=== PATIENT | female | born 1955 | race Two or more races ===

== ENCOUNTER → 2020-05-12 08:54 | Outpatient (BNVA) | payer MEDICARE, MEDICAID, OTHER, SELFPAY | PROVIDERS: PCP Internal Medicine; Referring Provider Internal Medicine; Visit Provider Nurse Practitioner | DX: K21.9 Gastro-esophageal reflux disease without esophagitis (principal); K59.01 Slow transit constipation; K64.9 Unspecified hemorrhoids; Z79.899 Other long term (current) drug therapy; Z87.19 Personal history of other diseases of the digestive system | CPT/HCPCS: 99212 ==

== ENCOUNTER 2020-06-30 11:25 | Outpatient (REF) | payer MEDICARE, MEDICAID, SELFPAY | END 2020-06-30 11:26 | disposition home or self-care (01) | LOC: HO.LAB 11:25 | PROVIDERS: PCP Internal Medicine; Visit Provider Internal Medicine | DX: Z20.828 Contact with and (suspected) exposure to other viral communicable diseases (principal) | CPT/HCPCS: C9803; U0003 ==

== ENCOUNTER 2020-09-17 12:16 | Outpatient (REF) | payer MEDICARE, MEDICAID, SELFPAY | END 2020-09-17 12:17 | disposition home or self-care (01) | LOC: HO.LAB 12:16 | PROVIDERS: PCP Internal Medicine; Visit Provider Internal Medicine | DX: Z20.822 Contact with and (suspected) exposure to COVID-19 (principal) | CPT/HCPCS: 36415; C9803; U0003; U0005 ==

== ENCOUNTER 2020-10-08 07:58 | Outpatient (REF) | payer MEDICARE, MEDICAID, SELFPAY ==
--- NOTE | ~2020-10-08 | XR_ITS ---
EXAMINATION: XR HUMERUS, LEFT CLINICAL INFORMATION: Pain in the arm COMPARISON: None TECHNIQUE: AP and lateral views of the left humerus. FINDINGS: There is no fracture or cortical disruption. Alignment is maintained at the shoulder and elbow. The soft tissues are unremarkable. XR/XR humerus LT IMPRESSION: Normal left humerus.
--- NOTE | ~2020-10-08 | XR_ITS ---
EXAMINATION: XR LUMBOSACRAL SPINE CLINICAL INFORMATION: Lower back pain COMPARISON: 01/19/2017 TECHNIQUE: Three views of the lumbosacral spine. FINDINGS: Multiple radiopaque densities are seen overlying the abdomen/pelvis. This is not seen on the 2017 study and may be external to the patient. There is no fracture or subluxation. Vertebral body height and alignment is maintained. Disc spaces are maintained. The sacroiliac joints are symmetric. The sacrum appears intact. The bowel gas pattern is nonobstructive with mild to moderate colonic stool burden noted. XR/XR lumbar spine 2-3V IMPRESSION: No significant abnormality of the lumbar spine. Nonspecific radiopaque densities overlie the abdomen and pelvis.
--- NOTE | ~2020-10-08 | XR_ITS ---
EXAMINATION: XR knee RT 3V CLINICAL INFORMATION: Reason for Exam M25.561 - Pain in right knee COMPARISON: 2019 TECHNIQUE: frontal, lateral, tunnel and patella sunrise views FINDINGS: BONES: No fracture or dislocation is present. JOINTS: Narrowing of joint spaces and developed osteophytes from the edges of articular surfaces suggest degenerative osteoarthritis. Intra-articular calcifications in concern for possible calcium prior phosphate deposition disease. SOFT TISSUE: Normal XR/XR knee RT 3V IMPRESSION: Mild degenerative osteoarthritis Intra-articular calcification suggesting chondrocalcinosis raises concern for possible CPPD
[2020-10-08 09:47] LABS: Glucose Urine UA NEG (NEG); Leukocyte Esterase Urine 2+ (NEG); Nitrite Urine NEG (NEG); PH 5.5 (5.0-8.0); Specific Gravity - Urine >= 1.030 (1.005-1.025); UACC Culture Trigger YES; Urine Blood TRACE (NEG); Urine Ketones NEG (NEG); Urine Protein NEG (NEG-TRACE)
[2020-10-08 10:04] LABS: Appearance Urine HAZY; Color Urine YELLOW
[2020-10-08 10:07] LABS: Bacteria Urine 1+ /LPF; Mucus Urine 1+ /LPF; RBC Urine 0 /HPF (0); Squamous Epithelial Cell Urine 2+ /LPF
[2020-10-08 10:12] LABS: Alanine Aminotransferase 16 U/L (0-31); Albumin Level 4.2 g/dL (3.5-5.0); Alkaline Phosphatase 62 U/L (39-117); Anion Gap 10 (12-20); Aspartate Amino Transferase 16 U/L (5-31); Bilirubin Total 0.3 mg/dL (0.0-1.0); Blood Urea Nitrogen 14 mg/dL (9-16); Calcium 9.9 mg/dL (8.4-10.2); Carbon Dioxide 31 mmol/L (22-29); Chloride 105 mmol/L (96-108); Cholesterol 156 mg/dL; Estimated Glomerular Filt Rate > 60; Glucose Fasting 90 mg/dL (60-99); HDL Cholesterol 38 mg/dL; LDL Cholesterol Calculated 79 mg/dl; Potassium 4.5 mmol/L (3.3-5.1); Sodium 141 mmol/L (135-145); Total Protein 7.6 g/dL (6.5-8.0); Triglycerides 195 mg/dL
[2020-10-08 10:24] LABS: TSH reflex Free T4 2.77 uIU/mL (0.32-4.0)
[2020-10-11 13:12] LABS: Vitamin D 25-OH, D2 <4 ng/mL; Vitamin D 25-OH, D3 47 ng/mL; Vitamin D 25-OH, Total 47 ng/mL (30-100)
== END 2020-10-08 07:59 | disposition home or self-care (01) ==
LOC: HO.LAB 07:58
PROVIDERS: PCP Internal Medicine; Visit Provider Internal Medicine
DX: M79.602 Pain in left arm (principal); M54.5 Low back pain; M25.561 Pain in right knee; I10 Essential (primary) hypertension; E78.5 Hyperlipidemia, unspecified; E03.9 Hypothyroidism, unspecified; R30.0 Dysuria; E55.9 Vitamin D deficiency, unspecified
CPT/HCPCS: 36415; 72100; 73060; 73562; 80053; 80061; 81001; 81003; 82306; 84443; 87086

== ENCOUNTER → 2020-11-10 08:59 | Outpatient (BNVA) | payer MEDICARE, MEDICAID, SELFPAY | PROVIDERS: PCP Internal Medicine; Visit Provider Nurse Practitioner | DX: Z13.89 Encounter for screening for other disorder (principal) | CPT/HCPCS: Q3014 ==

== ENCOUNTER 2020-12-21 19:04 | Emergency (ER) | payer MEDICARE, OTHER, SELFPAY ==
--- NOTE | ~2020-12-21 | XR_ITS ---
EXAMINATION: XR FOOT, LEFT XR ANKLE, LEFT CLINICAL INFORMATION: Pain and swelling status post fall. COMPARISON: 11/29/2017 TECHNIQUE: 3 views of the left foot. 2 additional views of the left ankle. FINDINGS: Left foot: No fracture or dislocation. Alignment is anatomic. Joint spaces are maintained. The soft tissues are unremarkable. Left ankle: No fracture or dislocation. Ankle mortise is congruent. Degenerative changes of the talar dome with cystic change and sclerosis. No ankle joint effusion. XR/XR ankle LT min 3V IMPRESSION: No acute osseous abnormality. Degenerative changes at the talar dome.
--- NOTE | ~2020-12-21 | XR_ITS ---
EXAMINATION: XR FOOT, LEFT XR ANKLE, LEFT CLINICAL INFORMATION: Pain and swelling status post fall. COMPARISON: 11/29/2017 TECHNIQUE: 3 views of the left foot. 2 additional views of the left ankle. FINDINGS: Left foot: No fracture or dislocation. Alignment is anatomic. Joint spaces are maintained. The soft tissues are unremarkable. Left ankle: No fracture or dislocation. Ankle mortise is congruent. Degenerative changes of the talar dome with cystic change and sclerosis. No ankle joint effusion. XR/XR foot LT min 3V IMPRESSION: No acute osseous abnormality. Degenerative changes at the talar dome.
[2020-12-21 19:11] VITALS: BP 167/82; PULSE 71; RESP 18; TEMP 36.5; O2SAT 98; BMI 23.9
[2020-12-21 21:32] VITALS: BP 161/77; PULSE 64; RESP 16; O2SAT 98
--- NOTE | 2020-12-21 21:33 | ED.LOWEXIN ---
HPI - Extremity Injury (Lower) General Chief Complaint: Extremity Injury, Lower Stated Complaint: Fall Time Seen by Provider: 12/21/20 21:31 Source: patient Mode of arrival: ambulatory Limitations: no limitations History of Present Illness HPI Narrative: Trip and fall twisting left ankle on rug at home. Occurred prior to arrival. No other injury. MD complaint: ankle injury Onset (ago): minute(s) Injury: Left: ankle Place: home Severity: moderate Relieving factors: cold therapy and immobilization Exacerbating factors: weight bearing, movement and palpation Context: fall Associated symptoms: swelling Other symptoms: none Related Data Home Medications Medication Instructions Recorded Confirmed cyclobenzaprine 10 mg tablet 10 mg PO TID PRN 04/21/20 12/17/20 meclizine 25 mg tablet 25 mg PO TID PRN 04/21/20 12/17/20 naproxen 500 mg tablet 500 mg PO BID 08/25/20 12/17/20 Previous Rx's Medication Instructions Recorded loratadine 10 mg tablet 10 mg PO DAILY 30 Days #30 tab 04/21/20 calcium carbonate 600 mg calcium 600 mg PO BID #60 tab 05/04/20 (1,500 mg) tablet docusate sodium 100 mg capsule 100 mg PO BID 30 Days #60 cap 05/12/20 hydrocortisone 2.5 % topical cream 1 applic AL BID PRN #30 g 05/12/20 with perineal applicator levothyroxine 50 mcg tablet 50 mcg PO QAM 90 Days #90 tab 08/27/20 lisinopril 20 mg tablet 20 mg PO DAILY #90 tab 10/14/20 cholecalciferol (vitamin D3) 25 25 mcg PO DAILY 30 Days #30 tab 11/06/20 mcg (1,000 unit) tablet methylcellulose (laxative) 500 mg 1,000 mg PO DAILY 30 Days #60 tab 11/10/20 tablet cimetidine 300 mg tablet 300 mg PO DAILY #30 tab 12/02/20 lubiprostone 24 mcg capsule 24 mcg PO BID #60 cap 12/02/20 ibuprofen 800 mg PO Q8H PRN #20 tab 12/21/20 Allergies Allergy/AdvReac Type Severity Reaction Status Date / Time amlodipine Allergy Mild leg edema Verified 12/17/20 10:40 aspirin [Aspirin] Allergy Mild ULCER HX, Verified 12/17/20 10:40 abdominal pain latex [Latex] Allergy Mild RASH Verified 12/17/20 10:40 metronidazole [Flagyl] Allergy Mild rash Verified 12/17/20 10:40 Review of Systems Review of Systems: Constitutional: No Weight loss, No Fever, No Chills, No Night Sweats, No Fatigue, No Malaise ENT/Mouth: No Hearing loss, No Ear Pain, No Nasal Congestion, No Sinus Pain, No Hoarseness, No sore throat, No Rhinorrhea, No Swallowing Difficulty Eyes: No Eye Pain, No Swelling, No Redness, No Foreign Body, No Discharge, No Vision Changes Cardiovascular: No Chest Pain, No SOB, No Dyspnea on Exertion, No Orthopnea, No Edema, No Palpitations Respiratory: No Cough, No Sputum, No Wheezing, No Smoke Exposure, No Dyspnea Musculoskeletal: No joint pain, No Myalgias, left ankle pain/swelling as noted per HPI Skin: No Skin Lesions, No rash Neuro: No Weakness, No Numbness, No Paresthesias, No Loss of Consciousness, No Dizziness, No Headache Psych: No Social Issues Heme/Lymph: No Bruising, No Bleeding,No Lymphadenopathy Endocrine: No Polyuria, No Polydipsia, No Temperature Intolerance Yes all other systems are reviewed and are negative PMFSH Past Medical History Medical History Allergic rhinitis Constipation by delayed colonic transit Essential hypertension GERD (gastroesophageal reflux disease) Hypothyroidism Hypovitaminosis D Low back pain Mild depression Neck pain Osteoarthritis of right knee Osteopenia Right knee pain Right shoulder pain TMJ (temporomandibular joint syndrome) Vertigo Surgical History History of prolapse of bladder History of tubal ligation Hx of colonoscopy Hx of cone biopsy of cervix Family History Family History Father Liver problem CVD (cardiovascular disease) Mother Diabetes Stroke Alzheimer disease Chronic mental illness Maternal Grandmother Cancer Uterine cancer Paternal Uncle Diabetes Brother Cancer Family/Other Chronic mental illness Daughter No problems noted. Daughter No problems noted. Social History Social History Housing: Homeless Alcohol intake: current Alcohol intake frequency: does not drink Patient Tobacco Use Status: Never used Tobacco e-Cigarette/Vaping Use: Never Used Second Hand Smoke Exposure: No Advance Directives: No Advance Directives Information Provided: Yes service: No Current occupational status: unemployed Physical Exam Vital Signs: Vital Signs: Last Vital Signs Temp 97.7 F 12/21/20 19:11 Pulse 64 12/21/20 21:32 Resp 16 12/21/20 21:32 BP 161/77 H 12/21/20 21:32 Pulse Ox 98 12/21/20 21:32 Body Mass Index 23.9 Review Const: General: cooperative and healthy appearing; No acute distress or intoxicated appearing Nutritional Appearance: average body habitus Orientation/consciousness: patient oriented x3 Neck: Neck: Yes normal visual inspection, No positive Brudzinski's sign, No positive Kernig's sign and No tender Thyroid: Thyroid normal Chest: Chest palpation & inspection: normal inspection of the chest Resp: Effort & Inspection: normal respiratory effort : General: Yes no CVA tenderness Back/Spine/Pelvis: Back: no CVA tenderness Skin: General skin exam: no rashes or lesions noted Neuro: General: patient oriented x3 Extrem: General: Yes normal to inspection Left lower extremity: ankle Details: swelling Details: laterally Course Course Course Narrative: A strep and crutches provided. X-ray of the foot and ankle unremarkable. Exam and findings consistent with strain type injury. Home care, return, follow-up instructions put appears stable for discharge. MDM - Extremity Injury (Lower) Differential Diagnosis Differential diagnosis: Likely ankle sprain and strain; Unlikely ankle fracture Medical Records Attestation: I reviewed the patient's medical records. Lab Data Attestation: I reviewed the patient's lab results. Imaging Data Left ankle/foot x-ray: Radiologist's impression: [address] [id number] ReportSigned Patient: Lalito Kennedy#: [id number]: 1955cct:[id number]/Sex: 65 / FADM Date: 12/21/20Loc: EDAttending Dr: Ordering Physician: Generic ED Physician Date of Service: 12/21/20 Procedure(s): XR ankle LT min 3V Accession Number(s): [id number] cc: Generic ED Physician~ EXAMINATION: XR FOOT, LEFT XR ANKLE, LEFT CLINICAL INFORMATION: Pain and swelling status post fall. COMPARISON: 11/29/2017 TECHNIQUE: 3 views of the left foot. 2 additional views of the left ankle. FINDINGS: Left foot: No fracture or dislocation. Alignment is anatomic. Joint spaces are maintained. The soft tissues are unremarkable. Left ankle: No fracture or dislocation. Ankle mortise is congruent. Degenerative changes of the talar dome with cystic change and sclerosis. No ankle joint effusion. XR/XR ankle LT min 3V IMPRESSION: No acute osseous abnormality. Degenerative changes at the talar dome. Dictated By:Herberth Gresham MDSigned By:<Electronically signed by Herberth Gresham MD in OV>12/21/202003 DD/ 28TD/TT: Senior Manufacturing Technician: BLAIRE Discharge Plan Discharge Clinical Impression: Ankle sprain and strain Patient Disposition: Home, Self-Care Instructions: Ankle Sprain (ED), Crutch Instructions (ED) Additional Instructions: Your x-ray did not show any evidence of broken bone Your findings are consistent with ankle sprain Ice, elevate, compress Crutches Home safety and proper use for crutches Home supportive cares discussed Return if any concerns or worsening symptoms Thank you Prescriptions: New ibuprofen 800 mg tablet 800 mg PO Q8H PRN (Reason: pain) Qty: 20 RF: 0 No Action calcium carbonate 600 mg calcium (1,500 mg) tablet 600 mg PO BID Qty: 60 RF: 6 levothyroxine 50 mcg tablet 50 mcg PO QAM 90 Days Qty: 90 RF: 1 lisinopril 20 mg tablet 20 mg PO DAILY Qty: 90 RF: 2 cholecalciferol (vitamin D3) 25 mcg (1,000 unit) tablet 25 mcg PO DAILY 30 Days Qty: 30 RF: 11 lubiprostone [Amitiza] 24 mcg capsule 24 mcg PO BID Qty: 60 RF: 6 cimetidine 300 mg tablet 300 mg PO DAILY Qty: 30 RF: 6 cyclobenzaprine 10 mg tablet 10 mg PO TID PRNRF: 0 meclizine 25 mg tablet 25 mg PO TID PRNRF: 0 loratadine 10 mg tablet 10 mg PO DAILY 30 Days Qty: 30 RF: 11 naproxen 500 mg tablet 500 mg PO BID RF: 0 hydrocortisone [Anusol-HC] 2.5 % cream with perineal applicator 1 applic AL BID PRN (Reason: hemorrhoids) Qty: 30 RF: 4 docusate sodium [Colace] 100 mg capsule 100 mg PO BID 30 Days Qty: 60 RF: 6 Citrucel 500 mg tablet 1,000 mg PO DAILY 30 Days Qty: 60 RF: 6 Referrals: Lakeisha Rojas MD [Primary Care Provider] - 1 week Interventions: ED Discharge Assessment Last Done: 12/21/20 21:41 Discharge Date/Time: 12/21/20 21:45
--- NOTE | 2020-12-21 21:35 | PC.NURSE ---
[place] WRAP APPLIED TO L ANKLE AND CRUTCHES GIVEN TO PATIENT.
== END 2020-12-21 21:45 | disposition home or self-care (01) ==
PROVIDERS: Emergency Provider Emergency Medicine; PCP Internal Medicine
DX: S93.402A Sprain of unspecified ligament of left ankle, initial encounter (principal); S96.912A Strain of unspecified muscle and tendon at ankle and foot level, left foot, initial encounter; I10 Essential (primary) hypertension; Z79.899 Other long term (current) drug therapy; W01.0XXA Fall on same level from slipping, tripping and stumbling without subsequent striking against object, initial encounter; Y93.9 Activity, unspecified; Y92.9 Unspecified place or not applicable; Y99.9 Unspecified external cause status; Z59.0 Homelessness
CPT/HCPCS: 73610; 73630; 99283; 99284

== ENCOUNTER 2021-01-18 14:50 | Outpatient (REF) | payer MEDICARE, OTHER, SELFPAY | END 2021-01-18 14:51 | disposition home or self-care (01) | LOC: HO.LAB 14:50 | PROVIDERS: PCP Internal Medicine; Visit Provider Internal Medicine | DX: Z20.822 Contact with and (suspected) exposure to COVID-19 (principal) | CPT/HCPCS: C9803; U0003; U0005 ==

== ENCOUNTER 2021-03-03 13:28 | Outpatient (REF) | payer MEDICARE, OTHER, SELFPAY ==
--- NOTE | ~2021-03-03 | US_ITS ---
EXAMINATION: US THYROID CLINICAL INFORMATION: Hypothyroidism, unspecified. COMPARISON: Ultrasound soft tissue head/neck thyroid dated 03/03/2020 and 05/06/2019. TECHNIQUE: Linear transducer grayscale and color Doppler examination with attention to the region of the thyroid. FINDINGS: SIZE: Measurements of the thyroid lobes and nodules are given in sagittal, anteroposterior and transverse dimensions respectively. Right Thyroid Lobe: 5.0 x 1.3 x 1.3 cm, volume 4.2 mL. Previously 4.9 x 1.5 x 1.5 cm, volume 5.4 mL. Parenchyma: The gland echotexture is homogeneous. Thyroid vascularity is normal. Left Thyroid Lobe: 3.9 x 1.3 x 1.4 cm, volume 3.6 mL. Previously 3.4 x 1.4 x 1.6 cm, volume 3.9 mL. Parenchyma: The gland echotexture is homogeneous. Thyroid vascularity is normal. Isthmus: 0.3 cm in maximum AP dimension. Previously 0.3 cm. Estimated total number of nodules greater than or equal to 1 cm: 2. Dining Room Host nodules are described as follows: 1. Location: Right mid. Size: 1.0 x 1.0 x 1.0 cm, volume 0.5 mL. Previously: 1.0 x 0.9 x 0.9 cm, volume 0.4 mL. Nodule characteristics: Composition: Cystic(0). ACR TI-RADS total points: 0 ACR TI-RADS category: 1 Significant change in size (>/= 20% in 2 dimensions and minimal increase of 2 mm or 50% or greater increase in volume): Change in features: Change in ACR TI-RADS risk category: 2. Location: Right mid. Size: 0.5 x 0.5 x 0.5 cm, volume 0.07 mL. Previously: 0.8 x 0.7 x 0.6 cm, volume 0.2 mL. Nodule characteristics: Composition: Solid (2). Echogenicity: Isoechoic (1). Shape: Not taller than wide (0). Margins: Smooth (0). Echogenic Foci: None (0). ACR TI-RADS total points: 3 ACR TI-RADS category: 3 Significant change in size (>/= 20% in 2 dimensions and minimal increase of 2 mm or 50% or greater increase in volume): Change in features: Change in ACR TI-RADS risk category: 3. Location: Left mid. Size: 0.8 x 0.9 x 1.0 cm, volume 0.36 mL. Previously: 1.0 x 0.7 x 1.0 cm, volume 0.4 mL. Nodule characteristics: Composition: Solid (2). Echogenicity: Isoechoic (1). Shape: Not taller than wide (0). Margins: Smooth (0). Echogenic Foci: None (0). ACR TI-RADS total points: 3 ACR TI-RADS category: 3 Significant change in size (>/= 20% in 2 dimensions and minimal increase of 2 mm or 50% or greater increase in volume): Change in features: Change in ACR TI-RADS risk category: There are 2 nodules in the lower pole of the right lobe the liver seen on prior exam March 2020 but are not appreciated on the current exam. NODES: No lymphadenopathy is seen in the tissue surrounding the thyroid gland. US/US thyroid IMPRESSION: Bilateral thyroid nodules. 2 nodules in the lower pole of the right lobe seen on prior exam are not appreciated. Otherwise thyroid nodules are stable.. ACR TI-RADS RECOMMENDATION REFERENCE: Ultrasound-guided fine-needle aspiration, followup ultrasound, no further follow up. * TR1 (0 point) and TR 2 (2 points): No FNA or follow up * TR3 (3 points): FNA if more than or equal to 2.5 cm in maximum dimension, followup ultrasound in 1, 3 and 5 years if 1.5 to 2.4 cm in maximum dimension. * TR4 (4-6 points): FNA if more than or equal to 1.5 cm in maximum dimension, followup ultrasound in 1, 2, 3 and 5 years if 1 to 1.4 cm in maximum dimension. * TR5 (more than or equal to 7 points): FNA if more than or equal to 1 cm in maximum dimension, followup ultrasound every year for 5 years if 0.5 to 0.9 cm in maximum dimension. * TR3, TR4 or TR5 nodules that are below the size threshold for follow up receive no follow up.
== END 2021-03-03 13:29 | disposition home or self-care (01) ==
LOC: HO.US 13:28
PROVIDERS: PCP Internal Medicine; Visit Provider Internal Medicine Endocrinology, Diabetes & Metabolism
DX: E04.2 Nontoxic multinodular goiter (principal); E03.9 Hypothyroidism, unspecified
CPT/HCPCS: 76536

== ENCOUNTER 2021-03-10 10:41 | Outpatient (REF) | payer MEDICARE, OTHER, SELFPAY ==
--- NOTE | ~2021-03-10 | MM_ITS ---
EXAMINATION: MM SCREENING DIGITAL BREAST TOMOSYNTHESIS, BILATERAL CLINICAL INFORMATION: Screening. Asymptomatic. The lifetime risk of breast cancer based on the Tyrer-Cuzick Model is 3%. COMPARISON: Mammography: 03/04/2020, 02/20/2019, 02/19/2018 TECHNIQUE: Digital breast tomosynthesis is performed in both the craniocaudal and mediolateral oblique views along with computer-aided detection (CAD). Synthesized 2D images are generated from the tomosynthesis. FINDINGS: There are scattered areas of fibroglandular density (ACR BI-RADS breast composition Category b). There are no significant masses, abnormal calcifications, or other abnormalities. Parenchymal pattern is similar to prior studies. Skin contours are smooth. No significant changes. MM/MM tomosynthesis screening BI IMPRESSION: No mammographic evidence of malignancy. ASSESSMENT: BI-RADS 1: Negative RECOMMENDATION: Routine annual mammography screening. This patient's information was entered into a reminder system with a target due date for their next mammogram.
== END 2021-03-10 10:42 | disposition home or self-care (01) ==
LOC: HO.MAMMO 10:41
PROVIDERS: Visit Provider Internal Medicine
DX: Z12.31 Encounter for screening mammogram for malignant neoplasm of breast (principal)
CPT/HCPCS: 77063; 77067

== ENCOUNTER → 2021-05-18 12:49 | Outpatient (BNVA) | payer MEDICARE, OTHER, SELFPAY | PROVIDERS: PCP Internal Medicine; Visit Provider Nurse Practitioner | DX: K59.01 Slow transit constipation (principal); K21.9 Gastro-esophageal reflux disease without esophagitis; K57.32 Diverticulitis of large intestine without perforation or abscess without bleeding | CPT/HCPCS: Q3014 ==

== ENCOUNTER 2021-06-30 11:15 | Outpatient (REF) | payer MEDICARE, OTHER, SELFPAY ==
[2021-06-30 13:16] LABS: COVID-19 Test Negative (Negative)
== END 2021-06-30 11:16 | disposition home or self-care (01) ==
LOC: HO.LAB 11:15
PROVIDERS: Visit Provider Internal Medicine
DX: Z20.822 Contact with and (suspected) exposure to COVID-19 (principal)
CPT/HCPCS: 36415; 87635; C9803

== ENCOUNTER 2021-07-08 07:46 | Outpatient (REF) | payer MEDICARE, OTHER, SELFPAY | END 2021-07-08 07:47 | disposition home or self-care (01) | LOC: HO.US 07:46 | PROVIDERS: PCP Internal Medicine; Visit Provider Internal Medicine | DX: Z13.89 Encounter for screening for other disorder (principal) ==

== ENCOUNTER 2021-07-08 09:53 | Outpatient (REF) | payer MEDICARE, OTHER, SELFPAY ==
[2021-07-08 12:34] LABS: Binax Internal Control QC Valid; Binax Now Covid-19 Ag Positive (Negative)
== END 2021-07-08 09:54 | disposition home or self-care (01) ==
LOC: HO.LAB 09:53
PROVIDERS: Visit Provider Internal Medicine
DX: Z20.822 Contact with and (suspected) exposure to COVID-19 (principal)
CPT/HCPCS: 36415; C9803

== ENCOUNTER 2021-07-21 08:25 | Outpatient (REF) | payer MEDICARE, OTHER, SELFPAY ==
[2021-07-21 09:08] LABS: COVID-19 Test Negative (Negative); IDNOW Serial# 16C4AD1C
== END 2021-07-21 08:26 | disposition home or self-care (01) ==
LOC: HO.LAB 08:25
PROVIDERS: Visit Provider Internal Medicine
DX: Z20.822 Contact with and (suspected) exposure to COVID-19 (principal)
CPT/HCPCS: 87635; C9803

== ENCOUNTER 2021-08-05 07:24 | Outpatient (REF) | payer MEDICARE, OTHER, SELFPAY ==
--- NOTE | 2021-08-05 08:35 | P.BOP_ITS ---
Brief Operative Note Date of Service: 08/05/21 Pre-op diagnosis: Multinodular Thyroid Procedure: This is doctor Fernanda Borrero. This is an ultrasound-guided fine-needle aspiration report. Date of Examination: 08/05/2021 Indication: Multinodular Thyroid Porcedure: Procedure was explained to the patient. Alternatives, the risk and benefits were discussed. Written consent was obtained. A time-out was also obtained. After sterile preparation, fine-needle aspiration of a left mid pole 1.0 cm thyroid nodule was performed using direct ultrasound guidance to confirm accurate needle placement. Four aspirations were made using 27 gauge needles. An additional 2 aspirations were made using 25 guage needles. Samples were submitted for cytology. Our attention was then turned to the right mid pole. Fine-needle aspiration of a right mid pole 1.0 cm thyroid nodule was performed using direct ultrasound guidance to confirm accurate needle placement. Three aspirations were made using 27 gauge needles. Samples were submitted for cytology. 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 The patient tolerated the procedure well. Aftercare instructions were provided. Impression: Uncomplicated fine needle aspiration biopsy of a left mid pole 1.0 cm thyroid nodule and a right mid pole 1.0 cm thyroid nodule under ultrasound guidance. Surgeon: Fernanda Borrero, DO Was an Coil Wrapper used for this Procedure?: No Estimated blood loss (mL): 0
[2021-08-05] MEDS: Lidocaine HCl 1 % MPF 5 ML VIAL 2 ML SUBCUT (10:22)
== END 2021-08-05 07:25 | disposition home or self-care (01) ==
LOC: HO.US 07:24
PROVIDERS: PCP Internal Medicine; Visit Provider Internal Medicine
DX: E04.2 Nontoxic multinodular goiter (principal)
CPT/HCPCS: 10005; 10006; 88172; 88173; 88177

== ENCOUNTER 2021-08-05 09:05 | Outpatient (REF) | payer MEDICARE, OTHER, SELFPAY ==
[2021-08-05 09:28] LABS: MANUAL DIFF FLAG NO
[2021-08-05 09:49] LABS: Basophils Percent Auto 0.4 % (0-2); Eosinophils Absolute Auto 0.2 X10*3/uL (0.0-0.4); Eosinophils Percent Auto 3.2 % (0-4); Hematocrit 38.6 % (37.0-47.0); Hemoglobin 12.5 g/dl (12.0-16.0); Imm Gran Abs Auto 0.01 X10*3/uL (0.00-0.03); Imm Gran Pct Auto 0.2 % (0.0-0.4); Lymphocytes Absolute Auto 2.1 X10*3/uL (1.2-4.9); Lymphocytes Percent Auto 41.6 % (20-40); Mean Corpuscular HGB Conc 32.4 g/dl (31.0-35.0); Mean Corpuscular Hemoglobin 29.3 pg (27.0-33.0); Mean Corpuscular Volume 90.4 fL (80.0-98.0); Mean Platelet Volume 9.7 fL (9.4-12.3); Monocytes Absolute Auto 0.4 X10*3/uL (0.1-1.2); Monocytes Percent Auto 8.9 % (2-11); Neutrophils Absolute Auto 2.3 x10*3/uL (2.0-8.3); Neutrophils Percent Auto 45.7 % (45-73); Platelet Count 242 X10*3/uL (160-400); Red Blood Count 4.27 X10*6/uL (4.20-5.50); Red Cell Distribution Width 13.6 % (11.0-16.0)
[2021-08-05 10:16] LABS: Alanine Aminotransferase 19 U/L (0-31); Albumin Level 4.5 g/dL (3.5-5.0); Alkaline Phosphatase 73 U/L (39-117); Anion Gap 11 (12-20); Aspartate Amino Transferase 22 U/L (5-31); Bilirubin Total 0.3 mg/dL (0.0-1.0); Blood Urea Nitrogen 13 mg/dL (9-16); Calcium 10.3 mg/dL (8.4-10.2); Carbon Dioxide 29 mmol/L (22-29); Chloride 105 mmol/L (96-108); Cholesterol 213 mg/dL; Estimated Glomerular Filt Rate > 60; Glucose Fasting 101 mg/dL (60-99); HDL Cholesterol 41 mg/dL; LDL Cholesterol Calculated 135 mg/dl; Potassium 4.2 mmol/L (3.3-5.1); Sodium 141 mmol/L (135-145); Total Protein 8.6 g/dL (6.5-8.0); Triglycerides 189 mg/dL
[2021-08-05 10:31] LABS: Thyroid Stimulating Hormone 3.54 uIU/mL (0.32-4.0)
[2021-08-05 10:36] LABS: TSH reflex Free T4 3.18 uIU/mL (0.32-4.0)
[2021-08-09 14:27] LABS: Vitamin D 25-OH, D2 <4 ng/mL; Vitamin D 25-OH, D3 44 ng/mL; Vitamin D 25-OH, Total 44 ng/mL (30-100)
== END 2021-08-05 09:06 | disposition home or self-care (01) ==
LOC: HO.LAB 09:05
PROVIDERS: PCP Internal Medicine; Visit Provider Internal Medicine
DX: E03.9 Hypothyroidism, unspecified (principal); E55.9 Vitamin D deficiency, unspecified; I10 Essential (primary) hypertension; K59.01 Slow transit constipation; D64.9 Anemia, unspecified
CPT/HCPCS: 36415; 80053; 80061; 82306; 84443; 85025

== ENCOUNTER → 2021-08-25 09:14 | Outpatient (BNVA) | payer MEDICARE, OTHER, SELFPAY | PROVIDERS: PCP Internal Medicine; Visit Provider Internal Medicine | DX: E03.9 Hypothyroidism, unspecified (principal); E04.2 Nontoxic multinodular goiter; E55.9 Vitamin D deficiency, unspecified | CPT/HCPCS: Q3014 ==

== ENCOUNTER 2021-10-01 08:53 | Outpatient (REF) | payer MEDICARE, OTHER, SELFPAY ==
--- NOTE | ~2021-10-01 | MM_ITS ---
EXAMINATION: BONE DENSITOMETRY CLINICAL INDICATION: Asymptomatic menopausal state. COMPARISON: Baseline BD dated 01/04/2019. TECHNIQUE: Using a [employer] DXA System (software version: 13.1) manufactured by [employer], dual-energy x-ray absorptiometry was performed of the lumbar spine and left hip. The images are of good technical quality. Summary results are attached. FINDINGS: AP SPINE L1-L4: Current: BMD 0.932 g/cm2, Z-score -0.4, T-score -2.1, osteopenia, 2.4% decrease from baseline (<5% change is not significant). Baseline: BMD 0.955 g/cm2. LEFT FEMUR, NECK: Current: BMD 0.889 g/cm2, Z-score 0.6, T-score -1.1, osteopenia. Baseline: BMD 0.852 g/cm2. LEFT FEMUR, TOTAL: Current: BMD 1.032 g/cm2, Z-score 1.6, T-score 0.2, normal, 1.8% increase from baseline (<5% change is not significant). Baseline: BMD 1.014 g/cm2. IDENTIFIED RISK FACTORS: Menopause. HISTORY OF FRACTURE: None listed. MEDICATIONS: Calcium supplements or multivitamin, vitamin D. MM/XR DEXA axial skeleton IMPRESSION: 1. DIAGNOSIS: Osteopenia based on the lowest T-score value of -2.1 in the lumbar spine applying World Health Organization criteria. 2. 10-YEAR FRACTURE RISK PREDICTION, FRAX: Major osteoporotic fracture (clinical spine, forearm, hip or shoulder) 5.0%. Hip fracture 0.5%. 3. Treatment Recommendations: NOF guidelines recommend consideration for treatment in postmenopausal women and men age 50 and older presenting with the following: -A hip or vertebral (clinical or morphometric) fracture. -T-score less than or equal to -2.5 at the femoral neck or spine after appropriate evaluation to exclude secondary causes. -Low bone mass at the hip or spine and a 10-year fracture probability by FRAX of greater than or equal to 3% for hip fracture or greater than or equal to 20% for major osteoporotic fracture based on the [place] adapted WHO algorithm. 4. Other Recommendations: All treatment decisions require clinical judgment and consideration of individual patient factors, including patient preferences, comorbidities, previous drug use, risk factors not captured in the FRAX model (e.g. frailty, falls, vitamin D deficiency, increased bone turnover, interval significant decline in bone density) and possible under or overestimation of fracture risk by FRAX. Additional medical evaluation for secondary cause of low bone mineral density may be appropriate. FUTURE SCAN RECOMMENDATION: People with diagnosed cases of osteoporosis or at high risk for fracture should have regular bone mineral density tests. For patients eligible for Medicare, routine testing is allowed once every 2 years. The testing frequency can be increased to one year for patients who have rapidly progressing disease, those who are receiving or discontinuing medical therapy to restore bone mass, or have additional risk factors.
== END 2021-10-01 08:54 | disposition home or self-care (01) ==
LOC: HO.MAMMO 08:53
PROVIDERS: PCP Internal Medicine; Visit Provider Nurse Practitioner Family
DX: Z13.820 Encounter for screening for osteoporosis (principal); Z78.0 Asymptomatic menopausal state
CPT/HCPCS: 77080

== ENCOUNTER 2021-11-05 09:32 | Outpatient (REF) | payer MEDICARE, MEDICAID, SELFPAY ==
[2021-11-05 10:25] LABS: Alanine Aminotransferase 19 U/L (0-31); Albumin Level 4.1 g/dL (3.5-5.0); Alkaline Phosphatase 58 U/L (39-117); Anion Gap 11 (12-20); Aspartate Amino Transferase 16 U/L (5-31); Bilirubin Total 0.4 mg/dL (0.0-1.0); Blood Urea Nitrogen 16 mg/dL (9-16); Calcium 9.8 mg/dL (8.4-10.2); Carbon Dioxide 29 mmol/L (22-29); Chloride 105 mmol/L (96-108); Estimated Glomerular Filt Rate > 60; Glucose Random 102 mg/dL (60-115); Phosphorus 3.3 mg/dL (2.7-4.5); Potassium 4.7 mmol/L (3.3-5.1); Sodium 140 mmol/L (135-145); Total Protein 7.6 g/dL (6.5-8.0)
[2021-11-05 10:45] LABS: Vitamin D 25-OH Total 47.2 ng/mL (>30)
[2021-11-08 17:17] LABS: PTHI 44 pg/mL (16-77)
== END 2021-11-05 09:33 | disposition home or self-care (01) ==
LOC: HO.LAB 09:32
PROVIDERS: Absent Provider Internal Medicine; PCP Internal Medicine; Visit Provider Internal Medicine
DX: E55.9 Vitamin D deficiency, unspecified (principal)
CPT/HCPCS: 36415; 80053; 82306; 83970; 84100

== ENCOUNTER → 2021-11-16 12:36 | Outpatient (BNVA) | payer MEDICARE, MEDICAID, SELFPAY | PROVIDERS: PCP Internal Medicine; Referring Provider Internal Medicine; Visit Provider Nurse Practitioner | DX: K59.01 Slow transit constipation (principal); K21.9 Gastro-esophageal reflux disease without esophagitis; K64.9 Unspecified hemorrhoids; Z87.19 Personal history of other diseases of the digestive system | CPT/HCPCS: 99212 ==

== ENCOUNTER → 2021-12-17 12:35 | Outpatient (BNVA) | payer MEDICARE, MEDICAID, SELFPAY | PROVIDERS: PCP Internal Medicine; Visit Provider Nurse Practitioner | DX: K59.01 Slow transit constipation (principal); K21.9 Gastro-esophageal reflux disease without esophagitis; K64.9 Unspecified hemorrhoids | CPT/HCPCS: 99212 ==

== ENCOUNTER 2021-12-25 12:38 | Emergency (ER) | payer MEDICARE, MEDICAID, SELFPAY ==
--- NOTE | ~2021-12-25 | CT_ITS ---
EXAMINATION: CT ANGIOGRAM CHEST CLINICAL INFORMATION: Chest pain radiating to back COMPARISON: None TECHNIQUE: Multiple axial images were obtained through the chest after the administration of 70 mL of Omnipaque 350 intravenous contrast. Extensive vascular post-processing including two-dimensional and three-dimensional reformatted images were created and reviewed on an independent workstation. This CT examination was performed using dose optimization techniques as appropriate, variously including the following: *Automated exposure control *Adjustment of mA and/or kV according to patient size (this includes techniques or standardized protocols for targeted exams where dose is matched to indication/reason for exam; i.e. extremities or head) *Use of iterative reconstruction technique DLP: 198 mGy-cm FINDINGS: Vascular: Normal course and caliber of the ascending thoracic aorta without aneurysmal dilatation or dissection three-vessel aortic arch. The visualized proximal great vessels are all widely patent. Visualized celiac axis is patent. LUNGS: There is pleural-parenchymal scarring in the lung apices. There is no consolidation. Mild bronchial wall thickening. A few scattered micronodules, no suspicious pulmonary nodules. Mediastinum: There are subcentimeter hyperdense thyroid nodules. No bulky mediastinal lymphadenopathy. Normal heart size, no pericardial effusion. Axilla: No bulky axillary lymphadenopathy. Pleura: No pleural effusion or pneumothorax. Upper abdomen: Unremarkable. Osseous structures: Unremarkable. CT/CT angio chest aorta IMPRESSION: Unremarkable CTA of the chest. No evidence for acute vascular injury. Fleischner guidelines were followed.
--- NOTE | 2021-12-25 12:42 | ECG_ITS ---
Test Reason : CP Blood Pressure : / mmHG Vent. Rate : 093 BPM Atrial Rate : 093 BPM P-R Int : 180 ms QRS Dur : 118 ms QT Int : 358 ms P-R-T Axes : 067 -06 039 degrees QTc Int : 445 ms Normal sinus rhythm Right bundle branch block Abnormal ECG When compared with ECG of 10-OCT-2008 13:34, Vent. rate has increased BY 36 BPM Right bundle branch block is now Present Referred By: Generic ED Physician Electronically Signed By:KAELA GRIJALVA MD
[2021-12-25 12:46] VITALS: BP 153/93; PULSE 100; RESP 18; TEMP 37; O2SAT 100; BMI 25.7
[2021-12-25 15:00] LABS: MANUAL DIFF FLAG NO
[2021-12-25 15:02] LABS: Basophils Percent Auto 0.4 % (0-2); Eosinophils Absolute Auto 0.2 X10*3/uL (0.0-0.4); Eosinophils Percent Auto 3.5 % (0-4); Hematocrit 36.7 % (37.0-47.0); Hemoglobin 12.1 g/dl (12.0-16.0); Imm Gran Abs Auto 0.01 X10*3/uL (0.00-0.03); Imm Gran Pct Auto 0.2 % (0.0-0.4); Lymphocytes Percent Auto 36.9 % (20-40); Mean Corpuscular Hemoglobin 29.1 pg (27.0-33.0); Mean Corpuscular Volume 88.2 fL (80.0-98.0); Mean Platelet Volume 9.2 fL (9.4-12.3); Monocytes Absolute Auto 0.5 X10*3/uL (0.1-1.2); Monocytes Percent Auto 9.3 % (2-11); Neutrophils Absolute Auto 2.7 x10*3/uL (2.0-8.3); Neutrophils Percent Auto 49.7 % (45-73); Platelet Count 221 X10*3/uL (160-400); Red Blood Count 4.16 X10*6/uL (4.20-5.50); Red Cell Distribution Width 13.2 % (11.0-16.0); White Blood Count 5.5 X10*3/uL (4.8-10.8)
[2021-12-25 15:20] LABS: Alanine Aminotransferase 16 U/L (0-31); Albumin Level 4.1 g/dL (3.5-5.0); Alkaline Phosphatase 58 U/L (39-117); Anion Gap 10 (12-20); Aspartate Amino Transferase 17 U/L (5-31); Bilirubin Total 0.4 mg/dL (0.0-1.0); Blood Urea Nitrogen 14 mg/dL (9-16); Calcium 9.8 mg/dL (8.4-10.2); Carbon Dioxide 29 mmol/L (22-29); Chloride 106 mmol/L (96-108); Estimated Glomerular Filt Rate > 60; Glucose Random 87 mg/dL (60-115); Potassium 4.9 mmol/L (3.3-5.1); Sodium 140 mmol/L (135-145); Total Protein 7.5 g/dL (6.5-8.0)
[2021-12-25 15:21] LABS: Troponin-I High Sensitivity < 3.5 ng/L (<3.5-17.0)
[2021-12-25 15:49] VITALS: BP 140/73; PULSE 62; RESP 16; TEMP 36; O2SAT 100
--- NOTE | 2021-12-25 15:53 | ED_ITS ---
HPI - Chest Pain General Chief Complaint: Chest Pain Stated Complaint: Chest pain/back pain Source: patient Mode of arrival: ambulatory Limitations: no limitations History of Present Illness HPI narrative: 66-year-old female presents with 2 days of chest pain that starts substernally and radiates to her back. States it feels like a ripping pulling pain and does not change when she changes position. The pain has progressively worsened and is now radiating up into her neck. She noted the pain while she was driving, but feels like it could be a pulled muscle. She does have a significant family history of AL, stroke, and aneurysm. She does not report any dizziness, lightheadedness, weakness, decrease in strength, abdominal pain, abdominal distention, fevers, chills, or changes in vision. MD complaint: chest pain Onset (ago): day(s) (2) Timing of current episode: constant and increasing Prior episodes: No Onset: during rest (While driving in a car) Pain location: substernal and epigastric Pain radiation: neck, right shoulder and right scapula Severity: moderate Pain scale (0-10): 6 Quality: aching and tearing Relieving factors: nothing Exacerbating factors: nothing Treatment prior to arrival: none Risk Factors Coronary artery disease risk factors: diabetes, hypertension and family history of CAD before age 50 Thoracic aortic dissection risk factors: none Related Data On Oral Contraceptives: No Home Medications Medication Instructions Recorded Confirmed cyclobenzaprine 10 mg tablet 10 mg PO TID PRN 04/21/20 11/09/21 estradiol 1 g vaginal 3XW 04/09/21 11/09/21 naproxen 500 mg tablet 500 mg PO BID PRN 08/25/21 11/09/21 Previous Rx's Medication Instructions Recorded cholecalciferol (vitamin D3) 25 25 mcg PO DAILY 30 days #30 tabs 11/06/20 mcg (1,000 unit) tablet loratadine 10 mg tablet 10 mg PO DAILY 30 days #30 tabs 05/04/21 docusate sodium 100 mg capsule 100 mg PO BID #60 caps 05/18/21 methylcellulose (laxative) 500 mg 1,000 mg PO DAILY 30 days #60 tabs 05/18/21 tablet (Citrucel) hydrocortisone 2.5 % topical cream 1 appl MT BID PRN hemorrhoids #30 07/06/21 with perineal applicator grams (Proctozone-HC) calcium carbonate 600 mg calcium 600 mg PO BID #60 tabs 07/07/21 (1,500 mg) tablet levothyroxine 50 mcg tablet 50 mcg PO QAM 90 days #90 tabs 08/25/21 losartan 50 mg tablet 50 mg PO DAILY 90 days #90 tabs 11/09/21 linaclotide 145 mcg capsule 145 mcg PO QAM #30 caps 11/16/21 (Linzess) famotidine 40 mg tablet (Pepcid) 40 mg PO BID #60 tabs 12/17/21 Allergies Allergy/AdvReac Type Severity Reaction Status Date / Time amlodipine Allergy Mild leg edema Verified 12/17/21 12:53 aspirin [Aspirin] Allergy Mild ULCER HX, Verified 12/17/21 12:53 abdominal pain latex [Latex] Allergy Mild RASH Verified 12/17/21 12:53 metronidazole [Flagyl] Allergy Mild rash Verified 12/17/21 12:53 Review of Systems Review of Systems: Constitutional: No Fever, No Chills ENT/Mouth: No Ear Pain, No Hoarseness, No sore throat Eyes: No Eye Pain, No Swelling, No Redness, No Foreign Body Cardiovascular: Positive Chest Pain, No SOB Respiratory: No Cough, No Dyspnea Gastrointestinal: No Nausea, No Vomiting, No Diarrhea, No abdominal Pain Genitourinary: No Dysuria, No Hematuria Musculoskeletal: positive right shoulder and neck pain, No Myalgias, No Joint Swelling Skin: No Skin lacerations, No rash Neuro: No Weakness, No Numbness, No Paresthesias, No Loss of Consciousness, No Dizziness, No Headache Psych: No Anxiety/Panic, No Depression Heme/Lymph: no easy bruising, no Lymphadenopathy Endocrine: No Polyuria, No Polydipsia Yes all other systems are reviewed and are negative [facility] Past Medical History Attestation statement: The following information was validated with the patient. Source: old records reviewed Surgical History History of prolapse of bladder History of root canal procedure History of tubal ligation Hx of colonoscopy Hx of cone biopsy of cervix Family History Family History Father Liver problem CVD (cardiovascular disease) Mother Diabetes Stroke Alzheimer disease Chronic mental illness Maternal Grandmother Cancer Uterine cancer Paternal Uncle Diabetes Brother Cancer Family/Other Chronic mental illness Daughter No problems noted. Daughter No problems noted. Social History Social History Housing: Apartment Alcohol intake: never Patient Tobacco Use Status: Never used Tobacco e-Cigarette/Vaping Use: Never Used Second Hand Smoke Exposure: No Advance Directives: No Advance Directives Information Provided: No service: No Current occupational status: unemployed Cognitive needs: No Hearing needs: No Vision needs: No Physical Exam Vital Signs: Vital Signs: Last Vital Signs Temp 97.6 F 12/25/21 18:38 Pulse 66 12/25/21 18:38 Resp 20 12/25/21 18:38 BP 165/80 H 12/25/21 18:38 Pulse Ox 96 12/25/21 18:38 O2 Del Method 12/25/21 18:38 BMI result Body Mass Index 25.7 Appearance: Alert. Oriented X3. No acute distress. Eyes: Pupils equal, round and reactive to light. EOMI. Sclera nonicteric. ENT: Pharynx normal. Moist mucous membranes. Neck: Normal inspection. Neck supple. No JVD. No pain on palpation. No nuchal rigidity. CVS: Normal heart rate and rhythm. Apical pulses equal 2 pulses to extremities. Respiratory: No respiratory distress. Lung sounds clear to auscultation all lobes. Abdomen: Soft and tenderness radiates from the epigastric area to the right shoulder on palpation. No pulsatile masses noted. Skin: Skin warm and dry. Normal skin color. Normal skin turgor. Extremities: No lower extremity edema. Gait well-balanced well coordinated. Strength 5/5. Neuro: No motor deficit. No sensory deficit. Cranial nerves 2-12 intact. Course Course Course Narrative: 66-year-old Macedonian-speaking female presents for substernal chest pain that radiates out to the epigastric area in a bandlike pressure, with a tearing pain that radiates to the right shoulder and right neck. Patient states that she was in a car that did not have a lot of air in it when when she started experiencing this pain. She has not had pain like this in the past. She does have a significant family history of stroke, aneurysm, and AL. not report any headaches, changes in vision, dizziness when turning her head left or right, difficulty moving her arms or legs, abdominal pain or distention, diarrhea, constipation, nausea or vomiting. She denies fevers and chills. Labs and EKG while she was in the emergency department waiting room. Labs are unremarkable, EKG shows new right bundle branch block with nonspecific abnormality, no linnette cation of ST depression or elevations. Considering patient's family history, will rule out aneurysm. CTA negative for acute findings. Plan of care is to have patient follow-up with primary care physician for suspected muscular skeletal strain and for hypertension evaluation. Patient verbalizes understanding of and agrees plan of care discharge home. Verbalized understanding of signs and symptoms indicating need for emergent for intervention. historic interpreter utilized for all correspondence. Google translate utilized for discharge instructions. MDM - Chest Pain Differential Diagnosis Differential diagnosis: Likely fracture of rib, pneumothorax, unstable angina pectoris, atypical chest pain, st elevation myocardial infarction, costochondritis and chest pain Differential diagnosis: Aneurysm Medical Records Data Attestation: I reviewed the patient's medical records. Lab Data Attestation: I reviewed the patient's lab results. Result diagrams: 12/25/21 14:57 12/25/21 14:57 Labs: Lab Results 12/25/21 12/25/21 12/25/21 Range/Units 14:57 14:57 14:57 WBC 5.5 (4.8-10.8) X10*3/uL RBC 4.16 L (4.20-5.50) X10*6/uL Hgb 12.1 (12.0-16.0) g/dl Hct 36.7 L (37.0-47.0) % MCV 88.2 (80.0-98.0) fL MCH 29.1 (27.0-33.0) pg MCHC 33.0 (31.0-35.0) g/dl RDW 13.2 (11.0-16.0) % Plt Count 221 (160-400) X10*3/uL MPV 9.2 L (9.4-12.3) fL Immature Gran % (Auto) 0.2 (0.0-0.4) % Neut % (Auto) 49.7 (45-73) % Lymph % (Auto) 36.9 (20-40) % Angelina % (Auto) 9.3 (2-11) % Eos % (Auto) 3.5 (0-4) % Baso % (Auto) 0.4 (0-2) % Lymph # (Auto) 2.0 (1.2-4.9) X10*3/uL Angelina # (Auto) 0.5 (0.1-1.2) X10*3/uL Eos # (Auto) 0.2 (0.0-0.4) X10*3/uL Baso # (Auto) 0.0 (0.0-0.2) X10*3/uL Abs Immat Gran (auto) 0.01 (0.00-0.03) X10*3/uL Absolute Neuts (auto) 2.7 (2.0-8.3) x10*3/uL Absolute Nucleated RBC 0.000 (0.0-0.012) X10*3/uL Nucleated RBC % (auto) 0.0 (0.0-0.2) /100WBC Sodium 140 (135-145) mmol/L Potassium 4.9 (3.3-5.1) mmol/L Chloride 106 (96-108) mmol/L Carbon Dioxide 29 (22-29) mmol/L Anion Gap 10 L (12-20) BUN 14 (9-16) mg/dL Creatinine 0.86 (0.5-1.4) mg/dL Estim Creat Clear Calc 57.0 Estimated GFR > 60 Random Glucose 87 (60-115) mg/dL Calcium 9.8 (8.4-10.2) mg/dL Total Bilirubin 0.4 (0.0-1.0) mg/dL AST 17 (5-31) U/L ALT 16 (0-31) U/L Alkaline Phosphatase 58 (39-117) U/L Troponin I High Sens < 3.5 (<3.5-17.0) ng/L Total Protein 7.5 (6.5-8.0) g/dL Albumin 4.1 (3.5-5.0) g/dL Urine Color Urine Appearance Urine pH (5.0-8.0) Ur Specific Russell (1.005-1.025) Urine Protein (NEG-TRACE) MG/DL Urine Glucose (UA) (NEG) MG/DL Urine Ketones (NEG) MG/DL Urine Blood (NEG) Urine Nitrite (NEG) Ur Leukocyte Esterase (NEG) Urine RBC (0) /HPF Urine WBC (0-4) /HPF Ur Squamous Epith Cells /LPF Urine Bacteria /LPF Urine Mucus /LPF 12/25/21 Range/Units 16:57 WBC (4.8-10.8) X10*3/uL RBC (4.20-5.50) X10*6/uL Hgb (12.0-16.0) g/dl Hct (37.0-47.0) % MCV (80.0-98.0) fL MCH (27.0-33.0) pg MCHC (31.0-35.0) g/dl RDW (11.0-16.0) % Plt Count (160-400) X10*3/uL MPV (9.4-12.3) fL Immature Gran % (Auto) (0.0-0.4) % Neut % (Auto) (45-73) % Lymph % (Auto) (20-40) % Angelina % (Auto) (2-11) % Eos % (Auto) (0-4) % Baso % (Auto) (0-2) % Lymph # (Auto) (1.2-4.9) X10*3/uL Angelina # (Auto) (0.1-1.2) X10*3/uL Eos # (Auto) (0.0-0.4) X10*3/uL Baso # (Auto) (0.0-0.2) X10*3/uL Abs Immat Gran (auto) (0.00-0.03) X10*3/uL Absolute Neuts (auto) (2.0-8.3) x10*3/uL Absolute Nucleated RBC (0.0-0.012) X10*3/uL Nucleated RBC % (auto) (0.0-0.2) /100WBC Sodium (135-145) mmol/L Potassium (3.3-5.1) mmol/L Chloride (96-108) mmol/L Carbon Dioxide (22-29) mmol/L Anion Gap (12-20) BUN (9-16) mg/dL Creatinine (0.5-1.4) mg/dL Estim Creat Clear Calc Estimated GFR Random Glucose (60-115) mg/dL Calcium (8.4-10.2) mg/dL Total Bilirubin (0.0-1.0) mg/dL AST (5-31) U/L ALT (0-31) U/L Alkaline Phosphatase (39-117) U/L Troponin I High Sens (<3.5-17.0) ng/L Total Protein (6.5-8.0) g/dL Albumin (3.5-5.0) g/dL Urine Color STRAW Urine Appearance CLEAR Urine pH 6.0 (5.0-8.0) Ur Specific Russell <= 1.005 (1.005-1.025) Urine Protein NEG (NEG-TRACE) MG/DL Urine Glucose (UA) NEG (NEG) MG/DL Urine Ketones NEG (NEG) MG/DL Urine Blood NEG (NEG) Urine Nitrite NEG (NEG) Ur Leukocyte Esterase 1+ H (NEG) Urine RBC 0 (0) /HPF Urine WBC 1-4 (0-4) /HPF Ur Squamous Epith Cells TRACE /LPF Urine Bacteria NONE /LPF Urine Mucus TRACE /LPF Imaging Data ct angio aorta: Attestation: I personally reviewed and interpreted this imaging study as follows: Radiologist's impression: CT ANGIOGRAM CHEST CLINICAL INFORMATION: Chest pain radiating to back? COMPARISON: None? TECHNIQUE: Multiple axial images were obtained through the chest after the administration of 70 mL of Omnipaque 350 intravenous contrast. Extensive vascular post-processing including two-dimensional and three-dimensional reformatted images were created and reviewed on an independent workstation. This CT examination was performed using dose optimization techniques as appropriate, variously including the following: *Automated exposure control *Adjustment of mA and/or kV according to patient size (this includes techniques or standardized protocols for targeted exams where dose is matched to indication/reason for exam; i.e. extremities or head) *Use of iterative reconstruction technique DLP: 198 mGy-cm FINDINGS: Vascular: Normal course and caliber of the ascending thoracic aorta without aneurysmal dilatation or dissection three-vessel aortic arch. The visualized proximal great vessels are all widely patent. Visualized celiac axis is patent. LUNGS: There is pleural-parenchymal scarring in the lung apices. There is no consolidation. Mild bronchial wall thickening. A few scattered micronodules, no suspicious pulmonary nodules. Mediastinum: There are subcentimeter hyperdense thyroid nodules. No bulky mediastinal lymphadenopathy. Normal heart size, no pericardial effusion. Axilla: No bulky axillary lymphadenopathy. Pleura: No pleural effusion or pneumothorax. Upper abdomen: Unremarkable. Osseous structures: Unremarkable. CT/CT angio chest aorta IMPRESSION: Unremarkable CTA of the chest. No evidence for acute vascular injury.? ? Fleischner guidelines were followed. ECG Data ECG #1: Attestation: I personally reviewed and interpreted this ECG as follows: ECG interpretation date: 12/25/21 ECG interpretation time: 12:37 Prior ECG tracings: available for review Interpretation: Vent. rate 93 BPM MT interval 180 ms QRS duration 118 ms QT/QTc 358/445 ms P-R-T axes 67 -6 39 Normal sinus rhythm Right bundle branch block Abnormal ECG When compared with ECG of 10-OCT-2008 13:34, Vent. rate has increased BY 36 BPM Right bundle branch block is now Present Scores Heart Score History: -1- moderately suspicious ECG: -1- non specific repolarization disturbance Age: -1- >45 - <65 Risk factory: -1- 1 or 2 risk factors Troponin: -0- < or = normal limit Score: 4 Risk: 16.6% Discharge Plan Discharge Clinical Impression: Atypical chest pain, Muscle strain Patient Disposition: Home, Self-Care Instructions: Noncardiac Chest Pain (ED) Additional Instructions: Se le evalu? por dolor en el pecho que se irradiaba a la espalda. El electrocardiograma muestra un cambio en ha ritmo, muestra un bloqueo de lorri derecha. Por favor, seguimiento con Cardiolog?a. Lo remit? al Dr. Simpson. Por favor llame y solicite sandie vira. Ha angiograf?a por TC de la aorta fue negativa para aneurismas y hallazgos agudos que requirieron sandie intervenci?n urgente. Shanelle dolor de pecho podr?a ser tensi?n muscular esquel?elidia. Por favor, nilam un seguimiento con ha proveedor de atenci?n primaria. Contin?e tomando todos los medicamentos seg?n lo prescrito por los proveedores anteriores. Gómez por elegir shanelle departamento de emergencias para ha evaluaci?n. Por favor, nilam un seguimiento con el m?dico de atenci?n primaria seg?n sea necesario. Regrese al departamento de emergencias por cualquier s?ntoma nuevo, preocupante o que empeore. You were evaluated for chest pain that radiated to her back. EKG shows a change to your rhythm, shows a right bundle branch block. Please follow-up with Cardiology. I referred you to Dr. Simpson. Please call and request an appointment. Your CT angiogram of the aorta was negative for aneurysms and acute findings requiring emergent intervention. This chest pain could possibly be muscular skeletal strain. Please follow-up with your primary care provider. Continue take all medications as prescribed by prior providers. Thank you for choosing this emergency department for evaluation. Please follow-up with primary care physician as needed. Return to the emergency department for any new, concerning, or worsening symptoms. Prescriptions: No Action cholecalciferol (vitamin D3) 25 mcg (1,000 unit) tablet 25 mcg PO DAILY 30 Days Qty: 30 11RF loratadine 10 mg tablet 10 mg PO DAILY 30 Days Qty: 30 11RF hydrocortisone [Proctozone-HC] 2.5 % cream with perineal applicator 1 appl MT BID PRN (Reason: hemorrhoids) Qty: 30 4RF calcium carbonate 600 mg calcium (1,500 mg) tablet 600 mg PO BID Qty: 60 6RF cyclobenzaprine 10 mg tablet 10 mg PO TID PRN naproxen 500 mg tablet 500 mg PO BID PRN TDVAX 2-2 Lf unit/0.5 mL suspension 0.5 ml IM ONCE Qty: 0.5 0RF estradiol 0.01 % (0.1 mg/gram) cream 1 g vaginal 3XW losartan 50 mg tablet 50 mg PO DAILY 90 Days Qty: 90 1RF docusate sodium 100 mg capsule 100 mg PO BID Qty: 60 6RF Citrucel 500 mg tablet 1,000 mg PO DAILY 30 Days Qty: 60 6RF levothyroxine 50 mcg tablet 50 mcg PO QAM 90 Days Qty: 90 11RF Linzess 145 mcg capsule 145 mcg PO QAM Qty: 30 3RF famotidine [Pepcid] 40 mg tablet 40 mg PO BID Qty: 60 6RF Referrals: Lakeisha Rojas MD [Primary Care Provider] - Manuelito Simpson MD [Physician] - (rbb) Interventions: ED Discharge Assessment Last Done: 12/25/21 18:47 Discharge Date/Time: 12/25/21 18:53
[2021-12-25 17:21] LABS: Appearance Urine CLEAR; Color Urine STRAW; Glucose Urine UA NEG (NEG); Leukocyte Esterase Urine 1+ (NEG); Nitrite Urine NEG (NEG); Specific Gravity - Urine <= 1.005 (1.005-1.025); UACC Culture Trigger YES; Urine Blood NEG (NEG); Urine Ketones NEG (NEG); Urine Protein NEG (NEG-TRACE)
[2021-12-25 17:32] LABS: RBC Urine 0 /HPF (0); Squamous Epithelial Cell Urine TRACE /LPF
[2021-12-25 17:33] LABS: Mucus Urine TRACE /LPF
[2021-12-25] MEDS: iohexoL 350 MG/ML 100 ML INFUS..BTL IV (17:38)
[2021-12-25 18:38] VITALS: BP 165/80; PULSE 66; RESP 20; TEMP 36.4; O2SAT 96
== END 2021-12-25 18:53 | disposition home or self-care (01) ==
PROVIDERS: Nurse Practitioner Family; Emergency Provider Emergency Medicine; PCP Internal Medicine
DX: R07.89 Other chest pain (principal); M54.50 Low back pain, unspecified; I25.10 Atherosclerotic heart disease of native coronary artery without angina pectoris; Z79.899 Other long term (current) drug therapy
CPT/HCPCS: 36415; 71275; 80053; 81001; 81003; 84484; 85025; 87086; 93005; 99284; Q9967

== ENCOUNTER 2022-01-07 10:48 | Outpatient (REF) | payer MEDICARE, MEDICAID, SELFPAY ==
--- NOTE | ~2022-01-07 | CT_ITS ---
EXAMINATION: CT HEAD WITHOUT CONTRAST CLINICAL INFORMATION: General symptoms COMPARISON: None TECHNIQUE: Contiguous axial imaging was performed from the skull base to vertex without intravenous administration of contrast. This CT examination was performed using dose optimization techniques as appropriate, variously including the following: *Automated exposure control *Adjustment of mA and/or kV according to patient size (this includes techniques or standardized protocols for targeted exams where dose is matched to indication/reason for exam; i.e. extremities or head) *Use of iterative reconstruction technique DLP: 721 mGy-cm FINDINGS: There is no evidence of acute intracranial hemorrhage or territorial infarction. No abnormal mass effect or midline shift is seen. Petit to white matter differentiation is well preserved. No extra-axial fluid collections are identified. The ventricles are normal in size. There is no abnormal attenuation within the brain parenchyma. The osseous structures and soft tissues are normal. The mastoid air cells and visualized portions of the paranasal sinuses are well aerated. CT/CT head/brain wo con IMPRESSION: No acute intracranial process seen.
== END 2022-01-07 10:49 | disposition home or self-care (01) ==
LOC: HO.CT 10:48
PROVIDERS: PCP Internal Medicine; Visit Provider Nurse Practitioner Family
DX: R68.89 Other general symptoms and signs (principal)
CPT/HCPCS: 70450

== ENCOUNTER 2022-01-12 11:00 | Outpatient (REF) | payer MEDICARE, MEDICAID, SELFPAY ==
[2022-01-12 12:00] LABS: Anion Gap 11 (12-20); Blood Urea Nitrogen 15 mg/dL (9-16); Calcium 9.8 mg/dL (8.4-10.2); Carbon Dioxide 29 mmol/L (22-29); Chloride 104 mmol/L (96-108); Estimated Glomerular Filt Rate > 60; Glucose Random 105 mg/dL (60-115); Potassium 4.3 mmol/L (3.3-5.1); Sodium 140 mmol/L (135-145)
[2022-01-12 12:16] LABS: Thyroid Stimulating Hormone 1.76 uIU/mL (0.32-4.0)
[2022-01-12 12:38] LABS: Folate 15.5 ng/mL (> or = 4.0); Vitamin B12 765 pg/mL (200-900)
[2022-01-12 13:12] LABS: T4 Thyroxine 7.6 ug/dL (4.5-12.0)
== END 2022-01-12 11:01 | disposition home or self-care (01) ==
LOC: HO.LAB 11:00
PROVIDERS: PCP Internal Medicine; Visit Provider Psychiatry & Neurology Neurology
DX: G31.84 Mild cognitive impairment of uncertain or unknown etiology (principal); E03.9 Hypothyroidism, unspecified
CPT/HCPCS: 36415; 80048; 82607; 82746; 84436; 84443

== ENCOUNTER 2022-01-28 09:11 | Outpatient (REF) | payer MEDICARE, MEDICAID, SELFPAY ==
[2022-01-28 11:29] LABS: Alanine Aminotransferase 20 U/L (0-31); Albumin Level 4.4 g/dL (3.5-5.0); Alkaline Phosphatase 62 U/L (39-117); Anion Gap 13 (12-20); Aspartate Amino Transferase 17 U/L (5-31); Bilirubin Total 0.4 mg/dL (0.0-1.0); Blood Urea Nitrogen 14 mg/dL (9-16); Calcium 9.7 mg/dL (8.4-10.2); Carbon Dioxide 28 mmol/L (22-29); Chloride 104 mmol/L (96-108); Cholesterol 191 mg/dL; Estimated Glomerular Filt Rate > 60; Glucose Fasting 96 mg/dL (60-99); HDL Cholesterol 35 mg/dL; LDL Cholesterol Calculated 121 mg/dl; Potassium 4.4 mmol/L (3.3-5.1); Sodium 141 mmol/L (135-145); Total Protein 7.8 g/dL (6.5-8.0); Triglycerides 179 mg/dL
[2022-01-28 11:40] LABS: Thyroid Stimulating Hormone 2.47 uIU/mL (0.32-4.0)
== END 2022-01-28 09:12 | disposition home or self-care (01) ==
LOC: HO.LAB 09:11
PROVIDERS: PCP Internal Medicine; Visit Provider Internal Medicine
DX: R10.11 Right upper quadrant pain (principal); K21.9 Gastro-esophageal reflux disease without esophagitis; K59.01 Slow transit constipation; I10 Essential (primary) hypertension; E03.9 Hypothyroidism, unspecified; E78.5 Hyperlipidemia, unspecified
CPT/HCPCS: 36415; 80053; 80061; 84443; 99212

== ENCOUNTER 2022-02-17 07:31 | Outpatient (REF) | payer MEDICARE, MEDICAID, SELFPAY ==
--- NOTE | 2022-02-17 08:38 | P.BOP_ITS ---
Brief Operative Note Date of Service: 02/17/22 Pre-op diagnosis: Multinodular Thyroid Procedure: This is doctor Fernanda Borrero. This is an ultrasound-guided fine-needle aspiration report. Date of Examination: 02/17/2022 Indication: Multinodular Thyroid Porcedure: Procedure was explained to the patient. Alternatives, the risk and benefits were discussed. Written consent was obtained. A time-out was also obtained. After sterile preparation, fine-needle aspiration of a left mid pole 1.0 cm thyroid nodule was performed using direct ultrasound guidance to confirm accurate needle placement. Six aspirations were made using 25 gauge needles. Samples were submitted for cytology. 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 The patient tolerated the procedure well. Aftercare instructions were provided. Impression: Uncomplicated fine needle aspiration biopsy of a left mid pole 1.0 cm thyroid nodule under ultrasound guidance. Surgeon: Fernanda Borrero, DO Was an Capital Equipment Specialist used for this Procedure?: No Estimated blood loss (mL): 0
[2022-02-17] MEDS: Lidocaine HCl 1 % MPF 5 ML VIAL SUBCUT (09:54)
== END 2022-02-17 07:32 | disposition home or self-care (01) ==
LOC: HO.US 07:31
PROVIDERS: Visit Provider Internal Medicine
DX: E04.2 Nontoxic multinodular goiter (principal)
CPT/HCPCS: 10005; 88112; 88172; 88173; 88177; 88305; 88313

== ENCOUNTER 2022-02-24 15:18 | Outpatient (REF) | payer MEDICARE, MEDICAID, SELFPAY ==
--- NOTE | ~2022-02-24 | XR_ITS ---
EXAMINATION: XR ABDOMEN WITH DECUBITUS VIEWS CLINICAL INDICATION: Right upper quadrant pain COMPARISON: None TECHNIQUE: Supine and upright views of the abdomen and pelvis FINDINGS: There is a large amount of stool throughout the colon suggestive of constipation. There are no dilated loops of bowel or air-fluid levels to suggest obstruction. There is no evidence of free air. No acute bone abnormality. Degenerative change of the lower lumbar spine. XR/XR abdomen w decubitus IMPRESSION: Constipation.
== END 2022-02-24 15:19 | disposition home or self-care (01) ==
LOC: HO.XRAY 15:18
PROVIDERS: PCP Internal Medicine; Visit Provider Nurse Practitioner
DX: R10.11 Right upper quadrant pain (principal); K59.01 Slow transit constipation
CPT/HCPCS: 74021

== ENCOUNTER → 2022-03-02 12:13 | Outpatient (BNVA) | payer MEDICARE, MEDICAID, SELFPAY | PROVIDERS: PCP Internal Medicine; Visit Provider Internal Medicine | DX: E04.2 Nontoxic multinodular goiter (principal); E03.9 Hypothyroidism, unspecified | CPT/HCPCS: 99212 ==

== ENCOUNTER → 2022-03-09 12:14 | Outpatient (BNVA) | payer MEDICARE, MEDICAID, SELFPAY | PROVIDERS: PCP Internal Medicine; Referring Provider Internal Medicine; Visit Provider Internal Medicine | DX: R00.2 Palpitations (principal); I45.10 Unspecified right bundle-branch block | CPT/HCPCS: 99202 ==

== ENCOUNTER 2022-03-14 07:49 | Outpatient (REF) | payer MEDICARE, MEDICAID, SELFPAY ==
--- NOTE | ~2022-03-14 | MM_ITS ---
EXAMINATION: MM SCREENING DIGITAL BREAST TOMOSYNTHESIS, BILATERAL CLINICAL INFORMATION: Screening. Asymptomatic. The lifetime risk of breast cancer based on the Tyrer-Cuzick Model is 3%. COMPARISON: Mammography: 03/10/2021, 03/04/2020, 02/20/2019 TECHNIQUE: Digital breast tomosynthesis is performed in both the craniocaudal and mediolateral oblique views along with computer-aided detection (CAD). Synthesized 2D images are generated from the tomosynthesis. FINDINGS: There are scattered areas of fibroglandular density (ACR BI-RADS breast composition Category b). There are no significant masses, abnormal calcifications, or other abnormalities. Parenchymal pattern is similar to prior studies. There are 3 dermal lesions overlying the anterior and posterior upper left breast, marked with dermal marker. MM/MM tomosynthesis screening BI IMPRESSION: No mammographic evidence of malignancy. ASSESSMENT: BI-RADS 2: Benign RECOMMENDATION: Routine annual mammography screening. This patient's information was entered into a reminder system with a target due date for their next mammogram.
== END 2022-03-14 07:50 | disposition home or self-care (01) ==
LOC: HO.MAMMO 07:49
PROVIDERS: PCP Internal Medicine; Visit Provider Internal Medicine
DX: Z12.31 Encounter for screening mammogram for malignant neoplasm of breast (principal)
CPT/HCPCS: 77063; 77067

== ENCOUNTER 2022-03-24 08:57 | Outpatient (REF) | payer MEDICARE, MEDICAID, SELFPAY ==
--- NOTE | ~2022-03-24 | US_ITS ---
EXAMINATION: US ABDOMEN COMPLETE CLINICAL INFORMATION: Right upper quadrant pain. COMPARISON: X-ray abdomen 02/24/2022. CT abdomen and pelvis 12/05/2017. TECHNIQUE: Real-time imaging of the abdominal viscera. FINDINGS: PANCREAS: Normal. ABDOMINAL AORTA: The proximal, mid, and distal segments are normal in caliber. INFERIOR VENA CAVA: Visualized portions are normal. LIVER: Normal. The liver is normal in size. The liver contour is normal. Parenchymal echogenicity is normal. No focal hepatic lesion. There is no intrahepatic biliary duct dilatation seen. GALLBLADDER: Normal. The gallbladder is physiologically distended without evidence of stones, sludge, polyps, wall thickening or pericholecystic fluid. COMMON BILE DUCT: Normal in caliber measuring 0.6 cm in diameter. RIGHT KIDNEY: There is pelviectasis, without herminia hydronephrosis. No renal calculi or focal parenchymal lesions. The kidney measures 9.6 cm in maximum dimension. LEFT KIDNEY: There is pelviectasis, without herminia hydronephrosis. No renal calculi or focal parenchymal lesions. The kidney measures 10.6 cm in maximum dimension. SPLEEN: Normal. The spleen measures 11.5 cm in maximum dimension. FREE FLUID: None. US/US abdomen complete IMPRESSION: There is bilateral renal central pelviectasis, without herminia hydronephrosis. The examination is otherwise unremarkable.
== END 2022-03-24 08:58 | disposition home or self-care (01) ==
LOC: HO.US 08:57
PROVIDERS: Visit Provider Nurse Practitioner
DX: R10.11 Right upper quadrant pain (principal)
CPT/HCPCS: 76700

== ENCOUNTER → 2022-03-30 15:26 | Outpatient (BNVA) | payer MEDICARE, MEDICAID, SELFPAY | PROVIDERS: PCP Internal Medicine; Visit Provider Nurse Practitioner | DX: K59.04 Chronic idiopathic constipation (principal); K21.9 Gastro-esophageal reflux disease without esophagitis | CPT/HCPCS: 99212 ==

== ENCOUNTER → 2022-04-05 14:43 | Outpatient (REF) | payer MEDICARE, MEDICAID, SELFPAY ==
--- NOTE | 2022-04-05 14:46 | CA_ITS ---
Transthoracic Echocardiogram Patient (Last, First, Middle): Radha Kennedy, Gender: Female Date of : 1955 Age: 67 Procedure Date: 04/05/2022 Procedure Type: Transthoracic Echocardiogram Location: OP Height: 162.56 cm Weight: 65.77 kg BSA: 1.71 m2 Heart Rate: bpm BP: 125 / 90 mmHg Pluck Separator: POLLY Referring MD: Manuelito Simpson MD Oil Refinery Operator: Peter Diaz MD Symptoms: I45.10 - Unspecified right bundle-branch block Study Quality: Adequate ECG Rhythm: Sinus Conclusions: - 1. Normal LV systolic function with grade 1 diastolic dysfunction 2. Normal cardiac valvular Doppler 3. Normal RV systolic pressure 4. No gross pericardial effusion Findings Left Ventricle Normal left ventricular size, thickness, and systolic function. The visually estimated ejection fraction is between 60-65%. Spectral Doppler is indicative of an impaired relaxation filling pattern. E/E prime ratio is <8, consistent with normal filling pressures. Evidence suggests grade I (mild) diastolic dysfunction. Right Ventricle Normal right ventricular cavity size and systolic function. Atria The left atrium is normal in size. Interatrial shunt cannot be excluded. The right atrium is normal in size. Aortic Valve Normal aortic valve structure and function. There is no aortic valve stenosis. There is no aortic valve regurgitation. Mitral Valve Normal mitral valve structure and function. There is trace mitral valve regurgitation. There is no mitral valve stenosis. Pulmonic Valve The pulmonic valve is likely normal. Tricuspid Valve Normal tricuspid valve structure. There is trace tricuspid valve regurgitation. The right ventricular systolic pressure is normal. The right ventricular systolic pressure is 23 mmHg. Normal right atrial pressure. There is no evidence of pulmonary hypertension. Great Vessels All visible segments of the aorta are normal in size. The pulmonary artery was not well visualized. Venous The inferior vena cava is normal in size and collapses greater than 50% with inspiration. Pericardium/Pleural There is no evidence of pericardial effusion. Prior Study Comparison No significant change compared to prior study dated: 09/15/2017. Measurements 2D Linear Measurements IVSd: 0.89 0.6-0.9/0.6-1.0 cm LVIDd: 3.98 3.9-5.3/4.2-5.9 cm LVIDd Index: 2.33 2.4-3.2/2.2-3.1 cm/m2 LVIDs: 2.59 2.0-3.6 cm LVPWd: 0.88 0.7-1.1 cm LA Diam: 2.90 2.7-3.8/3.0-4.0 cm LAIDs Index: 1.70 1.5-2.3 cm/m2 LV Mass: 132.66 67-162/88-224 g LV Mass Index: 77.58 43-95/49-115 g/m2 LVOT Diam: 2.00 3.0+(-)1.3 cm 2D Systolic Function EF 4C: 62.90 >55% EF 2C: 59.80 >55% EF BiP: 62.20 >55% Mitral Valve MV Pk E: 0.64 MV PK A: 0.72 MV Decel Time: 198.00 E/A: 0.90 E'Lateral: 7.94 E'Medial: 7.07 E/E' Med: 9.00 E/E' Lat: 8.00 PHT: 58.00 MVA PHT: 3.79 Decel [place]: 3.22 Aortic Valve AoV Pk Bob: 1.02 AoV Mn Bob: 0.73 AoV VTI: 0.23 AoV Pk Grad: 4.00 Aov Mn Grad: 2.00 MONAE Cont.VTI: 2.67 LVOT LVOT Pk Bob: 0.88 LVOT Mn Bob: 0.57 LVOT VTI: 0.19 LVOT Pk Grad: 3.00 LVOT Mn Grad: 2.00 LVOT Diam: 2.00 LVOT Area: 3.14 Diastolic Function MV Pk E: 0.64 MV Pk A: 0.72 E/A: 0.90 E'Medial: 7.07 E/E' Med: 9.00 E' Laterial: 7.94 E/E' Lat: 8.00 Right Ventricle TAPSE (mm): 23.00 TVS' Bob: 10.00 Tricuspid Valve TR Pk Bob: 2.24 TR Pk Grad: 20.00 RA Press: 3.00 RVSP: 23.00 Great Vessels Aorta Sinus of Valsalva: 3.22 2.0-3.[address] [place]: 2.43 1.7-3.4 cm Ao Asc: 3.40 2.1-3.4 cm Updated in Other Vendor System with Status of Final Peter Diaz MD electronically signed on 04/05/2022 6:51:13 PM with status of Final
--- NOTE | 2022-04-05 15:25 | HM_ITS ---
* Total monitoring time 2 days and 23 hours. * Underlying rhythm is sinus. Average rate 92/Min. Range 58 to 132/Min. * About 26% the time, rate greater than 100/Min. * Occasional ventricular ectopy. [place] less than 1%. Mostly isolated, 1 couplet. * Rare supraventricular ectopy. * No diary. MTDD
== END ==
LOC: HO.CARD 14:43
PROVIDERS: Visit Provider Internal Medicine
DX: I45.10 Unspecified right bundle-branch block (principal); R00.2 Palpitations
CPT/HCPCS: 93242; 93306

== ENCOUNTER 2022-04-11 10:58 | Outpatient (REF) | payer MEDICARE, MEDICAID, SELFPAY ==
[2022-04-11 12:12] LABS: Thyroid Stimulating Hormone 1.93 uIU/mL (0.32-4.0); Vitamin D 25-OH Total 44.3 ng/mL (>30)
== END 2022-04-11 10:59 | disposition home or self-care (01) ==
LOC: HO.LAB 10:58
PROVIDERS: PCP Internal Medicine; Visit Provider Internal Medicine
DX: E55.9 Vitamin D deficiency, unspecified (principal); E03.9 Hypothyroidism, unspecified
CPT/HCPCS: 36415; 82306; 84443

== ENCOUNTER → 2022-05-04 12:34 | Outpatient (BNVA) | payer MEDICARE, MEDICAID, SELFPAY | PROVIDERS: PCP Internal Medicine; Referring Provider Internal Medicine; Visit Provider Nurse Practitioner Family | DX: R07.89 Other chest pain (principal); R00.0 Tachycardia, unspecified; I45.10 Unspecified right bundle-branch block; I10 Essential (primary) hypertension | CPT/HCPCS: 99212 ==

== ENCOUNTER → 2022-05-25 14:29 | Outpatient (BNVA) | payer MEDICARE, MEDICAID, SELFPAY | PROVIDERS: PCP Internal Medicine; Visit Provider Nurse Practitioner | DX: K59.04 Chronic idiopathic constipation (principal); K21.9 Gastro-esophageal reflux disease without esophagitis | CPT/HCPCS: 99212 ==

== ENCOUNTER → 2022-07-27 11:29 | Outpatient (BNVA) | payer MEDICARE, MEDICAID, SELFPAY | PROVIDERS: PCP Internal Medicine; Visit Provider Nurse Practitioner | DX: K59.04 Chronic idiopathic constipation (principal); K59.01 Slow transit constipation; K21.9 Gastro-esophageal reflux disease without esophagitis | CPT/HCPCS: 99212 ==

== ENCOUNTER 2022-07-31 15:42 | Emergency (ER) | payer MEDICARE, MEDICAID, SELFPAY ==
--- NOTE | ~2022-07-31 | CT_ITS ---
EXAMINATION: CT HEAD WITHOUT CONTRAST CLINICAL INFORMATION: Dizziness and nystagmus. COMPARISON: Head CT 01/07/2022 TECHNIQUE: Imaging was performed from the skull base to vertex without intravenous administration of contrast. This CT examination was performed using dose optimization techniques as appropriate, variously including the following: *Automated exposure control *Adjustment of mA and/or kV according to patient size (this includes techniques or standardized protocols for targeted exams where dose is matched to indication/reason for exam; i.e. extremities or head) *Use of iterative reconstruction technique Total exam dose length product: 557 mGy-cm FINDINGS: No intra or extra-axial fluid collection, hemorrhage, or mass. No ventriculomegaly. No midline shift or herniation. Basal cisterns are patent. Petit-white matter differentiation is maintained. No territorial encephalomalacia. No significant volume loss. Mild nonspecific patchy periventricular white matter hypoattenuation. No calvarial fracture or soft tissue abnormality. The mastoid air cells and visualized portions of the paranasal sinuses are well aerated. CT/CT head/brain wo IV con IMPRESSION: No acute intracranial pathology.
--- NOTE | 2022-07-31 15:46 | ED.DIZZY ---
HPI - Dizziness General Chief Complaint: Dizziness <Taylor Guerrero CNP - Last Filed: 07/31/22 15:57> Stated Complaint: dizziness <Taylor Guerrero CNP - Last Filed: 07/31/22 15:57> Time Seen by Provider: 07/31/22 16:50 <Taylor Guerrero CNP - Last Filed: 07/31/22 15:57> Source: patient and drafter seismograph <Mariel Moore NP - Last Filed: 07/31/22 18:49> Mode of arrival: ambulatory <Mariel Moore NP - Last Filed: 07/31/22 18:49> Limitations: language barrier <Mariel Moore NP - Last Filed: 07/31/22 18:49> History of Present Illness HPI Narrative: 67-year-old female with a history of hypertension, hypothyroidism, anxiety, depression, vertigo presents with complaints of feeling like the room is spinning since waking at 06:00. Patient reports she did not take her meclizine which she is prescribed at home. Patient reports some nausea but no vomiting. She denies any vision changes, chest pain, shortness of breath, abdominal pain, weakness/numbness/tingling, speech change <Mariel Moore NP - Last Filed: 07/31/22 18:49> Related Data Home Medications: Home Medications Medication Instructions Recorded Confirmed cyclobenzaprine 10 mg tablet 10 mg PO TID PRN 04/21/20 05/04/22 estradiol 0.01% (0.1 mg/gram) 1 g vaginal 3XW 04/09/21 05/04/22 vaginal cream naproxen 500 mg tablet 500 mg PO BID PRN 08/25/21 05/04/22 Previous Rx's Medication Instructions Recorded calcium carbonate 600 mg calcium 600 mg PO BID #60 tabs 07/07/21 (1,500 mg) tablet levothyroxine 50 mcg tablet 50 mcg PO QAM 90 days #90 tabs 08/25/21 cholecalciferol (vitamin D3) 25 25 mcg PO DAILY 30 days #30 tabs 12/27/21 mcg (1,000 unit) tablet methylcellulose (laxative) 500 mg 1,000 mg PO DAILY #60 tabs 01/21/22 tablet (Fiber Laxative (methylcellulose)) docusate sodium 100 mg capsule 100 mg PO BID #60 caps 02/14/22 hydrocortisone 2.5 % topical 1 appl topical TID 14 days #20 03/11/22 ointment grams clotrimazole-betamethasone 1 1 appl topical BID 2 weeks #15 04/11/22 %-0.05 % topical cream grams blood pressure monitor #1 ea 04/28/22 losartan 50 mg tablet 50 mg PO DAILY 90 days #90 tabs 05/05/22 loratadine 10 mg tablet 10 mg PO DAILY 30 days #30 tabs 05/16/22 bisacodyl 5 mg tablet,delayed 10 mg PO BEDTIME 30 days #60 tabs 05/25/22 release (Dulcolax (bisacodyl)) linaclotide 290 mcg capsule 290 mcg PO QAM 30 days #30 caps 05/25/22 (Linzess) meclizine 25 mg tablet 25 mg PO BID PRN dizziness 30 days 06/21/22 #60 tabs pantoprazole 40 mg tablet,delayed 40 mg PO DAILY 30 days #30 tabs 07/27/22 release (Protonix) <Taylor Guerrero CNP - Last Filed: 07/31/22 15:57> Allergies/Adverse Reactions: Allergies Allergy/AdvReac Type Severity Reaction Status Date / Time amlodipine Allergy Mild leg edema Verified 07/27/22 11:38 aspirin [Aspirin] Allergy Mild ULCER HX, Verified 07/27/22 11:38 abdominal pain latex [Latex] Allergy Mild RASH Verified 07/27/22 11:38 metronidazole [Flagyl] Allergy Mild rash Verified 07/27/22 11:38 <Taylor Guerrero CNP - Last Filed: 07/31/22 15:57> Review of Systems Review of Systems: Yes all other systems are reviewed and are negative <Mariel Moore NP - Last Filed: 07/31/22 18:49> Constitutional: Constitutional: Reports no additional constitutional complaints, Denies body ache(s), Denies chills, Denies fever(s), Denies headache(s) and Denies weakness <Mariel Moore NP - Last Filed: 07/31/22 18:49> Eyes: Eyes: Reports no additional eye complaints and Denies change in vision <Mariel Moore BIOTECH PRODUCTION SPECIALIST - Last Filed: 07/31/22 18:49> ENT: Reports system reviewed and no additional complaints, except as documented, Reports dizziness, Denies headache(s), Denies nasal congestion, Denies nasal discharge and Denies neck pain <Mariel Moore BIOTECH PRODUCTION SPECIALIST - Last Filed: 07/31/22 18:49> Cardiovascular: Cardiovascular: Reports no additional cardiovascular complaints, Denies chest pain, Denies leg edema and Denies dyspnea <Mariel Moore, BIOTECH PRODUCTION SPECIALIST - Last Filed: 07/31/22 18:49> Respiratory: Respiratory: Reports no additional respiratory complaints, Denies cough and Denies dyspnea <Mariel Moore BIOTECH PRODUCTION SPECIALIST - Last Filed: 07/31/22 18:49> Gastrointestinal: Gastrointestinal: Reports no additional gastrointestinal complaints, Denies abdominal pain, Denies diarrhea, Reports nausea and Denies vomiting <Mariel Moore BIOTECH PRODUCTION SPECIALIST - Last Filed: 07/31/22 18:49> Genitourinary: Genitourinary: Reports no additional female genitourinary complaints and Denies urinary incontinence <Mariel Moore, BIOTECH PRODUCTION SPECIALIST - Last Filed: 07/31/22 18:49> Musculoskeletal: Musculoskeletal: Reports no additional musculoskeletal complaints, Denies back pain, Denies arthralgias, Denies joint swelling, Denies neck pain, Denies numbness and Denies tingling <Mariel Moore BIOTECH PRODUCTION SPECIALIST - Last Filed: 07/31/22 18:49> Integumentary/Breasts: Skin/Breast: Reports system reviewed and no additional complaints, except as docu and Denies rash <Mariel Moore BIOTECH PRODUCTION SPECIALIST - Last Filed: 07/31/22 18:49> Neurologic: Reports system reviewed and no additional complaints, except as documented, Denies Abnormal speech present, Reports dizziness, Denies headache(s), Denies numbness, Denies tingling and Denies weakness <Mariel Moore BIOTECH PRODUCTION SPECIALIST - Last Filed: 07/31/22 18:49> PMFSH Past Medical History Attestation statement: The following information was validated with the patient. <Mariel Moore BIOTECH PRODUCTION SPECIALIST - Last Filed: 07/31/22 18:49> Source: old records reviewed and nursing notes reviewed <Mariel Moore NP - Last Filed: 07/31/22 18:49> Medical History: Medical History Allergic rhinitis Essential hypertension GERD (gastroesophageal reflux disease) Hypothyroidism Hypovitaminosis D Low back pain Mild depression Multinodular thyroid Neck pain Osteoarthritis of right knee Osteopenia Right knee pain Right shoulder pain TMJ (temporomandibular joint syndrome) Vertigo <Taylor Guerrero CNP - Last Filed: 07/31/22 15:57> Surgical History: Surgical History History of prolapse of bladder History of root canal procedure History of tubal ligation Hx of biopsy Hx of colonoscopy Hx of cone biopsy of cervix <Taylor Guerrero CNP - Last Filed: 07/31/22 15:57> Family History Family History: Family History Father Liver problem CVD (cardiovascular disease) Mother Diabetes Stroke Alzheimer disease Chronic mental illness Maternal Grandmother Cancer Uterine cancer Paternal Uncle Diabetes Brother Cancer Family/Other Chronic mental illness Daughter No problems noted. Daughter No problems noted. Sister Alzheimer disease <Taylor Guerrero CNP - Last Filed: 07/31/22 15:57> Social History Social History: Social History Housing: Apartment Alcohol intake: never Patient Tobacco Use Status: Never used Tobacco e-Cigarette/Vaping Use: Never Used Second Hand Smoke Exposure: No Advance Directives: No Advance Directives Information Provided: Yes service: No Current occupational status: unemployed Cognitive needs: No Hearing needs: No Vision needs: Yes <Taylor Guerrero CNP - Last Filed: 07/31/22 15:57> Physical Exam Vital Signs: Vital Signs: Last Vital Signs Temp 97.8 F 07/31/22 15:48 Pulse 76 07/31/22 18:00 Resp 16 07/31/22 18:00 BP 167/92 H 07/31/22 18:00 Pulse Ox 100 07/31/22 18:00 O2 Del Method 07/31/22 18:00 BMI result Body Mass Index 23.5 <Taylor Guerrero CNP - Last Filed: 07/31/22 15:57> Vital Signs: Last Vital Signs Temp 97.8 F 07/31/22 15:48 Pulse 76 07/31/22 18:00 Resp 16 07/31/22 18:00 BP 167/92 H 07/31/22 18:00 Pulse Ox 100 07/31/22 18:00 O2 Del Method 07/31/22 18:00 BMI result Body Mass Index 23.5 <Mariel Moore NP - Last Filed: 07/31/22 18:49> Const: General: cooperative, healthy appearing, comfortable and no acute distress <Mariel Moore NP - Last Filed: 07/31/22 18:49> Orientation/consciousness: patient oriented x3 <Mariel Moore NP - Last Filed: 07/31/22 18:49> Limitations: no limitations <Mariel Moore NP - Last Filed: 07/31/22 18:49> HEENT: Head: Yes normal to inspection <Mariel Moore NP - Last Filed: 07/31/22 18:49> Ears: hearing grossly normal bilaterally and TM's normal bilaterally <Mariel Moore NP - Last Filed: 07/31/22 18:49> General nose exam: Normal external nose present <Mariel Moore NP - Last Filed: 07/31/22 18:49> Face and sinus: Yes normal facial exam <Mariel Moore NP - Last Filed: 07/31/22 18:49> Mouth: Normal oral and palatal mucosa present <Mariel Moore NP - Last Filed: 07/31/22 18:49> Throat: Yes posterior oropharynx normal, Yes tonsils normal and Yes uvula midline <Mariel Moore NP - Last Filed: 07/31/22 18:49> Eyes: General: appearance normal, both eyes and all related structures <Mariel Moore NP - Last Filed: 07/31/22 18:49> Pupils: Equal, round and reactive pupils present <Mariel Moore BIOTECH PRODUCTION SPECIALIST - Last Filed: 07/31/22 18:49> Neck: Neck: Yes normal visual inspection, Yes full ROM, Yes no lymphadenopathy and Yes no meningeal signs <Mariel Moore BIOTECH PRODUCTION SPECIALIST - Last Filed: 07/31/22 18:49> Chest: Chest palpation & inspection: normal inspection of the chest <Mariel Moore BIOTECH PRODUCTION SPECIALIST - Last Filed: 07/31/22 18:49> Resp: Effort & Inspection: normal respiratory effort <Mariel Moore BIOTECH PRODUCTION SPECIALIST - Last Filed: 07/31/22 18:49> Auscultation: clear to auscultation bilaterally <Mariel Moore BIOTECH PRODUCTION SPECIALIST - Last Filed: 07/31/22 18:49> Cardio: Rate: regular rate <Mariel Moore BIOTECH PRODUCTION SPECIALIST - Last Filed: 07/31/22 18:49> Rhythm: regular rhythm <Mariel Moore BIOTECH PRODUCTION SPECIALIST - Last Filed: 07/31/22 18:49> Peripheral pulses: Peripheral pulses 2+ throughout <Mariel Moore BIOTECH PRODUCTION SPECIALIST - Last Filed: 07/31/22 18:49> GI: Inspection: Yes normal to inspection <Mariel Moore BIOTECH PRODUCTION SPECIALIST - Last Filed: 07/31/22 18:49> Palpation (GI): Soft to palpation and nontender <Mariel Moore BIOTECH PRODUCTION SPECIALIST - Last Filed: 07/31/22 18:49> Auscultation: normal bowel sounds <Mariel Moore BIOTECH PRODUCTION SPECIALIST - Last Filed: 07/31/22 18:49> Back/Spine/Pelvis: Thoracic/Lumbar Spine: thoracic and lumbar spine normal to inspection <Mariel Moore BIOTECH PRODUCTION SPECIALIST - Last Filed: 07/31/22 18:49> Skin: General skin exam: no rashes or lesions noted <Mariel Moore BIOTECH PRODUCTION SPECIALIST - Last Filed: 07/31/22 18:49> Neuro: Other: + horizontal nystagmus. No vertical nystagmus <Mariel Moore BIOTECH PRODUCTION SPECIALIST - Last Filed: 07/31/22 18:49> General: patient oriented x3, moves all extremities, no meningeal signs, no focal motor deficits and normal sensation to monofilament <Mariel Moore, BIOTECH PRODUCTION SPECIALIST - Last Filed: 07/31/22 18:49> Cranial nerves: Yes CN's II-XII intact bilaterally, Yes Equal, round and reactive pupils present, Yes Bilaterally intact EOM present, Yes Normal facial strength present and Yes Midline tongue present <Marielhebert Moore, BIOTECH PRODUCTION SPECIALIST - Last Filed: 07/31/22 18:49> Cognition (Neuro): normal cognition <Mariel Johncci, BIOTECH PRODUCTION SPECIALIST - Last Filed: 07/31/22 18:49> Speech: No Abnormal speech present <Mariel Johncci, BIOTECH PRODUCTION SPECIALIST - Last Filed: 07/31/22 18:49> Gait exam (Neuro): Normal gait present <Mariel Oscar, BIOTECH PRODUCTION SPECIALIST - Last Filed: 07/31/22 18:49> Motor exam (neuro): 5/5 motor strength present throughout <Mariel Oscar, BIOTECH PRODUCTION SPECIALIST - Last Filed: 07/31/22 18:49> Sensory Exam: Normal double simultaneous stimulation for sensation <Mariel Oscar, BIOTECH PRODUCTION SPECIALIST - Last Filed: 07/31/22 18:49> Coordination: [id number] test normal, [id number] test normal and tandem gait normal <Marielhebert Moore, BIOTECH PRODUCTION SPECIALIST - Last Filed: 07/31/22 18:49> Extrem: General: Yes normal to inspection <Mariel Moore, BIOTECH PRODUCTION SPECIALIST - Last Filed: 07/31/22 18:49> Course Course Course Narrative: This is an RME: Additional HPI, ROS, PE not included below will be deferred to primary provider. Patient is a 67-year-old female who presents to the emergency department with reports of dizziness. Onset 06:00 today resolved after lying down, occured again [employer] DIES which prompted her to come to ED. She states that this feel similar to prior episodes of vertigo, she is prescribed meclizine for this but did not take the medication, because she only had oatmeal for breakfast. She mentions a history of diverticulitis, which she was concerned is causing the dizziness, but currently denying any abd pain, n/v/d. Denies headache, vision changes, CP, SOB. PE: no focal neurological deficits. <Taylor Guerrero CNP - Last Filed: 07/31/22 15:57> Reevaluation(s) Reevaluation #1: Labs unremarkable. EKG shows no ischemic changes. CT head negative. Patient feels much improved after receiving meclizine. Patient reports she has adequate meclizine at home. Recommend take as needed for symptoms. Reviewed worrisome signs symptoms of when to return to the emergency room. Comfortable plan for discharge home. <Mariel Moore NP - Last Filed: 07/31/22 18:49> Medications Administered Discontinued Medications Generic Name Dose Route Start Last Admin Trade Name Freq PRN Reason Stop Dose Admin Meclizine HCl 50 mg 07/31/22 16:50 07/31/22 17:15 Meclizine Hcl 25 Mg Tablet PO 07/31/22 16:51 50 mg ONCE ONE Administration <Taylor Guerrero CNP - Last Filed: 07/31/22 15:57> Medications Administered Discontinued Medications Generic Name Dose Route Start Last Admin Trade Name Freq PRN Reason Stop Dose Admin Meclizine HCl 50 mg 07/31/22 16:50 07/31/22 17:15 Meclizine Hcl 25 Mg Tablet PO 07/31/22 16:51 50 mg ONCE ONE Administration <Mariel Moore NP - Last Filed: 07/31/22 18:49> Medical Decision Making Medical Decision Making MDM Narrative: 67-year-old female with a history of vertigo who presents to the emergency room with complaints of feeling like the room is spinning around her since 06:00 when she woke up. Patient with history of vertigo. Patient is prescribed meclizine which she did not take today. Patient reports this feels similar to her previous vertigo episodes in the past. On arrival normal neurological exam with no focal findings w/ exception of mild +horizontal nystagmus Vitals are stable Will obtain labs, EKG, orthostatics, CT head Patient received 50 mg of meclizine <Mariel Moore NP - Last Filed: 07/31/22 18:49> Differential Diagnosis Differential Diagnoses: The differential diagnosis associated with the presentation includes <Mariel Moore NP - Last Filed: 07/31/22 18:49> Less likely ICH with gradual onset of symptoms and no reports of headache Less likely CVA with no focal findings Consider orthostatic hypotension, electrolyte abnormality, vertigo, ACS <Mariel Moore NP - Last Filed: 07/31/22 18:49> Lab Data [facility] Lab Attestation statement: I reviewed the patient's lab results. <Mariel Moore NP - Last Filed: 07/31/22 18:49> Result Diagrams: 07/31/22 17:03 07/31/22 17:03 <Taylor Guerrero ORTHOTIST - Last Filed: 07/31/22 15:57> Labs: Lab Results 07/31/22 07/31/22 07/31/22 Range/Units 17:03 17:03 17:03 WBC 6.1 (4.8-10.8) X10*3/uL RBC 4.27 (4.20-5.50) X10*6/uL Hgb 12.2 (12.0-16.0) g/dl Hct 37.2 (37.0-47.0) % MCV 87.1 (80.0-98.0) fL MCH 28.6 (27.0-33.0) pg MCHC 32.8 (31.0-35.0) g/dl RDW 13.1 (11.0-16.0) % Plt Count 248 (160-400) X10*3/uL MPV 9.3 L (9.4-12.3) fL Immature Gran % (Auto) 0.7 H (0.0-0.4) % Neut % (Auto) 55.5 (45-73) % Lymph % (Auto) 32.1 (20-40) % [place] % (Auto) 8.4 (2-11) % Eos % (Auto) 3.1 (0-4) % Baso % (Auto) 0.2 (0-2) % Lymph # (Auto) 2.0 (1.2-4.9) X10*3/uL [place] # (Auto) 0.5 (0.1-1.2) X10*3/uL Eos # (Auto) 0.2 (0.0-0.4) X10*3/uL Baso # (Auto) 0.0 (0.0-0.2) X10*3/uL Abs Immat Gran (auto) 0.04 H (0.00-0.03) X10*3/uL Absolute Neuts (auto) 3.4 (2.0-8.3) x10*3/uL Absolute Nucleated RBC 0.000 (0.0-0.012) X10*3/uL Nucleated RBC % (auto) 0.0 (0.0-0.2) /100WBC Sodium 139 (135-145) mmol/L Potassium 4.2 (3.3-5.1) mmol/L Chloride 105 (96-108) mmol/L Carbon Dioxide 29 (22-29) mmol/L Anion Gap 9 L (12-20) BUN 11 (9-16) mg/dL Creatinine 0.78 (0.5-1.4) mg/dL Estim Creat Clear Calc 58.7 Estimated GFR > 60 Random Glucose 103 (60-115) mg/dL Calcium 9.8 (8.4-10.2) mg/dL Total Bilirubin 0.4 (0.0-1.0) mg/dL AST 16 (5-31) U/L ALT 16 (0-31) U/L Alkaline Phosphatase 69 (39-117) U/L Troponin I High Sens < 3.5 (<3.5-17.0) ng/L Total Protein 7.4 (6.5-8.0) g/dL Albumin 4.2 (3.5-5.0) g/dL <Taylor Guerrero CNP - Last Filed: 07/31/22 15:57> Lab Results 07/31/22 07/31/22 07/31/22 Range/Units 17:03 17:03 17:03 WBC 6.1 (4.8-10.8) X10*3/uL RBC 4.27 (4.20-5.50) X10*6/uL Hgb 12.2 (12.0-16.0) g/dl Hct 37.2 (37.0-47.0) % MCV 87.1 (80.0-98.0) fL MCH 28.6 (27.0-33.0) pg MCHC 32.8 (31.0-35.0) g/dl RDW 13.1 (11.0-16.0) % Plt Count 248 (160-400) X10*3/uL MPV 9.3 L (9.4-12.3) fL Immature Gran % (Auto) 0.7 H (0.0-0.4) % Neut % (Auto) 55.5 (45-73) % Lymph % (Auto) 32.1 (20-40) % [place] % (Auto) 8.4 (2-11) % Eos % (Auto) 3.1 (0-4) % Baso % (Auto) 0.2 (0-2) % Lymph # (Auto) 2.0 (1.2-4.9) X10*3/uL [place] # (Auto) 0.5 (0.1-1.2) X10*3/uL Eos # (Auto) 0.2 (0.0-0.4) X10*3/uL Baso # (Auto) 0.0 (0.0-0.2) X10*3/uL Abs Immat Gran (auto) 0.04 H (0.00-0.03) X10*3/uL Absolute Neuts (auto) 3.4 (2.0-8.3) x10*3/uL Absolute Nucleated RBC 0.000 (0.0-0.012) X10*3/uL Nucleated RBC % (auto) 0.0 (0.0-0.2) /100WBC Sodium 139 (135-145) mmol/L Potassium 4.2 (3.3-5.1) mmol/L Chloride 105 (96-108) mmol/L Carbon Dioxide 29 (22-29) mmol/L Anion Gap 9 L (12-20) BUN 11 (9-16) mg/dL Creatinine 0.78 (0.5-1.4) mg/dL Estim Creat Clear Calc 58.7 Estimated GFR > 60 Random Glucose 103 (60-115) mg/dL Calcium 9.8 (8.4-10.2) mg/dL Total Bilirubin 0.4 (0.0-1.0) mg/dL AST 16 (5-31) U/L ALT 16 (0-31) U/L Alkaline Phosphatase 69 (39-117) U/L Troponin I High Sens < 3.5 (<3.5-17.0) ng/L Total Protein 7.4 (6.5-8.0) g/dL Albumin 4.2 (3.5-5.0) g/dL <Mariel Moore NP - Last Filed: 07/31/22 18:49> Independent Interpretation I performed an independent interpretation of an: EKG and CT Scan <Mariel Moore NP - Last Filed: 07/31/22 18:49> Interpretation: Independently reviewed the EKG which shows normal sinus rhythm with a rate 84, right bundle-branch block, normal ME, normal QRS-unchanged from EKG December of [address] the [address] scan of the head and agree with radiologist interpretation <Mariel Moore NP - Last Filed: 07/31/22 18:49> Radiology Impression Discussion of test interpretation with radiology: I have reviewed the radiologist's reading. <Mariel Moore NP - Last Filed: 07/31/22 18:49> Radiologist Impression: TECHNIQUE: Imaging was performed from the skull base to vertex without intravenous administration of contrast. This CT examination was performed using dose optimization techniques as appropriate, variously including the following: *Automated exposure control *Adjustment of mA and/or kV according to patient size (this includes techniques or standardized protocols for targeted exams where dose is matched to indication/reason for exam; i.e. extremities or head) *Use of iterative reconstruction technique Total exam dose length product: 557 mGy-cm FINDINGS: No intra or extra-axial fluid collection, hemorrhage, or mass. No ventriculomegaly. No midline shift or herniation. Basal cisterns are patent. Petit-white matter differentiation is maintained. No territorial encephalomalacia. ?No significant volume loss. Mild nonspecific patchy periventricular white matter hypoattenuation. No calvarial fracture or soft tissue abnormality.? The mastoid air cells and visualized portions of the paranasal sinuses are well aerated. CT/CT head/brain wo IV con IMPRESSION: No acute intracranial pathology. <Mariel Moore NP - Last Filed: 07/31/22 18:49> Discharge Plan Discharge Clinical Impression: Vertigo <Taylor Guerrero CNP - Last Filed: 07/31/22 15:57> Patient Disposition: Home, Self-Care <Taylor Guerrero CNP - Last Filed: 07/31/22 15:57> Instructions: Vertigo (ED) <Taylor Guerrero CNP - Last Filed: 07/31/22 15:57> Additional Instructions: Your lab work, EKG and CT scan all look normal. Please take your meclizine as needed for dizziness. Please follow-up with your primary care doctor Ha trabajo de laboratorio, electrocardiograma y tomograf?a computarizada parecen normales. Pachuta ha meclizina seg?n sea necesario para los mareos. Por favor, nilam un seguimiento con ha m?dico de atenci?n primaria. <Taylor Guerrero CNP - Last Filed: 07/31/22 15:57> Prescriptions: No Action calcium carbonate 600 mg calcium (1,500 mg) tablet 600 mg PO BID Qty: 60 6RF cholecalciferol (vitamin D3) 25 mcg (1,000 unit) tablet 25 mcg PO DAILY 30 Days Qty: 30 11RF Fiber Laxative (methylcellulo) 500 mg tablet 1,000 mg PO DAILY Qty: 60 6RF docusate sodium 100 mg capsule 100 mg PO BID Qty: 60 6RF (DME) blood pressure monitor Kit See Rx Instructions .Route Qty: 1 0RF Rx Instructions: As directed losartan 50 mg tablet 50 mg PO DAILY 90 Days Qty: 90 1RF loratadine 10 mg tablet 10 mg PO DAILY 30 Days Qty: 30 11RF meclizine 25 mg tablet 25 mg PO BID PRN (Reason: dizziness) 30 Days Qty: 60 1RF cyclobenzaprine 10 mg tablet 10 mg PO TID PRN naproxen 500 mg tablet 500 mg PO BID PRN TDVAX 2-2 Lf unit/0.5 mL suspension 0.5 ml IM ONCE Qty: 0.5 0RF clotrimazole-betamethasone 1-0.05 % cream 1 appl topical BID 14 Days Qty: 15 1RF estradiol 0.01 % (0.1 mg/gram) cream 1 g vaginal 3XW hydrocortisone 2.5 % ointment 1 appl topical TID 14 Days Qty: 20 0RF levothyroxine 50 mcg tablet 50 mcg PO QAM 90 Days Qty: 90 11RF Linzess 290 mcg capsule 290 mcg PO QAM 30 Days Qty: 30 6RF Hold Instructions: doing well wit bisacodyl bisacodyl [Dulcolax (bisacodyl)] 5 mg tablet,delayed release (DR/EC) 10 mg PO BEDTIME 30 Days Qty: 60 6RF pantoprazole [Protonix] 40 mg tablet,delayed release (DR/EC) 40 mg PO DAILY 30 Days Qty: 30 6RF <Taylor Guerrero CNP - Last Filed: 07/31/22 15:57> Referrals: Lakeisha Rojas MD [Primary Care Provider] - 1 week <Taylor Guerrero CNP - Last Filed: 07/31/22 15:57> Print Language: Sinhala <Taylor Guerrero CNP - Last Filed: 07/31/22 15:57>
[2022-07-31 15:48] VITALS: PULSE 111; RESP 18; TEMP 36.6; O2SAT 97; BMI 23.5
--- NOTE | 2022-07-31 16:43 | ECG_ITS ---
Test Reason : DIZZINESS Blood Pressure : / mmHG Vent. Rate : 084 BPM Atrial Rate : 084 BPM P-R Int : 174 ms QRS Dur : 116 ms QT Int : 368 ms P-R-T Axes : 066 -13 012 degrees QTc Int : 434 ms Normal sinus rhythm Right bundle branch block Abnormal ECG When compared with ECG of 25-DEC-2021 12:37, No significant change was found Referred By: Taylor Guerrero Electronically Signed By:Alek Hilton
[2022-07-31 17:08] LABS: MANUAL DIFF FLAG NO
[2022-07-31] MEDS: Meclizine HCl 25 MG TABLET 50 MG PO (17:15)
[2022-07-31 17:18] LABS: Basophils Percent Auto 0.2 % (0-2); Eosinophils Absolute Auto 0.2 X10*3/uL (0.0-0.4); Eosinophils Percent Auto 3.1 % (0-4); Hematocrit 37.2 % (37.0-47.0); Hemoglobin 12.2 g/dl (12.0-16.0); Imm Gran Abs Auto 0.04 X10*3/uL (0.00-0.03); Imm Gran Pct Auto 0.7 % (0.0-0.4); Lymphocytes Percent Auto 32.1 % (20-40); Mean Corpuscular HGB Conc 32.8 g/dl (31.0-35.0); Mean Corpuscular Hemoglobin 28.6 pg (27.0-33.0); Mean Corpuscular Volume 87.1 fL (80.0-98.0); Mean Platelet Volume 9.3 fL (9.4-12.3); Monocytes Absolute Auto 0.5 X10*3/uL (0.1-1.2); Monocytes Percent Auto 8.4 % (2-11); Neutrophils Absolute Auto 3.4 x10*3/uL (2.0-8.3); Neutrophils Percent Auto 55.5 % (45-73); Platelet Count 248 X10*3/uL (160-400); Red Blood Count 4.27 X10*6/uL (4.20-5.50); Red Cell Distribution Width 13.1 % (11.0-16.0); White Blood Count 6.1 X10*3/uL (4.8-10.8)
[2022-07-31 17:26] LABS: Alanine Aminotransferase 16 U/L (0-31); Albumin Level 4.2 g/dL (3.5-5.0); Alkaline Phosphatase 69 U/L (39-117); Anion Gap 9 (12-20); Aspartate Amino Transferase 16 U/L (5-31); Bilirubin Total 0.4 mg/dL (0.0-1.0); Blood Urea Nitrogen 11 mg/dL (9-16); Calcium 9.8 mg/dL (8.4-10.2); Carbon Dioxide 29 mmol/L (22-29); Chloride 105 mmol/L (96-108); Creatinine Clr Calc Pharmacy 58.7; Estimated Glomerular Filt Rate > 60; Glucose Random 103 mg/dL (60-115); Potassium 4.2 mmol/L (3.3-5.1); Sodium 139 mmol/L (135-145); Total Protein 7.4 g/dL (6.5-8.0)
[2022-07-31 17:41] LABS: Troponin-I High Sensitivity < 3.5 ng/L (<3.5-17.0)
[2022-07-31 18:00] VITALS: BP 167/92; PULSE 76; RESP 16; O2SAT 100
== END 2022-07-31 18:54 | disposition home or self-care (01) ==
PROVIDERS: Nurse Practitioner Family; Emergency Provider Internal Medicine; PCP Internal Medicine
DX: R42 Dizziness and giddiness (principal); I10 Essential (primary) hypertension; F41.1 Generalized anxiety disorder; F43.0 Acute stress reaction; Z79.899 Other long term (current) drug therapy
CPT/HCPCS: 36415; 70450; 80053; 84484; 85025; 93005; 99284

== ENCOUNTER → 2022-09-22 13:04 | Outpatient (BNVA) | payer MEDICARE, MEDICAID, SELFPAY | PROVIDERS: PCP Internal Medicine; Referring Provider Internal Medicine; Visit Provider Nurse Practitioner Family | DX: I45.10 Unspecified right bundle-branch block (principal); I10 Essential (primary) hypertension; R07.89 Other chest pain; R00.0 Tachycardia, unspecified | CPT/HCPCS: 99212 ==

== ENCOUNTER → 2022-11-25 09:52 | Outpatient (BNVA) | payer MEDICARE, SELFPAY | PROVIDERS: PCP Internal Medicine; Referring Provider Internal Medicine; Visit Provider Nurse Practitioner | DX: K59.04 Chronic idiopathic constipation (principal); K21.9 Gastro-esophageal reflux disease without esophagitis; Z83.71 Family history of colonic polyps | CPT/HCPCS: 99212 ==

== ENCOUNTER 2022-12-11 14:59 | Emergency (ER) | payer MEDICARE, SELFPAY ==
[2022-12-11 15:05] VITALS: BP 158/92; PULSE 98; RESP 18; TEMP 36.7; O2SAT 99; BMI 24.4
--- NOTE | 2022-12-11 15:15 | ECG_ITS ---
Test Reason : htn and dizzy Blood Pressure : / mmHG Vent. Rate : 088 BPM Atrial Rate : 088 BPM P-R Int : 168 ms QRS Dur : 114 ms QT Int : 370 ms P-R-T Axes : 072 -12 024 degrees QTc Int : 447 ms Normal sinus rhythm Right bundle branch block Abnormal ECG When compared with ECG of 31-JUL-2022 16:53, No significant change was found Referred By: Constantino Phillips Electronically Signed By:Alek Hilton
--- NOTE | 2022-12-11 15:16 | ED_ITS ---
HPI - General Adult General Chief complaint: General Medical Stated complaint: nausea dizzy high bp Time Seen by Provider: 12/11/22 18:39 Related Data Home Medications Medication Instructions Recorded Confirmed cyclobenzaprine 10 mg tablet 10 mg PO TID PRN 04/21/20 09/22/22 estradiol 0.01% (0.1 mg/gram) 1 g vaginal 3XW 04/09/21 09/22/22 vaginal cream naproxen 500 mg tablet 500 mg PO BID PRN 08/25/21 09/22/22 Previous Rx's Medication Instructions Recorded cholecalciferol (vitamin D3) 25 25 mcg PO DAILY 30 days #30 tabs 12/27/21 mcg (1,000 unit) tablet methylcellulose (laxative) 500 mg 1,000 mg PO DAILY #60 tabs 01/21/22 tablet (Fiber Laxative (methylcellulose)) hydrocortisone 2.5 % topical 1 appl topical TID 14 days #20 03/11/22 ointment grams clotrimazole-betamethasone 1 1 appl topical BID 2 weeks #15 04/11/22 %-0.05 % topical cream grams blood pressure monitor #1 ea 04/28/22 loratadine 10 mg tablet 10 mg PO DAILY 30 days #30 tabs 05/16/22 bisacodyl 5 mg tablet,delayed 10 mg PO BEDTIME 30 days #60 tabs 05/25/22 release (Dulcolax (bisacodyl)) pantoprazole 40 mg tablet,delayed 40 mg PO DAILY 30 days #30 tabs 07/27/22 release (Protonix) calcium carbonate 600 mg calcium 600 mg PO BID #60 tabs 08/08/22 (1,500 mg) tablet docusate sodium 100 mg capsule 100 mg PO BID #60 caps 09/09/22 losartan 50 mg tablet 50 mg PO DAILY 90 days #90 tabs 10/29/22 meclizine 25 mg tablet 25 mg PO BID PRN dizziness 30 days 11/07/22 #60 tabs levothyroxine 50 mcg tablet 50 mcg PO QAM 90 days #90 tabs 11/21/22 hydrochlorothiazide 12.5 mg tablet 12.5 mg PO QAM #30 tabs 12/11/22 lorazepam 0.5 mg tablet (Ativan) 0.5 mg PO BID PRN dizziness or 12/11/22 vertigo #10 tabs Allergies Allergy/AdvReac Type Severity Reaction Status Date / Time amlodipine Allergy Mild leg edema Verified 11/25/22 09:53 aspirin [Aspirin] Allergy Mild ULCER HX, Verified 11/25/22 09:53 abdominal pain latex [Latex] Allergy Mild RASH Verified 11/25/22 09:53 metronidazole [Flagyl] Allergy Mild rash Verified 11/25/22 09:53 [facility] Past Medical History Medical History Allergic rhinitis Essential hypertension GERD (gastroesophageal reflux disease) Hypothyroidism Hypovitaminosis D Low back pain Mild depression Multinodular thyroid Neck pain Osteoarthritis of right knee Osteopenia Right knee pain Right shoulder pain TMJ (temporomandibular joint syndrome) Vertigo Surgical History History of prolapse of bladder History of root canal procedure History of tubal ligation Hx of biopsy Hx of colonoscopy Hx of cone biopsy of cervix Family History Family History Father Liver problem CVD (cardiovascular disease) Mother Diabetes Stroke Alzheimer disease Chronic mental illness Maternal Grandmother Cancer Uterine cancer Paternal Uncle Diabetes Brother Cancer Family/Other Chronic mental illness Daughter No problems noted. Daughter No problems noted. Sister Alzheimer disease Social History Social History Housing: Apartment Alcohol intake: never Patient Tobacco Use Status: Never used Tobacco e-Cigarette/Vaping Use: Never Used Second Hand Smoke Exposure: No service: No Current occupational status: unemployed Cognitive needs: No Hearing needs: No Vision needs: Yes Physical Exam ED Vital Signs: Vital Signs - 24 hr 12/11/22 15:05 12/11/22 19:23 12/11/22 21:00 Temperature 98.1 F 98 F 97.8 F Pulse Rate 98 80 74 Respiratory Rate 18 18 16 Blood Pressure 158/92 H 173/98 H 169/88 H Pulse Oximetry 99 98 98 Oxygen Delivery Method Room Air Room Air Room Air BMI result Body Mass Index 24.4 Course Course Course Narrative: RME: 67 yold female presents to the ED for nausea, dizzy, and night blood pressure at home. negative for any room spinning. negative for any neuro deficits. no chest pain or URI symptoms. labs and EKG ordered Medications Administered Discontinued Medications Generic Name Dose Route Start Last Admin Trade Name Maximiliano PRN Reason Stop Dose Admin Amlodipine Besylate 2.5 mg 12/11/22 20:50 12/11/22 20:54 Amlodipine Besylate 2.5 Mg Tablet PO 12/11/22 20:51 2.5 mg ONCE ONE Administration Protocol Lorazepam 1 mg 12/11/22 19:15 12/11/22 19:28 Lorazepam 1 Mg Tablet PO 12/11/22 19:16 1 mg ONCE ONE Administration Meclizine HCl 25 mg 12/11/22 19:15 12/11/22 19:28 Meclizine Hcl 25 Mg Tablet PO 12/11/22 19:16 25 mg ONCE ONE Administration Medical Decision Making Medical Decision Making [facility] Narrative: Patient with slightly elevated blood pressure with vertiginous feeling with history of same in the past will add hydrochlorothiazide to losartan which patient takes. Also increase the dose of meclizine to 3 times a day and add lorazepam for vertiginous feeling advised to follow up with ENT Lab Data [facility] Lab Attestation statement: I reviewed the patient's lab results. 12/11/22 15:47 12/11/22 15:47 Labs: Lab Results 12/11/22 12/11/22 12/11/22 Range/Units 15:47 15:47 15:47 WBC 5.4 (4.8-10.8) X10*3/uL RBC 4.76 (4.20-5.50) X10*6/uL Hgb 13.4 (12.0-16.0) g/dl Hct 41.3 (37.0-47.0) % MCV 86.8 (80.0-98.0) fL MCH 28.2 (27.0-33.0) pg MCHC 32.4 (31.0-35.0) g/dl RDW 13.3 (11.0-16.0) % Plt Count 271 (160-400) X10*3/uL MPV 9.1 L (9.4-12.3) fL Immature Gran % (Auto) 0.2 (0.0-0.4) % Neut % (Auto) 54.2 (45-73) % Lymph % (Auto) 35.8 (20-40) % [place] % (Auto) 7.2 (2-11) % Eos % (Auto) 2.4 (0-4) % Baso % (Auto) 0.2 (0-2) % Lymph # (Auto) 1.9 (1.2-4.9) X10*3/uL [place] # (Auto) 0.4 (0.1-1.2) X10*3/uL Eos # (Auto) 0.1 (0.0-0.4) X10*3/uL Baso # (Auto) 0.0 (0.0-0.2) X10*3/uL Abs Immat Gran (auto) 0.01 (0.00-0.03) X10*3/uL Absolute Neuts (auto) 2.9 (2.0-8.3) x10*3/uL Absolute Nucleated RBC 0.000 (0.0-0.012) X10*3/uL Nucleated RBC % (auto) 0.0 (0.0-0.2) /100WBC PT 11.1 (10.0-13.1) SEC INR 1.0 (0.9-1.1) APTT 29.4 (26.0-36.4) SEC Sodium 142 (135-145) mmol/L Potassium 4.9 (3.3-5.1) mmol/L Chloride 106 (96-108) mmol/L Carbon Dioxide 28 (22-29) mmol/L Anion Gap 13 (12-20) BUN 14 (9-16) mg/dL Creatinine 0.81 (0.5-1.4) mg/dL Estim Creat Clear Calc 56.5 Estimated GFR > 60 Random Glucose 95 (60-115) mg/dL Calcium 10.4 H D (8.4-10.2) mg/dL Total Bilirubin 0.8 (0.0-1.0) mg/dL AST 25 (5-31) U/L ALT 27 (0-31) U/L Alkaline Phosphatase 68 (39-117) U/L Troponin I High Sens (<3.5-17.0) ng/L Total Protein 8.2 H (6.5-8.0) g/dL Albumin 4.5 (3.5-5.0) g/dL 12/11/22 Range/Units 15:47 WBC (4.8-10.8) X10*3/uL RBC (4.20-5.50) X10*6/uL Hgb (12.0-16.0) g/dl Hct (37.0-47.0) % MCV (80.0-98.0) fL MCH (27.0-33.0) pg MCHC (31.0-35.0) g/dl RDW (11.0-16.0) % Plt Count (160-400) X10*3/uL MPV (9.4-12.3) fL Immature Gran % (Auto) (0.0-0.4) % Neut % (Auto) (45-73) % Lymph % (Auto) (20-40) % [place] % (Auto) (2-11) % Eos % (Auto) (0-4) % Baso % (Auto) (0-2) % Lymph # (Auto) (1.2-4.9) X10*3/uL [place] # (Auto) (0.1-1.2) X10*3/uL Eos # (Auto) (0.0-0.4) X10*3/uL Baso # (Auto) (0.0-0.2) X10*3/uL Abs Immat Gran (auto) (0.00-0.03) X10*3/uL Absolute Neuts (auto) (2.0-8.3) x10*3/uL Absolute Nucleated RBC (0.0-0.012) X10*3/uL Nucleated RBC % (auto) (0.0-0.2) /100WBC PT (10.0-13.1) SEC INR (0.9-1.1) APTT (26.0-36.4) SEC Sodium (135-145) mmol/L Potassium (3.3-5.1) mmol/L Chloride (96-108) mmol/L Carbon Dioxide (22-29) mmol/L Anion Gap (12-20) BUN (9-16) mg/dL Creatinine (0.5-1.4) mg/dL Estim Creat Clear Calc Estimated GFR Random Glucose (60-115) mg/dL Calcium (8.4-10.2) mg/dL Total Bilirubin (0.0-1.0) mg/dL AST (5-31) U/L ALT (0-31) U/L Alkaline Phosphatase (39-117) U/L Troponin I High Sens < 2.7 (<3.5-17.0) ng/L Total Protein (6.5-8.0) g/dL Albumin (3.5-5.0) g/dL Discharge Plan Discharge Clinical Impression: Benign paroxysmal positional vertigo, Hypertension Patient Disposition: Home, Self-Care Instructions: Chronic Hypertension (ED), Benign Paroxysmal Positional Vertigo ( ED) Additional Instructions: Continue taking your blood pressure medication as prescribed by your PCP Will add hydrochlorothiazide 12.5 mg daily in the morning for better blood pressure control Continue taking meclizine you may increase the dose to 3 times a day as needed for dizziness Ativan 0.5 mg twice daily for dizziness it will make you sleepy Follow-up with ENT/PCP Contin?e tomando boggs medicamento para la presi?n arterial seg?n lo prescrito por bogsg PCP Agregar? hidroclorotiazida 12,5 mg diarios por la ma?jaguar para un mejor control de la presi?n arterial Contin?e tomando meclizina, puede aumentar la dosis a 3 veces al d?a seg?n sea necesario para los mareos. Ativan 0,5 mg dos veces al d?a para los mareos le fatimah? morales?o Seguimiento con ENT/PCP Prescriptions: New hydrochlorothiazide 12.5 mg tablet 12.5 mg PO QAM Qty: 30 0RF lorazepam [Ativan] 0.5 mg tablet 0.5 mg PO BID PRN (Reason: dizziness or vertigo) Qty: 10 0RF No Action cholecalciferol (vitamin D3) 25 mcg (1,000 unit) tablet 25 mcg PO DAILY 30 Days Qty: 30 11RF Fiber Laxative(methylcellulos) 500 mg tablet 1,000 mg PO DAILY Qty: 60 6RF (DME) blood pressure monitor Kit See Rx Instructions .Route Qty: 1 0RF Rx Instructions: As directed loratadine 10 mg tablet 10 mg PO DAILY 30 Days Qty: 30 11RF calcium carbonate 600 mg calcium (1,500 mg) tablet 600 mg PO BID Qty: 60 6RF docusate sodium 100 mg capsule 100 mg PO BID Qty: 60 6RF losartan 50 mg tablet 50 mg PO DAILY 90 Days Qty: 90 1RF meclizine 25 mg tablet 25 mg PO BID PRN (Reason: dizziness) 30 Days Qty: 60 1RF levothyroxine 50 mcg tablet 50 mcg PO QAM 90 Days Qty: 90 11RF cyclobenzaprine 10 mg tablet 10 mg PO TID PRN naproxen 500 mg tablet 500 mg PO BID PRN TDVAX 2-2 Lf unit/0.5 mL suspension 0.5 ml IM ONCE Qty: 0.5 0RF clotrimazole-betamethasone 1-0.05 % cream 1 appl topical BID 14 Days Qty: 15 1RF estradiol 0.01 % (0.1 mg/gram) cream 1 g vaginal 3XW hydrocortisone 2.5 % ointment 1 appl topical TID 14 Days Qty: 20 0RF bisacodyl [Dulcolax (bisacodyl)] 5 mg tablet,delayed release (DR/EC) 10 mg PO BEDTIME 30 Days Qty: 60 6RF pantoprazole [Protonix] 40 mg tablet,delayed release (DR/EC) 40 mg PO DAILY 30 Days Qty: 30 6RF Referrals: Darrin Mckeon [Physician] - 1 week Interventions: ED Discharge Assessment Last Done: 12/11/22 21:35 Discharge Date/Time: 12/11/22 21:36 Print Language: Greenlandic
[2022-12-11 15:53] LABS: MANUAL DIFF FLAG NO
[2022-12-11 16:01] LABS: Prothrombin Time 11.1 SEC (10.0-13.1)
[2022-12-11 16:03] LABS: Basophils Percent Auto 0.2 % (0-2); Eosinophils Absolute Auto 0.1 X10*3/uL (0.0-0.4); Eosinophils Percent Auto 2.4 % (0-4); Hematocrit 41.3 % (37.0-47.0); Hemoglobin 13.4 g/dl (12.0-16.0); Imm Gran Abs Auto 0.01 X10*3/uL (0.00-0.03); Imm Gran Pct Auto 0.2 % (0.0-0.4); Lymphocytes Absolute Auto 1.9 X10*3/uL (1.2-4.9); Lymphocytes Percent Auto 35.8 % (20-40); Mean Corpuscular HGB Conc 32.4 g/dl (31.0-35.0); Mean Corpuscular Hemoglobin 28.2 pg (27.0-33.0); Mean Corpuscular Volume 86.8 fL (80.0-98.0); Mean Platelet Volume 9.1 fL (9.4-12.3); Monocytes Absolute Auto 0.4 X10*3/uL (0.1-1.2); Monocytes Percent Auto 7.2 % (2-11); Neutrophils Absolute Auto 2.9 x10*3/uL (2.0-8.3); Neutrophils Percent Auto 54.2 % (45-73); Platelet Count 271 X10*3/uL (160-400); Red Blood Count 4.76 X10*6/uL (4.20-5.50); Red Cell Distribution Width 13.3 % (11.0-16.0); White Blood Count 5.4 X10*3/uL (4.8-10.8)
[2022-12-11 16:04] LABS: Partial Thromboplastin Time 29.4 SEC (26.0-36.4)
[2022-12-11 16:10] LABS: Alanine Aminotransferase 27 U/L (0-31); Albumin Level 4.5 g/dL (3.5-5.0); Alkaline Phosphatase 68 U/L (39-117); Anion Gap 13 (12-20); Aspartate Amino Transferase 25 U/L (5-31); Bilirubin Total 0.8 mg/dL (0.0-1.0); Blood Urea Nitrogen 14 mg/dL (9-16); Calcium 10.4 mg/dL (8.4-10.2); Carbon Dioxide 28 mmol/L (22-29); Chloride 106 mmol/L (96-108); Creatinine Clr Calc Pharmacy 56.5; Estimated Glomerular Filt Rate > 60; Glucose Random 95 mg/dL (60-115); Potassium 4.9 mmol/L (3.3-5.1); Sodium 142 mmol/L (135-145); Total Protein 8.2 g/dL (6.5-8.0)
[2022-12-11 16:33] LABS: Troponin-I High Sensitivity < 2.7 ng/L (<3.5-17.0)
--- NOTE | 2022-12-11 19:18 | ED_ITS ---
HPI - General Adult General Chief complaint: General Medical Stated complaint: nausea dizzy high bp Time Seen by Provider: 12/11/22 18:39 Source: patient Mode of arrival: ambulatory Limitations: no limitations History of Present Illness HPI narrative: Patient with history of vertigo on meclizine 25 mg twice a day comes for increased vertiginous feeling especially turning her head the left side since she woke up in the morning with ringing in left ear for last few days patient had head CT scan on 07/31/2022 for same no headache no fever no chills no neck pain no palpitation no speech problem no focal deficit no tremors patient gait is normal was slightly off balance Related Data Home Medications Medication Instructions Recorded Confirmed cyclobenzaprine 10 mg tablet 10 mg PO TID PRN 04/21/20 09/22/22 estradiol 0.01% (0.1 mg/gram) 1 g vaginal 3XW 04/09/21 09/22/22 vaginal cream naproxen 500 mg tablet 500 mg PO BID PRN 08/25/21 09/22/22 Previous Rx's Medication Instructions Recorded cholecalciferol (vitamin D3) 25 25 mcg PO DAILY 30 days #30 tabs 12/27/21 mcg (1,000 unit) tablet methylcellulose (laxative) 500 mg 1,000 mg PO DAILY #60 tabs 01/21/22 tablet (Fiber Laxative (methylcellulose)) hydrocortisone 2.5 % topical 1 appl topical TID 14 days #20 03/11/22 ointment grams clotrimazole-betamethasone 1 1 appl topical BID 2 weeks #15 04/11/22 %-0.05 % topical cream grams blood pressure monitor #1 ea 04/28/22 loratadine 10 mg tablet 10 mg PO DAILY 30 days #30 tabs 05/16/22 bisacodyl 5 mg tablet,delayed 10 mg PO BEDTIME 30 days #60 tabs 05/25/22 release (Dulcolax (bisacodyl)) pantoprazole 40 mg tablet,delayed 40 mg PO DAILY 30 days #30 tabs 07/27/22 release (Protonix) calcium carbonate 600 mg calcium 600 mg PO BID #60 tabs 08/08/22 (1,500 mg) tablet docusate sodium 100 mg capsule 100 mg PO BID #60 caps 09/09/22 losartan 50 mg tablet 50 mg PO DAILY 90 days #90 tabs 10/29/22 meclizine 25 mg tablet 25 mg PO BID PRN dizziness 30 days 11/07/22 #60 tabs levothyroxine 50 mcg tablet 50 mcg PO QAM 90 days #90 tabs 11/21/22 hydrochlorothiazide 12.5 mg tablet 12.5 mg PO QAM #30 tabs 12/11/22 lorazepam 0.5 mg tablet (Ativan) 0.5 mg PO BID PRN dizziness or 12/11/22 vertigo #10 tabs Allergies Allergy/AdvReac Type Severity Reaction Status Date / Time amlodipine Allergy Mild leg edema Verified 11/25/22 09:53 aspirin [Aspirin] Allergy Mild ULCER HX, Verified 11/25/22 09:53 abdominal pain latex [Latex] Allergy Mild RASH Verified 11/25/22 09:53 metronidazole [Flagyl] Allergy Mild rash Verified 11/25/22 09:53 Review of Systems Review of Systems: Yes all other systems are reviewed and are negative PMFSH Past Medical History Medical History Allergic rhinitis Essential hypertension GERD (gastroesophageal reflux disease) Hypothyroidism Hypovitaminosis D Low back pain Mild depression Multinodular thyroid Neck pain Osteoarthritis of right knee Osteopenia Right knee pain Right shoulder pain TMJ (temporomandibular joint syndrome) Vertigo Surgical History History of prolapse of bladder History of root canal procedure History of tubal ligation Hx of biopsy Hx of colonoscopy Hx of cone biopsy of cervix Family History Family History Father Liver problem CVD (cardiovascular disease) Mother Diabetes Stroke Alzheimer disease Chronic mental illness Maternal Grandmother Cancer Uterine cancer Paternal Uncle Diabetes Brother Cancer Family/Other Chronic mental illness Daughter No problems noted. Daughter No problems noted. Sister Alzheimer disease Social History Social History Housing: Apartment Alcohol intake: never Patient Tobacco Use Status: Never used Tobacco e-Cigarette/Vaping Use: Never Used Second Hand Smoke Exposure: No Advance Directives: No Advance Directives Information Provided: No service: No Current occupational status: unemployed Cognitive needs: No Hearing needs: No Vision needs: Yes Physical Exam ED Vital Signs: Vital Signs - 24 hr 12/11/22 15:05 12/11/22 19:23 Temperature 98.1 F 98 F Pulse Rate 98 80 Respiratory Rate 18 18 Blood Pressure 158/92 H 173/98 H Pulse Oximetry 99 98 Oxygen Delivery Method Room Air Room Air BMI result Body Mass Index 24.4 Appearance: Alert. Oriented X3. No acute distress. Eyes: PERRLA, No Nystagmus ENT: Pharynx normal. Oral Mucosa moist Neck: Normal inspection. Neck supple. CVS: Normal heart rate and rhythm. Pulses normal. Respiratory: No respiratory distress. Equal air entry bilateral, no wheezing/rales/rhonchi Abdomen: Soft and nontender. Bowel sounds are present, no mass palpable, no CVA tenderness Skin: Skin warm and dry. Normal skin color. Normal skin turgor. Extremities: No lower extremity edema. No calf tenderness Neuro: Oriented X 3. No motor deficit. No sensory deficit.No cerebellar signs , cranial nerves II-XII intact Medications Administered Discontinued Medications Generic Name Dose Route Start Last Admin Trade Name Freq PRN Reason Stop Dose Admin Lorazepam 1 mg 12/11/22 19:15 12/11/22 19:28 Lorazepam 1 Mg Tablet PO 12/11/22 19:16 1 mg ONCE ONE Administration Meclizine HCl 25 mg 12/11/22 19:15 12/11/22 19:28 Meclizine Hcl 25 Mg Tablet PO 12/11/22 19:16 25 mg ONCE ONE Administration Medical Decision Making Medical Decision Making [facility] Narrative: Patient increase vertiginous feeling on turning her head to the left side already on meclizine will give Ativan. Clinically patient has benign positional vertigo no signs of central nervous involvement 20;30 Patient's labs are stable does complain of elevated blood pressure for last few weeks patient is on losartan 50 mg daily repeat used to increase to 170/90 even when she is not feeling dizzy. Will add hydrochlorothiazide 12.5 mg daily advised to follow-up with PCP patient dizziness has improved will refer her to ENT Lab Data [facility] Lab Attestation statement: I reviewed the patient's lab results. 12/11/22 15:47 12/11/22 15:47 Labs: Lab Results 06/11/23 06/11/23 06/11/23 Range/Units 15:47 15:47 15:47 WBC 5.4 (4.8-10.8) X10*3/uL RBC 4.76 (4.20-5.50) X10*6/uL Hgb 13.4 (12.0-16.0) g/dl Hct 41.3 (37.0-47.0) % MCV 86.8 (80.0-98.0) fL MCH 28.2 (27.0-33.0) pg MCHC 32.4 (31.0-35.0) g/dl RDW 13.3 (11.0-16.0) % Plt Count 271 (160-400) X10*3/uL MPV 9.1 L (9.4-12.3) fL Immature Gran % (Auto) 0.2 (0.0-0.4) % Neut % (Auto) 54.2 (45-73) % Lymph % (Auto) 35.8 (20-40) % [place] % (Auto) 7.2 (2-11) % Eos % (Auto) 2.4 (0-4) % Baso % (Auto) 0.2 (0-2) % Lymph # (Auto) 1.9 (1.2-4.9) X10*3/uL [place] # (Auto) 0.4 (0.1-1.2) X10*3/uL Eos # (Auto) 0.1 (0.0-0.4) X10*3/uL Baso # (Auto) 0.0 (0.0-0.2) X10*3/uL Abs Immat Gran (auto) 0.01 (0.00-0.03) X10*3/uL Absolute Neuts (auto) 2.9 (2.0-8.3) x10*3/uL Absolute Nucleated RBC 0.000 (0.0-0.012) X10*3/uL Nucleated RBC % (auto) 0.0 (0.0-0.2) /100WBC PT 11.1 (10.0-13.1) SEC INR 1.0 (0.9-1.1) APTT 29.4 (26.0-36.4) SEC Sodium 142 (135-145) mmol/L Potassium 4.9 (3.3-5.1) mmol/L Chloride 106 (96-108) mmol/L Carbon Dioxide 28 (22-29) mmol/L Anion Gap 13 (12-20) BUN 14 (9-16) mg/dL Creatinine 0.81 (0.5-1.4) mg/dL Estim Creat Clear Calc 56.5 Estimated GFR > 60 Random Glucose 95 (60-115) mg/dL Calcium 10.4 H D (8.4-10.2) mg/dL Total Bilirubin 0.8 (0.0-1.0) mg/dL AST 25 (5-31) U/L ALT 27 (0-31) U/L Alkaline Phosphatase 68 (39-117) U/L Troponin I High Sens (<3.5-17.0) ng/L Total Protein 8.2 H (6.5-8.0) g/dL Albumin 4.5 (3.5-5.0) g/dL 12/11/22 Range/Units 15:47 WBC (4.8-10.8) X10*3/uL RBC (4.20-5.50) X10*6/uL Hgb (12.0-16.0) g/dl Hct (37.0-47.0) % MCV (80.0-98.0) fL MCH (27.0-33.0) pg MCHC (31.0-35.0) g/dl RDW (11.0-16.0) % Plt Count (160-400) X10*3/uL MPV (9.4-12.3) fL Immature Gran % (Auto) (0.0-0.4) % Neut % (Auto) (45-73) % Lymph % (Auto) (20-40) % [place] % (Auto) (2-11) % Eos % (Auto) (0-4) % Baso % (Auto) (0-2) % Lymph # (Auto) (1.2-4.9) X10*3/uL [place] # (Auto) (0.1-1.2) X10*3/uL Eos # (Auto) (0.0-0.4) X10*3/uL Baso # (Auto) (0.0-0.2) X10*3/uL Abs Immat Gran (auto) (0.00-0.03) X10*3/uL Absolute Neuts (auto) (2.0-8.3) x10*3/uL Absolute Nucleated RBC (0.0-0.012) X10*3/uL Nucleated RBC % (auto) (0.0-0.2) /100WBC PT (10.0-13.1) SEC INR (0.9-1.1) APTT (26.0-36.4) SEC Sodium (135-145) mmol/L Potassium (3.3-5.1) mmol/L Chloride (96-108) mmol/L Carbon Dioxide (22-29) mmol/L Anion Gap (12-20) BUN (9-16) mg/dL Creatinine (0.5-1.4) mg/dL Estim Creat Clear Calc Estimated GFR Random Glucose (60-115) mg/dL Calcium (8.4-10.2) mg/dL Total Bilirubin (0.0-1.0) mg/dL AST (5-31) U/L ALT (0-31) U/L Alkaline Phosphatase (39-117) U/L Troponin I High Sens < 2.7 (<3.5-17.0) ng/L Total Protein (6.5-8.0) g/dL Albumin (3.5-5.0) g/dL Independent Interpretation I performed an independent interpretation of an: EKG Interpretation: Normal sinus rhythm heart rate 88 beats per minute right bundle-branch block no acute ST wave changes no acute ischemia Discharge Plan Discharge Clinical Impression: Benign paroxysmal positional vertigo, Hypertension Patient Disposition: Home, Self-Care Instructions: Chronic Hypertension (ED), Benign Paroxysmal Positional Vertigo (ED) Additional Instructions: Continue taking your blood pressure medication as prescribed by your PCP Will add hydrochlorothiazide 12.5 mg daily in the morning for better blood pressure control Continue taking meclizine you may increase the dose to 3 times a day as needed for dizziness Ativan 0.5 mg twice daily for dizziness it will make you sleepy Follow-up with ENT/PCP Contin?e tomando boggs medicamento para la presi?n arterial seg?n lo prescrito por boggs PCP Agregar? hidroclorotiazida 12,5 mg diarios por la ma?jaguar para un mejor control de la presi?n arterial Contin?e tomando meclizina, puede aumentar la dosis a 3 veces al d?a seg?n sea n ecesario para los mareos. Ativan 0,5 mg dos veces al d?a para los mareos le fatimah? morales?o Seguimiento con ENT/PCP Prescriptions: New hydrochlorothiazide 12.5 mg tablet 12.5 mg PO QAM Qty: 30 0RF lorazepam [Ativan] 0.5 mg tablet 0.5 mg PO BID PRN (Reason: dizziness or vertigo) Qty: 10 0RF No Action cholecalciferol (vitamin D3) 25 mcg (1,000 unit) tablet 25 mcg PO DAILY 30 Days Qty: 30 11RF Fiber Laxative (methylcellulo) 500 mg tablet 1,000 mg PO DAILY Qty: 60 6RF (DME) blood pressure monitor Kit See Rx Instructions .Route Qty: 1 0RF Rx Instructions: As directed loratadine 10 mg tablet 10 mg PO DAILY 30 Days Qty: 30 11RF calcium carbonate 600 mg calcium (1,500 mg) tablet 600 mg PO BID Qty: 60 6RF docusate sodium 100 mg capsule 100 mg PO BID Qty: 60 6RF losartan 50 mg tablet 50 mg PO DAILY 90 Days Qty: 90 1RF meclizine 25 mg tablet 25 mg PO BID PRN (Reason: dizziness) 30 Days Qty: 60 1RF levothyroxine 50 mcg tablet 50 mcg PO QAM 90 Days Qty: 90 11RF cyclobenzaprine 10 mg tablet 10 mg PO TID PRN naproxen 500 mg tablet 500 mg PO BID PRN TDVAX 2-2 Lf unit/0.5 mL suspension 0.5 ml IM ONCE Qty: 0.5 0RF clotrimazole-betamethasone 1-0.05 % cream 1 appl topical BID 14 Days Qty: 15 1RF estradiol 0.01 % (0.1 mg/gram) cream 1 g vaginal 3XW hydrocortisone 2.5 % ointment 1 appl topical TID 14 Days Qty: 20 0RF bisacodyl [Dulcolax (bisacodyl)] 5 mg tablet,delayed release (DR/EC) 10 mg PO BEDTIME 30 Days Qty: 60 6RF pantoprazole [Protonix] 40 mg tablet,delayed release (DR/EC) 40 mg PO DAILY 30 Days Qty: 30 6RF Referrals: Darrin Mckeon [Physician] - 1 week Print Language: Amharic
[2022-12-11 19:23] VITALS: BP 173/98; PULSE 80; RESP 18; TEMP 36.6; O2SAT 98
[2022-12-11] MEDS: Meclizine HCl 25 MG TABLET PO (19:28)
[2022-12-11] MEDS: LORazepam 1 MG TABLET PO (19:28)
--- NOTE | 2022-12-11 19:41 | PC.NURSE ---
this rn assumed care of pt @ 1900. pt medicated according to aug. pt tolerated po medication well. family at bedside
[2022-12-11] MEDS: amLODIPine Besylate 2.5 MG TABLET PO (20:54)
[2022-12-11 21:00] VITALS: BP 169/88; PULSE 74; RESP 16; TEMP 36.6; O2SAT 98
--- NOTE | 2022-12-11 21:35 | PC.NURSE ---
late entry- pt ambulatory at discharge. pt son at bedside. pt provided with discharge packet. pt and son verbalized understanding of discharge plan
== END 2022-12-11 21:36 | disposition home or self-care (01) ==
PROVIDERS: Physician Assistant; Emergency Provider Internal Medicine; PCP Internal Medicine
DX: H81.13 Benign paroxysmal vertigo, bilateral (principal); I10 Essential (primary) hypertension; R94.31 Abnormal electrocardiogram [ECG] [EKG]; Z79.899 Other long term (current) drug therapy
CPT/HCPCS: 36415; 80053; 84484; 85025; 85610; 85730; 93005; 99283; 99284

== ENCOUNTER 2022-12-20 08:36 | Outpatient (REF) | payer MEDICARE, SELFPAY ==
--- NOTE | ~2022-12-20 | US_ITS ---
EXAMINATION: US THYROID CLINICAL INFORMATION: Nontoxic multinodular goiter. COMPARISON: Ultrasound soft tissue head/neck thyroid dated 03/03/2020 and 08/12/2016 TECHNIQUE: Linear transducer grayscale and color Doppler examination with attention to the region of the thyroid. FINDINGS: SIZE: Measurements of the thyroid lobes and nodules are given in sagittal, anteroposterior and transverse dimensions respectively. Right Thyroid Lobe: 4.5 x 1.5 x 1.4 cm, volume 5.0 mL. Previously 5.0 x 1.3 x 1.3 cm, volume 4.2 mL. Parenchyma: The gland echotexture is homogeneous. Thyroid vascularity is normal. Left Thyroid Lobe: 3.3 x 1.3 x 1.3 cm, volume 2.9 mL. Previously 3.9 x 1.3 x 1.4 cm, volume 3.6 mL. Parenchyma: The gland echotexture is homogeneous. Thyroid vascularity is normal. Isthmus: 0.3 cm in maximum AP dimension. Previously 0.3 cm. Estimated total number of nodules greater than or equal to 1 cm: 2. Clinical Informaticist nodules are described as follows: 1. Location: Right mid. Size: 1.0 x 0.7 x 0.9 cm, volume 0.3 mL. Previously: 1.0 x 1.0 x 1.0 cm, volume 0.5 mL. Nodule characteristics: Composition: Cystic(0). ACR TI-RADS total points: 0 ACR TI-RADS category: 1 Significant change in size (>/= 20% in 2 dimensions and minimal increase of 2 mm or 50% or greater increase in volume): No Change in features: No 2. Location: Right mid. Size: 0.8 x 0.5 x 0.7 cm, volume 0.1 mL. Previously: 0.5 x 0.5 x 0.5 cm, volume 0.07 mL. Nodule characteristics: Composition: Solid (2). Echogenicity: Hypoechoic (2). Shape: Not taller than wide (0). Margins: Smooth (0). Echogenic Foci: None (0). ACR TI-RADS total points: 4 ACR TI-RADS category: 4 Significant change in size (>/= 20% in 2 dimensions and minimal increase of 2 mm or 50% or greater increase in volume): No Change in features: No as previously appeared to be relatively hypoechoic when accounting for differences in interobserver variability. 3. Location: Left mid. Size: 1.2 x 0.7 x 1.0 cm, volume 0.5 mL. Previously: 0.8 x 0.9 x 1.0 cm, volume 0.4 mL. This measured 1.1 x 0.7 x 0.9 cm in 2017. Nodule characteristics: Composition: Solid (2). Echogenicity: Hypoechoic (2). Shape: Not taller than wide (0). Margins: Smooth (0). Echogenic Foci: None (0). ACR TI-RADS total points: 4 ACR TI-RADS category: 4 Significant change in size (>/= 20% in 2 dimensions and minimal increase of 2 mm or 50% or greater increase in volume): No Change in features: No as previously appeared to be relatively hypoechoic when accounting for differences in interobserver variability. NODES: No lymphadenopathy is seen in the tissue surrounding the thyroid gland. US/US thyroid IMPRESSION: A 1.2 cm TR 4 left mid thyroid nodule is not significantly changed in size from 2017 which exceeds TI RADS recommended duration of follow-up. No follow-up imaging recommended. No other nodule meets criteria for follow-up imaging. ACR TI-RADS RECOMMENDATION REFERENCE: Ultrasound-guided fine-needle aspiration, followup ultrasound, no further follow up. * TR1 (0 point) and TR2 (2 points): No FNA or follow up * TR3 (3 points): FNA if more than or equal to 2.5 cm in maximum dimension, followup ultrasound in 1, 3 and 5 years if 1.5 to 2.4 cm in maximum dimension. * TR4 (4-6 points): FNA if more than or equal to 1.5 cm in maximum dimension, followup ultrasound in 1, 2, 3 and 5 years if 1 to 1.4 cm in maximum dimension. * TR5 (more than or equal to 7 points): FNA if more than or equal to 1 cm in maximum dimension, followup ultrasound every year for 5 years if 0.5 to 0.9 cm in maximum dimension. * TR3, TR4 or TR5 nodules that are below the size threshold for follow up receive no follow up.
== END 2022-12-20 08:37 | disposition home or self-care (01) ==
LOC: HO.US 08:36
PROVIDERS: PCP Internal Medicine; Visit Provider Internal Medicine
DX: E04.2 Nontoxic multinodular goiter (principal)
CPT/HCPCS: 76536

== ENCOUNTER 2023-01-12 13:49 | Outpatient (AMB) | payer MEDICARE, SELFPAY ==
[2023-01-12 14:02] VITALS: BP 132/70; PULSE 80; O2SAT 98; BMI 24.2
--- NOTE | 2023-01-12 14:02 | MHC.PC.OV ---
Vital Signs 01/12/23 14:02 Height 5 ft 4 in Weight 141 lb BMI 24.2 BP 132/70 Blood Pressure Location Lt brachial Position Sitting Pulse 80 Pulse Source Pulse Oximeter Pulse Oximetry (%) 98 Oxygen Delivery Method Room Air Intake Visit Reasons: eye surgery Allergies amlodipine Allergy (Mild, Verified 01/12/23 14:03) leg edema aspirin [Aspirin] Allergy (Mild, Verified 01/12/23 14:03) ULCER HX, abdominal pain latex [Latex] Allergy (Mild, Verified 01/12/23 14:03) RASH metronidazole [Flagyl] Allergy (Mild, Verified 01/12/23 14:03) rash Medication List - Last Reconciled 01/12/23 by Jada Javier MD bisacodyl (Dulcolax (bisacodyl)) 10 mg (2 x 5 mg) PO BEDTIME 30 days blood pressure monitor As directed calcium carbonate 600 mg PO BID cholecalciferol (vitamin D3) 25 mcg PO DAILY 30 days clotrimazole-betamethasone 1-0.05 % 1 appl topical BID 2 weeks cyclobenzaprine 10 mg PO TID PRN docusate sodium 100 mg PO BID estradiol 0.01%(0.1mg/gram) 1 g vaginal 3XW hydrochlorothiazide 12.5 mg PO QAM hydrocortisone 2.5% 1 appl topical TID 14 days levothyroxine 50 mcg PO QAM 90 days loratadine 10 mg PO DAILY 30 days losartan 50 mg PO DAILY 90 days methylcellulose (laxative) (Fiber Laxative (methylcellulose)) 1,000 mg (2 x 500 mg) PO DAILY asmsulpwndzm-cwre-hctrf acid 18-400 mg-mcg (Centrum Complete) 1 tab PO DAILY naproxen 500 mg PO BID PRN pantoprazole (Protonix) 40 mg PO DAILY 30 days Tobacco use date assessed: 12/23/22 Fall risk assessment: No Falls in past year Last assessed Fall Risk: 01/12/23 Dental Screening Dental Screen Date: 01/12/23 Did you have a dental visit in the last 12 months?: Yes Did you have a dental problem in the last 6 months where you did not have access to dental care?: No Was dental information given to patient?: Patient has dentist HPI eye surgery HPI Details 67-year-old female with hypertension, hypothyroidism, GERD generalized anxiety disorder coming in for preoperative evaluation for eye surgery. myranda ([id number]) intepret. Cataract Surgery L eye 01/23/2023. nausea. states has not been exercising much since dog 6 months ago [facility] 68 [facility] . [facility] Medical History (Updated 01/12/23 @ 14:25 by Jada Javier MD) Allergic rhinitis Atypical facial pain Bleeding hemorrhoids Cervical cancer screening Cough Diverticulitis large intestine Essential hypertension Family history of polyps in the colon Forgetfulness GERD (gastroesophageal reflux disease) Hemorrhoids History of diverticulitis Hypothyroidism Hypovitaminosis D Left foot pain Low back pain Mild depression Multinodular thyroid Neck pain Osteoarthritis of right knee Osteopenia Post-menopausal Right shoulder pain RUQ abdominal pain Screening for colon cancer Sinus tachycardia Skin lesion TMJ (temporomandibular joint syndrome) Vertigo Surgical History (Updated 01/12/23 @ 08:57 by Sho Vincent RN) History of prolapse of bladder History of root canal procedure History of tubal ligation Hx of biopsy Hx of colonoscopy Hx of cone biopsy of cervix Family History Father Liver problem CVD (cardiovascular disease) Mother Diabetes Stroke Alzheimer disease Chronic mental illness Maternal Grandmother Cancer Uterine cancer Paternal Uncle Diabetes Brother Cancer Family/Other Chronic mental illness Daughter No problems noted. Daughter No problems noted. Sister Alzheimer disease Social History Housing: Apartment Are you a primary pet care associate to a significant other at home: No Alcohol intake: never Patient Tobacco Use Status: Never used Tobacco e-Cigarette/Vaping Use: Never Used Second Hand Smoke Exposure: No service: No Current occupational status: unemployed Cognitive needs: No Hearing needs: No Vision needs: Yes Questionnaire PHQ-9 Over the last 2 weeks, how often have you been bothered by any of the following problems? 1. Little interest or pleasure in doing things: several days 2. Feeling down, depressed, or hopeless: not at all 3. Trouble falling or staying asleep, or sleeping too much: several days 4. Feeling tired or having little energy: several days 5. Poor appetite or overeating: several days 6. Feeling bad about yourself - or that you are a failure or have let yourself or your family down: several days 7. Trouble concentrating on things, such as reading the newspaper or watching television: not at all 8. Moving or speaking so slowly that other people could have noticed. Or the opposite - being so fidgety or restless that you have been moving around a lot more than usual: not at all 9. Thoughts that you would be better off or of hurting yourself in some way: not at all Total score: 5 Depression Screening Interpretation: Negative 44999 - PHQ-9 Billing: Yes Source: Developed by Drs. Alex Cowan, Seferino Garcia and colleagues, with an educational deondre from [employer]. Thrive Questionnaire Date Thrive assessed: 09/16/22 AUDIT C Alcohol Use Questionnaire (AUDIT-C) 1. How often do you have a drink containing alcohol?: Never Total Score: 0 BREANNA-7 AMB Questionnaire BREANNA-7 Date BREANNA - 7 assessed: 09/16/22 Source: Developed by Drs. Alex Cowan, Ananya Black, Seferino Vásquez and colleagues, with an educational deondre from [employer]. Review of Systems Const Denies poor appetite and Denies weakness Eyes Denies no additional complaints ENT Reports Normal hearing present, Denies dizziness, Denies nasal congestion, Denies tinnitus and Denies sore throat Card Denies chest pain, Denies syncope, Denies rapid heart rate and Denies dyspnea Resp Denies cough and Denies dyspnea GI Denies change in stool character, Reports constipation, Denies diarrhea, Denies nausea and Denies vomiting Denies urinary frequency, Denies difficulty voiding and Denies dysuria Neuro Reports Normal hearing present, Denies confusion, Denies dizziness, Denies syncope and Denies weakness Psych Denies confusion Physical exam (Primary Care) Vital Signs: Oxygen Delivery Method Room Air 01/12/23 14:02 Tobacco/Smoking Status: Tobacco use Status Tobacco use date assessed 12/23/22 01/11/23 14:16 Patient Tobacco Use Status Never used Tobacco 01/11/23 14:16 e-Cigarette/Vaping Use Never Used 01/11/23 14:16 Depression Screening Interpretation: Negative Thrive Assessment: Date of Thrive Assessment Date Thrive assessed 09/16/22 01/11/23 14:16 Const General: No confusion Orientation/consciousness: No confusion Eyes Conjunctivae: conjunctivae normal Resp Auscultation: clear to auscultation bilaterally Cardio Rate: regular rate Rhythm: regular rhythm GI Inspection: Yes normal to inspection Neuro General: No confusion Cranial nerves: Yes Normal hearing present Extrem General: Yes normal to inspection and No edema Assessment and Plan Assessment & Plan (1) Preop exam for internal medicine: Code(s): Z01.818 - Encounter for other preprocedural examination Plan: EKG and blood work reviewed. No further workup needed at this time and may proceed with the contemplated procedure. (2) Essential hypertension: Code(s): I10 - Essential (primary) hypertension Plan: Continue with blood pressure medication. Decrease salt intake and exercise continue with hydrochlorothiazide 12.5 mg once a day losartan 50 mg once a day (3) Hypothyroidism: Code(s): E03.9 - Hypothyroidism, unspecified Qualifiers: Hypothyroidism type: unspecified Qualified Code(s): E03.9 - Hypothyroidism, unspecified Plan: Continue with thyroid medication April 2022 last blood work (4) GERD (gastroesophageal reflux disease): Code(s): K21.9 - Gastro-esophageal reflux disease without esophagitis Qualifiers: Esophagitis presence: esophagitis presence not specified Qualified Code(s): K21.9 - Gastro-esophageal reflux disease without esophagitis Plan: Avoid the foods that causes that usually spicy foods, tomato products, juices, coffee, soda and foods that your sensitive to. After eating do not lie down, allow 3-4 hours before in lie down. And keep the head of bed above 30 degrees to avoid the acid from going up. (5) Generalized anxiety disorder: Code(s): F41.1 - Generalized anxiety disorder (6) Multinodular thyroid: Code(s): E04.2 - Nontoxic multinodular goiter Coding Level of Care Code Est Pt Level 4 (91518) Diagnoses Preop exam for internal medicine Z01.818 Essential hypertension I10 Hypothyroidism E03.9 Hypothyroidism type: unspecified GERD (gastroesophageal reflux disease) K21.9 Esophagitis presence: esophagitis presence not specified Generalized anxiety disorder F41.1 Multinodular thyroid E04.2
== END 2023-01-12 14:49 | disposition home or self-care (01) ==
PROVIDERS: PCP Internal Medicine; Visit Provider Internal Medicine
DX: I10 Essential (primary) hypertension (principal); E03.9 Hypothyroidism, unspecified; K21.9 Gastro-esophageal reflux disease without esophagitis; E04.2 Nontoxic multinodular goiter; Z01.818 Encounter for other preprocedural examination; F41.1 Generalized anxiety disorder
CPT/HCPCS: 99214

== ENCOUNTER 2023-01-23 08:20 | Day surgery (SDC) | payer MEDICARE, SELFPAY ==
[2023-01-12 08:57] VITALS: BMI 24.0
--- NOTE | 2023-01-20 08:10 | MHC.SHP ---
Pre-Procedural Eval Section A Date of Service: 01/20/23 The patient is an INPATIENT: No Changes since office visit: No Cold of Flu in the past 2 weeks, No New Medical Problems, No Changes in Medication and No Patient answered all questions The History & Physical has been completed within 30 days and I have reviewed it.: Yes Section B Chief Complaint: Age-related nuclear cataract, Left eye Allergies: Allergies Allergy/AdvReac Type Severity Reaction Status Date / Time amlodipine Allergy Mild leg edema Verified 01/12/23 14:03 aspirin [Aspirin] Allergy Mild ULCER HX, Verified 01/12/23 14:03 abdominal pain latex [Latex] Allergy Mild RASH Verified 01/12/23 14:03 metronidazole [Flagyl] Allergy Mild rash Verified 01/12/23 14:03 Plan Diagnosis/Plan: Unchanged I have reviewed the history and physical and performed a pertinent physical examination on my patient. No changes have occurred unless specified. Time Spent With Patient Time: Total time managing care of this patient today ____ minutes.
--- NOTE | 2023-01-20 14:55 | HO.ANESPROP2 ---
HPI - Anesthesia Eval Consult details Narrative: 68yo F for Left Cataract Extraction IOL Insertion PCP cleared No previous cataract on record PMF Active Problems Active Problems: All Active Problems (Updated 01/12/23 @ 14:25 by Jada Javier MD) Cataract (Acute) Generalized anxiety disorder (Acute) Preop exam for internal medicine (Acute) Adult general medical exam (Acute) Right bundle branch block (Acute) Chronic idiopathic constipation (Acute) Multinodular thyroid (Acute) Low back pain (Acute) Osteoarthritis of right knee (Acute) Right shoulder pain (Acute) Osteopenia (Acute) TMJ (temporomandibular joint syndrome) (Acute) GERD (gastroesophageal reflux disease) (Acute) Allergic rhinitis (Acute) Hypovitaminosis D (Acute) Vertigo (Acute) Hypothyroidism (Acute) Essential hypertension (Acute) Past Medical History Medical History (Updated 01/12/23 @ 14:25 by Jada Javier MD) Allergic rhinitis Atypical facial pain Bleeding hemorrhoids Cervical cancer screening Cough Diverticulitis large intestine Essential hypertension Family history of polyps in the colon Forgetfulness GERD (gastroesophageal reflux disease) Hemorrhoids History of diverticulitis Hypothyroidism Hypovitaminosis D Left foot pain Low back pain Mild depression Multinodular thyroid Neck pain Osteoarthritis of right knee Osteopenia Post-menopausal Right shoulder pain RUQ abdominal pain Screening for colon cancer Sinus tachycardia Skin lesion TMJ (temporomandibular joint syndrome) Vertigo Family History Family History Father Liver problem CVD (cardiovascular disease) Mother Diabetes Stroke Alzheimer disease Chronic mental illness Maternal Grandmother Cancer Uterine cancer Paternal Uncle Diabetes Brother Cancer Family/Other Chronic mental illness Daughter No problems noted. Daughter No problems noted. Sister Alzheimer disease Surgical History Surgical History (Updated 01/12/23 @ 08:57 by Sho Vincent RN) History of prolapse of bladder History of root canal procedure History of tubal ligation Hx of biopsy Hx of colonoscopy Hx of cone biopsy of cervix Social History Social History Housing: Apartment Are you a primary manager critical care unit to a significant other at home: No Alcohol intake: never Patient Tobacco Use Status: Never used Tobacco e-Cigarette/Vaping Use: Never Used Second Hand Smoke Exposure: No service: No Current occupational status: unemployed Cognitive needs: No Hearing needs: No Vision needs: Yes Meds Allergies Allergy/AdvReac Type Severity Reaction Status Date / Time amlodipine Allergy Mild leg edema Verified 01/12/23 14:03 aspirin [Aspirin] Allergy Mild ULCER HX, Verified 01/12/23 14:03 abdominal pain latex [Latex] Allergy Mild RASH Verified 01/12/23 14:03 metronidazole [Flagyl] Allergy Mild rash Verified 01/12/23 14:03 Home Medications Medication Instructions Recorded Confirmed Last Taken Type cyclobenzaprine 10 mg tablet 10 mg PO TID PRN Muscle Spasm 04/21/20 01/12/23 Unknown History estradiol 0.01% (0.1 mg/gram) 1 g vaginal 3XW 04/09/21 01/12/23 Unknown History vaginal cream naproxen 500 mg tablet 500 mg PO BID PRN Pain 08/25/21 01/12/23 Unknown History multivitamin-ferrous 1 tab PO DAILY 01/12/23 01/12/23 Unknown History fumarate-folic acid 18 mg-400 mcg tablet (Centrum Complete) Exam Exam Date and Time: January 20, 2023 1455 Height,Weight and Vital Signs: Height 5 ft 4 in Weight 63.503 kg Assessment and Plan Assessment Anesthesia Assessment: Chart Reviewed
--- NOTE | 2023-01-23 09:51 | HO.ANESPROP2 ---
[facility] Active Problems Active Problems: All Active Problems (Updated 01/12/23 @ 14:25 by Jada Javier MD) Cataract (Acute) Generalized anxiety disorder (Acute) Preop exam for internal medicine (Acute) Adult general medical exam (Acute) Right bundle branch block (Acute) Chronic idiopathic constipation (Acute) Multinodular thyroid (Acute) Low back pain (Acute) Osteoarthritis of right knee (Acute) Right shoulder pain (Acute) Osteopenia (Acute) TMJ (temporomandibular joint syndrome) (Acute) GERD (gastroesophageal reflux disease) (Acute) Allergic rhinitis (Acute) Hypovitaminosis D (Acute) Vertigo (Acute) Hypothyroidism (Acute) Essential hypertension (Acute) Past Medical History Medical History Allergic rhinitis Atypical facial pain Bleeding hemorrhoids Cervical cancer screening Cough Diverticulitis large intestine Essential hypertension Family history of polyps in the colon Forgetfulness GERD (gastroesophageal reflux disease) Hemorrhoids History of diverticulitis Hypothyroidism Hypovitaminosis D Left foot pain Low back pain Mild depression Multinodular thyroid Neck pain Osteoarthritis of right knee Osteopenia Post-menopausal Right shoulder pain RUQ abdominal pain Screening for colon cancer Sinus tachycardia Skin lesion TMJ (temporomandibular joint syndrome) Vertigo Family History Family History Father Liver problem CVD (cardiovascular disease) Mother Diabetes Stroke Alzheimer disease Chronic mental illness Maternal Grandmother Cancer Uterine cancer Paternal Uncle Diabetes Brother Cancer Family/Other Chronic mental illness Daughter No problems noted. Daughter No problems noted. Sister Alzheimer disease Family history of problems with anesthesia: No Surgical History Surgical History History of prolapse of bladder History of root canal procedure History of tubal ligation Hx of biopsy Hx of colonoscopy Hx of cone biopsy of cervix History of Problems with Anesthesia: No Social History Social History Housing: Apartment Are you a primary patient care coordinator to a significant other at home: No Alcohol intake: never Patient Tobacco Use Status: Never used Tobacco e-Cigarette/Vaping Use: Never Used Second Hand Smoke Exposure: No Use of substances other than those prescribed or required for medical reasons: No Have you been hit, kicked, punched, or otherwise hurt by someone within the past year? If so, by whom?: No Are you DNR?: No Advance Directives Information Provided: Yes (son Maxwell-primary contact) Advance Directives on File: No Recently lost weight without trying: No Eating poorly because of decreased appetite: No Nutrition Risks: No Nutritional Risk service: No Current occupational status: unemployed Cognitive needs: No Hearing needs: No Vision needs: Yes Meds Allergies Allergy/AdvReac Type Severity Reaction Status Date / Time amlodipine Allergy Mild leg edema Verified 01/23/23 09:44 aspirin [Aspirin] Allergy Mild ULCER HX, Verified 01/23/23 09:44 abdominal pain latex [Latex] Allergy Mild RASH Verified 01/23/23 09:44 metronidazole [Flagyl] Allergy Mild rash Verified 01/23/23 09:44 Active Medications: Current Medications Lactated Ringer's (Lr) 500 mls @ 50 mls/hr IV .Q10H ALLA Stop: 01/23/23 19:29 Povidone Iodine (Povidone Iodine 5 % Ophth Soln 30 Ml Bottle) 1 appl EYE-LEFT PREOP PRN PRN Reason: Pre-Op Surgical Implant Prophy Home Medications Medication Instructions Recorded Confirmed Last Taken Type cyclobenzaprine 10 mg tablet 10 mg PO TID PRN Muscle Spasm 04/21/20 01/12/23 Unknown History estradiol 0.01% (0.1 mg/gram) 1 g vaginal 3XW 04/09/21 01/12/23 Unknown History vaginal cream naproxen 500 mg tablet 500 mg PO BID PRN Pain 08/25/21 01/12/23 Unknown History multivitamin-ferrous 1 tab PO DAILY 01/12/23 01/12/23 Unknown History fumarate-folic acid 18 mg-400 mcg tablet (Centrum Complete) Exam Exam Date and Time: January 23, 2023 0951 Height,Weight and Vital Signs: Height 5 ft 4 in Weight 63.503 kg Airway Mallampati Class: II TM Dist: >3cm Neck ROM: Full Partial: Upper Assessment and Plan Assessment Anesthesia Assessment: Anesthesia Plan Discussed and Chart Reviewed Final Anesthetic Review Family History of Problems with Anesthesia: No History of Problems with Anesthesia: No NPO: Yes ASA Class: II Final Preanesthetic Review: No Changes in Pt Med Stat, Meds/Allgs Chart Reviewed, Consent Obtained/Reviewed and Anes Risks/Benef Reviewed Patient Risk: Intermediate Procedure Risk: Low Anesthetic Plan Anesthetic Plan: MAC: Disposition: Standard PACU
[2023-01-23] MEDS: Tetracaine HCl/PF 0.5% Oph Sol 4 ML DROPS 1 DROP EYE-LEFT (09:52)
[2023-01-23] MEDS: Lactated Ringers 500 ML 50 ML IV (09:52)
[2023-01-23] MEDS: Ketorolac Tromethamine 0.5% Op 5 ML DROPS 1 DROP EYE-LEFT ×3 (09:53→10:04)
[2023-01-23] MEDS: Cyclopentolate 1 % Ophth Sol 2 ML DRPBTL 1 DROP EYE-LEFT ×3 (09:53→10:04)
[2023-01-23] MEDS: Tropicamide 1 % Ophth Sol 3 ML BTL 1 DROP EYE-LEFT ×3 (09:53→10:04)
[2023-01-23] MEDS: Phenylephrine HCL 2.5% Oph SoL 2 ML BOTTLE 1 DROP EYE-LEFT ×3 (09:53→10:04)
[2023-01-23 10:06] VITALS: BP 129/74; PULSE 74; RESP 18; TEMP 36.4; O2SAT 99
--- NOTE | 2023-01-23 11:03 | HO.PNOPHT ---
Ophthalmology Procedure Procedure Date of Service: 01/23/23 Ophthalmology Viscoelastic: Healshine Duet Dual Pack Pro Ophthalmology Lenses: TECNIS [id number] (19.5) Procedure Notes: PREOPERATIVE DIAGNOSIS: Decreased visual acuity left eye secondary to cataract POSTOPERATIVE DIAGNOSIS: Same PROCEDURE: Left cataract extraction with intraocular lens insertion SURGEON: Ramu Gould M.D. ANESTHESIA: Topical/MAC ESTIMATED BLOOD LOSS: None COMPLICATIONS: None After obtaining informed consent, the patient was brought to the operation room suite and placed in the supine position. After adequate sedation per anesthesia, topical drops of Tetracaine were given to the left eye. The eye was then prepped and draped in the usual sterile fashion. The operating room microscope was then positioned over the operative eye and a lid speculum placed. A paracentesis was created. Viscoelastic was then instilled into the anterior chamber. A three plane incision was then created temporally, utilizing a 2.85 mm keratome. Capsulotomy forceps were then utilized to create a circular tear capsulotomy. Hydrodissection and hydrodelineation were carried out until adequate mobilization of the nucleus occurred. Phacoemulsification was then utilized to remove the dense central nucleus followed by removal of the cortical material utilizing the automated aspiration irrigation unit. Viscoat elastic was instilled into the posterior capsular bag followed by placement of a posterior chamber intraocular lens without difficulty. The residual Viscoat elastic was then removed utilizing the automated IA machine. The wound was check and found to be watertight. The patient tolerated the procedure well and the lid speculum was removed. Intracameral injection of Vigamox 0.1 mL followed by a subtenon injection of Kenalog-40 0.2 mL were administered. The patient will be seen in the a.m.
[2023-01-23 11:28] VITALS: BP 126/74; PULSE 66; RESP 18; TEMP 36.6; O2SAT 100
== END 2023-01-23 11:51 | disposition home or self-care (01) ==
PROVIDERS: PCP Internal Medicine; Visit Provider Ophthalmology
PROC: (CPT 66985; principal; 2023-01-23 10:50)
DX: H25.12 Age-related nuclear cataract, left eye (principal); H54.7 Unspecified visual loss; I10 Essential (primary) hypertension; I45.10 Unspecified right bundle-branch block; K21.9 Gastro-esophageal reflux disease without esophagitis; Z79.899 Other long term (current) drug therapy
CPT/HCPCS: 66984; J2250; J3301; V2632

== ENCOUNTER 2023-02-06 09:16 | Day surgery (SDC) | payer OTHER, SELFPAY ==
[2023-01-12 09:03] VITALS: BMI 24.0
[2023-02-06] MEDS: Phenylephrine HCL 2.5% Oph SoL 2 ML BOTTLE 1 DROP EYE-RIGHT ×3 (10:37→10:49)
[2023-02-06] MEDS: Tropicamide 1 % Ophth Sol 3 ML BTL 1 DROP EYE-RIGHT ×3 (10:37→10:49)
[2023-02-06] MEDS: Cyclopentolate 1 % Ophth Sol 2 ML DRPBTL 1 DROP EYE-RIGHT ×3 (10:37→10:49)
[2023-02-06] MEDS: Ketorolac Tromethamine 0.5% Op 5 ML DROPS 1 DROP EYE-RIGHT (10:37)
[2023-02-06] MEDS: Tetracaine HCl/PF 0.5% Oph Sol 4 ML DROPS 1 DROP EYE-RIGHT (10:37)
[2023-02-06] MEDS: Lactated Ringers 500 ML 50 ML IV (10:38)
[2023-02-06 10:53] VITALS: BP 131/75; PULSE 81; RESP 18; TEMP 36.6; O2SAT 100
--- NOTE | 2023-02-06 11:01 | HO.ANESPROP2 ---
HPI - Anesthesia Eval Consult details Narrative: 68 yo female patient for Right Cataract extraction, IOL insertion PMFSH Active Problems Active Problems: All Active Problems (Updated 02/06/23 @ 10:54 by Deepthi Morales MD) Cataract (Acute) Generalized anxiety disorder (Acute) Preop exam for internal medicine (Acute) Adult general medical exam (Acute) Right bundle branch block (Acute) Chronic idiopathic constipation (Acute) Multinodular thyroid (Acute) Low back pain (Acute) Osteoarthritis of right knee (Acute) Right shoulder pain (Acute) Osteopenia (Acute) TMJ (temporomandibular joint syndrome) (Acute) GERD (gastroesophageal reflux disease) (Acute) Allergic rhinitis (Acute) Hypovitaminosis D (Acute) Vertigo (Acute) Hypothyroidism (Acute) Essential hypertension (Acute) Occasional tachycardia. 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 No medication prescribed Past Medical History Medical History Allergic rhinitis Atypical facial pain Bleeding hemorrhoids Cervical cancer screening Cough Diverticulitis large intestine Essential hypertension Family history of polyps in the colon Forgetfulness GERD (gastroesophageal reflux disease) Hemorrhoids History of diverticulitis Hypothyroidism Hypovitaminosis D Left foot pain Low back pain Mild depression Multinodular thyroid Neck pain Osteoarthritis of right knee Osteopenia Post-menopausal Right shoulder pain RUQ abdominal pain Screening for colon cancer Sinus tachycardia Skin lesion TMJ (temporomandibular joint syndrome) Vertigo Family History Family History Father Liver problem CVD (cardiovascular disease) Mother Diabetes Stroke Alzheimer disease Chronic mental illness Maternal Grandmother Cancer Uterine cancer Paternal Uncle Diabetes Brother Cancer Family/Other Chronic mental illness Daughter No problems noted. Daughter No problems noted. Sister Alzheimer disease Family history of problems with anesthesia: No Surgical History Surgical History History of prolapse of bladder History of root canal procedure History of tubal ligation Hx of biopsy Hx of colonoscopy Hx of cone biopsy of cervix History of Problems with Anesthesia: No Social History Social History Housing: Apartment Are you a primary personal care aid to a significant other at home: No Alcohol intake: never Patient Tobacco Use Status: Never used Tobacco e-Cigarette/Vaping Use: Never Used Second Hand Smoke Exposure: No Use of substances other than those prescribed or required for medical reasons: No Have you been hit, kicked, punched, or otherwise hurt by someone within the past year? If so, by whom?: No Are you DNR?: No Advance Directives Information Provided: Yes (son Maxwell is primary contact) Advance Directives on File: No Recently lost weight without trying: No Eating poorly because of decreased appetite: No Nutrition Risks: No Nutritional Risk service: No Current occupational status: unemployed Cognitive needs: No Hearing needs: No Vision needs: Yes Meds Allergies Allergy/AdvReac Type Severity Reaction Status Date / Time amlodipine Allergy Mild leg edema Verified 02/06/23 10:54 aspirin [Aspirin] Allergy Mild ULCER HX, Verified 02/06/23 10:54 abdominal pain latex [Latex] Allergy Mild RASH Verified 02/06/23 10:54 metronidazole [Flagyl] Allergy Mild rash Verified 02/06/23 10:54 Active Medications: Current Medications Lactated Ringer's (Lr) 500 mls @ 50 mls/hr IV .Q10H ALLA Stop: 02/06/23 19:59 Last Admin: 02/06/23 10:38 Dose: 50 mls/hr Povidone Iodine (Povidone Iodine 5 % Ophth Soln 30 Ml Bottle) 1 appl EYE-RIGHT PREOP PRN PRN Reason: Pre-Op Surgical Implant Prophy Home Medications Medication Instructions Recorded Confirmed Last Taken Type cyclobenzaprine 10 mg tablet 10 mg PO TID PRN Muscle Spasm 04/21/20 01/12/23 Unknown History estradiol 0.01% (0.1 mg/gram) 1 g vaginal 3XW 04/09/21 01/12/23 Unknown History vaginal cream naproxen 500 mg tablet 500 mg PO BID PRN Pain 08/25/21 01/12/23 Unknown History multivitamin-ferrous 1 tab PO DAILY 01/12/23 01/12/23 Unknown History fumarate-folic acid 18 mg-400 mcg tablet (Centrum Complete) Exam Exam Date and Time: February 06, 2023 110 Height,Weight and Vital Signs: Height 5 ft 4 in Weight 63.503 kg Last Vital Signs Temp 97.9 F 02/06/23 10:53 Pulse 81 02/06/23 10:53 Resp 18 02/06/23 10:53 BP 131/75 02/06/23 10:53 Pulse Ox 100 02/06/23 10:53 O2 Del Method Room Air 02/06/23 10:53 Airway Mallampati Class: II TM Dist: >3cm Neck ROM: Full Partial: Upper Loose/Missing/Broken Teeth: Yes (Denies broken or loose teeth) Heart: RRR Lungs: CTAB Assessment and Plan Assessment Anesthesia Assessment: Anesthesia Plan Discussed and Chart Reviewed Final Anesthetic Review Family History of Problems with Anesthesia: No History of Problems with Anesthesia: No NPO: Yes ASA Class: II Final Preanesthetic Review: No Changes in Pt Med Stat, Meds/Allgs Chart Reviewed, Consent Obtained/Reviewed and Anes Risks/Benef Reviewed Patient Risk: Intermediate Procedure Risk: Low Assessment/Block/Sedation in SS: Assess/Block/Sedation-SS Anesthetic Plan Anesthetic Plan: MAC: Disposition: Standard PACU
--- NOTE | 2023-02-06 11:30 | HO.PNOPHT ---
Ophthalmology Procedure Procedure Date of Service: 02/06/23 Ophthalmology Viscoelastic: Neeraj Hallt Dual Pack Pro Ophthalmology Lenses: TECRELL [id number] (20) Procedure Notes: PREOPERATIVE DIAGNOSIS: Decreased visual acuity right eye secondary to cataract POSTOPERATIVE DIAGNOSIS: Same PROCEDURE: Right cataract extraction with intraocular lens insertion SURGEON: Ramu Gould M.D. ANESTHESIA: Topical/MAC ESTIMATED BLOOD LOSS: None COMPLICATIONS: None After obtaining informed consent, the patient was brought to the operating room suite and placed in the supine position. After adequate sedation per anesthesia, topical drops of Tetracaine were given to the right eye. The eye was then prepped and draped in the usual sterile fashion. The operating room microscope was then positioned over the operative eye and a lid speculum placed. A paracentesis was created. Viscoelastic was then instilled into the anterior chamber. A three plane incision was then created temporally, utilizing a 2.85 mm keratome. Capsulotomy forceps were then utilized to create a circular tear capsulotomy. Hydrodissection and hydrodelineation were carried out until adequate mobilization of the nucleus occurred. Phacoemulsification was then utilized to remove the dense central nucleus followed by removal of the cortical material utilizing the automated aspiration irrigation unit. Viscoelastic was instilled into the posterior capsular bag followed by placement of a posterior chamber intraocular lens without difficulty. The residual Viscoelastic was then removed utilizing the automated IA machine. The wound was checked and found to be watertight. The patient tolerated the procedure well and the lid speculum was removed. Intracameral injection of Vigamox 0.1 mL followed by a subtenon injection of Kenalog-40 0.2 mL were administered. The patient will be seen in the a.m.
[2023-02-06 12:01] VITALS: BP 131/82; PULSE 76; RESP 16; TEMP 36.2; O2SAT 100
== END 2023-02-06 12:09 | disposition home or self-care (01) ==
PROVIDERS: PCP Internal Medicine; Visit Provider Ophthalmology
PROC: (CPT 66985; principal; 2023-02-06 11:20)
DX: H25.11 Age-related nuclear cataract, right eye (principal); H52.4 Presbyopia; H18.413 Arcus senilis, bilateral; H04.123 Dry eye syndrome of bilateral lacrimal glands; H11.153 Pinguecula, bilateral; I10 Essential (primary) hypertension; E03.9 Hypothyroidism, unspecified; Z79.899 Other long term (current) drug therapy; Z79.1 Long term (current) use of non-steroidal anti-inflammatories (NSAID); Z88.8 Allergy status to other drugs, medicaments and biological substances; Z91.040 Latex allergy status
CPT/HCPCS: 66984; J2250; J3010; J3301; V2632

== ENCOUNTER 2023-02-24 09:02 | Outpatient (REF) | payer OTHER, SELFPAY ==
[2023-02-24 11:21] LABS: Free T4 (Free Thyroxine) 1.09 ng/dL (0.71-1.85); Thyroid Stimulating Hormone 2.11 uIU/mL (0.32-4.0)
== END 2023-02-24 09:03 | disposition home or self-care (01) ==
LOC: HO.LAB 09:02
PROVIDERS: PCP Internal Medicine; Visit Provider Internal Medicine
DX: E04.2 Nontoxic multinodular goiter (principal)
CPT/HCPCS: 36415; 84439; 84443

== ENCOUNTER 2023-03-23 08:39 | Outpatient (REF) | payer OTHER, SELFPAY | END 2023-03-23 08:40 | disposition home or self-care (01) | LOC: HO.MAMMO 08:39 | PROVIDERS: PCP Internal Medicine; Visit Provider Internal Medicine | DX: Z12.31 Encounter for screening mammogram for malignant neoplasm of breast (principal) | CPT/HCPCS: 77063; 77067 ==

== ENCOUNTER → 2023-03-23 09:00 | Outpatient (BNV) | payer OTHER, SELFPAY | PROVIDERS: PCP Internal Medicine; Visit Provider Radiology Diagnostic Radiology | DX: Z12.31 Encounter for screening mammogram for malignant neoplasm of breast (principal) | CPT/HCPCS: 77063; 77067 ==

== ENCOUNTER 2023-04-03 09:46 | Outpatient (AMB) | payer MEDICARE, SELFPAY ==
--- NOTE | 2023-04-03 09:53 | MHC.PC.OV ---
Vital Signs 04/03/23 09:54 Height 5 ft 4 in Weight 143 lb BMI 24.5 BP 112/70 Blood Pressure Location Lt brachial Position Sitting Intake Visit Reasons: htn Intake Note: Patient here for a follow up htn [employer] In[employer] Selector Required: No Accompanied by: Self / Same As Patient Allergies amlodipine Allergy (Mild, Verified 04/03/23 10:07) leg edema aspirin [Aspirin] Allergy (Mild, Verified 04/03/23 10:07) ULCER HX, abdominal pain latex [Latex] Allergy (Mild, Verified 04/03/23 10:07) RASH metronidazole [Flagyl] Allergy (Mild, Verified 04/03/23 10:07) rash Medication List - Last Reconciled 04/03/23 by Lakeisha Lamas MD amoxicillin 875 mg PO BID bisacodyl 10 mg (2 x 5 mg) PO BEDTIME blood pressure monitor As directed calcium carbonate 600 mg PO BID cholecalciferol (vitamin D3) 25 mcg PO DAILY 30 days clotrimazole-betamethasone 1-0.05 % 1 appl topical BID 2 weeks cyclobenzaprine 10 mg PO TID PRN docusate sodium 100 mg PO BID estradiol 0.01%(0.1mg/gram) 1 g vaginal 3XW hydrochlorothiazide 12.5 mg PO QAM hydrocortisone 2.5% 1 appl topical TID 14 days levothyroxine 50 mcg PO QAM 90 days loratadine 10 mg PO DAILY 30 days losartan 50 mg PO DAILY 90 days methylcellulose (laxative) (Fiber Laxative (methylcellulose)) 1,000 mg (2 x 500 mg) PO DAILY ceelhrkxnnpz-gftn-kxqcm acid 18-400 mg-mcg (Centrum Complete) 1 tab PO DAILY naproxen 500 mg PO BID PRN pantoprazole 40 mg PO DAILY Tobacco use date assessed: 12/23/22 Fall risk assessment: No Falls in past year Last assessed Fall Risk: 04/03/23 Dental Screening Dental Screen Date: 04/03/23 Did you have a dental visit in the last 12 months?: Yes Did you have a dental problem in the last 6 months where you did not have access to dental care?: No Was dental information given to patient?: Patient has dentist HPI HPI Comments History of Present Illness Details This is a 68-year-old female with hypertension, GERD, hypothyroidism and chronic idiopathic constipation that comes today for follow-up on her conditions. Blood pressure stable. GERD stable with PPIs. Last TSH was normal. Constipation well controlled with medications. No chest pain or shortness of breath. Complains of left leg pain and has venous insufficiency that sometimes is tender. Will order ultrasound duplex to rule out DVT. Will refer her to vascular surgery for her venous insufficiency. [facility] Medical History (Updated 04/03/23 @ 10:16 by Lakeisha Lamas MD) Family history of polyps in the colon Screening for colon cancer Left foot pain Sinus tachycardia Skin lesion RUQ abdominal pain Forgetfulness Hemorrhoids Cervical cancer screening Post-menopausal Diverticulitis large intestine Atypical facial pain Multinodular thyroid Cough Low back pain Bleeding hemorrhoids History of diverticulitis Osteoarthritis of right knee Right shoulder pain Neck pain Osteopenia Mild depression TMJ (temporomandibular joint syndrome) GERD (gastroesophageal reflux disease) Allergic rhinitis Hypovitaminosis D Vertigo Hypothyroidism Essential hypertension Surgical History Hx of biopsy History of root canal procedure Hx of colonoscopy History of prolapse of bladder Hx of cone biopsy of cervix History of tubal ligation Family History Father Liver problem CVD (cardiovascular disease) Mother Diabetes Stroke Alzheimer disease Chronic mental illness Maternal Grandmother Cancer Uterine cancer Paternal Uncle Diabetes Brother Cancer Family/Other Chronic mental illness Daughter No problems noted. Daughter No problems noted. Sister Alzheimer disease Social History Housing: Apartment Are you a primary small animal caretaker to a significant other at home: No Alcohol intake: never Patient Tobacco Use Status: Never used Tobacco e-Cigarette/Vaping Use: Never Used Second Hand Smoke Exposure: No service: No Current occupational status: unemployed Cognitive needs: No Hearing needs: No Vision needs: Yes Questionnaire Thrive Questionnaire Date Thrive assessed: 09/16/22 BREANNA-7 AMB Questionnaire BREANNA-7 Date BREANNA - 7 assessed: 09/16/22 Source: Developed by Drs. Alex Cowan, Ananya Black, Seferino Vásquez and colleagues, with an educational deondre from [employer]. Review of Systems Const All systems reviewed & are unremarkable except as noted in HPI and below Eyes Reports no additional complaints, Denies change in vision and Denies other visual disturbances Card Denies chest pain at rest, Denies chest pain with activity, Denies edema, Denies irregular heart rhythm, Denies claudication, Denies dyspnea, Denies dyspnea on exertion, Denies orthopnea, Denies paroxysmal nocturnal dyspnea and Denies slow heart rate Resp Denies cough, Denies dyspnea and Denies dyspnea on exertion GI Denies abdominal pain, Denies change in bowel habits, Denies excessive flatus, Denies nausea and Denies vomiting Denies urinary incontinence, Denies urinary hesitancy and Denies urinary urgency Musc Denies abnormal gait, Denies atrophy, Denies deformity, Reports arthralgias and Denies limited range of motion Skin/Breast Denies bleeding lesions, Denies changing lesions and Denies rash Neuro Denies abnormal gait and Denies lack of coordination Physical exam (Primary Care) Vital Signs: Last Vital Signs BP 112/70 04/03/23 09:54 BMI result Body Mass Index 24.5 Tobacco/Smoking Status: Tobacco use Status Tobacco use date assessed 12/23/22 04/03/23 10:00 Patient Tobacco Use Status Never used Tobacco 04/03/23 10:00 e-Cigarette/Vaping Use Never Used 04/03/23 10:00 Thrive Assessment: Date of Thrive Assessment Date Thrive assessed 09/16/22 04/03/23 10:00 Eyes General: appearance normal, both eyes and all related structures Eyelids: Yes eyelids normal Conjunctivae: conjunctivae normal Neck Neck: Yes normal visual inspection and Yes supple Resp Effort & Inspection: normal respiratory effort Auscultation: clear to auscultation bilaterally Cardio Jugular venous distension: no JVD Rate: regular rate Rhythm: regular rhythm Heart sounds: S1 normal heart sound present and S2 normal heart sound present Extrem General: Yes full ROM Left lower extremity: lower leg Details: other (positive Bud's sign) Office Procedures Flu Questionnaire Does the patient have a severe egg allergy?: No Does the patient have severe life threatening allergies?: No Does the patient have a fever or illness today?: No Has the patient ever had Guillain-[place] Syndrome?: No Has the patient ever had any past reaction to a flu shot?: No Immunizations flu vacc [id number] 6mos up(PF) 60 mcg(15 mcgx4)/0.5 mL IM syringe Performing Provider: Lakeisha Lamas MD Performing Location[facility] [place] [facility] Administered by: ALEKSEY Verma on 04/03/23 10:14 Dose Route Admin Location Dispensed Lot Number Expiration Date NDC Book Cleaner 0.5 mL IM Right Deltoid 0.5 mL [id number] 12/31/23 31343-515-21 [employer] VIS Given Date VIS Provided VIS Publication Date 04/03/23 Single Vaccine 21 Eligibility Eligibility Date Funding Source Not [facility] Eligible 04/03/23 Private Assessment and Plan Assessment & Plan (1) Essential hypertension: Code(s): I10 - Essential (primary) hypertension Plan: Continue hydrochlorothiazide. Blood pressure goal is equal or less than 130/80. (2) Hypothyroidism: Code(s): E03.9 - Hypothyroidism, unspecified Qualifiers: Hypothyroidism type: unspecified Qualified Code(s): E03.9 - Hypothyroidism, unspecified Plan: Continue levothyroxine. (3) GERD (gastroesophageal reflux disease): Code(s): K21.9 - Gastro-esophageal reflux disease without esophagitis Qualifiers: Esophagitis presence: esophagitis presence not specified Qualified Code(s): K21.9 - Gastro-esophageal reflux disease without esophagitis Plan: Continue PPIs (4) Chronic idiopathic constipation: Code(s): K59.04 - Chronic idiopathic constipation Plan: Continue docusate and fiber. Orders: Orders US venous duplex LE LT Today M79.605 - Pain in left leg Influenza [id number] Immunization Today Z23 - Encounter for immunization Referrals Vascular Surgery Referral I87.2 - Venous insufficiency (chronic) (peripheral) Medications: New nystatin 1 appl topical BID 2 weeks 15 grams 1RF Coding Level of Care Code Est Pt Level 4 (64484) Diagnoses Essential hypertension I10 Hypothyroidism, unspecified type E03.9 Hypothyroidism type: unspecified Gastroesophageal reflux disease, unspecified whether esophagitis present K21.9 Esophagitis presence: esophagitis presence not specified Chronic idiopathic constipation K59.04 Time Spent (min) 22
[2023-04-03 09:54] VITALS: BP 112/70; BMI 24.5
== END 2023-04-03 10:20 | disposition home or self-care (01) ==
PROVIDERS: PCP Internal Medicine; Visit Provider Internal Medicine
DX: I10 Essential (primary) hypertension (principal); E03.9 Hypothyroidism, unspecified; K21.9 Gastro-esophageal reflux disease without esophagitis; K59.04 Chronic idiopathic constipation; Z23 Encounter for immunization
CPT/HCPCS: 90471; 90686; 99214

== ENCOUNTER 2023-04-06 14:36 | Outpatient (REF) | payer OTHER, SELFPAY | END 2023-04-06 14:37 | disposition home or self-care (01) | LOC: HO.US 14:36 | PROVIDERS: PCP Internal Medicine; Visit Provider Internal Medicine | DX: M79.605 Pain in left leg (principal) | CPT/HCPCS: 93971 ==

== ENCOUNTER 2023-04-29 13:34 | Emergency (ER) | payer OTHER, SELFPAY ==
--- NOTE | ~2023-04-29 | XR_ITS ---
EXAMINATION: XR CHEST CLINICAL INFORMATION: Cough. COMPARISON: CTA chest dated 12/25/2021. TECHNIQUE: Frontal view of the chest was obtained. FINDINGS: No significant abnormality is noted involving the heart, lungs, mediastinum, bony thorax or soft tissues. There is stable biapical pleural and parenchymal scarring, left greater than right. XR/XR chest 1V IMPRESSION: No active cardiopulmonary disease
[2023-04-29 14:00] VITALS: BP 135/79; PULSE 105; RESP 18; TEMP 36.1; O2SAT 98; BMI 24.5
[2023-04-29 15:26] LABS: IDNOW Serial# 58CA691E; Strep A Nucleic Acid Negative (Negative)
[2023-04-29 15:30] LABS: COVID-19 Test Negative (Negative); IDNOW Serial# 55D5AD1C
[2023-04-29 15:35] LABS: IDNOW Serial# 16C4AD1C; Influenza A Negative (Negative); Influenza B2 Negative (Negative)
--- NOTE | 2023-04-29 17:32 | ED.GENADULT ---
HPI - General Adult General Chief complaint: Upper Respiratory Symptoms Stated complaint: sore throat not feeling well Time Seen by Provider: 04/29/23 16:56 Source: patient Mode of arrival: ambulatory Limitations: no limitations History of Present Illness HPI narrative: This is a 68-year-old female history of venous insufficiency, cataracts, anxiety, right bundle-branch block, TMJ, GERD, hypertension, hypothyroidism presenting to the emergency department for evaluation of productive cough of yellow/green sputum for the past 3-4 days, fatigue, malaise, sore throat secondary to coughing so hard, myalgias, denies recent sick contacts. Denies chest pain, shortness of breath, fevers, chills, nausea, vomiting, abdominal pain, headache, vision changes, dizziness or weakness. Has not COVID test at Related Data Home Medications Medication Instructions Recorded Confirmed cyclobenzaprine 10 mg tablet 10 mg PO TID PRN Muscle Spasm 04/21/20 04/03/23 estradiol 0.01% (0.1 mg/gram) 1 g vaginal 3XW 04/09/21 04/03/23 vaginal cream naproxen 500 mg tablet 500 mg PO BID PRN Pain 08/25/21 04/03/23 multivitamin-ferrous 1 tab PO DAILY 01/12/23 04/03/23 fumarate-folic acid 18 mg-400 mcg tablet (Centrum Complete) amoxicillin 875 mg tablet 875 mg PO BID 04/03/23 04/03/23 Previous Rx's Medication Instructions Recorded hydrocortisone 2.5 % topical 1 appl topical TID 14 days #20 03/11/22 ointment grams clotrimazole-betamethasone 1 1 appl topical BID 2 weeks #15 04/11/22 %-0.05 % topical cream grams blood pressure monitor #1 ea 04/28/22 loratadine 10 mg tablet 10 mg PO DAILY 30 days #30 tabs 05/16/22 calcium carbonate 600 mg calcium 600 mg PO BID #60 tabs 08/08/22 (1,500 mg) tablet losartan 50 mg tablet 50 mg PO DAILY 90 days #90 tabs 10/29/22 levothyroxine 50 mcg tablet 50 mcg PO QAM 90 days #90 tabs 11/21/22 cholecalciferol (vitamin D3) 25 25 mcg PO DAILY 30 days #30 tabs 01/17/23 mcg (1,000 unit) tablet bisacodyl 5 mg tablet,delayed 10 mg (2 x 5 mg) PO BEDTIME #60 03/01/23 release tabs methylcellulose (laxative) 500 mg 1,000 mg (2 x 500 mg) PO DAILY #60 03/02/23 tablet (Fiber Laxative tabs (methylcellulose)) pantoprazole 40 mg tablet,delayed 40 mg PO DAILY #30 tabs 03/10/23 release hydrochlorothiazide 12.5 mg tablet 12.5 mg PO QAM #90 tabs 03/16/23 nystatin 100,000 unit/gram topical 1 appl topical BID 2 weeks #15 04/03/23 cream grams docusate sodium 100 mg capsule 100 mg PO BID #60 caps 04/12/23 albuterol sulfate 90 mcg/actuation 2 inh inhalation Q4-6H PRN 04/29/23 breath activated powder inhaler shortness of breath or wheezing #1 ea doxycycline hyclate 100 mg capsule 100 mg PO BID 10 days #20 caps 04/29/23 prednisone 20 mg tablet 40 mg (2 x 20 mg) PO DAILY 5 days 04/29/23 #10 tabs Allergies Allergy/AdvReac Type Severity Reaction Status Date / Time amlodipine Allergy Mild leg edema Verified 04/03/23 10:07 aspirin [Aspirin] Allergy Mild ULCER HX, Verified 04/03/23 10:07 abdominal pain latex [Latex] Allergy Mild RASH Verified 04/03/23 10:07 metronidazole [Flagyl] Allergy Mild rash Verified 04/03/23 10:07 Review of Systems Review of Systems: Constitutional : No Weight loss, No Fever, No Chills, + Fatigue, + Malaise ENT/Mouth : + sore throat, No Rhinorrhea Eyes: No Eye Pain, No Swelling, No Redness Cardiovascular : No Chest Pain, No SOB, No Dyspnea on Exertion, No Orthopnea, No Edema, No Palpitations Respiratory : + Cough, + Sputum, No Wheezing Gastrointestinal : No Nausea, No Vomiting, No Diarrhea, No Constipation, No abdominal Pain, No Hematochezia, No Melena Genitourinary : No Dysuria, No Urinary Frequency, No Hematuria, Musculoskeletal : No joint pain, No Myalgias, No Joint Swelling Skin : No Skin Lesions, No rash Neuro : No Weakness, No Numbness, No Dizziness, No Headache Psych : No Anxiety/Panic, No Depression All other systems reviewed and are negative Yes all other systems are reviewed and are negative [facility] Past Medical History Attestation statement: The following information was validated with the patient. Source: old records reviewed and nursing notes reviewed Medical History Family history of polyps in the colon Screening for colon cancer Left foot pain Sinus tachycardia Skin lesion RUQ abdominal pain Forgetfulness Hemorrhoids Cervical cancer screening Post-menopausal Diverticulitis large intestine Atypical facial pain Multinodular thyroid Cough Low back pain Bleeding hemorrhoids History of diverticulitis Osteoarthritis of right knee Right shoulder pain Neck pain Osteopenia Mild depression TMJ (temporomandibular joint syndrome) GERD (gastroesophageal reflux disease) Allergic rhinitis Hypovitaminosis D Vertigo Hypothyroidism Essential hypertension Surgical History Hx of biopsy History of root canal procedure Hx of colonoscopy History of prolapse of bladder Hx of cone biopsy of cervix History of tubal ligation Family History Family History Father Liver problem CVD (cardiovascular disease) Mother Diabetes Stroke Alzheimer disease Chronic mental illness Maternal Grandmother Cancer Uterine cancer Paternal Uncle Diabetes Brother Cancer Family/Other Chronic mental illness Daughter No problems noted. Daughter No problems noted. Sister Alzheimer disease Social History Social History Housing: Apartment Are you a primary palliative care specialist to a significant other at home: No Alcohol intake: never Patient Tobacco Use Status: Never used Tobacco Smoked in Last 30 Days: No e-Cigarette/Vaping Use: Never Used Second Hand Smoke Exposure: No Advance Directives: No Advance Directives Information Provided: No service: No Current occupational status: unemployed Cognitive needs: No Hearing needs: No Vision needs: Yes Physical Exam ED Vital Signs: Vital Signs - 24 hr 04/29/23 14:00 04/29/23 17:43 04/29/23 17:43 Temperature 97.0 F 97.8 F Pulse Rate 105 H 87 Respiratory Rate 18 16 Blood Pressure 135/79 149/78 H Pulse Oximetry 98 98 98 Oxygen Delivery Method Room Air Room Air Room Air BMI result Body Mass Index 24.5 vss Appearance: Alert.? Oriented X3.? No acute distress.? Head: Normocephalic, atraumatic, no step-offs or deformities Eyes: Pupils equal, round and reactive to light.? CVS: Normal heart rate and rhythm.? Pulses normal.? Respiratory: No respiratory distress.? Breath sounds w/ wheeizng mild b/l on expiration .? Abdomen: Soft and nontender.? Skin: Skin warm and dry.? Normal skin color.? Normal skin turgor.? Extremities: No lower extremity edema.? No calf ttp. 5/5 strength to bilateral upper and lower extremities Back: No midline tenderness, no C-spine tenderness, full range of motion, no CVA tenderness bilaterally Neuro: Oriented X 3.? No motor deficit.? No sensory deficit. CN 2-12 intact Course Reevaluation(s) Reevaluation #1: Flu/COVID negative. X-ray appears unremarkable. Will wait for final read. Time: 17:55 Reevaluation #2: Chest x-ray unremarkable. Educated patient on diagnosis and treatment plan, answered all question, patient verbalizes understanding. At this time patient will be discharged home, advised to return with new or worsening symptoms. Educated on worrisome signs and symptoms and when to return. At this time I feel comfortable discharge home. Time: 18:24 Medical Decision Making Medical Decision Making [facility] Narrative: 1745 68-year-old female presents with upper respiratory symptoms x3 days Physical examination with mild expiratory wheezing bilaterally History and physical exam concerning for viral illness versus bronchitis versus asthma. Unlikely PE, ACS, pneumonia, pneumothorax. Plan viral testing, imaging. Considered labs, EKG however no chest pain or shortness of breath. Differential Diagnosis Differential Diagnoses: The differential diagnosis associated with the presentation includes History and physical exam concerning for viral illness versus bronchitis versus asthma. Unlikely PE, ACS, pneumonia, pneumothorax. Admission/Observation Consideration of admission/observation: Escalation of care including admission/observation considered No indication Lab Data [facility] Lab Attestation statement: I reviewed the patient's lab results. Labs: Lab Results 04/29/23 Range/Units 15:11 COVID-19 (MARY) Negative (Negative) COVID-19 Clin Com See Note Influenza Type A (MANE) Negative (Negative) Influenza Type B (MANE) Negative (Negative) Influenza A & B Note See Note S. pyogenes GrpA MANE Negative (Negative) Independent Interpretation I performed an independent interpretation of an: Plain X-Ray (Wet read unremarkable) Radiology Impression Discussion of test interpretation with radiology: I have reviewed the radiologist's reading. External Record Review External record reviewed: Outpatient record, Prior outpatient labs and Prior outpatient radiology Prescription Management I considered prescription management with: Antibiotic Chronic Conditions Patient?s care impacted by: Hypertension and Other (Hypothyroidism, GERD, anxiety) Critical Care Time Critical Care Time Critical Care Time: No Discharge Plan Discharge Clinical Impression: Bronchitis Patient Disposition: Home, Self-Care Instructions: Acute Bronchitis (ED) Additional Instructions: Take your medications as prescribed. If you were prescribed antibiotics today, it is important that you take your medication to their entirety, do not skip any doses, do not finish them early. Follow-up with your primary care provider this week. Return to the emergency department with new or worsening symptoms. Such as fevers, chills, chest pain, shortness of breath, nausea, vomiting, dizziness, headache, vision changes, lethargy In case of emergency call 911 XR/XR chest 1V IMPRESSION: No active cardiopulmonary disease Prescriptions: New doxycycline hyclate 100 mg capsule 100 mg PO BID 10 Days Qty: 20 0RF prednisone 20 mg tablet 40 mg PO DAILY 5 Days Qty: 10 0RF albuterol sulfate 90 mcg/actuation aerosol powdr breath activated 2 inh inhalation Q4-6H PRN (Reason: shortness of breath or wheezing) Qty: 1 0RF No Action (DME) blood pressure monitor Kit See Rx Instructions .Route Qty: 1 0RF Rx Instructions: As directed loratadine 10 mg tablet 10 mg PO DAILY 30 Days Qty: 30 11RF calcium carbonate 600 mg calcium (1,500 mg) tablet 600 mg PO BID Qty: 60 6RF losartan 50 mg tablet 50 mg PO DAILY 90 Days Qty: 90 1RF levothyroxine 50 mcg tablet 50 mcg PO QAM 90 Days Qty: 90 11RF cholecalciferol (vitamin D3) 25 mcg (1,000 unit) tablet 25 mcg PO DAILY 30 Days Qty: 30 11RF bisacodyl 5 mg tablet,delayed release (DR/EC) 10 mg PO BEDTIME Qty: 60 6RF Fiber Laxative(methylcellulos) 500 mg tablet 1,000 mg PO DAILY Qty: 60 6RF pantoprazole 40 mg tablet,delayed release (DR/EC) 40 mg PO DAILY Qty: 30 6RF hydrochlorothiazide 12.5 mg tablet 12.5 mg PO QAM Qty: 90 1RF docusate sodium 100 mg capsule 100 mg PO BID Qty: 60 6RF cyclobenzaprine 10 mg tablet 10 mg PO TID PRN (Reason: Muscle Spasm) naproxen 500 mg tablet 500 mg PO BID PRN (Reason: Pain) TDVAX 2-2 Lf unit/0.5 mL suspension 0.5 ml IM ONCE Qty: 0.5 0RF clotrimazole-betamethasone 1-0.05 % cream 1 appl topical BID 14 Days Qty: 15 1RF Centrum Complete 18-400 mg-mcg tablet 1 tab PO DAILY estradiol 0.01 % (0.1 mg/gram) cream 1 g vaginal 3XW hydrocortisone 2.5 % ointment 1 appl topical TID 14 Days Qty: 20 0RF amoxicillin 875 mg tablet 875 mg PO BID nystatin 100,000 unit/gram cream 1 appl topical BID 14 Days Qty: 15 1RF Referrals: Lakeisha Rojas MD [Primary Care Provider] - 2 days Stand Alone Forms: Work/School Release
[2023-04-29 17:43] VITALS: BP 149/78; PULSE 87; RESP 16; TEMP 36.6; O2SAT 98
== END 2023-04-29 18:39 | disposition home or self-care (01) ==
PROVIDERS: Emergency Provider Internal Medicine; PCP Internal Medicine
DX: J40 Bronchitis, not specified as acute or chronic (principal); R06.2 Wheezing; J02.9 Acute pharyngitis, unspecified; Z11.52 Encounter for screening for COVID-19
CPT/HCPCS: 71045; 87502; 87635; 87651; 99283; 99285

== ENCOUNTER 2023-05-09 09:14 | Outpatient (AMB) | payer OTHER, SELFPAY ==
[2023-05-09 09:20] VITALS: BP 129/57; PULSE 98; BMI 24.5
--- NOTE | 2023-05-09 09:20 | A.OFFVIS_ITS ---
Intake Vital Signs 05/09/23 09:20 Height 5 ft 4 in Weight 143 lb BMI 24.5 BP 129/57 L Blood Pressure Location Lt brachial Position Right Lateral Pulse 98 Intake Visit Reasons: 6 MONTH f/u Intake Note: Patient presents to in office visit today in follow up of GERD. CC: Patient reports doing better from GERD. She states she was seen in the ER recently with asthma. Denies having any new GI symptoms today. National Investigative Producer Required: Yes National Investigative Producer Name: Lee Ann Lenz [id number] Accompanied by: Self / Same As Patient Allergies amlodipine Allergy (Mild, Verified 05/12/23 10:00) leg edema aspirin [Aspirin] Allergy (Mild, Verified 05/12/23 10:00) ULCER HX, abdominal pain latex [Latex] Allergy (Mild, Verified 05/12/23 10:00) RASH metronidazole [Flagyl] Allergy (Mild, Verified 05/12/23 10:00) rash HPI 6 MONTH f/u HPI Details Assessment & Plan (1) Chronic idiopathic constipation: Code(s): K59.04 - Chronic idiopathic constipation Plan: CYMRAES #[employer] She says that her current GI regimen is treating her well. Continues to use her pantoprazole 40 mg once a day with good control of her GERD and bisacodyl at bedtime control constipation. She Linzess at home if she needs it but she seems to like the bisacodyl better. She is seeing dermatology for her rash and she says that they froze the lesion on her forearm, and gave her a cream for her legs, but it keeps coming back. I ask about her last colonoscopy, and she does not know when it was. She had one in 2008 here, but apparently her last was at [facility]. She says she has a sister who had polyps - so I educate her that she should have one every 5 years. I will leave this between her and her primary care provider who may have better records available to them. ROV 6 mos. (2) GERD (gastroesophageal reflux diseas e): Code(s): K21.9 - Gastro-esophageal reflux disease without esophagitis Qualifiers: Esophagitis presence: esophagitis presence not specified Qualified Code(s): K21.9 - Gastro-esophageal reflux disease without esophagitis (3) Family history of polyps in the colo n: Comment: Sister Code(s): Z83.71 - Family history of colonic polyps TODAY'S VISIT CYMRAES #[id number] She continues to do well on her pantoprazole and bisacodyl (which she prefers to Linzess). She has not yet seen dermatology for the forearm lesion because Medicare is not covering them now. She has not yet spoken to Dr. Dominguez re: colonoscopy. I will send her a workload note. She is actually not sure when her last colonoscopy was. ROV 6 mos. PFSH Medical History Family history of polyps in the colon Screening for colon cancer Left foot pain Sinus tachycardia Skin lesion RUQ abdominal pain Forgetfulness Hemorrhoids Cervical cancer screening Post-menopausal Diverticulitis large intestine Atypical facial pain Multinodular thyroid Cough Low back pain Bleeding hemorrhoids History of diverticulitis Osteoarthritis of right knee Right shoulder pain Neck pain Osteopenia Mild depression TMJ (temporomandibular joint syndrome) GERD (gastroesophageal reflux disease) Allergic rhinitis Hypovitaminosis D Vertigo Hypothyroidism Essential hypertension Surgical History Hx of biopsy History of root canal procedure Hx of colonoscopy History of prolapse of bladder Hx of cone biopsy of cervix History of tubal ligation Family History Father Liver problem CVD (cardiovascular disease) Mother Diabetes Stroke Alzheimer disease Chronic mental illness Maternal Grandmother Cancer Uterine cancer Paternal Uncle Diabetes Brother Cancer Family/Other Chronic mental illness Daughter No problems noted. Daughter No problems noted. Sister Alzheimer disease Social History Housing: Apartment Are you a primary career development coordinator to a significant other at home: No Alcohol intake: never Patient Tobacco Use Status: Never used Tobacco e-Cigarette/Vaping Use: Never Used Second Hand Smoke Exposure: No service: No Current occupational status: unemployed Cognitive needs: No Hearing needs: No Vision needs: Yes Review of Systems Const Denies fatigue, Denies fever(s), Denies night sweats, Denies poor appetite and Denies weight loss ENT Reports Normal hearing present, Denies dental pain, Denies dysphagia, Denies hearing loss, Denies mouth pain, Denies odynophagia, Denies throat swelling, Denies tongue swelling and Reports other (Dentition adequate) Card Reports no additional complaints Resp Reports no additional complaints GI Denies abdominal pain, Denies melena, Denies bloating, Denies hematochezia, Reports constipation, Denies GI cramping, Denies dysphagia, Denies excessive flatus, Denies early satiety, Reports heartburn, Denies diarrhea, Denies nausea, Denies odynophagia, Denies vomiting and Denies hematemesis Skin/Breast Denies pruritus, Denies lesions, Denies rash and Denies jaundice Neuro Reports Normal hearing present and Denies Abnormal speech present Endo Denies fatigue Aller/Immun Denies throat swelling and Denies tongue swelling Physical Exam Vital Signs: Last Vital Signs Pulse 98 05/09/23 09:20 BP 129/57 L 05/09/23 09:20 BMI result Body Mass Index 24.5 Const General: cooperative, no acute distress, well developed and well groomed Nutritional Appearance: average body habitus and well nourished Orientation/consciousness: oriented to person, oriented to place and oriented to time Limitations: language barrier HEENT Head: Yes normocephalic and Yes atraumatic Eyes General: appearance normal, both eyes and all related structures Pupils: Equal, round and reactive pupils present Neck Neck: Yes normal visual inspection and Yes no lymphadenopathy Thyroid: Thyroid normal Resp Effort & Inspection: normal respiratory effort and able to speak in complete sentences Auscultation: clear to auscultation bilaterally Cardio Rate: regular rate Rhythm: regular rhythm Heart sounds: Normal, physiologic split S2 sound present Peripheral pulses: radial pulses present and posterior tibial pulses present GI Inspection: No distended and No Abdominal panniculus present Palpation (GI): Soft to palpation, nontender, no guarding, not rigid and No hepatosplenomegaly present Percussion: Yes normal to percussion Auscultation: normal bowel sounds Rectal Exam - Female: deferred Skin General skin exam: no rashes or lesions noted, turgor normal, skin not dry, no jaundice, No spider nevi and no striae Rashes: no rashes Nails: normal Neuro General: oriented to person, oriented to place and oriented to time Cranial nerves: Yes Equal, round and reactive pupils present and Yes Normal hearing present Speech: No Abnormal speech present Extrem General: Yes normal to inspection, No clubbing, No cyanosis and No edema Psych Appearance: grossly normal and well kempt Mental Status: mental status grossly normal Speech and movement: Normal speech and movement present Affect: normal affect Attitude: cooperative Thought process: Normal thought process present and not confabulating Thought content: Normal thought content present Insight: Limited insight present (Psych) Judgement: Limited judgement present (Psych) Assessment & Plan Assessment & Plan (1) Chronic idiopathic constipation: Code(s): K59.04 - Chronic idiopathic constipation (2) GERD (gastroesophageal reflux disease): Code(s): K21.9 - Gastro-esophageal reflux disease without esophagitis Qualifiers: Esophagitis presence: esophagitis presence not specified Qualified Code(s): K21.9 - Gastro-esophageal reflux disease without esophagitis Plan CYMRAES #[id number] She continues to do well on her pantoprazole and bisacodyl (which she prefers to Linzess). She has not yet seen dermatology for the forearm lesion because Medicare is not covering them now. She has not yet spoken to Dr. Dominguez re: colonoscopy. I will send her a workload note. She is actually not sure when her last colonoscopy was. ROV 6 mos. Medications: Refilled docusate sodium 100 mg PO BID 60 caps 6RF K59.01 - Slow transit constipation pantoprazole 40 mg PO DAILY 30 tabs 6RF bisacodyl 10 mg (2 x 5 mg) PO BEDTIME 60 tabs 6RF Coding Level of Care Code Est Pt Level 3 (13120) Diagnoses Chronic idiopathic constipation K59.04 Gastroesophageal reflux disease, unspecified whether esophagitis present K21.9 Esophagitis presence: esophagitis presence not specified
== END 2023-05-09 10:05 | disposition home or self-care (01) ==
PROVIDERS: PCP Internal Medicine; Visit Provider Nurse Practitioner
DX: K59.04 Chronic idiopathic constipation (principal); K21.9 Gastro-esophageal reflux disease without esophagitis
CPT/HCPCS: 99213

== ENCOUNTER → 2023-05-09 09:14 | Outpatient (BNVA) | payer OTHER, SELFPAY | PROVIDERS: PCP Internal Medicine; Visit Provider Nurse Practitioner | DX: K21.9 Gastro-esophageal reflux disease without esophagitis (principal); K59.04 Chronic idiopathic constipation; Z83.719 Family history of colon polyps, unspecified | CPT/HCPCS: 99212 ==

== ENCOUNTER 2023-05-12 09:44 | Outpatient (AMB) | payer OTHER, SELFPAY ==
--- NOTE | 2023-05-12 09:48 | MHC.PC.OV ---
Vital Signs 05/12/23 09:49 Height 5 ft 4 in Weight 143 lb BMI 24.5 BP 130/72 Blood Pressure Location Lt brachial Position Sitting Pulse 102 H Pulse Source Pulse Oximeter Pulse Oximetry (%) 99 Oxygen Delivery Method Room Air Intake Visit Reasons: f/u check up Intake Note: Patient is here to follow-up after a visit the emergency department at [facility] on 04/29/23 Electrician Supervisor Airplane Required: Yes Electrician Supervisor Airplane Language: East Timorese Information Interpreted: non-clinical & clinical Strategic Buyer: Not Required per policy Accompanied by: Self / Same As Patient Allergies amlodipine Allergy (Mild, Verified 05/12/23 10:00) leg edema aspirin [Aspirin] Allergy (Mild, Verified 05/12/23 10:00) ULCER HX, abdominal pain latex [Latex] Allergy (Mild, Verified 05/12/23 10:00) RASH metronidazole [Flagyl] Allergy (Mild, Verified 05/12/23 10:00) rash Medication List - Last Reconciled 05/12/23 by LAURIE Ron albuterol sulfate 90 mcg/actuation 2 inhalations inhalation Q4-6H PRN bisacodyl 10 mg (2 x 5 mg) PO BEDTIME blood pressure monitor As directed calcium carbonate 600 mg PO BID cholecalciferol (vitamin D3) 25 mcg PO DAILY 30 days clotrimazole-betamethasone 1-0.05 % 1 appl topical BID 2 weeks cyclobenzaprine 10 mg PO TID PRN docusate sodium 100 mg PO BID estradiol 0.01%(0.1mg/gram) 1 g vaginal 3XW hydrochlorothiazide 12.5 mg PO QAM hydrocortisone 2.5% 1 appl topical TID 14 days levothyroxine 50 mcg PO QAM 90 days loratadine 10 mg PO DAILY 30 days losartan 50 mg PO DAILY 90 days methylcellulose (laxative) (Fiber Laxative (methylcellulose)) 1,000 mg (2 x 500 mg) PO DAILY ylwmvdlzydna-akaj-uryal acid 18-400 mg-mcg (Centrum Complete) 1 tab PO DAILY naproxen 500 mg PO BID PRN nystatin 1 appl topical BID 2 weeks pantoprazole 40 mg PO DAILY Tobacco use date assessed: 05/12/23 Fall risk assessment: No Falls in past year Last assessed Fall Risk: 05/12/23 Dental Screening Dental Screen Date: 05/12/23 Did you have a dental visit in the last 12 months?: Yes Did you have a dental problem in the last 6 months where you did not have access to dental care?: No Was dental information given to patient?: Patient has dentist HPI f/u check up HPI Details Patient is a 68-year-old female who presents today to follow-up after [facility] visit due to upper respiratory symptoms. Patient of Dr. Capps. Discharge diagnosis bronchitis. Per ED notes: This is a 68-year-old female history of venous insufficiency, cataracts, anxiety, right bundle-branch block, TMJ, GERD, hypertension, hypothyroidism presenting to the emergency department for evaluation of productive cough of yellow/green sputum for the past 3-4 days, fatigue, malaise, sore throat secondary to coughing so hard, myalgias, denies recent sick contacts. Denies chest pain, shortness of breath, fevers, chills, nausea, vomiting, abdominal pain, headache, vision changes, dizziness or weakness. Has not COVID test at Reevaluation #1: Flu/COVID negative. X-ray appears unremarkable. Will wait for final read. Time: 17:55 Reevaluation #2: Chest x-ray unremarkable. Educated patient on diagnosis and treatment plan, answered all question, patient verbalizes understanding. At this time patient will be discharged home, advised to return with new or worsening symptoms. Educated on worrisome signs and symptoms and when to return. At this time I feel comfortable discharge home. Today, patient reports that she finished doxycycline and prednisone, she is asking if she can continue using albuterol inhaler as needed. She reports that she feels much better. Reports intermittent mild cough with mild phlegm production, no fever or chills, no difficulty breathing. 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 [facility] Medical History Family history of polyps in the colon Screening for colon cancer Left foot pain Sinus tachycardia Skin lesion RUQ abdominal pain Forgetfulness Hemorrhoids Cervical cancer screening Post-menopausal Diverticulitis large intestine Atypical facial pain Multinodular thyroid Cough Low back pain Bleeding hemorrhoids History of diverticulitis Osteoarthritis of right knee Right shoulder pain Neck pain Osteopenia Mild depression TMJ (temporomandibular joint syndrome) GERD (gastroesophageal reflux disease) Allergic rhinitis Hypovitaminosis D Vertigo Hypothyroidism Essential hypertension Surgical History Hx of biopsy History of root canal procedure Hx of colonoscopy History of prolapse of bladder Hx of cone biopsy of cervix History of tubal ligation Family History Father Liver problem CVD (cardiovascular disease) Mother Diabetes Stroke Alzheimer disease Chronic mental illness Maternal Grandmother Cancer Uterine cancer Paternal Uncle Diabetes Brother Cancer Family/Other Chronic mental illness Daughter No problems noted. Daughter No problems noted. Sister Alzheimer disease Social History Housing: Apartment Are you a primary resident care manager rn to a significant other at home: No Alcohol intake: never Patient Tobacco Use Status: Never used Tobacco e-Cigarette/Vaping Use: Never Used Second Hand Smoke Exposure: No service: No Current occupational status: unemployed Cognitive needs: No Hearing needs: No Vision needs: Yes Questionnaire Thrive Questionnaire Date Thrive assessed: 09/16/22 BREANNA-7 AMB Questionnaire BREANNA-7 Date BREANNA - 7 assessed: 09/16/22 Source: Developed by Drs. Alex Cowan, Ananya Black, Seferino Vásquez and colleagues, with an educational deondre from [employer]. Review of Systems Const Denies body aches, Denies chills, Denies fever(s) and Denies headache(s) ENT Denies dizziness, Denies otalgia, Denies headache(s), Denies nasal discharge, Denies sinus pain and Denies sore throat Card Denies chest pain, Denies edema, Denies lightheadedness and Denies dyspnea Resp Reports as per HPI, Reports cough (Intermittent mild), Denies dyspnea and Denies wheezing GI Denies abdominal pain Denies dysuria Musc Denies myalgias Skin/Breast Denies rash Neuro Denies dizziness and Denies headache(s) Aller/Immun Denies wheezing Physical exam (Primary Care) Vital Signs: Last Vital Signs Pulse 102 H 05/12/23 09:49 BP 130/72 05/12/23 09:49 Pulse Ox 99 05/12/23 09:49 Oxygen Delivery Method Room Air 05/12/23 09:49 BMI result Body Mass Index 24.5 Tobacco/Smoking Status: Tobacco use Status Tobacco use date assessed 05/12/23 05/12/23 09:58 Patient Tobacco Use Status Never used Tobacco 05/12/23 09:58 e-Cigarette/Vaping Use Never Used 05/12/23 09:58 Thrive Assessment: Date of Thrive Assessment Date Thrive assessed 09/16/22 05/12/23 09:58 Const General: cooperative and no acute distress Orientation/consciousness: patient oriented x3 HENMT Head: Yes normocephalic and Yes atraumatic Throat: Yes posterior oropharynx normal Eyes General: appearance normal, both eyes and all related structures Neck Neck: Yes normal visual inspection and Yes full ROM Resp Effort & Inspection: normal respiratory effort and able to speak in complete sentences Auscultation: clear to auscultation bilaterally, no crackles, no rales, no rhonchi and no wheezes Cardio Rate: regular rate Rhythm: regular rhythm Heart sounds: S1 normal heart sound present and S2 normal heart sound present GI Auscultation: normal bowel sounds Skin General skin exam: no rashes or lesions noted Neuro General: patient oriented x3 Gait exam (Neuro): Normal gait present Extrem General: Yes full ROM Assessment and Plan Assessment & Plan (1) Bronchitis: Code(s): J40 - Bronchitis, not specified as acute or chronic Plan: Patient improving Lungs are clear to auscultation Patient can continue albuterol inhaler every 6 hours as needed for intermittent mild cough Follow-up in office if no improvement Patient agreed with the plan Coding Level of Care Code Est Pt Level 3 (25374) Diagnoses Bronchitis J40
[2023-05-12 09:49] VITALS: BP 130/72; PULSE 102; O2SAT 99; BMI 24.5
== END 2023-05-12 10:17 | disposition home or self-care (01) ==
PROVIDERS: PCP Internal Medicine; Visit Provider Nurse Practitioner Family
DX: J40 Bronchitis, not specified as acute or chronic (principal)
CPT/HCPCS: 99213

== ENCOUNTER 2023-08-23 09:48 | Outpatient (AMB) | payer OTHER, SELFPAY ==
--- NOTE | 2023-08-23 09:50 | MHC.OFFVIS ---
Intake Vital Signs 08/23/23 09:51 Height 5 ft 4 in Weight 147 lb 0.773 oz BMI 25.2 BP 124/78 Blood Pressure Location Lt brachial Position Sitting Pulse 90 Pulse Source Pulse Oximeter Intake Visit Reasons: F/U NTMNG-confirmed Intake Note: Patient present today for MTMNG follow up visit. Previously seen by Dr. Kilpatrick 03/02/22. Project Estimator Required: Yes Project Estimator Language: Ukrainian Information Interpreted: non-clinical & clinical Accompanied by: Self / Same As Patient Allergies amlodipine Allergy (Mild, Verified 08/23/23 09:56) leg edema aspirin [Aspirin] Allergy (Mild, Verified 08/23/23 09:56) ULCER HX, abdominal pain latex [Latex] Allergy (Mild, Verified 08/23/23 09:56) RASH metronidazole [Flagyl] Allergy (Mild, Verified 08/23/23 09:56) rash HPI HPI Comments History of Present Illness Details 68 YO F with PMHx Hypothyroidism and a NTMNG who is seen in F/U for the same. She was previously followed by Dr. Thompson. The patient last saw Dr. Kilpatrick on 03/02/2022 She had previously undergone FNA biopsy by Dr. Thompson of her R lobe nodule 06/06/2019 which was reported ast benign. She then underwent FNA biopsy by me 08/05/2021 of her LMP 1.0 cm and her RMP 1.0 cm thyroid nodules. Her LMP nodule was unfortunately nondiagnostic, whlie her RMP nodule was benign (bethesda category II). She then underwent repeat FNA biopsy with me 02/17/2022 of her LMP 1.0 cm thyroid nodule, with benign cytology. She presents today to review these results. She currently denies any compressive symptoms. She denies any symptoms of hyper or hypothyroidism. She also has hypothyroidism and remains on levothyroxine 50 mcg PO daily. Thyroid US: 03/03/2021 Right Thyroid Lobe: 5.0 x 1.3 x 1.3 cm, volume 4.2 mL. Previously 4.9 x 1.5 x 1.5 cm, volume 5.4 mL. Parenchyma: The gland echotexture is homogeneous. Thyroid vascularity is normal. Left Thyroid Lobe: 3.9 x 1.3 x 1.4 cm, volume 3.6 mL. Previously 3.4 x 1.4 x 1.6 cm, volume 3.9 mL. Parenchyma: The gland echotexture is homogeneous. Thyroid vascularity is normal. Isthmus: 0.3 cm in maximum AP dimension. Previously 0.3 cm. Estimated total number of nodules greater than or equal to 1 cm: 2. Geospatial Specialist nodules are described as follows: 1.? Location: Right mid. ?? ? Size: 1.0 x 1.0 x 1.0 cm, volume 0.5 mL. ?? ? Previously: 1.0 x 0.9 x 0.9 cm, volume 0.4 mL. ?? ? Nodule characteristics: ?? ? Composition: Cystic(0). ?? ? ACR TI-RADS total points: 0 ?? ? ACR TI-RADS category: 1 ? Significant change in size (>/= 20% in 2 dimensions and minimal increase of 2 mm or 50% or greater increase in volume): ?? ? Change in features: ?? ? Change in ACR TI-RADS risk category: 2.? Location: Right mid. ?? ? Size: 0.5 x 0.5 x 0.5 cm, volume 0.07 mL. ?? ? Previously: 0.8 x 0.7 x 0.6 cm, volume 0.2 mL. ?? ? Nodule characteristics: ?? ? Composition: Solid (2). ?? ? Echogenicity: Isoechoic (1). ?? ? Shape: Not taller than wide (0). ?? ? Margins: Smooth (0). ?? ? Echogenic Foci: None (0).? ACR TI-RADS total points: 3 ?? ? ACR TI-RADS category: 3 ? Significant change in size (>/= 20% in 2 dimensions and minimal increase of 2 mm or 50% or greater increase in volume): ?? ? Change in features: ?? ? Change in ACR TI-RADS risk category: 3.? Location: Left mid. ?? ? Size: 0.8 x 0.9 x 1.0 cm, volume 0.36 mL. ?? ? Previously: 1.0 x 0.7 x 1.0 cm, volume 0.4 mL. ?? ? Nodule characteristics: ?? ? Composition: Solid (2). ?? ? Echogenicity: Isoechoic (1). ?? ? Shape: Not taller than wide (0). ?? ? Margins: Smooth (0). ?? ? Echogenic Foci: None (0).? ACR TI-RADS total points: 3 ?? ? ACR TI-RADS category: 3 ? Significant change in size (>/= 20% in 2 dimensions and minimal increase of 2 mm or 50% or greater increase in volume): ?? ? Change in features: ?? ? Change in ACR TI-RADS risk category: There are 2 nodules in the lower pole of the right lobe the liver seen on prior exam March 2020 but are not appreciated on the current exam. NODES: No lymphadenopathy is seen in the tissue surrounding the thyroid gland. Labs: Labs: Laboratory Tests 01/28/22 09:30 TSH 2.47 currently on 50 mcg levothyroxine. No obstructive symptoms do the nodules. Recent thyroid ultrasound showed no change in the size of the nodules PFSH Medical History Family history of polyps in the colon Screening for colon cancer Left foot pain Sinus tachycardia Skin lesion RUQ abdominal pain Forgetfulness Hemorrhoids Cervical cancer screening Post-menopausal Diverticulitis large intestine Atypical facial pain Multinodular thyroid Cough Low back pain Bleeding hemorrhoids History of diverticulitis Osteoarthritis of right knee Right shoulder pain Neck pain Osteopenia Mild depression TMJ (temporomandibular joint syndrome) GERD (gastroesophageal reflux disease) Allergic rhinitis Hypovitaminosis D Vertigo Hypothyroidism Essential hypertension Surgical History Hx of biopsy History of root canal procedure Hx of colonoscopy History of prolapse of bladder Hx of cone biopsy of cervix History of tubal ligation Family History Father Liver problem CVD (cardiovascular disease) Mother Diabetes Stroke Alzheimer disease Chronic mental illness Maternal Grandmother Cancer Uterine cancer Paternal Uncle Diabetes Brother Cancer Family/Other Chronic mental illness Daughter No problems noted. Daughter No problems noted. Sister Alzheimer disease Social History Housing: Apartment Are you a primary director medicare sales to a significant other at home: No Alcohol intake: never Patient Tobacco Use Status: Never used Tobacco e-Cigarette/Vaping Use: Never Used Second Hand Smoke Exposure: No service: No Current occupational status: unemployed Cognitive needs: No Hearing needs: No Vision needs: Yes Physical Exam Const Other: Thyroid gland is normal size weighs about 15 g. There are no palpable thyroid nodule Assessment & Plan Assessment & Plan (1) Multinodular thyroid: Code(s): E04.2 - Nontoxic multinodular goiter Plan: This 68-year-old female with a history of multinodular goiter FNA biopsy by me 08/05/2021 of her LMP 1.0 cm and her RMP 1.0 cm thyroid nodules. Her LMP nodule was unfortunately nondiagnostic, whlie her RMP nodule was benign (bethesda category II). She then underwent repeat FNA biopsy with me 02/17/2022 of her LMP 1.0 cm thyroid nodule, with benign cytology. . Recent thyroid ultrasound shows no change in the size of the nodules. She appears to be clinically and biochemically euthyroid on 50 mcg levothyroxine. Plan is to continue the current dose levothyroxine. At this point, patient can be returned to the care of her primary care provider. Perhaps repeat thyroid ultrasound can be done about 2-3 years time and ordered by the patient's primary care provider. Also, TSH and free T4 could be drawn with the patient's next blood draw. Should the nodules change in size or characteristics, or hypothyroidism becomes difficult to manage, the patient referred back to endocrinology (2) Hypothyroidism: Code(s): E03.9 - Hypothyroidism, unspecified Qualifiers: Hypothyroidism type: unspecified Qualified Code(s): E03.9 - Hypothyroidism, unspecified Plan: See plan for multinodular goiter Coding Level of Care Code Est Pt Level 3 (78852) Diagnoses Multinodular thyroid E04.2 Hypothyroidism, unspecified type E03.9 Hypothyroidism type: unspecified
[2023-08-23 09:51] VITALS: BP 124/78; PULSE 90; BMI 25.2
== END 2023-08-23 11:17 | disposition home or self-care (01) ==
PROVIDERS: PCP Internal Medicine; Visit Provider Internal Medicine Endocrinology, Diabetes & Metabolism
DX: E04.2 Nontoxic multinodular goiter (principal); E03.9 Hypothyroidism, unspecified
CPT/HCPCS: 99213

== ENCOUNTER → 2023-08-23 09:48 | Outpatient (BNVA) | payer OTHER, SELFPAY | PROVIDERS: PCP Internal Medicine; Visit Provider Internal Medicine Endocrinology, Diabetes & Metabolism | DX: E04.2 Nontoxic multinodular goiter (principal); E03.9 Hypothyroidism, unspecified | CPT/HCPCS: 99212 ==

== ENCOUNTER 2023-09-21 12:25 | Outpatient (AMB) | payer OTHER, SELFPAY ==
--- NOTE | 2023-09-21 12:47 | A.OFFPC_ITS ---
Intake Visit Reasons: SWV [id number] Allergies amlodipine Allergy (Mild, Verified 08/23/23 09:56) leg edema aspirin [Aspirin] Allergy (Mild, Verified 08/23/23 09:56) ULCER HX, abdominal pain latex [Latex] Allergy (Mild, Verified 08/23/23 09:56) RASH metronidazole [Flagyl] Allergy (Mild, Verified 08/23/23 09:56) rash Tobacco use date assessed: 05/12/23 [facility] Medical History Family history of polyps in the colon Screening for colon cancer Left foot pain Sinus tachycardia Skin lesion RUQ abdominal pain Forgetfulness Hemorrhoids Cervical cancer screening Post-menopausal Diverticulitis large intestine Atypical facial pain Multinodular thyroid Cough Low back pain Bleeding hemorrhoids History of diverticulitis Osteoarthritis of right knee Right shoulder pain Neck pain Osteopenia Mild depression TMJ (temporomandibular joint syndrome) GERD (gastroesophageal reflux disease) Allergic rhinitis Hypovitaminosis D Vertigo Hypothyroidism Essential hypertension Surgical History Hx of biopsy History of root canal procedure Hx of colonoscopy History of prolapse of bladder Hx of cone biopsy of cervix History of tubal ligation Family History Father Liver problem CVD (cardiovascular disease) Mother Diabetes Stroke Alzheimer disease Chronic mental illness Maternal Grandmother Cancer Uterine cancer Paternal Uncle Diabetes Brother Cancer Family/Other Chronic mental illness Daughter No problems noted. Daughter No problems noted. Sister Alzheimer disease Social History Housing: Apartment Are you a primary special needs child caregiver to a significant other at home: No Alcohol intake: never Patient Tobacco Use Status: Never used Tobacco e-Cigarette/Vaping Use: Never Used Second Hand Smoke Exposure: No service: No Current occupational status: unemployed Cognitive needs: No Hearing needs: No Vision needs: Yes Questionnaire Thrive Questionnaire Date Thrive assessed: 09/16/22 BREANNA-7 AMB Questionnaire BREANNA-7 Date BREANNA - 7 assessed: 09/16/22 Source: Developed by Drs. Alex Cowan, Ananya Black, Seferino Vásquez and colleagues, with an educational deondre from [employer]. Physical exam (Primary Care) Tobacco/Smoking Status: Tobacco use Status Tobacco use date assessed 05/12/23 05/12/23 09:58 Patient Tobacco Use Status Never used Tobacco 05/12/23 09:58 e-Cigarette/Vaping Use Never Used 05/12/23 09:58 Thrive Assessment: Date of Thrive Assessment Date Thrive assessed 09/16/22 05/12/23 09:58 Coding
[2023-09-21 12:49] VITALS: BP 130/80; BMI 24.9
--- NOTE | 2023-09-21 12:49 | AM.OFFVISMDC ---
Intake Vital Signs 09/21/23 12:49 Height 5 ft 4 in Weight 145 lb BMI 24.9 BP 130/80 Blood Pressure Location Lt brachial Position Sitting Intake Visit Reasons: SWJennifer [id number] Intake Note: Patient here for subsequent annual wellness visit Biomedical Specialist Required: No Accompanied by: Self / Same As Patient Allergies amlodipine Allergy (Mild, Verified 09/21/23 13:21) leg edema aspirin [Aspirin] Allergy (Mild, Verified 09/21/23 13:21) ULCER HX, abdominal pain latex [Latex] Allergy (Mild, Verified 09/21/23 13:21) RASH metronidazole [Flagyl] Allergy (Mild, Verified 09/21/23 13:21) rash Medication List - Last Reconciled 09/21/23 by Lakeisha Lamas MD albuterol sulfate 90 mcg/actuation 2 inhalations inhalation Q4-6H PRN bisacodyl 10 mg (2 x 5 mg) PO BEDTIME blood pressure monitor As directed calcium carbonate 600 mg PO BID cholecalciferol (vitamin D3) 25 mcg PO DAILY 30 days clotrimazole-betamethasone 1-0.05 % 1 appl topical BID 2 weeks cyclobenzaprine 10 mg PO TID PRN docusate sodium 100 mg PO BID estradiol 0.01%(0.1mg/gram) 1 g vaginal 3XW hydrochlorothiazide 12.5 mg PO QAM hydrocortisone 2.5% 1 appl topical TID 14 days levothyroxine 50 mcg PO QAM 90 days loratadine 10 mg PO DAILY 30 days losartan 50 mg PO DAILY 90 days methylcellulose (laxative) (Fiber Laxative (methylcellulose)) 1,000 mg (2 x 500 mg) PO DAILY ksgbztgabtpg-gxqw-jnvul acid 18-400 mg-mcg (Centrum Complete) 1 tab PO DAILY naproxen 500 mg PO BID PRN nystatin 1 appl topical BID 2 weeks pantoprazole 40 mg PO DAILY HPI HPI Comments History of Present Illness Details This is a 68 year old femal that comes for her medicare annual wellness exam. Last mammogram was March 2023. Last DEXA was 2021 and I will order another one.PPP handed to patient. As per patient, she had colonoscopy few years ago at [facility]. No chest pain or shortness of breath. [facility] Medical History Family history of polyps in the colon Screening for colon cancer Left foot pain Sinus tachycardia Skin lesion RUQ abdominal pain Forgetfulness Hemorrhoids Cervical cancer screening Post-menopausal Diverticulitis large intestine Atypical facial pain Multinodular thyroid Cough Low back pain Bleeding hemorrhoids History of diverticulitis Osteoarthritis of right knee Right shoulder pain Neck pain Osteopenia Mild depression TMJ (temporomandibular joint syndrome) GERD (gastroesophageal reflux disease) Allergic rhinitis Hypovitaminosis D Vertigo Hypothyroidism Essential hypertension Surgical History Hx of biopsy History of root canal procedure Hx of colonoscopy History of prolapse of bladder Hx of cone biopsy of cervix History of tubal ligation Family History Father Liver problem CVD (cardiovascular disease) Mother Diabetes Stroke Alzheimer disease Chronic mental illness Maternal Grandmother Cancer Uterine cancer Paternal Uncle Diabetes Brother Cancer Family/Other Chronic mental illness Daughter No problems noted. Daughter No problems noted. Sister Alzheimer disease Social History Housing: Apartment Are you a primary hemodialysis patient care specialist to a significant other at home: No Alcohol intake: never Patient Tobacco Use Status: Never used Tobacco e-Cigarette/Vaping Use: Never Used Second Hand Smoke Exposure: No service: No Current occupational status: unemployed Cognitive needs: No Hearing needs: No Vision needs: Yes Questionnaire Medicare Wellness Checkup [age] What gender do you identify with?: female During the past 4 weeks, how much have you been bothered by emotional problems such as feeling anxious, depressed, irritable, sad or downhearted, and blue?: slightly During the past 4 weeks, has your physical & emotional health limited your social activities with family, friends, neighbors, or groups?: slightly During the past 4 weeks, how much bodily pain have you generally had?: mild pain During the past 4 weeks, was someone available to help you if you needed & wanted help?: yes, quite a bit During the past 4 weeks, what was the hardest physical activity you could do for at least 2 minutes?: light Can you get to places out of walking distance without help? (For eg., can you travel alone on buses, taxis or drive your car?): Yes Can you go shopping for groceries or clothes without someone's help?: Yes Can you prepare your own meals?: Yes Can you do your housework without help?: Yes Because of any health problems, do you need the help of another person with your personal care needs such as eating, bathing, dressing or getting around the house?: No Can you handle your own money without help?: Yes During the past 4 weeks, how would you rate your health in general?: good During the past 4 weeks how have things been going for you?: pretty well Are you having difficulties driving your car?: no Do you always fasten your seat belt when you are in a car?: yes, usually During past 4 weeks, have you been bothered by the following: never: Sexual problems?, Trouble eating well?, Problems using the telephone? and Tiredness or fatigue?, seldom: Falling or dizzy when standing up and often: Teeth or denture problems? Have you fallen 2 or more times in the past year?: No Are you afraid of falling?: No Are you a smoker?: no Do you exercise for about 20 minutes 3 or more times a week?: yes, all the time Have you been given information to help with the following?: no: Hazards in your house that might hurt you? and no: Keeping track of your medications? How often do you have trouble taking medicines the way you have been told to take them?: I always take medicine as prescribed How confident are you that you can control & manage most of your health problems?: somewhat confident What is your race?: or origin or descent Mini Mental State Exam (MMSE) Orientation What is the (year) (season) (date) (day) (month)?: year, season, date, day and month Where are we (state) (county) (town or city) (hospital) (floor)?: state, county, town or city, hospital/clinic and floor Registration Name of 3 unrelated objects clearly and slowly, then ask patient to repeat all 3 of them. (1st repeat determines score. Make sure they can repeat all three): object 1, object 2 and object 3 Attention & Calculation (CHOOSE ONE) Spell WORLD backwards (DLROW): 5 letters Recall Ask patient to repeat the 3 items from question #3.: object 1, object 2 and object 3 Language Show patient a wristwatch & ask what it is. Repeat for pencil.: watch and pencil Ask the patient to repeat the phrase 'No ifs, ands, or buts' after you.: correct Ask the patient to 'take a piece of paper with their right hand' 'fold paper in half' 'place paper on floor': take paper in right hand, fold paper in half and place paper on floor Print the sentence 'CLOSE YOUR EYES' on a piece. If patient actually closes eyes then score.: followed written direction Give patient a blank piece of paper & ask to write a sentence. Score if it contains a noun & verb.: sentence contains subject and verb Ask patient to copy figure of intersecting pentagons exactly. Score if all 10 angles & 2 intersects are included.: all 10 angles present & 2 are intersected Score Score: 30 Activity of Daily Living Bathing - sponge bath, tub bath or shower: receives no assistance (gets in/out by self, if usual bathing means Dressing - getting clothes from closets & drawers, including inner/outer garments & fasteners.: gets clothes & gets completely dressed without help Toileting - going to the 'toilet room' for urine/bowel elimination & cleaning self/arranging clothes: goes to toilet room, cleans self, arranges clothes without help Transfer: moves in & out of bed and chair without help (may use support object) Continence: controls urination/bowel movements completely by self Feeding: feeds self without help Total Score: 0 Information obtained from: patient Using telephone: independent Traveling: independent Shopping: independent Preparing meals: independent Housework: independent Taking medicine: independent Managing money: independent PHQ-9 Over the last 2 weeks, how often have you been bothered by any of the following problems? 1. Little interest or pleasure in doing things: several days 2. Feeling down, depressed, or hopeless: not at all 3. Trouble falling or staying asleep, or sleeping too much: several days 4. Feeling tired or having little energy: several days 5. Poor appetite or overeating: several days 6. Feeling bad about yourself - or that you are a failure or have let yourself or your family down: not at all 7. Trouble concentrating on things, such as reading the newspaper or watching television: not at all 8. Moving or speaking so slowly that other people could have noticed. Or the opposite - being so fidgety or restless that you have been moving around a lot more than usual: not at all 9. Thoughts that you would be better off or of hurting yourself in some way: not at all Total score: 4 Depression Screening Interpretation: Positive Depression Screening Follow-up: Existing condition Depression Screening Done: Yes 21781 - PHQ-9 Billing: Yes Source: Developed by Drs. Alex Cowan, Ananya Black, Seferino Vásquez and colleagues, with an educational deondre from [employer]. BREANNA-7 AMB Questionnaire BREANNA-7 Date BREANNA - 7 assessed: 09/21/23 Feeling nervous, anxious, or on edge: 1 = Several days Not being able to stop or control worryin = Not at all Worrying too much about different things: 1 = Several days Trouble relaxin = Not at all Being so restless that it is hard to sit still: 0 = Not at all Becoming easily annoyed or irritable: 0 = Not at all Feeling afraid as if something awful might happen: 0 = Not at all Total BREANNA-7 score (0-4 normal; 5-9 mild; 10-14 moderate; 15-21 severe): 2 Source: Developed by Drs. Alex Cowan, Ananya Black, Seferino Vásquez and colleagues, with an educational deondre from [employer]. BREANNA-7 Assessment Billing BREANNA-7 Assessment Tool: BREANNA-7 Assessment 84127 Thrive Questionnaire Date Thrive assessed: 09/21/23 I am a: Patient What is your living situation today?: I have a steady place to live Within the past 12 months, did the food you bought not last and you didn't have the money to get more?: Never true Within the past 12 months, did you worry whether your food would run out before you got money to buy more?: Never true Do you have trouble paying for medicines?: No Do you have trouble getting transportation to medical appointments?: No Do you have trouble paying your heating and electricity bill?: No Do you have trouble taking care of your child, family member or friend?: No Do you have trouble with day-to-day activities such as bathing, preparing meals, shopping, managing finances, etc.?: No Are you currently unemployed and looking for a job?: No Are you interested in more education?: No Please select the resources that you would like help with: None Currently or been in a relationship where the following occur: no concerns reported THRIVE Score: 0 Fall Risk Assessment Fall Risk Assessment Fall risk assessment: No Falls in past year Review of Systems Const All systems reviewed & are unremarkable except as noted in HPI and below Eyes Reports no additional complaints, Denies change in vision and Denies other visual disturbances Card Denies chest pain at rest, Denies chest pain with activity, Denies edema, Denies irregular heart rhythm, Denies claudication, Denies dyspnea, Denies dyspnea on exertion, Denies orthopnea, Denies paroxysmal nocturnal dyspnea and Denies slow heart rate Resp Denies cough, Denies dyspnea and Denies dyspnea on exertion GI Denies abdominal pain, Denies change in bowel habits, Denies excessive flatus, Denies nausea and Denies vomiting Denies urinary incontinence, Denies urinary hesitancy and Denies urinary urgency Neuro Denies behavioral changes, Denies confusion and Denies lack of coordination Psych Denies behavioral changes and Denies confusion Physical Exam Vital Signs: Last Vital Signs BP 130/80 09/21/23 12:49 BMI result Body Mass Index 24.9 Const General: No confusion Orientation/consciousness: patient oriented x3 and No confusion Eyes General: appearance normal, both eyes and all related structures Eyelids: Yes eyelids normal Conjunctivae: conjunctivae normal Neck Neck: Yes normal visual inspection and Yes supple Resp Effort & Inspection: normal respiratory effort Auscultation: clear to auscultation bilaterally Cardio Jugular venous distension: no JVD Rate: regular rate Rhythm: regular rhythm Heart sounds: S1 normal heart sound present and S2 normal heart sound present GI Auscultation: normal bowel sounds Neuro General: patient oriented x3, no focal motor deficits and No confusion Romberg Test: Negative Extrem General: Yes full ROM Psych Appearance: grossly normal Assessment & Plan Assessment & Plan (1) Encounter for Medicare annual wellness exam: Code(s): Z00.00 - Encounter for general adult medical examination without abnormal findings Plan: Repeat in a year. Orders: Orders Thyroid Stimulating Hormone 09/21/23 E03.9 - Hypothyroidism, unspecified Lipid Panel 09/21/23 I10 - Essential (primary) hypertension XR DEXA axial skeleton Today N95.9 - Unspecified menopausal and perimenopausal disorder Vitamin D 25-OH Total 09/21/23 E55.9 - Vitamin D deficiency, unspecified Comprehensive [place]. Panel Fast 09/21/23 I10 - Essential (primary) hypertension Medications: New losartan 25 mg PO DAILY 30 days 30 tabs 2RF Discontinued hydrochlorothiazide Discontinued Reason: Patient Completed Course 12.5 mg PO QAM 90 tabs 1RF Quality Reporting (2019) Fall Risk Screening ([facility] 139) Fall risk assessment: No Falls in past year Depression/Bipolar (159/160/161/177) PHQ-9: Total score: 4 Coding Level of Care Code Medicare Subsequent (G0439) Diagnoses Encounter for Medicare annual wellness exam Z00.00 Additional Codes BREANNA-7 Assessment Billing - BREANNA-7 Assessment Tool: BREANNA-7 Assessment 53399 ([id number]) Time Spent (min) 36 Advance Care Planning Advance Care Planning discussion: Exists, not on file
== END 2023-09-21 13:37 | disposition home or self-care (01) ==
PROVIDERS: PCP Internal Medicine; Visit Provider Internal Medicine
DX: Z00.00 Encounter for general adult medical examination without abnormal findings (principal)
CPT/HCPCS: G0439

== ENCOUNTER 2023-09-26 12:46 | Outpatient (AMB) | payer MEDICARE, SELFPAY ==
[2023-09-26 12:54] VITALS: BP 134/82; PULSE 96; BMI 25.4
--- NOTE | 2023-09-26 12:54 | MHC.OFFVIS ---
Intake Vital Signs 09/26/23 12:54 Height 5 ft 4 in Weight 147 lb 11.355 oz BMI 25.4 BP 134/82 Blood Pressure Location Lt brachial Position Sitting Pulse 96 Pulse Source Monitor Intake Visit Reasons: 1 year follow up Agricultural Research Technician Required: Yes Agricultural Research Technician Language: Branch Library Clerk Name: hussain ruiz [id number] Allergies amlodipine Allergy (Mild, Verified 09/26/23 12:57) leg edema aspirin [Aspirin] Allergy (Mild, Verified 09/26/23 12:57) ULCER HX, abdominal pain latex [Latex] Allergy (Mild, Verified 09/26/23 12:57) RASH metronidazole [Flagyl] Allergy (Mild, Verified 09/26/23 12:57) rash Medication List - Last Reconciled 09/26/23 by XIMENA Fierro albuterol sulfate 90 mcg/actuation 2 inhalations inhalation Q4-6H PRN bisacodyl 10 mg (2 x 5 mg) PO BEDTIME blood pressure monitor As directed calcium carbonate 600 mg PO BID cholecalciferol (vitamin D3) 25 mcg PO DAILY 30 days clotrimazole-betamethasone 1-0.05 % 1 appl topical BID 2 weeks cyclobenzaprine 10 mg PO TID PRN docusate sodium 100 mg PO BID estradiol 0.01%(0.1mg/gram) 1 g vaginal 3XW hydrocortisone 2.5% 1 appl topical TID 14 days levothyroxine 50 mcg PO QAM 90 days loratadine 10 mg PO DAILY 30 days losartan 25 mg PO DAILY 30 days methylcellulose (laxative) (Fiber Laxative (methylcellulose)) 1,000 mg (2 x 500 mg) PO DAILY aooainxmxdwk-enxm-geiyj acid 18-400 mg-mcg (Centrum Complete) 1 tab PO DAILY naproxen 500 mg PO BID PRN nystatin 1 appl topical BID 2 weeks pantoprazole 40 mg PO DAILY HPI 1 year follow up HPI Details Radha is a 68 year old female with PMH of RBBB, HTN, atypical chest discomfort who presents for follow up. Today she states that she has been doing generally well over the last year. She does notice some shortness of breath with physical activity such as cleaning her house. She denies PND, orthopnea or edema. No chest discomfort at rest or with activity. No heart palpitations, lightheadedness, presyncope, syncope, falls. Taking meds as directed. 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 [facility] Medical History Family history of polyps in the colon Screening for colon cancer Left foot pain Sinus tachycardia Skin lesion RUQ abdominal pain Forgetfulness Hemorrhoids Cervical cancer screening Post-menopausal Diverticulitis large intestine Atypical facial pain Multinodular thyroid Cough Low back pain Bleeding hemorrhoids History of diverticulitis Osteoarthritis of right knee Right shoulder pain Neck pain Osteopenia Mild depression TMJ (temporomandibular joint syndrome) GERD (gastroesophageal reflux disease) Allergic rhinitis Hypovitaminosis D Vertigo Hypothyroidism Essential hypertension Surgical History Hx of biopsy History of root canal procedure Hx of colonoscopy History of prolapse of bladder Hx of cone biopsy of cervix History of tubal ligation Family History Father Liver problem CVD (cardiovascular disease) Mother Diabetes Stroke Alzheimer disease Chronic mental illness Maternal Grandmother Cancer Uterine cancer Paternal Uncle Diabetes Brother Cancer Family/Other Chronic mental illness Daughter No problems noted. Daughter No problems noted. Sister Alzheimer disease Social History Housing: Apartment Are you a primary direct care counselor to a significant other at home: No Alcohol intake: never Patient Tobacco Use Status: Never used Tobacco e-Cigarette/Vaping Use: Never Used Second Hand Smoke Exposure: No service: No Current occupational status: unemployed Cognitive needs: No Hearing needs: No Vision needs: Yes Review of Systems Const All systems reviewed & are unremarkable except as noted in HPI and below ENT Denies dizziness Card Denies chest pain, Denies chest pain at rest, Denies chest pain with activity, Denies rapid heart rate, Denies pedal edema, Denies edema, Denies leg edema, Denies lightheadedness, Denies palpitations, Denies dyspnea, Denies dyspnea on exertion and Denies orthopnea Resp Denies cough, Denies dyspnea and Denies dyspnea on exertion GI Denies hematochezia and Denies change in stool character Musc Denies abnormal gait, Denies limited range of motion, Denies muscle cramps, Denies muscle weakness, Denies numbness, Denies radiating pain into limb, Denies stiffness and Denies tingling Neuro Denies abnormal gait, Denies dizziness, Denies numbness and Denies tingling Endo Denies palpitations Physical Exam Vital Signs: Last Vital Signs Pulse 96 09/26/23 12:54 BP 134/82 09/26/23 12:54 BMI result Body Mass Index 25.4 Const General: cooperative, comfortable and no acute distress Orientation/consciousness: patient oriented x3 HEENT Head: Yes normal to inspection Eyes Sclerae: sclerae normal Neck Neck: Yes normal visual inspection and Yes no JVD Carotids: normal carotid upstroke Chest Chest palpation & inspection: normal inspection of the chest Resp Effort & Inspection: normal respiratory effort Auscultation: clear to auscultation bilaterally, no crackles, no rales, no rhonchi and no wheezes Cardio Jugular venous distension: no JVD Rate: regular rate Rhythm: regular rhythm Heart sounds: S1 normal heart sound present, S2 normal heart sound present, no gallops, no murmurs and no rubs Peripheral pulses: Peripheral pulses 2+ throughout GI Inspection: Yes normal to inspection Skin General skin exam: no rashes or lesions noted Neuro General: patient oriented x3 Extrem General: Yes normal to inspection, No no pedal edema and No calf tenderness Psych Appearance: grossly normal Mental Status: mental status grossly normal Speech and movement: Normal speech and movement present Office Procedures EKG Details: Today, read by me, normal sinus rhythm, right bundle branch block, rate 96, QTC 452 milliseconds [id number], Complete Assessment & Plan Assessment & Plan (1) Atypical chest pain: Code(s): R07.89 - Other chest pain Plan: Prior Evaluation for atypical chest discomfort which felt like a bubble in her chest with ER evaluation without acute findings. No exertional discomfort. EKG without ischemic changes, with right bundle branch block. She did have normal stress test in 2018. An echocardiogram done 04/05/2022 showed normal EF, normal valves, grade 1 diastolic dysfunction. She tells me she has not had recurrent chest discomfort since her ER visit, 12/25/2021. She has good activity tolerance. Ongoing risk factor modification including good blood pressure control, activity as tolerated. No further testing needed at present unless she has recurrent symptoms. Signs and symptoms of angina reviewed with her in detail. Cardiology follow-up in 1 year, sooner if (2) Sinus tachycardia: Code(s): R00.0 - Tachycardia, unspecified Plan: Reported history of tachycardia with Intermittent heart palpitations. Holter monitor done 04/05/2022 for 3 days shows sinus rhythm with average heart rate 92, heart rate range 58 to 132, 26% of the time heart rate greater than 100, occasional PVCs, rare PACs. Last labs 12/11/2022 showed no anemia, normal white count, normal electrolytes. Last TSH 2.11 on 02/24/2023. She is currently feeling well with no concerning heart palpitations. She is not any rate slowing medications. Heart rate 96 at this visit. Reviewed reduction in stimulants such as caffeine and chocolate, good hydration, exercise as tolerated. (3) Right bundle branch block: Code(s): I45.10 - Unspecified right bundle-branch block Plan: Chronic, present on EKG today. No new electrical abnormality seen. (4) Essential hypertension: Code(s): I10 - Essential (primary) hypertension Plan: Normal range at present. No medication changes made (5) Shortness of breath: Code(s): R06.02 - Shortness of breath Plan: Report of mild shortness of breath with exertional activities. She has no signs of heart failure on examination. Informed to let us know if this symptom is worsening. At that time stress test will be considered. Plan Time spent on chart review, documentation, interview and assessment Coding Level of Care Code Est Pt Level 3 (09855) Diagnoses Atypical chest pain R07.89 Sinus tachycardia R00.0 Right bundle branch block I45.10 Essential hypertension I10 Shortness of breath R06.02 CPT Codes EKG - CPT: 55714-[id number], Complete ([id number]) Time Spent (min) 24
== END 2023-09-26 13:22 | disposition home or self-care (01) ==
PROVIDERS: Visit Provider Nurse Practitioner Family
DX: R07.89 Other chest pain (principal); R00.0 Tachycardia, unspecified; I45.10 Unspecified right bundle-branch block; I10 Essential (primary) hypertension; R06.02 Shortness of breath
CPT/HCPCS: 93010; 99213

== ENCOUNTER → 2023-09-26 12:46 | Outpatient (BNVA) | payer MEDICARE, SELFPAY | PROVIDERS: Visit Provider Nurse Practitioner Family | DX: I10 Essential (primary) hypertension (principal); I45.10 Unspecified right bundle-branch block; R07.89 Other chest pain; R00.0 Tachycardia, unspecified; R06.02 Shortness of breath | CPT/HCPCS: 93005; 99212 ==

== ENCOUNTER 2023-10-31 10:56 | Outpatient (AMB) | payer MEDICARE, SELFPAY ==
--- NOTE | 2023-10-31 11:00 | MHC.OFFWIV ---
Intake Vital Signs 10/31/23 11:25 Height 5 ft 4 in Weight 144 lb BMI 24.7 BP 114/80 Blood Pressure Location Lt brachial Position Sitting Pulse 88 Pulse Source Pulse Oximeter Temp 97.6 F Temp Source Temporal Artery Scan Pulse Oximetry (%) 97 Oxygen Delivery Method Room Air Intake Visit Reasons: ep sore throat Intake Note: pt is here today for rash 2 weeks ago Patient Tobacco Use Status: Never used Tobacco Allergies amlodipine Allergy (Mild, Verified 10/31/23 12:03) leg edema aspirin [Aspirin] Allergy (Mild, Verified 10/31/23 12:03) ULCER HX, abdominal pain latex [Latex] Allergy (Mild, Verified 10/31/23 12:03) RASH metronidazole [Flagyl] Allergy (Mild, Verified 10/31/23 12:03) rash Do you need a note to return to daycare/school/sports/work: No HPI HPI Comments History of Present Illness Details Patient is a 68-year-old female in today for sick visit. She says that over the past week she has developed a small rash around her neckline. States that it primarily feels itchy. Denies drainage, denies tingling or numbness or pain. Patient denies fever, chest pain, shortness a breath. She has not utilized any lotion on the area. States she has not tried any new medications, has not changed her detergents. She states she does have sensitive skin. [facility] Medical History Family history of polyps in the colon Screening for colon cancer Left foot pain Sinus tachycardia Skin lesion RUQ abdominal pain Forgetfulness Hemorrhoids Cervical cancer screening Post-menopausal Diverticulitis large intestine Atypical facial pain Multinodular thyroid Cough Low back pain Bleeding hemorrhoids History of diverticulitis Osteoarthritis of right knee Right shoulder pain Neck pain Osteopenia Mild depression TMJ (temporomandibular joint syndrome) GERD (gastroesophageal reflux disease) Allergic rhinitis Hypovitaminosis D Vertigo Hypothyroidism Essential hypertension Surgical History Hx of biopsy History of root canal procedure Hx of colonoscopy History of prolapse of bladder Hx of cone biopsy of cervix History of tubal ligation Family History Father Liver problem CVD (cardiovascular disease) Mother Diabetes Stroke Alzheimer disease Chronic mental illness Maternal Grandmother Cancer Uterine cancer Paternal Uncle Diabetes Brother Cancer Family/Other Chronic mental illness Daughter No problems noted. Daughter No problems noted. Sister Alzheimer disease Social History Housing: Apartment Are you a primary rn care manager to a significant other at home: No Alcohol intake: never Patient Tobacco Use Status: Never used Tobacco e-Cigarette/Vaping Use: Never Used Second Hand Smoke Exposure: No service: No Current occupational status: unemployed Cognitive needs: No Hearing needs: No Vision needs: Yes Review of Systems Const All systems reviewed & are unremarkable except as noted in HPI and below Physical Exam Vital Signs: Last Vital Signs Temp 97.6 F 10/31/23 11:25 Pulse 88 10/31/23 11:25 BP 114/80 10/31/23 11:25 Pulse Ox 97 10/31/23 11:25 Oxygen Delivery Method Room Air 10/31/23 11:25 BMI result Body Mass Index 24.7 Const Other: Appearance: Alert.? Oriented X3.? No acute distress.? Head: Normocephalic, Eyes: Pupils equal, round and reactive to light.? ENT: Pharynx normal.? Neck: Normal inspection.? Neck supple.? CVS: Normal heart rate and rhythm.? Pulses normal.? Respiratory: No respiratory distress.? Breath sounds normal.? Skin: Contact dermatitis around neckline. No discharge. Flat. +minor scaling. Neuro: Oriented X 3.? Assessment & Plan Assessment & Plan (1) Contact dermatitis: Comment: Patient given clobetasol topical cream. Patient instructed that she can also utilize cetirizine. She should use shampoos and chronometer tester that are specific for sensitive skin. Should not use perfumes. Code(s): L25.9 - Unspecified contact dermatitis, unspecified cause Qualifiers: Contact dermatitis type: unspecified Contact dermatitis trigger: unspecified trigger Qualified Code(s): L25.9 - Unspecified contact dermatitis, unspecified cause Plan: Take your medications as prescribed. If you were prescribed antibiotics today, it is important that you take your medication to their entirety, do not skip any doses, do not finish them early. Follow-up with your primary care provider this week. Return to the emergency department with new or worsening symptoms. Such as fevers, chills, chest pain, shortness of breath, nausea, vomiting, dizziness, headache, vision changes, lethargy In case of emergency call 911 Plan Follow-up with PCP Medications: New clobetasol 0.05% 1 appl topical DAILY 30 grams 0RF Coding Level of Care Code Est Pt Level 3 (26082) Diagnoses Contact dermatitis, unspecified contact dermatitis type, unspecified trigger L25.9 Contact dermatitis type: unspecified Contact dermatitis trigger: unspecified trigger Time Spent (min) 22
[2023-10-31 11:25] VITALS: BP 114/80; PULSE 88; TEMP 36.4; O2SAT 97; BMI 24.7
== END 2023-10-31 13:02 | disposition home or self-care (01) ==
PROVIDERS: PCP Internal Medicine; Visit Provider Nurse Practitioner Primary Care
DX: L25.9 Unspecified contact dermatitis, unspecified cause (principal)
CPT/HCPCS: 99213

== ENCOUNTER 2023-11-07 09:10 | Outpatient (AMB) | payer OTHER, SELFPAY ==
--- NOTE | 2023-11-07 09:18 | MHC.OFFVIS ---
Vital Signs 11/07/23 09:28 Height 5 ft 4 in Weight 143 lb 11.862 oz BMI 24.7 BP 148/77 H Blood Pressure Location Lt brachial Position Sitting Pulse 71 Intake Visit Reasons: 6 month follow up Intake Note: Patient in office today for 6 months follow up of [facility]IC. CC: Patient reports that a month ago she had an episode of very strong abdominal pain that lasted 2 hours accompanied with sweats and nausea. Denies having any other GI symptoms. Internal Affairs Commander Required: Yes Accompanied by: Self / Same As Patient Allergies amlodipine Allergy (Mild, Verified 11/07/23 09:33) leg edema aspirin [Aspirin] Allergy (Mild, Verified 11/07/23 09:33) ULCER HX, abdominal pain latex [Latex] Allergy (Mild, Verified 11/07/23 09:33) RASH metronidazole [Flagyl] Allergy (Mild, Verified 11/07/23 09:33) rash HPI HPI 6 month follow up: Details: Assessment & Plan (1) Chronic idiopathic constipation: Code(s): K59.04 - Chronic idiopathic constipation (2) GERD (gastroesophageal reflux disease): Code(s): K21.9 - Gastro-esophageal reflux disease without esophagitis Qualifiers: Esophagitis presence: esophagitis presence not specified Qualified Code(s): K21.9 - Gastro-esophageal reflux disease without esophagitis Plan JAPANESE #[id number] She continues to do well on her pantoprazole and bisacodyl (which she prefers to Linzess). She has not yet seen dermatology for the forearm lesion because Medicare is not covering them now. She has not yet spoken to Dr. Dominguez re: colonoscopy. I will send her a workload note. She is actually not sure when her last colonoscopy was. ROV 6 mos. Medications: Refilled docusate sodium 100 mg PO BID 60 caps 6RF K59.01 - Slow transit constipation pantoprazole 40 mg PO DAILY 30 tabs 6RF bisacodyl 10 mg (2 x 5 mg) PO BEDTIME 60 tabs 6RF TODAY'S VISIT JAPANESE #[id number] Jasmin She has been feeing better with the medicine. She continues to do well on her pantoprazole and bisacodyl (which she prefers to Linzess). We still can not pin down her last scope and it may be 2008. I explain it is better to be safe and get one scheduled and she is agreeable. She has palpitations but no serious cardiac problems, she denies respiratory problems excpet when she has a respiratory infection and she has a pump for this. She is anxious about anesthesia but denies any other problems. NO ID problems. There is no known FHX of crc or polyps. [facility] Medical History (Updated 11/07/23 @ 09:51 by NELLY Mckinley) Encounter for Medicare annual wellness exam Preop exam for internal medicine Adult general medical exam Family history of polyps in the colon Screening for colon cancer Left foot pain Sinus tachycardia Skin lesion RUQ abdominal pain Forgetfulness Hemorrhoids Cervical cancer screening Post-menopausal Diverticulitis large intestine Atypical facial pain Multinodular thyroid Cough Low back pain Bleeding hemorrhoids History of diverticulitis Osteoarthritis of right knee Right shoulder pain Neck pain Osteopenia Mild depression TMJ (temporomandibular joint syndrome) GERD (gastroesophageal reflux disease) Allergic rhinitis Hypovitaminosis D Vertigo Hypothyroidism Essential hypertension Surgical History Hx of biopsy History of root canal procedure Hx of colonoscopy History of prolapse of bladder Hx of cone biopsy of cervix History of tubal ligation Family History Father Liver problem CVD (cardiovascular disease) Mother Diabetes Stroke Alzheimer disease Chronic mental illness Maternal Grandmother Cancer Uterine cancer Paternal Uncle Diabetes Brother Cancer Family/Other Chronic mental illness Daughter No problems noted. Daughter No problems noted. Sister Alzheimer disease Social History Housing: Apartment Are you a primary technical healthcare consultant to a significant other at home: No Alcohol intake: never Patient Tobacco Use Status: Never used Tobacco e-Cigarette/Vaping Use: Never Used Second Hand Smoke Exposure: No service: No Current occupational status: unemployed Cognitive needs: No Hearing needs: No Vision needs: Yes Review of Systems Const Denies fatigue, Denies fever(s), Denies night sweats, Denies poor appetite and Denies weight loss ENT Reports Normal hearing present, Denies dental pain, Denies dysphagia, Denies hearing loss, Denies mouth pain, Denies odynophagia, Denies throat swelling, Denies tongue swelling and Reports other (Dentition adequate) Card Reports no additional complaints Resp Reports no additional complaints GI Details: Denies abdominal pain, Denies melena, Denies bloating, Denies hematochezia, Reports constipation, Denies GI cramping, Denies dysphagia, Denies excessive flatus, Denies early satiety, Reports heartburn, Denies diarrhea, Denies nausea, Denies odynophagia, Denies vomiting and Denies hematemesis Skin/Breast Denies pruritus, Denies lesions, Denies rash and Denies jaundice Neuro Reports Normal hearing present and Denies Abnormal speech present Endo Denies fatigue Aller/Immun Denies throat swelling and Denies tongue swelling Physical Exam Vital Signs: Last Vital Signs Pulse 71 11/07/23 09:28 BP 148/77 H 11/07/23 09:28 BMI result Body Mass Index 24.7 Const General: cooperative, no acute distress, well developed and well groomed Nutritional Appearance: average body habitus and well nourished Orientation/consciousness: oriented to person, oriented to place and oriented to time Limitations: language barrier HEENT Head: Yes normocephalic and Yes atraumatic Eyes General: appearance normal, both eyes and all related structures Pupils: Equal, round and reactive pupils present Neck Neck: Yes normal visual inspection and Yes no lymphadenopathy Thyroid: Thyroid normal Resp Effort & Inspection: normal respiratory effort and able to speak in complete sentences Auscultation: clear to auscultation bilaterally Cardio Rate: regular rate Rhythm: regular rhythm Heart sounds: Normal, physiologic split S2 sound present Peripheral pulses: radial pulses present and posterior tibial pulses present GI Inspection: No distended and No Abdominal panniculus present Palpation (GI): Soft to palpation, nontender, no guarding, not rigid and No hepatosplenomegaly present Percussion: Yes normal to percussion Auscultation: normal bowel sounds Rectal Exam - Female: deferred Skin General skin exam: no rashes or lesions noted, turgor normal, skin not dry, no jaundice, No spider nevi and no striae Rashes: no rashes Nails: normal Neuro General: oriented to person, oriented to place and oriented to time Cranial nerves: Yes Equal, round and reactive pupils present and Yes Normal hearing present Speech: No Abnormal speech present Extrem General: Yes normal to inspection, No clubbing, No cyanosis and No edema Psych Appearance: grossly normal and well kempt Speech and movement: Normal speech and movement present Affect: normal affect Attitude: cooperative Thought process: Normal thought process present and not confabulating Thought content: Normal thought content present Insight: Limited insight present (Psych) Judgement: Limited judgement present (Psych) Assessment & Plan Assessment & Plan (1) GERD (gastroesophageal reflux disease): Code(s): K21.9 - Gastro-esophageal reflux disease without esophagitis Category: Medical Qualifiers: Esophagitis presence: esophagitis presence not specified Qualified Code(s): K21.9 - Gastro-esophageal reflux disease without esophagitis (2) Chronic idiopathic constipation: Code(s): K59.04 - Chronic idiopathic constipation Category: Medical (3) Pre-op examination: Code(s): Z01.818 - Encounter for other preprocedural examination Category: Medical Plan JAPANESE #[id number] Jasmin She has been feeing better with the medicine. She continues to do well on her pantoprazole and bisacodyl (which she prefers to Linzess). We still can not pin down her last scope and it may be 2008. I explain it is better to be safe and get one scheduled and she is agreeable. She has palpitations but no serious cardiac problems, she denies respiratory problems excpet when she has a respiratory infection and she has a pump for this. She is anxious about anesthesia but denies any other problems. NO ID problems. There is no known FHX of crc or polyps. Orders: Orders Complete Blood Count Auto Diff Today Z01.818 - Encounter for other preprocedural examination Colonoscopy - GI Use Only Today Z01.818 - Encounter for other preprocedural examination Comprehensive Met. Panel Today Z01.818 - Encounter for other preprocedural examination Medications: New peg 3350-electrolytes 236-22.74-6.74 -5.86 gram (Golytely) until fecal effluent is clear; do not exceed a total volume of 2,000 mL 240 mL PO Q10M 4,000 mL 0RF 1 day Z12.11 - Encounter for screening for malignant neoplasm of colon Refilled methylcellulose (laxative) (Fiber Laxative (methylcellulose)) 1,000 mg (2 x 500 mg) PO DAILY 60 tabs 6RF K59.01 - Slow transit constipation, Z87.19 - Personal history of other diseases of the digestive system bisacodyl 10 mg (2 x 5 mg) PO BEDTIME 60 tabs 6RF docusate sodium 100 mg PO BID 60 caps 6RF K59.01 - Slow transit constipation pantoprazole 40 mg PO DAILY 30 tabs 6RF Coding Level of Care Code Est Pt Level 3 (44107) Diagnoses Gastroesophageal reflux disease, unspecified whether esophagitis present K21.9 Esophagitis presence: esophagitis presence not specified Chronic idiopathic constipation K59.04 Pre-op examination Z01.818
[2023-11-07 09:28] VITALS: BP 148/77; PULSE 71; BMI 24.7
== END 2023-11-07 10:00 | disposition home or self-care (01) ==
PROVIDERS: PCP Internal Medicine; Visit Provider Nurse Practitioner
DX: K21.9 Gastro-esophageal reflux disease without esophagitis (principal); K59.04 Chronic idiopathic constipation; Z01.818 Encounter for other preprocedural examination
CPT/HCPCS: 99213

== ENCOUNTER → 2023-11-07 09:10 | Outpatient (BNVA) | payer OTHER, SELFPAY | PROVIDERS: PCP Internal Medicine; Visit Provider Nurse Practitioner | DX: Z01.818 Encounter for other preprocedural examination (principal); K59.04 Chronic idiopathic constipation; K21.9 Gastro-esophageal reflux disease without esophagitis; Z79.899 Other long term (current) drug therapy | CPT/HCPCS: 99212 ==

== ENCOUNTER 2023-11-17 09:09 | Outpatient (REF) | payer OTHER, SELFPAY ==
[2023-11-17 09:16] LABS: MANUAL DIFF FLAG NO
[2023-11-17 09:47] LABS: Basophils Percent Auto 0.2 % (0-2); Eosinophils Absolute Auto 0.2 X10*3/uL (0.0-0.4); Eosinophils Percent Auto 3.3 % (0-4); Hematocrit 37.9 % (37.0-47.0); Hemoglobin 12.5 g/dl (12.0-16.0); Imm Gran Abs Auto 0.01 X10*3/uL (0.00-0.03); Imm Gran Pct Auto 0.2 % (0.0-0.4); Lymphocytes Absolute Auto 2.6 X10*3/uL (1.2-4.9); Lymphocytes Percent Auto 45.4 % (20-40); Mean Corpuscular Volume 87.9 fL (80.0-98.0); Mean Platelet Volume 9.4 fL (9.4-12.3); Monocytes Absolute Auto 0.5 X10*3/uL (0.1-1.2); Monocytes Percent Auto 9.5 % (2-11); Neutrophils Absolute Auto 2.4 x10*3/uL (2.0-8.3); Neutrophils Percent Auto 41.4 % (45-73); Platelet Count 263 X10*3/uL (160-400); Red Blood Count 4.31 X10*6/uL (4.20-5.50); Red Cell Distribution Width 13.5 % (11.0-16.0); White Blood Count 5.7 X10*3/uL (4.8-10.8)
[2023-11-17 10:33] LABS: Alanine Aminotransferase 29 U/L (0-31); Albumin Level 4.1 g/dL (3.5-5.0); Alkaline Phosphatase 54 U/L (39-117); Anion Gap 15 (12-20); Aspartate Amino Transferase 23 U/L (5-31); Bilirubin Total 0.3 mg/dL (0.0-1.0); Blood Urea Nitrogen 17 mg/dL (9-16); Calcium 10.2 mg/dL (8.4-10.2); Carbon Dioxide 27 mmol/L (22-29); Chloride 103 mmol/L (96-108); Estimated Glomerular Filt Rate > 60; Glucose Random 109 mg/dL (60-115); Potassium 4.5 mmol/L (3.3-5.1); Sodium 140 mmol/L (135-145); Total Protein 7.7 g/dL (6.5-8.0)
== END 2023-11-17 09:10 | disposition home or self-care (01) ==
LOC: HO.LAB 09:09
PROVIDERS: Absent Provider Internal Medicine; PCP Internal Medicine; Visit Provider Nurse Practitioner
DX: Z01.812 Encounter for preprocedural laboratory examination (principal)
CPT/HCPCS: 36415; 80053; 85025

== ENCOUNTER 2023-11-23 11:08 | Outpatient (REF) | payer OTHER, SELFPAY ==
--- NOTE | ~2023-11-23 | XR_ITS ---
EXAMINATION: XR KNEE, RIGHT CLINICAL INFORMATION: Pain in the right knee COMPARISON: Prior knee radiographs most recent October 2020 TECHNIQUE: 2 views of the right knee. FINDINGS: Persistent prominent chondrocalcinosis most evident in the medial lateral compartments unchanged. Persistent calcification adjacent to the medial femoral condyle slightly more evident perhaps related to slight differences in projection. This is compatible old medial collateral ligament tear. Minimal marginal osteophytes about the tibial spines without joint space narrowing. Marginal osteophytes about the patella unchanged. No effusion XR/XR knee RT 2V IMPRESSION: Chondrocalcinosis unchanged. Calcification adjacent to the medial femoral condyle likely related to old medial collateral ligament tear. Mild osteoarthritis unchanged.
--- NOTE | ~2023-11-23 | XR_ITS ---
EXAMINATION: XR HIP, RIGHT CLINICAL INFORMATION: Pain in the right hip COMPARISON: None available. TECHNIQUE: Two views of the right hip. FINDINGS: No fracture. Alignment is anatomic. Hip joint space is maintained. Soft tissues are unremarkable. XR/XR hip RT min 2V IMPRESSION: Normal right hip.
== END 2023-11-23 11:09 | disposition home or self-care (01) ==
LOC: HO.XRAY 11:08
PROVIDERS: PCP Internal Medicine; Visit Provider Internal Medicine
DX: M25.561 Pain in right knee (principal); M25.551 Pain in right hip
CPT/HCPCS: 73502; 73560

== ENCOUNTER 2024-01-29 10:40 | Outpatient (AMB) | payer OTHER, SELFPAY ==
[2024-01-29 10:49] VITALS: BMI 24.5
--- NOTE | 2024-01-29 10:49 | MHC.OFFVIS ---
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 Patient reports that she has had ongoing right knee pain for about 8 months now. She was previously told by her PCP that she had fluid in the knee, this was not aspirated as it was a very small amount of fluid. She has had no previous therapies. She occasionally takes naproxen but she does not have significant pain. She would like to have physical therapy ordered. Tumbler Dyeing Machine Operator Required: Yes Tumbler Dyeing Machine Operator Name: [id number] Allergies amlodipine Allergy (Mild, Verified 11/07/23 09:33) leg edema aspirin [Aspirin] Allergy (Mild, Verified 11/07/23 09:33) ULCER HX, abdominal pain latex [Latex] Allergy (Mild, Verified 11/07/23 09:33) RASH metronidazole [Flagyl] Allergy (Mild, Verified 11/07/23 09:33) rash HPI HPI MEDICAL CLERK right knee pain: Details: Radha is a 69 year old female who presents today as a new patient with complaints of right knee pain. Patient reports that she has had ongoing right knee pain for about 8 months now. She was previously told by her PCP that she had fluid in the knee, this was not aspirated as it was a very small amount of fluid. She has had no previous therapies. She occasionally takes naproxen but she does not have significant pain. She would like to have physical therapy ordered. [facility] Medical History Encounter for Medicare annual wellness exam Preop exam for internal medicine Adult general medical exam Family history of polyps in the colon Screening for colon cancer Left foot pain Sinus tachycardia Skin lesion RUQ abdominal pain Forgetfulness Hemorrhoids Cervical cancer screening Post-menopausal Diverticulitis large intestine Atypical facial pain Multinodular thyroid Cough Low back pain Bleeding hemorrhoids History of diverticulitis Osteoarthritis of right knee Right shoulder pain Neck pain Osteopenia Mild depression TMJ (temporomandibular joint syndrome) GERD (gastroesophageal reflux disease) Allergic rhinitis Hypovitaminosis D Vertigo Hypothyroidism Essential hypertension Surgical History Hx of biopsy History of root canal procedure Hx of colonoscopy History of prolapse of bladder Hx of cone biopsy of cervix History of tubal ligation Family History Father Liver problem CVD (cardiovascular disease) Mother Diabetes Stroke Alzheimer disease Chronic mental illness Maternal Grandmother Cancer Uterine cancer Paternal Uncle Diabetes Brother Cancer Family/Other Chronic mental illness Daughter No problems noted. Daughter No problems noted. Sister Alzheimer disease Social History Housing: Apartment Are you a primary daycare provider to a significant other at home: No Alcohol intake: never Patient Tobacco Use Status: Never used Tobacco e-Cigarette/Vaping Use: Never Used Second Hand Smoke Exposure: No service: No Current occupational status: unemployed Cognitive needs: No Hearing needs: No Vision needs: Yes Physical Exam Vital Signs: BMI result Body Mass Index 24.5 Results Reviewed Results Reviewed: I personally reviewed relevant radiographs. Mild OA wtih chondrocalcinosis Assessment & Plan Assessment & Plan (1) Arthritis of right knee: Code(s): M17.11 - Unilateral primary osteoarthritis, right knee Category: Medical Plan: Right knee OA with chondrocalcinosis. She is minimally affected ( occasional pain) and I recommend PT. If she worsens may return to see me. Coding Level of Care Code New Pt Level 3 (90691) Diagnoses Arthritis of right knee M17.11
== END 2024-01-29 14:13 | disposition home or self-care (01) ==
PROVIDERS: PCP Internal Medicine; Visit Provider Orthopaedic Surgery
DX: M17.11 Unilateral primary osteoarthritis, right knee (principal)
CPT/HCPCS: 99202

== ENCOUNTER → 2024-01-29 10:40 | Outpatient (BNVA) | payer OTHER, SELFPAY | PROVIDERS: PCP Internal Medicine; Visit Provider Orthopaedic Surgery | DX: M17.11 Unilateral primary osteoarthritis, right knee (principal) | CPT/HCPCS: 99202 ==

== ENCOUNTER 2024-02-07 16:09 | Emergency (ER) | payer OTHER, SELFPAY ==
--- NOTE | ~2024-02-07 | US_ITS ---
EXAMINATION: US VENOUS ULTRASOUND WITH DOPPLER LOWER EXTREMITY, LEFT CLINICAL INFORMATION: Left lower extremity pain COMPARISON: April 06, 2023 TECHNIQUE: Ultrasound of the deep veins is performed from the hip to the calf with compression sonography and color and pulse Doppler assessment. Spectral analysis with color-flow imaging is performed. FINDINGS: There is normal venous compression and respiratory variation and augmented flow. The visualized common femoral vein, superficial femoral vein, profunda femoral vein, popliteal vein, and the trifurcation region shows no evidence of deep venous thrombosis. There is no significant popliteal fossa cyst. No popliteal artery aneurysm. US/US venous duplex LE LT IMPRESSION: No acute DVT demonstrated in the left lower extremity.
[2024-02-07 16:11] VITALS: BP 160/82; PULSE 93; RESP 20; TEMP 36.1; O2SAT 98; BMI 23.9
--- NOTE | 2024-02-07 16:11 | ED.LOWEXIN ---
HPI - Extremity Injury (Lower) General Chief Complaint: Extremity Problem Stated Complaint: leg pain Time Seen by Provider: 02/07/24 17:03 Source: patient Mode of arrival: ambulatory Limitations: no limitations History of Present Illness ED Provider: Dr. Ernesto Felix HPI Narrative: 69-year-old female past history of venous insufficiency cataracts anxiety right bundle-branch block TMJ GERD hypertension hypothyroidism chronic right knee pain and intermittent left leg pain with a vein ablation to the left leg in the past presents to the emergency department complaining of left leg pain for the past 2 days she denies any falls or injuries she denies chest pain cough or fever patient was seen in triage an ultrasound was ordered Related Data Home Medications ?Medication ?Instructions ?Recorded ?Confirmed cyclobenzaprine 10 mg tablet 10 mg PO TID PRN Muscle Spasm 04/21/20 02/22/24 estradiol 0.01% (0.1 mg/gram) 1 g vaginal 3XW 04/09/21 02/22/24 vaginal cream multivitamin-ferrous 1 tab PO DAILY 01/12/23 02/22/24 fumarate-folic acid 18 mg-400 mcg tablet (Centrum Complete) Previous Rx's ?Medication ?Instructions ?Recorded hydrocortisone 2.5 % topical 1 appl topical TID 14 days #20 03/11/22 ointment grams clotrimazole-betamethasone 1 1 appl topical BID 2 weeks #15 04/11/22 %-0.05 % topical cream grams blood pressure monitor #1 ea 04/28/22 nystatin 100,000 unit/gram topical 1 appl topical BID 2 weeks #15 04/03/23 cream grams loratadine 10 mg tablet 10 mg PO DAILY 30 days #30 tabs 05/24/23 clobetasol 0.05 % topical cream 1 appl topical DAILY #30 grams 10/31/23 bisacodyl 5 mg tablet,delayed 10 mg (2 x 5 mg) PO BEDTIME #60 11/07/23 release tabs docusate sodium 100 mg capsule 100 mg PO BID #60 caps 11/07/23 methylcellulose (laxative) 500 mg 1,000 mg (2 x 500 mg) PO DAILY #60 11/07/23 tablet (Fiber Laxative tabs (methylcellulose)) pantoprazole 40 mg tablet,delayed 40 mg PO DAILY #30 tabs 11/07/23 release peg 3350-electrolytes 236 240 ml PO Q10M 1 day #4,000 mL 11/07/23 gram-22.74 gram-6.74 gram-5.86 gram solution (Golytely) levothyroxine 50 mcg tablet 50 mcg PO QAM 90 days #90 tabs 11/15/23 calcium carbonate 600 mg PO BID #60 tabs 11/27/23 naproxen 500 mg tablet 500 mg PO BID PRN Pain 5 days #10 12/11/23 tabs albuterol sulfate 90 mcg/actuation 2 inh inhalation Q4-6H PRN 12/22/23 breath activated powder inhaler shortness of breath or wheezing #1 ea cholecalciferol (vitamin D3) 25 25 mcg PO DAILY 30 days #30 tabs 02/13/24 mcg (1,000 unit) tablet losartan 100 mg tablet 100 mg PO DAILY 90 days #90 tabs 02/22/24 meclizine 25 mg tablet 25 mg PO DAILY PRN motion sickness 02/22/24 30 days #30 tabs Allergies Allergy/AdvReac Type Severity Reaction Status Date / Time amlodipine Allergy Mild leg edema Verified 02/22/24 12:42 aspirin [Aspirin] Allergy Mild ULCER HX, Verified 02/22/24 12:42 abdominal pain latex [Latex] Allergy Mild RASH Verified 02/22/24 12:42 metronidazole [Flagyl] Allergy Mild rash Verified 02/22/24 12:42 Review of Systems Review of Systems: Review of systems: General: Patient denies any fever chills recent illness or falls Musculoskeletal: Denies back pain or body aches or other injuries HEENT: denies headache, runny nose, ear pain Respiratory: denies shortness of breath, cough Cardiovascular: no chest pain or palpitations : denies dysuria, frequency Abdomen: no nausea vomiting denies abdominal pain Extremities: no swelling, no pain Skin: no diaphoresis Yes all other systems are reviewed and are negative PMFSH Past Medical History Medical History Encounter for Medicare annual wellness exam Preop exam for internal medicine Adult general medical exam Family history of polyps in the colon Screening for colon cancer Left foot pain Sinus tachycardia Skin lesion RUQ abdominal pain Forgetfulness Hemorrhoids Cervical cancer screening Post-menopausal Diverticulitis large intestine Atypical facial pain Multinodular thyroid Cough Low back pain Bleeding hemorrhoids History of diverticulitis Osteoarthritis of right knee Right shoulder pain Neck pain Osteopenia Mild depression TMJ (temporomandibular joint syndrome) GERD (gastroesophageal reflux disease) Allergic rhinitis Hypovitaminosis D Vertigo Hypothyroidism Essential hypertension Surgical History Hx of biopsy History of root canal procedure Hx of colonoscopy History of prolapse of bladder Hx of cone biopsy of cervix History of tubal ligation Family History Family History Father Liver problem CVD (cardiovascular disease) Mother Diabetes Stroke Alzheimer disease Chronic mental illness Maternal Grandmother Cancer Uterine cancer Paternal Uncle Diabetes Brother Cancer Family/Other Chronic mental illness Daughter No problems noted. Daughter No problems noted. Sister Alzheimer disease Social History Social History Housing: Apartment Are you a primary farm or ranch animal caretaker to a significant other at home: No Alcohol intake: never Patient Tobacco Use Status: Never used Tobacco e-Cigarette/Vaping Use: Never Used Second Hand Smoke Exposure: No service: No Current occupational status: unemployed Cognitive needs: No Hearing needs: No Vision needs: Yes Physical Exam Vital Signs: Vital Signs: Last Vital Signs Temp 96.9 F 02/07/24 18:57 Pulse 93 02/07/24 18:57 Resp 20 02/07/24 18:57 BP 160/82 H 02/07/24 18:57 Pulse Ox 98 02/07/24 18:57 O2 Del Method Room Air 02/07/24 18:57 BMI result Body Mass Index 23.9 General: Well-appearing well-nourished in no signs of distress HEENT: Normocephalic atraumatic Neck: No signs of JVD, no masses no tenderness or lymphadenopathy Cardiovascular: Regular rate and rhythm Respiratory: Clear to auscultation bilaterally Abdomen: Soft nontender no masses Extremities: Normal pedal pulses no signs of edema pain is not reproducible on exam Skin: Dry warm no rashes Back: No tenderness full ROM Course Course Course Narrative: This is a Rapid Medical Exam performed in triage by Tara Tucker PA-C. Full HPI, ROS and PE to be performed by primary ED provider. 69 year-old F w/ PMHx GERD, HTN, LE vein ablation, presenting to the ED c/o LLE pain x 2 days. denies injury. PE: LLE with +calf ttp. No discoloration. Neurovascularly intact. No pitting edema Plan: Venous duplex ultrasound Medications Administered Discontinued Medications Generic Name Dose Route Start Last Admin Trade Name Freq PRN Reason Stop Dose Admin Acetaminophen 650 mg 02/07/24 18:46 02/07/24 18:53 Acetaminophen 325 Mg Tablet PO 02/07/24 18:47 650 mg ONCE ONE Administration Ibuprofen 400 mg 02/07/24 18:46 02/07/24 18:53 Ibuprofen 400 Mg Tablet PO 02/07/24 18:47 400 mg ONCE ONE Administration Medical Decision Making Medical Decision Making MDM Narrative: Patient was sent for ultrasound which was negative I do feel comfortable discharging the patient home I will give the patient a dose of Tylenol and ibuprofen for the Differential Diagnosis Differential Diagnoses: The differential diagnosis associated with the presentation includes DVT cellulitis vascular injury Independent Interpretation I performed an independent interpretation of an: Ultrasound Radiology Impression Discussion of test interpretation with radiology: I have reviewed the radiologist's reading. Discharge Plan Discharge Clinical Impression: Muscle strain of left lower leg Patient Disposition: Home, Self-Care Instructions: Leg Pain (ED) Additional Instructions: You were seen for left leg pain. I do think this is more likely musculoskeletal pain you did get an ultrasound which did not show anything acute. Please call follow up with your doctor if you have any other concerns please return to the emergency department. Prescriptions: No Action (DME) blood pressure monitor Kit See Rx Instructions .Route Qty: 1 0RF Rx Instructions: As directed loratadine 10 mg tablet 10 mg PO DAILY 30 Days Qty: 30 11RF levothyroxine 50 mcg tablet 50 mcg PO QAM 90 Days Qty: 90 11RF calcium carbonate 600 mg calcium (1,500 mg) tablet 600 mg PO BID Qty: 60 6RF naproxen 500 mg tablet 500 mg PO BID PRN (Reason: Pain) 5 Days Qty: 10 0RF albuterol sulfate 90 mcg/actuation aerosol powdr breath activated 2 inh inhalation Q4-6H PRN (Reason: shortness of breath or wheezing) Qty: 1 0RF cholecalciferol (vitamin D3) 25 mcg (1,000 unit) tablet 25 mcg PO DAILY 30 Days Qty: 30 11RF cyclobenzaprine 10 mg tablet 10 mg PO TID PRN (Reason: Muscle Spasm) TDVAX 2-2 Lf unit/0.5 mL suspension 0.5 ml IM ONCE Qty: 0.5 0RF clotrimazole-betamethasone 1-0.05 % cream 1 appl topical BID 14 Days Qty: 15 1RF Centrum Complete 18-400 mg-mcg tablet 1 tab PO DAILY estradiol 0.01 % (0.1 mg/gram) cream 1 g vaginal 3XW hydrocortisone 2.5 % ointment 1 appl topical TID 14 Days Qty: 20 0RF nystatin 100,000 unit/gram cream 1 appl topical BID 14 Days Qty: 15 1RF clobetasol 0.05 % cream 1 appl topical DAILY Qty: 30 0RF meclizine 25 mg tablet 25 mg PO DAILY PRN (Reason: motion sickness) 30 Days Qty: 30 0RF losartan 100 mg tablet 100 mg PO DAILY 90 Days Qty: 90 1RF peg 3350-electrolytes [Golytely] 236-22.74-6.74 -5.86 gram recon soln 240 ml PO Q10M 1 Days Qty: 4000 0RF Rx Instructions: until fecal effluent is clear; do not exceed a total volume of 2,000 mL bisacodyl 5 mg tablet,delayed release (DR/EC) 10 mg PO BEDTIME Qty: 60 6RF docusate sodium 100 mg capsule 100 mg PO BID Qty: 60 6RF Fiber Laxative(methylcellulos) 500 mg tablet 1,000 mg PO DAILY Qty: 60 6RF pantoprazole 40 mg tablet,delayed release (DR/EC) 40 mg PO DAILY Qty: 30 6RF Interventions: ED Discharge Assessment Last Done: 02/07/24 18:57 Discharge Date/Time: 02/07/24 18:58 Print Language: Bahamian
[2024-02-07] MEDS: Acetaminophen 325 MG TABLET 650 MG PO (18:53)
[2024-02-07] MEDS: Ibuprofen 400 MG TABLET PO (18:53)
[2024-02-07 18:57] VITALS: BP 160/82; PULSE 93; RESP 20; TEMP 36.1; O2SAT 98
== END 2024-02-07 18:58 | disposition home or self-care (01) ==
PROVIDERS: Emergency Provider Student in an Organized Health Care Education/Training Program
DX: S86.912A Strain of unspecified muscle(s) and tendon(s) at lower leg level, left leg, initial encounter (principal); R60.0 Localized edema; I45.10 Unspecified right bundle-branch block; X58.XXXA Exposure to other specified factors, initial encounter; Y93.89 Activity, other specified; Y92.89 Other specified places as the place of occurrence of the external cause; Y99.8 Other external cause status
CPT/HCPCS: 93971; 99283; 99284

== ENCOUNTER 2024-02-22 12:29 | Outpatient (AMB) | payer OTHER, SELFPAY ==
--- NOTE | 2024-02-22 12:32 | MHC.PC.OV ---
Vital Signs 02/22/24 12:33 02/22/24 13:06 Height 5 ft 4 in Weight 141 lb BMI 24.2 BP 150/90 H 150/90 H Blood Pressure Location Lt brachial Lt brachial Position Sitting Sitting Intake [place] [facility] [place] Swollen LT leg Wastewater Treatment Supervisor Required: No Accompanied by: Self / Same As Patient Allergies amlodipine Allergy (Mild, Verified 02/22/24 12:42) leg edema aspirin [Aspirin] Allergy (Mild, Verified 02/22/24 12:42) ULCER HX, abdominal pain latex [Latex] Allergy (Mild, Verified 02/22/24 12:42) RASH metronidazole [Flagyl] Allergy (Mild, Verified 02/22/24 12:42) rash Medication List - Last Reconciled 02/22/24 by Lakeisha Lamas MD albuterol sulfate 90 mcg/actuation 2 inhalations inhalation Q4-6H PRN bisacodyl 10 mg (2 x 5 mg) PO BEDTIME blood pressure monitor As directed calcium carbonate 600 mg PO BID cholecalciferol (vitamin D3) 25 mcg PO DAILY 30 days clobetasol 0.05% 1 appl topical DAILY clotrimazole-betamethasone 1-0.05 % 1 appl topical BID 2 weeks cyclobenzaprine 10 mg PO TID PRN docusate sodium 100 mg PO BID estradiol 0.01%(0.1mg/gram) 1 g vaginal 3XW hydrocortisone 2.5% 1 appl topical TID 14 days levothyroxine 50 mcg PO QAM 90 days loratadine 10 mg PO DAILY 30 days losartan 50 mg PO DAILY 90 days meclizine 25 mg PO DAILY PRN 30 days methylcellulose (laxative) (Fiber Laxative (methylcellulose)) 1,000 mg (2 x 500 mg) PO DAILY [id number] acid 18-400 mg-mcg (Centrum Complete) 1 tab PO DAILY naproxen 500 mg PO BID PRN 5 days nystatin 1 appl topical BID 2 weeks pantoprazole 40 mg PO DAILY peg 3350-electrolytes 236-22.74-6.74 -5.86 gram (Golytely) 240 mL PO Q10M 1 day Tobacco use date assessed: 02/22/24 Fall risk assessment: No Falls in past year Last assessed Fall Risk: 02/22/24 Dental Screening Dental Screen Date: 02/22/24 Did you have a dental visit in the last 12 months?: Yes Did you have a dental problem in the last 6 months where you did not have access to dental care?: No Was dental information given to patient?: Patient has dentist HPI HPI Comments History of Present Illness Details This is a 69-year-old female with hypertension, hypothyroidism and GERD that complains of vertigo that has been present for few months. Blood pressure elevated and I will increase losartan from 50 mg to 100 mg. Blood pressure will be recheck in 3 weeks by nurse navigator. TSH will be ordered. GERD stable with PPIs. She has been using meclizine which very minimal relief of her vertigo. Denies vertigo while changing head position. Would like to see ENT. She will also be referred to vestibular therapy. [facility] Medical History (Updated 02/22/24 @ 12:50 by Lakeisha Lamas MD) Encounter for Medicare annual wellness exam Preop exam for internal medicine Adult general medical exam Family history of polyps in the colon Screening for colon cancer Left foot pain Sinus tachycardia Skin lesion RUQ abdominal pain Forgetfulness Hemorrhoids Cervical cancer screening Post-menopausal Diverticulitis large intestine Atypical facial pain Multinodular thyroid Cough Low back pain Bleeding hemorrhoids History of diverticulitis Osteoarthritis of right knee Right shoulder pain Neck pain Osteopenia Mild depression TMJ (temporomandibular joint syndrome) GERD (gastroesophageal reflux disease) Allergic rhinitis Hypovitaminosis D Vertigo Hypothyroidism Essential hypertension Surgical History Hx of biopsy History of root canal procedure Hx of colonoscopy History of prolapse of bladder Hx of cone biopsy of cervix History of tubal ligation Family History Father Liver problem CVD (cardiovascular disease) Mother Diabetes Stroke Alzheimer disease Chronic mental illness Maternal Grandmother Cancer Uterine cancer Paternal Uncle Diabetes Brother Cancer Family/Other Chronic mental illness Daughter No problems noted. Daughter No problems noted. Sister Alzheimer disease Social History Housing: Apartment Are you a primary personal care worker to a significant other at home: No Alcohol intake: never Patient Tobacco Use Status: Never used Tobacco e-Cigarette/Vaping Use: Never Used Second Hand Smoke Exposure: No service: No Current occupational status: unemployed Cognitive needs: No Hearing needs: No Vision needs: Yes Questionnaire Thrive Questionnaire Date Thrive assessed: 09/21/23 BREANNA-7 AMB Questionnaire BREANNA-7 Date BREANNA - 7 assessed: 09/21/23 Source: Developed by Drs. Alex Cowan, Ananya Black, Seferino Vásquez and colleagues, with an educational deondre from [employer]. Review of Systems Const All systems reviewed & are unremarkable except as noted in HPI and below Card Denies chest pain at rest, Denies chest pain with activity, Denies edema, Denies irregular heart rhythm, Denies claudication, Denies dyspnea, Denies dyspnea on exertion, Denies orthopnea, Denies paroxysmal nocturnal dyspnea and Denies slow heart rate Resp Denies cough, Denies dyspnea and Denies dyspnea on exertion GI Denies abdominal pain, Denies change in bowel habits, Denies excessive flatus, Denies nausea and Denies vomiting Denies urinary incontinence, Denies urinary hesitancy and Denies urinary urgency Musc Denies abnormal gait, Denies atrophy, Denies deformity and Denies limited range of motion Skin/Breast Denies bleeding lesions, Denies changing lesions and Denies rash Neuro Denies abnormal gait and Denies lack of coordination Physical exam (Primary Care) Vital Signs: Last Vital Signs BP 150/90 H 02/22/24 12:33 BMI result Body Mass Index 24.2 Tobacco/Smoking Status: Tobacco use Status Tobacco use date assessed 02/22/24 02/22/24 12:39 Patient Tobacco Use Status Never used Tobacco 02/22/24 12:39 e-Cigarette/Vaping Use Never Used 02/22/24 12:39 Thrive Assessment: Date of Thrive Assessment Date Thrive assessed 09/21/23 02/22/24 12:39 Resp Effort & Inspection: normal respiratory effort Auscultation: clear to auscultation bilaterally Cardio Jugular venous distension: no JVD Rate: regular rate Rhythm: regular rhythm Heart sounds: S1 normal heart sound present and S2 normal heart sound present Extrem General: Yes full ROM Assessment and Plan Assessment & Plan (1) Essential hypertension: Code(s): I10 - Essential (primary) hypertension Plan: Increase losartan to 100 mg. Blood pressure goal is equal or less than 130/80. Recheck blood pressure with nurse navigator in 3 weeks. (2) Hypothyroidism: Code(s): E03.9 - Hypothyroidism, unspecified Qualifiers: Hypothyroidism type: unspecified Qualified Code(s): E03.9 - Hypothyroidism, unspecified Plan: Continue levothyroxine. Repeat TSH. (3) Vertigo: Code(s): R42 - Dizziness and giddiness Plan: Referred to vestibular therapy. Referred to ENT. (4) GERD (gastroesophageal reflux disease): Code(s): K21.9 - Gastro-esophageal reflux disease without esophagitis Qualifiers: Esophagitis presence: esophagitis presence not specified Qualified Code(s): K21.9 - Gastro-esophageal reflux disease without esophagitis Plan: Continue PPIs. Orders: Orders Comprehensive [place]. Panel Fast Today R42 - Dizziness and giddiness PT Evaluation and Treatment Today R42 - Dizziness and giddiness Thyroid Stimulating Hormone Today E03.9 - Hypothyroidism, unspecified Vitamin D 25-OH Total Today E55.9 - Vitamin D deficiency, unspecified Lipid Panel Today E78.5 - Hyperlipidemia, unspecified Referrals Ear/Nose/Throat Referral R42 - Dizziness and giddiness Medications: New losartan 100 mg PO DAILY 90 days 90 tabs 1RF Refilled meclizine 25 mg PO DAILY 30 days PRN 30 tabs 0RF motion sickness Discontinued losartan Discontinued Reason: Patient Completed Course 50 mg PO DAILY 90 days 90 tabs 1RF Coding Level of Care Code Est Pt Level 4 (65345) Complex EM visit Add On G2211 Diagnoses Essential hypertension I10 Hypothyroidism, unspecified type E03.9 Hypothyroidism type: unspecified Vertigo R42 Gastroesophageal reflux disease, unspecified whether esophagitis present K21.9 Esophagitis presence: esophagitis presence not specified Time Spent (min) 22
[2024-02-22 12:33] VITALS: BP 150/90; BMI 24.2
[2024-02-22 13:06] VITALS: BP 150/90
== END 2024-02-22 13:03 | disposition home or self-care (01) ==
PROVIDERS: PCP Internal Medicine; Visit Provider Internal Medicine
DX: I10 Essential (primary) hypertension (principal); E03.9 Hypothyroidism, unspecified; R42 Dizziness and giddiness; K21.9 Gastro-esophageal reflux disease without esophagitis
CPT/HCPCS: 99214; G2211

== ENCOUNTER 2024-02-22 13:14 | Outpatient (REF) | payer OTHER, SELFPAY ==
[2024-02-22 14:40] LABS: Thyroid Stimulating Hormone 1.83 uIU/mL (0.32-4.0)
== END 2024-02-22 13:15 | disposition home or self-care (01) ==
LOC: HO.LAB 13:14
PROVIDERS: PCP Internal Medicine; Visit Provider Internal Medicine
DX: E03.9 Hypothyroidism, unspecified (principal)
CPT/HCPCS: 36415; 84443

== ENCOUNTER 2024-03-07 16:00 | Outpatient (RCR) | payer OTHER, SELFPAY ==
--- NOTE | 2024-02-26 10:53 | MHC.PT.EP ---
[facility] [place] [facility] [place] Office [place] [facility] [address] Russ Gamboa [address] [phone] F: [phone] F: [phone] F: [phone] F: [phone] Physical Therapy Plan of Care Date of Evaluation: 02/26/24 Date of Surgery: Diagnosis: Primary OA of R knee. Assessment: Patient is a 69 year old R handed female who presents with s/s consistent with R knee primary OA, R knee pain. She does not work but does enjoy walking daily and staying active. Patient past medical history includes shoulder, neck, back pain and osteopenia. Current impairments include pain, ROM, strength, activity tolerance and functional mobility. Functional limitations include decreased ability to walk, sleep, negotiate stairs, bend, squat and dress. Patient is motivated with good rehab potential. Skilled PT will address impairments and functional limitations in order to achieve goals. Frequency and Duration: The patient will be seen 2x/week for 5 weeks Short Term Goals: I with HEP - 2 weeks AROM 0-135 without pain - 3 weeks Able to walk 30 minutes without increased pain - 3 weeks Max pain with sleep 2/10 - 3 weeks Membership Sales Manager Goals: LEFS 54/80 - 5 weeks Strength 4+/5 grossly - 5 weeks pain free stair negotiation - 5 weeks MAx pain with daily activities 2/10 - 5 weeks Treatment Plan: Modalities to reduce pain, spasms and effusion. Manual therapy to restore motion and function. Therapeutic exercise to improve strength and flexibility. Neuromuscular re-education for posture and balance. Therapeutic activities to return to functional activities of daily living. Electronically signed by: Kip Romero, PT Please sign and return to therapist. Thank you for your referral.
--- NOTE | 2024-08-08 13:49 | MHC.PT.DC ---
[facility] [place] [facility] [place] Office [place] Office [address] Russ Gamboa [address] [phone] F: [phone] F: [phone] F: [phone] F: [phone] Physical Therapy Discharge Report Diagnosis: Primary OA of R knee. Date of Surgery: Date of Evaluation: 02/26/24 Date of Discharge: 03/31/24 Treatments to Date: 4 Cancellations to Date: No Shows to Date: Discharge Status: Improved Function Independent with HEP Discharge Summary: 03/07; Pt achieved all of the goals and has her exs for home program. Pt DC with HEP. 03/05; Pt c/o hip fatigue after hip exs. Pt was able to perform balance exs for 30 sec no eyes FT. Pt performed tandem EO 15 sec. 02/28/24: progressed hip strength. good response to HEP. continue to progress as tolerated. Patient is a 69 year old R handed female who presents with s/s consistent with R knee primary OA, R knee pain. She does not work but does enjoy walking daily and staying active. Patient past medical history includes shoulder, neck, back pain and osteopenia. Current impairments include pain, ROM, strength, activity tolerance and functional mobility. Functional limitations include decreased ability to walk, sleep, negotiate stairs, bend, squat and dress. Patient is motivated with good rehab potential. Skilled PT will address impairments and functional limitations in order to achieve goals. Electronically signed by: Kip Romero PT Please sign and return to therapist. Thank you for your referral.
== END 2024-08-08 13:49 | disposition home or self-care (01) ==
LOC: HO.PTCHIC 16:00
PROVIDERS: PCP Internal Medicine; Visit Provider Orthopaedic Surgery
DX: M17.11 Unilateral primary osteoarthritis, right knee (principal)
CPT/HCPCS: 97110; 97163

== ENCOUNTER 2024-03-26 08:01 | Day surgery (SDC) | payer OTHER, SELFPAY ==
--- NOTE | 2024-03-22 11:01 | P.CONAN_ITS ---
Documented by User: Morelia Lyons NP 03/22/24 11:02 HPI - Anesthesia Eval Consult details Narrative: 69yo F for Colonoscopy PMFSH Active Problems Active Problems: All Active Problems Vertigo (Acute) Arthritis of right knee (Acute) Right knee pain (Acute) Right hip pain (Acute) Pre-op examination (Acute) Contact dermatitis (Acute) Shortness of breath (Acute) Venous (peripheral) insufficiency (Acute) Leg pain, left (Acute) Cataract (Acute) Generalized anxiety disorder (Acute) Right bundle branch block (Acute) Chronic idiopathic constipation (Acute) Multinodular thyroid (Acute) Low back pain (Acute) Osteoarthritis of right knee (Acute) Right shoulder pain (Acute) Osteopenia (Acute) TMJ (temporomandibular joint syndrome) (Acute) GERD (gastroesophageal reflux disease) (Acute) Allergic rhinitis (Acute) Hypovitaminosis D (Acute) Vertigo (Acute) Hypothyroidism (Acute) Essential hypertension (Acute) Past Medical History Medical History Arrhythmia Encounter for Medicare annual wellness exam Preop exam for internal medicine Family history of polyps in the colon Screening for colon cancer Left foot pain Sinus tachycardia Skin lesion RUQ abdominal pain Forgetfulness Hemorrhoids Cervical cancer screening Adult general medical exam Post-menopausal Diverticulitis large intestine Atypical facial pain Multinodular thyroid Cough Low back pain Bleeding hemorrhoids History of diverticulitis Osteoarthritis of right knee Right shoulder pain Neck pain Osteopenia Mild depression TMJ (temporomandibular joint syndrome) GERD (gastroesophageal reflux disease) Allergic rhinitis Hypovitaminosis D Vertigo Hypothyroidism Essential hypertension Family History Family History Father Liver problem CVD (cardiovascular disease) Mother Diabetes Stroke Alzheimer disease Chronic mental illness Maternal Grandmother Cancer Uterine cancer Paternal Uncle Diabetes Brother Cancer Family/Other Chronic mental illness Daughter No problems noted. Daughter No problems noted. Sister Alzheimer disease Family history of problems with anesthesia: No Surgical History Surgical History Hx of biopsy History of root canal procedure Hx of colonoscopy History of prolapse of bladder Hx of cone biopsy of cervix History of tubal ligation History of Problems with Anesthesia: No Social History Social History Housing: Apartment Are you a primary home care consultant to a significant other at home: No Alcohol intake: never Patient Tobacco Use Status: Never used Tobacco e-Cigarette/Vaping Use: Never Used Second Hand Smoke Exposure: No service: No Current occupational status: unemployed Cognitive needs: No Hearing needs: No Vision needs: Yes Meds Allergies Allergy/AdvReac Type Severity Reaction Status Date / Time amlodipine Allergy Mild leg edema Verified 02/22/24 12:42 aspirin [Aspirin] Allergy Mild ULCER HX, Verified 02/22/24 12:42 abdominal pain latex [Latex] Allergy Mild RASH Verified 02/22/24 12:42 metronidazole [Flagyl] Allergy Mild rash Verified 02/22/24 12:42 Home Medications ?Medication ?Instructions ?Recorded ?Confirmed ?Last Taken ?Type cyclobenzaprine 10 mg tablet 10 mg PO TID PRN Muscle Spasm 04/21/20 02/22/24 Unknown History estradiol 0.01% (0.1 mg/gram) 1 g vaginal 3XW 04/09/21 02/22/24 Unknown History vaginal cream multivitamin-ferrous 1 tab PO DAILY 01/12/23 02/22/24 Unknown History fumarate-folic acid 18 mg-400 mcg tablet (Centrum Complete) Assessment and Plan Assessment Anesthesia Assessment: Chart Reviewed Final Anesthetic Review Family History of Problems with Anesthesia: No History of Problems with Anesthesia: No Documented by User: Amelia Morgan MD 03/26/24 09:29 [facility] Past Medical History Medical History Arrhythmia Encounter for Medicare annual wellness exam Preop exam for internal medicine Family history of polyps in the colon Screening for colon cancer Left foot pain Sinus tachycardia Skin lesion RUQ abdominal pain Forgetfulness Hemorrhoids Cervical cancer screening Adult general medical exam Post-menopausal Diverticulitis large intestine Atypical facial pain Multinodular thyroid Cough Low back pain Bleeding hemorrhoids History of diverticulitis Osteoarthritis of right knee Right shoulder pain Neck pain Osteopenia Mild depression TMJ (temporomandibular joint syndrome) GERD (gastroesophageal reflux disease) Allergic rhinitis Hypovitaminosis D Vertigo Hypothyroidism Essential hypertension Patient : Yes Family History Family History Father Liver problem CVD (cardiovascular disease) Mother Diabetes Stroke Alzheimer disease Chronic mental illness Maternal Grandmother Cancer Uterine cancer Paternal Uncle Diabetes Brother Cancer Family/Other Chronic mental illness Daughter No problems noted. Daughter No problems noted. Sister Alzheimer disease Surgical History Surgical History Hx of biopsy History of root canal procedure Hx of colonoscopy History of prolapse of bladder Hx of cone biopsy of cervix History of tubal ligation Social History Social History Housing: Apartment Are you a primary home care consultant to a significant other at home: No Alcohol intake: never Patient Tobacco Use Status: Never used Tobacco e-Cigarette/Vaping Use: Never Used Second Hand Smoke Exposure: No service: No Current occupational status: unemployed Cognitive needs: No Hearing needs: No Vision needs: Yes Meds Allergies Allergy/AdvReac Type Severity Reaction Status Date / Time amlodipine Allergy Mild leg edema Verified 02/22/24 12:42 aspirin [Aspirin] Allergy Mild ULCER HX, Verified 02/22/24 12:42 abdominal pain latex [Latex] Allergy Mild RASH Verified 02/22/24 12:42 metronidazole [Flagyl] Allergy Mild rash Verified 02/22/24 12:42 Home Medications ?Medication ?Instructions ?Recorded ?Confirmed ?Last Taken ?Type cyclobenzaprine 10 mg tablet 10 mg PO TID PRN Muscle Spasm 04/21/20 02/22/24 Unknown History estradiol 0.01% (0.1 mg/gram) 1 g vaginal 3XW 04/09/21 02/22/24 Unknown History vaginal cream multivitamin-ferrous 1 tab PO DAILY 01/12/23 02/22/24 Unknown History fumarate-folic acid 18 mg-400 mcg tablet (Centrum Complete) Exam Airway Mallampati Class: II TM Dist: >3cm Neck ROM: Full Loose/Missing/Broken Teeth: No Heart: RRR Lungs: CTA Assessment and Plan Assessment Anesthesia Assessment: Anesthesia Plan Discussed Final Anesthetic Review NPO: Yes ASA Class: II Final Preanesthetic Review: Meds/Allgs Chart Reviewed, Consent Obtained/Reviewed and Anes Risks/Benef Reviewed Patient Risk: Low Procedure Risk: Low Anesthetic Plan Anesthetic Plan: MAC: Disposition: Standard PACU
--- NOTE | 2024-03-26 08:40 | P.HPSUR_ITS ---
Pre-Procedural Eval Section A - 24 Hr Update-Section A only Date of Service: 03/26/24 Section B - Complete if H&P > 30 days Chief Complaint: Screening Details of Present Illness: amily history of polyps in the colon Screening for colon cancer Left foot pain Sinus tachycardia Skin lesion RUQ abdominal pain Forgetfulness Hemorrhoids Cervical cancer screening Post-menopausal Diverticulitis large intestine Atypical facial pain Multinodular thyroid Cough Low back pain Bleeding hemorrhoids History of diverticulitis Osteoarthritis of right knee Right shoulder pain Neck pain Osteopenia Mild depression TMJ (temporomandibular joint syndrome) GERD (gastroesophageal reflux disease) Allergic rhinitis Hypovitaminosis D Vertigo Hypothyroidism Essential hypertension Surgical History Hx of biopsy History of root canal procedure Hx of colonoscopy History of prolapse of bladder Hx of cone biopsy of cervix History of tubal ligation Allergies: Allergies Allergy/AdvReac Type Severity Reaction Status Date / Time amlodipine Allergy Mild leg edema Verified 02/22/24 12:42 aspirin [Aspirin] Allergy Mild ULCER HX, Verified 02/22/24 12:42 abdominal pain latex [Latex] Allergy Mild RASH Verified 02/22/24 12:42 metronidazole [Flagyl] Allergy Mild rash Verified 02/22/24 12:42 Review of Systems Review of Systems Comment: Ten point ROS negative Exam Exam Comment: Gen appear: No acute distress HEENT: no icterus Chest: No overt resp distress Abd: soft, nontender, nondistended Psych: Stable affect, answering questions appropriately Neuro: A/Ox3 noted to move all extremities spontaneously Ext: no peripheral edema Plan Diagnosis/Plan: Unchanged I have reviewed the history and physical and performed a pertinent physical examination on my patient. No changes have occurred unless specified. Time Spent With Patient Time: Total time managing care of this patient today ____ minutes.
[2024-03-26 08:46] VITALS: BMI 24.2
[2024-03-26 08:55] VITALS: BP 156/92; PULSE 71; RESP 16; TEMP 36.2; O2SAT 97
[2024-03-26] MEDS: Lactated Ringers 1,000 ML 100 ML IVCONT (09:19)
[2024-03-26 09:48] VITALS: BP 137/80; PULSE 73; RESP 18; TEMP 36.3; O2SAT 100
--- NOTE | 2024-03-26 09:48 | P.OPN-COLO_ITS ---
Colonoscopy Operative Note Operative Note Date of Service: 03/26/24 Narrative: Procedure: Colonoscopy Indication: Screening Endoscopist: Rissa Villanueva MD Anesthesia Provider: Dr Corry Morgan Anesthesia type: MAC Instrument: Olympus [id number]-[id number] Consent: Indication, risks vs benefits, and alternatives were discussed with the patient who gave written informed consent to proceed. An experimental technician was utilized to assist with the consent. EKG, pulse, pulse oximetry and blood pressure were monitored throughout the procedure. Please see anesthesia flowsheet. Procedure: The patient was brought to the procedure room and placed in the left lateral decubitus position. IV medications were administered by the anesthesia provider in attendance. A digital rectal exam was performed which was abnormal due to finding of hemorrhoids. A distal attachment cap was affixed to the tip of the colonoscope which was then inserted through the anus and advanced through the colon to the cecum at 70 cm,and terminal ileum. Appendiceal orifice and ileocecal valve were identified. Mucosa was carefully examined under high definition white light as the instrument was slowly withdrawn in a retrograde panoramic fashion. Retroflexion was performed in ascending colon and rectum. The procedure was not difficult. There were no immediate obvious complications. The quality of the prep was BBPS: 2+2+3 = adequate Withdrawal time 8 minutes. Limitations: No limitations. Findings: Mucosa: Normal to cecum and terminal ileum. Protruding lesions: * Large internal hemorrhoids without stigmata of recent bleeding. Excavated lesions: * Scattered few diverticula in sigmoid colon. Impression: 1. Normal colon and terminal ileum mucosa 2. Mild diverticulosis 3. Internal and external hemorrhoids Recommendations: - repeat colonoscopy for asymptomatic colorectal cancer screening in 10 years if patient in good health
[2024-03-26 10:03] VITALS: BP 172/84; PULSE 67; RESP 18; TEMP 36.2; O2SAT 100
== END 2024-03-26 10:46 | disposition home or self-care (01) ==
PROVIDERS: PCP Internal Medicine; Visit Provider Internal Medicine
PROC: 0DJD8ZZ Inspection of Lower Intestinal Tract, Via Natural or Artificial Opening Endoscopic (ICD-10-PCS; CPT 45378; principal; 2024-03-26 09:10)
DX: Z12.11 Encounter for screening for malignant neoplasm of colon (principal); K57.30 Diverticulosis of large intestine without perforation or abscess without bleeding; K64.8 Other hemorrhoids; K64.4 Residual hemorrhoidal skin tags; K59.04 Chronic idiopathic constipation; K21.9 Gastro-esophageal reflux disease without esophagitis; R00.2 Palpitations; I10 Essential (primary) hypertension; J30.9 Allergic rhinitis, unspecified; Z88.6 Allergy status to analgesic agent; Z88.8 Allergy status to other drugs, medicaments and biological substances; Z91.040 Latex allergy status; Z79.899 Other long term (current) drug therapy; Z98.890 Other specified postprocedural states; Z56.0 Unemployment, unspecified
CPT/HCPCS: G0121; J2704

== ENCOUNTER → 2024-03-26 08:01 | Outpatient (BNV) | payer OTHER, SELFPAY | PROVIDERS: PCP Internal Medicine; Visit Provider Internal Medicine | DX: Z12.11 Encounter for screening for malignant neoplasm of colon (principal); K64.8 Other hemorrhoids; K57.30 Diverticulosis of large intestine without perforation or abscess without bleeding | CPT/HCPCS: G0121 ==

== ENCOUNTER 2024-03-28 08:50 | Outpatient (REF) | payer OTHER, SELFPAY ==
--- NOTE | ~2024-03-28 | MM_ITS ---
EXAMINATION: BONE DENSITOMETRY CLINICAL INDICATION: Menopause. COMPARISON: Previous BD dated 10/01/2021 and baseline BD dated 01/04/2019. TECHNIQUE: Using a poLight DXA System (software version: 13.1) manufactured by [id number], dual-energy x-ray absorptiometry was performed of the lumbar spine and left hip. The images are of good technical quality. Summary results are attached. FINDINGS: LEFT FEMUR, NECK: Current: BMD 0.927 g/cm2, Z-score 0.9, T-score -0.8, normal. Prior: BMD 0.889 g/cm2. Baseline: BMD 0.852 g/cm2. LEFT FEMUR, TOTAL: Current: BMD 1.042 g/cm2, Z-score 1.7, T-score 0.3, normal, 1.0% increase from previous, 2.8% increase from baseline (<5% change is not significant). Prior: BMD 1.032 g/cm2. Baseline: BMD 1.014 g/cm2. AP SPINE L1-L4: Current: BMD 0.974 g/cm2, Z-score -0.1, T-score -1.7, osteopenia, 4.5% increase from previous, 2.0% increase from baseline (<5% change is not significant). Prior: BMD 0.932 g/cm2. Baseline: BMD 0.955 g/cm2. IDENTIFIED RISK FACTORS: Menopause, low calcium intake, history of fracture (adult), secondary osteoporosis. HISTORY OF FRACTURE: Other. MEDICATIONS: Calcium or multivitamin. Vitamin D. MM/XR DEXA axial skeleton IMPRESSION: 1. DIAGNOSIS: Osteopenia based on the lowest T-score value of -1.7 in the lumbar spine applying World Health Organization criteria. 2. 10-YEAR FRACTURE RISK PREDICTION, FRAX: Major osteoporotic fracture (clinical spine, forearm, hip or shoulder) 7.8%. Hip fracture 0.7%. 3. Treatment Recommendations: NOF guidelines recommend consideration for treatment in postmenopausal women and men age 50 and older presenting with the following: -A hip or vertebral (clinical or morphometric) fracture. -T-score less than or equal to -2.5 at the femoral neck or spine after appropriate evaluation to exclude secondary causes. -Low bone mass at the hip or spine and a 10-year fracture probability by FRAX of greater than or equal to 3% for hip fracture or greater than or equal to 20% for major osteoporotic fracture based on the [place] adapted WHO algorithm. 4. Other Recommendations: All treatment decisions require clinical judgment and consideration of individual patient factors, including patient preferences, comorbidities, previous drug use, risk factors not captured in the FRAX model (e.g. frailty, falls, vitamin D deficiency, increased bone turnover, interval significant decline in bone density) and possible under or overestimation of fracture risk by FRAX. Additional medical evaluation for secondary cause of low bone mineral density may be appropriate. FUTURE SCAN RECOMMENDATION: People with diagnosed cases of osteoporosis or at high risk for fracture should have regular bone mineral density tests. For patients eligible for Medicare, routine testing is allowed once every 2 years. The testing frequency can be increased to one year for patients who have rapidly progressing disease, those who are receiving or discontinuing medical therapy to restore bone mass, or have additional risk factors. Electronically signed by: Noemi Lopez MD 04/09/2024 08:51 AM EDT
--- NOTE | ~2024-03-28 | MM_ITS ---
EXAMINATION: MM SCREENING DIGITAL BREAST TOMOSYNTHESIS, BILATERAL CLINICAL INFORMATION: Screening. Asymptomatic. COMPARISON: Mammography: Comparison is made with available priors TECHNIQUE: Digital breast mammography with tomosynthesis is performed in both the craniocaudal and mediolateral oblique views along with computer-aided detection (CAD). FINDINGS: The breasts are heterogeneously dense, which may obscure small masses (ACR BI-RADS breast composition Category c). There are no significant masses, abnormal calcifications, or other abnormalities. MM/MM tomosynthesis screening BI IMPRESSION: No mammographic evidence of malignancy. ASSESSMENT: BI-RADS BI-RADS 1 - Negative RECOMMENDATION: Routine annual mammography screening. 1 year F/U This examination should not preclude the clinical evaluation of a suspicious palpable abnormality. This patient's information was entered into a reminder system with a target due date for their next mammogram. Electronically signed by: Malu Gallegos DO 04/08/2024 05:18 PM EDT
== END 2024-03-28 08:51 | disposition home or self-care (01) ==
LOC: HO.MAMMO 08:50
PROVIDERS: PCP Internal Medicine; Visit Provider Internal Medicine
DX: Z12.31 Encounter for screening mammogram for malignant neoplasm of breast (principal); Z13.820 Encounter for screening for osteoporosis; Z78.0 Asymptomatic menopausal state
CPT/HCPCS: 77063; 77067; 77080

== ENCOUNTER → 2024-03-28 09:00 | Outpatient (BNV) | payer OTHER, SELFPAY | PROVIDERS: PCP Internal Medicine; Visit Provider Internal Medicine | DX: Z12.31 Encounter for screening mammogram for malignant neoplasm of breast (principal) | CPT/HCPCS: 77063; 77067 ==

== ENCOUNTER 2024-04-08 08:00 | Outpatient (REF) | payer OTHER, SELFPAY ==
[2024-04-08 09:16] LABS: Alanine Aminotransferase 25 U/L (0-31); Albumin Level 4.3 g/dL (3.5-5.0); Alkaline Phosphatase 63 U/L (39-117); Anion Gap 5 (12-20); Aspartate Amino Transferase 19 U/L (5-31); Bilirubin Total 0.5 mg/dL (0.0-1.0); Blood Urea Nitrogen 15 mg/dL (9-16); Calcium 10.3 mg/dL (8.4-10.2); Carbon Dioxide 32 mmol/L (22-29); Chloride 108 mmol/L (96-108); Cholesterol 174 mg/dL (<200); Estimated Glomerular Filt Rate > 60; Glucose Fasting 106 mg/dL (60-99); HDL Cholesterol 41 mg/dL (>40); LDL Cholesterol Calculated 112 mg/dL (<100); Potassium 4.2 mmol/L (3.3-5.1); Sodium 141 mmol/L (135-145); Total Protein 7.8 g/dL (6.5-8.0); Triglycerides 109 mg/dL (<150)
[2024-04-08 09:32] LABS: Thyroid Stimulating Hormone 2.58 uIU/mL (0.32-4.0); Vitamin D 25-OH Total 61.7 ng/mL (>30)
== END 2024-04-08 08:01 | disposition home or self-care (01) ==
LOC: HO.LAB 08:00
PROVIDERS: PCP Internal Medicine; Visit Provider Internal Medicine
DX: R42 Dizziness and giddiness (principal); I10 Essential (primary) hypertension; E03.9 Hypothyroidism, unspecified; E55.9 Vitamin D deficiency, unspecified
CPT/HCPCS: 36415; 80053; 80061; 82306; 84443

== ENCOUNTER 2024-04-09 11:18 | Outpatient (AMB) | payer OTHER, SELFPAY ==
[2024-04-09 11:40] VITALS: BP 134/79; PULSE 89; BMI 24.0
--- NOTE | 2024-04-09 11:40 | A.OFFVIS_ITS ---
Vital Signs 04/09/24 11:40 Height 5 ft 4 in Weight 139 lb 12.369 oz BMI 24.0 BP 134/79 Blood Pressure Location Lt brachial Position Sitting Pulse 89 Intake Visit Reasons: s/p colon Intake Note: Radha returns to in office follow up s/p colonoscopy. CC: Patient reports mild left lower quadrant abd pain. Denies other GI symptoms. Manager Medicaid Required: Yes Accompanied by: Self / Same As Patient Allergies amlodipine Allergy (Mild, Verified 06/07/24 17:41) leg edema aspirin [Aspirin] Allergy (Mild, Verified 06/07/24 17:41) ULCER HX, abdominal pain latex [Latex] Allergy (Mild, Verified 06/07/24 17:41) RASH metronidazole [Flagyl] Allergy (Mild, Verified 06/07/24 17:41) rash HPI HPI s/p colon: Details: Assessment & Plan (1) GERD (gastroesophageal reflux disease): Code(s): K21.9 - Gastro-esophageal reflux disease without esophagitis Category: Medical Qualifiers: Esophagitis presence: esophagitis presence not specified Qualified Code(s): K21.9 - Gastro-esophageal reflux disease without esophagitis (2) Chronic idiopathic constipation: Code(s): K59.04 - Chronic idiopathic constipation Category: Medical (3) Pre-op examination: Code(s): Z01.818 - Encounter for other preprocedural examination Category: Medical Plan WALLISIAN #[id number] Jasmin She has been feeing better with the medicine. She continues to do well on her pantoprazole and bisacodyl (which she prefers to Linzess). We still can not pin down her last scope and it may be 2008. I explain it is better to be safe and get one scheduled and she is agreeable. She has palpitations but no serious cardiac problems, she denies respiratory problems excpet when she has a respiratory infection and she has a pump for this. She is anxious about anesthesia but denies any other problems. NO ID problems. There is no known FHX of crc or polyps. Orders: Orders Complete Blood Count Auto Diff Today Z01.818 - Encounter for other preprocedural examination Colonoscopy - GI Use Only Today Z01.818 - Encounter for other preprocedural examination Comprehensive Met. Panel Today Z01.818 - Encounter for other preprocedural examination Medications: New peg 3350-electrolytes 236-22.74-6.74 -5.86 gram (Golytely) until fecal effluent is clear; do not exceed a total volume of 2,000 mL 240 mL PO Q10M 4,000 mL 0RF 1 day Z12.11 - Encounter for screening for malignant neoplasm of colon Refilled methylcellulose (laxative) (Fiber Laxative (methylcellulose)) 1,000 mg (2 x 500 mg) PO DAILY 60 tabs 6RF K59.01 - Slow transit constipation, Z87.19 - Personal history of other diseases of the digestive system bisacodyl 10 mg (2 x 5 mg) PO BEDTIME 60 tabs 6RF docusate sodium 100 mg PO BID 60 caps 6RF K59.01 - Slow transit constipation pantoprazole 40 mg PO DAILY 30 tabs 6RF COLONOSCOPY 03/26/24 Findings: Mucosa: Normal to cecum and terminal ileum. Protruding lesions: * Large internal hemorrhoids without stigmata of recent bleeding. Excavated lesions: * Scattered few diverticula in sigmoid colon. Impression: 1. Normal colon and terminal ileum mucosa 2. Mild diverticulosis 3. Internal and external hemorrhoids Recommendations: - repeat colonoscopy for asymptomatic colorectal cancer screening in 10 years if patient in good health TODAY'S VISIT WALLISIAN #Razia Live She is agreeable to a 10 year recall. The procedure was well tolerated. The results were explained and the patient is agreeable to the follow-up interval as stated. The bowel pattern has returned to normal. Education was provided to tell any 1st degree relatives about their findings to be sure that they are screened by age 45. Educated that they will be put on a recall list when it is time for their repeat scope but should they move out of state or away from the hospital they will need to remember along with their primary to repeat the procedure in a timely fashion to avoid any adverse complications. She continues to do well on her pantoprazole and bisacodyl (which she prefers t o Linzess) Return office visit in 6 months [facility] Medical History (Updated 06/08/24 @ 00:02 by Catrachita Broussard) Right knee pain Arthritis of right knee Vertigo Pre-op examination Arrhythmia Encounter for Medicare annual wellness exam Preop exam for internal medicine Family history of polyps in the colon Screening for colon cancer Left foot pain Sinus tachycardia Skin lesion RUQ abdominal pain Forgetfulness Hemorrhoids Cervical cancer screening Adult general medical exam Post-menopausal Diverticulitis large intestine Atypical facial pain Multinodular thyroid Cough Low back pain Bleeding hemorrhoids History of diverticulitis Osteoarthritis of right knee Right shoulder pain Neck pain Osteopenia Mild depression TMJ (temporomandibular joint syndrome) GERD (gastroesophageal reflux disease) Allergic rhinitis Hypovitaminosis D Hypothyroidism Essential hypertension Surgical History (Updated 04/09/24 @ 12:13 by NELLY Mckinley) Hx of biopsy History of root canal procedure Hx of colonoscopy History of prolapse of bladder Hx of cone biopsy of cervix History of tubal ligation Family History Father Liver problem CVD (cardiovascular disease) Mother Diabetes Stroke Alzheimer disease Chronic mental illness Maternal Grandmother Cancer Uterine cancer Paternal Uncle Diabetes Brother Cancer Family/Other Chronic mental illness Daughter No problems noted. Daughter No problems noted. Sister Alzheimer disease Social History Housing: Apartment Are you a primary patient care provider to a significant other at home: No Alcohol intake: never Patient Tobacco Use Status: Never used Tobacco Smoked in Last 30 Days: No e-Cigarette/Vaping Use: Never Used Second Hand Smoke Exposure: No Use of substances other than those prescribed or required for medical reasons: No Advance Directives: No Advance Directives Information Provided: No service: No Current occupational status: unemployed Cognitive needs: No Hearing needs: No Vision needs: Yes Review of Systems Const Denies fatigue, Denies fever(s), Denies night sweats, Denies poor appetite and Denies weight loss ENT Reports Normal hearing present, Denies dental pain, Denies dysphagia, Denies hearing loss, Denies mouth pain, Denies odynophagia, Denies throat swelling, Denies tongue swelling and Reports other (Dentition adequate) Card Reports no additional complaints Resp Reports no additional complaints GI Details: Denies abdominal pain, Denies melena, Denies bloating, Denies hematochezia, Reports constipation, Denies GI cramping, Denies dysphagia, Denies excessive flatus, Denies early satiety, Reports heartburn, Denies diarrhea, Denies nausea, Denies odynophagia, Denies vomiting and Denies hematemesis Skin/Breast Denies pruritus, Denies lesions, Denies rash and Denies jaundice Neuro Reports Normal hearing present and Denies Abnormal speech present Endo Denies fatigue Aller/Immun Denies throat swelling and Denies tongue swelling Physical Exam Vital Signs: Last Vital Signs Pulse 89 04/09/24 11:40 BP 134/79 04/09/24 11:40 BMI result Body Mass Index 24.0 Const General: cooperative, no acute distress, well developed and well groomed Nutritional Appearance: average body habitus and well nourished Orientation/consciousness: oriented to person, oriented to place and oriented to time Limitations: No language barrier HEENT Head: Yes normocephalic and Yes atraumatic Eyes General: appearance normal, both eyes and all related structures Pupils: Equal, round and reactive pupils present Neck Neck: Yes normal visual inspection and Yes no lymphadenopathy Thyroid: Thyroid normal Resp Effort & Inspection: normal respiratory effort and able to speak in complete sentences Auscultation: clear to auscultation bilaterally Cardio Rate: regular rate Rhythm: regular rhythm Heart sounds: Normal, physiologic split S2 sound present Peripheral pulses: radial pulses present and posterior tibial pulses present GI Inspection: No distended and No Abdominal panniculus present Palpation (GI): Soft to palpation, nontender, no guarding, not rigid and No hepatosplenomegaly present Percussion: Yes normal to percussion Auscultation: normal bowel sounds Rectal Exam - Female: deferred Skin General skin exam: no rashes or lesions noted, turgor normal, skin not dry, no jaundice, No spider nevi and no striae Rashes: no rashes Nails: normal Neuro General: oriented to person, oriented to place and oriented to time Cranial nerves: Yes Equal, round and reactive pupils present and Yes Normal hearing present Speech: No Abnormal speech present Extrem General: Yes normal to inspection, No clubbing, No cyanosis and No edema Psych Appearance: grossly normal and well kempt Mental Status: mental status grossly normal Speech and movement: Normal speech and movement present Affect: normal affect Attitude: cooperative Thought process: Normal thought process present and not confabulating Thought content: Normal thought content present Insight: Fair insight present (Psych) Judgement: Fair judgement present (Psych) Results Reviewed Results Reviewed: COLONOSCOPY 03/26/24 Findings: Mucosa: Normal to cecum and terminal ileum. Protruding lesions: * Large internal hemorrhoids without stigmata of recent bleeding. Excavated lesions: * Scattered few diverticula in sigmoid colon. Impression: 1. Normal colon and terminal ileum mucosa 2. Mild diverticulosis 3. Internal and external hemorrhoids Recommendations: - repeat colonoscopy for asymptomatic colorectal cancer screening in 10 years if patient in good health Assessment & Plan Assessment & Plan (1) Hx of colonoscopy: Comment: 03/2024=neg study [facility] [place] 10 years. Code(s): Z98.890 - Other specified postprocedural states Category: Medical (2) GERD (gastroesophageal reflux disease): Code(s): K21.9 - Gastro-esophageal reflux disease without esophagitis Category: Medical Qualifiers: Esophagitis presence: esophagitis presence not specified Qualified Code(s): K21.9 - Gastro-esophageal reflux disease without esophagitis (3) Chronic idiopathic constipation: Code(s): K59.04 - Chronic idiopathic constipation Category: Medical Plan WALLISIAN #Adira Live She is agreeable to a 10 year recall. The procedure was well tolerated. The results were explained and the patient is agreeable to the follow-up interval as stated. The bowel pattern has returned to normal. Education was provided to tell any 1st degree relatives about their findings to be sure that they are screened by age 45. Educated that they will be put on a recall list when it is time for their repeat scope but should they move out of state or away from the hospital they will need to remember along with their primary to repeat the procedure in a timely fashion to avoid any adverse complications. She continues to do well on her pantoprazole and bisacodyl (which she prefers to Linzess) Return office visit in 6 months Medications: Changed From methylcellulose (laxative) 1,000 mg (2 x 500 mg) PO DAILY 60 tabs 6RF K59.01 - Slow transit constipation, Z87.19 - Personal history of other diseases of the digestive system To methylcellulose (laxative) (Fiber Laxative (methylcellulose)) 1,000 mg (2 x 500 mg) PO DAILY 60 tabs 6RF K59.01 - Slow transit constipation, Z87.19 - Personal history of other diseases of the digestive system Refilled docusate sodium 100 mg PO BID 60 caps 6RF K59.01 - Slow transit constipation hydrocortisone 2.5% 1 appl topical TID 20 grams 0RF 14 days bisacodyl 10 mg (2 x 5 mg) PO BEDTIME 60 tabs 6RF pantoprazole 40 mg PO DAILY 30 tabs 6RF Coding Level of Care Code Est Pt Level 3 (14095) Diagnoses Hx of colonoscopy Z98.890 Gastroesophageal reflux disease, unspecified whether esophagitis present K21.9 Esophagitis presence: esophagitis presence not specified Chronic idiopathic constipation K59.04
== END 2024-04-09 13:09 | disposition home or self-care (01) ==
PROVIDERS: PCP Internal Medicine; Visit Provider Nurse Practitioner
DX: Z98.890 Other specified postprocedural states (principal); K21.9 Gastro-esophageal reflux disease without esophagitis; K59.04 Chronic idiopathic constipation
CPT/HCPCS: 99213

== ENCOUNTER → 2024-04-09 11:18 | Outpatient (BNVA) | payer OTHER, SELFPAY | PROVIDERS: PCP Internal Medicine; Visit Provider Nurse Practitioner | DX: Z01.818 Encounter for other preprocedural examination (principal); K21.9 Gastro-esophageal reflux disease without esophagitis; K59.04 Chronic idiopathic constipation; K59.01 Slow transit constipation; Z59.01 Sheltered homelessness; Z98.890 Other specified postprocedural states | CPT/HCPCS: 99212 ==

== ENCOUNTER 2024-05-27 11:24 | Outpatient (AMB) | payer OTHER, SELFPAY ==
--- NOTE | 2024-05-27 11:52 | MHC.OFFWIV ---
Intake Vital Signs 05/27/24 11:53 Weight 142 lb 8 oz BP 140/90 H Blood Pressure Location Rt brachial Position Sitting Pulse 95 Pulse Source Pulse Oximeter Temp 98.4 F Temp Source Oral Pulse Oximetry (%) 99 Oxygen Delivery Method Room Air Intake Visit Reasons: EP LT side face swelling Intake Note: Patient here for left sided face swelling and feels hard that started Monday. Patient Tobacco Use Status: Never used Tobacco Allergies amlodipine Allergy (Mild, Verified 05/27/24 11:54) leg edema aspirin [Aspirin] Allergy (Mild, Verified 05/27/24 11:54) ULCER HX, abdominal pain latex [Latex] Allergy (Mild, Verified 05/27/24 11:54) RASH metronidazole [Flagyl] Allergy (Mild, Verified 05/27/24 11:54) rash Do you need a note to return to daycare/school/sports/work: No HPI HPI Comments History of Present Illness Details The patient is a 69-year-old female presenting with left facial swelling and a possible dental infection. The patient reported awakening on Monday with a red, swollen left eye, which subsided later. On the following day, she experienced swelling and firmness on the left side of her face. There has been little pain associated with this swelling. The patient mentioned having an issue with a molar on the right side, which has been damaged, though it is unclear whether this is related to the left-sided facial swelling. There were no symptoms of fever, cough, or ear pain, aside from minor irritation in the left ear. She denied any recent illness or other facial pain. The swelling seemed less pronounced at the time of this visit compared to the previous day. She reported no alleviation or worsening factors related to this condition. The patient has not consulted her dentist regarding the dental issue. [facility] Medical History (Updated 05/27/24 @ 12:22 by Aurora Jimenez PA-C) Right knee pain Arthritis of right knee Vertigo Pre-op examination Arrhythmia Encounter for Medicare annual wellness exam Preop exam for internal medicine Family history of polyps in the colon Screening for colon cancer Left foot pain Sinus tachycardia Skin lesion RUQ abdominal pain Forgetfulness Hemorrhoids Cervical cancer screening Adult general medical exam Post-menopausal Diverticulitis large intestine Atypical facial pain Multinodular thyroid Cough Low back pain Bleeding hemorrhoids History of diverticulitis Osteoarthritis of right knee Right shoulder pain Neck pain Osteopenia Mild depression TMJ (temporomandibular joint syndrome) GERD (gastroesophageal reflux disease) Allergic rhinitis Hypovitaminosis D Hypothyroidism Essential hypertension Surgical History (Updated 04/09/24 @ 12:13 by NELLY Mckinley) Hx of biopsy History of root canal procedure Hx of colonoscopy History of prolapse of bladder Hx of cone biopsy of cervix History of tubal ligation Family History Father Liver problem CVD (cardiovascular disease) Mother Diabetes Stroke Alzheimer disease Chronic mental illness Maternal Grandmother Cancer Uterine cancer Paternal Uncle Diabetes Brother Cancer Family/Other Chronic mental illness Daughter No problems noted. Daughter No problems noted. Sister Alzheimer disease Social History Housing: Apartment Are you a primary manager critical care to a significant other at home: No Alcohol intake: never Patient Tobacco Use Status: Never used Tobacco e-Cigarette/Vaping Use: Never Used Second Hand Smoke Exposure: No service: No Current occupational status: unemployed Cognitive needs: No Hearing needs: No Vision needs: Yes Review of Systems Const All systems reviewed & are unremarkable except as noted in HPI and below Physical Exam Vital Signs: Last Vital Signs Temp 98.4 F 05/27/24 11:53 Pulse 95 05/27/24 11:53 BP 140/90 H 05/27/24 11:53 Pulse Ox 99 05/27/24 11:53 Oxygen Delivery Method Room Air 05/27/24 11:53 Const General: cooperative, healthy appearing, comfortable and no acute distress Orientation/consciousness: patient oriented x3 Limitations: no limitations HEENT Head: Yes normal to inspection Ears: hearing grossly normal bilaterally, external ears normal and TM's normal bilaterally General nose exam: Normal external nose present, Normal nares present and No nasal discharge present Face and sinus: Yes normal facial exam Face images: 1. TTP, slight swelling, no erythema or warmth. Mouth: Normal oral and palatal mucosa present and moist mucous membranes Teeth and gingiva: abnormal tooth and associated gingiva lower right first molar tender, with associated gingival edema and with associated gingival fluctuance, lower left Throat: Yes tonsils normal, Yes uvula midline and Yes posterior oropharynx abnormal (Erythema) Eyes General: appearance normal, both eyes and all related structures Neck Neck: Yes normal visual inspection Resp Effort & Inspection: normal respiratory effort, able to speak in complete sentences, not tachypneic, no tripod positioning and no use of accessory muscles Skin General skin exam: no rashes or lesions noted Neuro General: patient oriented x3 Extrem General: Yes normal to inspection and Yes no clubbing, cyanosis or edema Assessment & Plan Assessment & Plan (1) Dental infection: Code(s): K04.7 - Periapical abscess without sinus Plan: For the facial swelling and suspected dental infection, I prescribed an antibiotic to target possible oral infection. The patient was advised to follow up with a dentist to evaluate and address the issue with the damaged molar, as it might be contributing to the infection and swelling observed. Should symptoms persist or worsen, particularly if swelling increases or new symptoms develop, the patient is directed to seek immediate care at an emergency department. Antibiotics have been sent to the patient's nearby pharmacy as requested. Patient was informed and verbally consented to the use of an ambient scribe for clinic note documentation during this visit. Medications: New amoxicillin-pot clavulanate 875-125 mg 1 tab PO Q12H 14 tabs 0RF Coding Level of Care Code Est Pt Level 3 (22902) Diagnoses Dental infection K04.7
[2024-05-27 11:53] VITALS: BP 140/90; PULSE 95; TEMP 36.9; O2SAT 99
== END 2024-05-27 13:03 | disposition home or self-care (01) ==
PROVIDERS: PCP Internal Medicine; Visit Provider Physician Assistant
DX: K04.7 Periapical abscess without sinus (principal)

== ENCOUNTER → 2024-05-27 11:24 | Outpatient (BNVA) | payer OTHER, SELFPAY | PROVIDERS: PCP Internal Medicine; Visit Provider Physician Assistant | DX: K04.7 Periapical abscess without sinus (principal) | CPT/HCPCS: 99212 ==

== ENCOUNTER 2024-06-07 17:27 | Emergency (ER) | payer OTHER, SELFPAY ==
[2024-06-07 17:39] VITALS: BP 193/109; PULSE 126; RESP 22; TEMP 36.7; O2SAT 100; BMI 24.4
--- NOTE | 2024-06-07 17:41 | ED.GENADULT ---
HPI - General Adult General Chief complaint: Urogenital-Female Stated complaint: unable to urinate Time Seen by Provider: 06/07/24 18:04 History of Present Illness ED Provider: Angel Luis LUO narrative: The patient is a 69-year-old female. She apparently had a pessary replaced last week. Since she received the new pessary she has had difficulty emptying her bladder. It has gotten much worse over the last 2 days. She presents today with the extreme suprapubic discomfort and a sense of inability to void. No fevers. No vomiting. According to the patient's son the patient has been using a pessary for 5 years. The son further says that the patient has had appointments every 3 months to adjust the pessary and to clean the pessary. Apparently they used the same device for 5 years. Last week the device was replaced with a new device. According to a card the patient had regarding her visit last week she was seen by SU Brown, at [facility]. Related Data Home Medications ?Medication ?Instructions ?Recorded ?Confirmed cyclobenzaprine 10 mg tablet 10 mg PO TID PRN Muscle Spasm 04/21/20 02/22/24 estradiol 0.01% (0.1 mg/gram) 1 g vaginal 3XW 04/09/21 02/22/24 vaginal cream multivitamin-ferrous 1 tab PO DAILY 01/12/23 02/22/24 fumarate-folic acid 18 mg-400 mcg tablet (Centrum Complete) Previous Rx's ?Medication ?Instructions ?Recorded clotrimazole-betamethasone 1 1 appl topical BID 2 weeks #15 04/11/22 %-0.05 % topical cream grams blood pressure monitor #1 ea 04/28/22 nystatin 100,000 unit/gram topical 1 appl topical BID 2 weeks #15 04/03/23 cream grams clobetasol 0.05 % topical cream 1 appl topical DAILY #30 grams 10/31/23 levothyroxine 50 mcg tablet 50 mcg PO QAM 90 days #90 tabs 11/15/23 calcium carbonate 600 mg PO BID #60 tabs 11/27/23 naproxen 500 mg tablet 500 mg PO BID PRN Pain 5 days #10 12/11/23 tabs albuterol sulfate 90 mcg/actuation 2 inh inhalation Q4-6H PRN 12/22/23 breath activated powder inhaler shortness of breath or wheezing #1 ea cholecalciferol (vitamin D3) 25 25 mcg PO DAILY 30 days #30 tabs 02/13/24 mcg (1,000 unit) tablet losartan 100 mg tablet 100 mg PO DAILY 90 days #90 tabs 02/22/24 meclizine 25 mg tablet 25 mg PO DAILY PRN motion sickness 02/22/24 30 days #30 tabs bisacodyl 5 mg tablet,delayed 10 mg (2 x 5 mg) PO BEDTIME #60 04/09/24 release tabs docusate sodium 100 mg capsule 100 mg PO BID #60 caps 04/09/24 hydrocortisone 2.5 % topical 1 appl topical TID 14 days #20 04/09/24 ointment grams methylcellulose (laxative) 500 mg 1,000 mg (2 x 500 mg) PO DAILY #60 04/09/24 tablet (Fiber Laxative tabs (methylcellulose)) pantoprazole 40 mg tablet,delayed 40 mg PO DAILY #30 tabs 04/09/24 release amoxicillin 875 mg-potassium 1 tab PO Q12H #14 tabs 05/27/24 clavulanate 125 mg tablet loratadine 10 mg tablet 10 mg PO DAILY 30 days #30 tabs 06/03/24 Allergies Allergy/AdvReac Type Severity Reaction Status Date / Time amlodipine Allergy Mild leg edema Verified 06/07/24 17:41 aspirin [Aspirin] Allergy Mild ULCER HX, Verified 06/07/24 17:41 abdominal pain latex [Latex] Allergy Mild RASH Verified 06/07/24 17:41 metronidazole [Flagyl] Allergy Mild rash Verified 06/07/24 17:41 Review of Systems Review of Systems: Yes all other systems are reviewed and are negative [facility] Past Medical History Medical History (Updated 06/07/24 @ 19:34 by Kory Hein MD) Right knee pain Arthritis of right knee Vertigo Pre-op examination Arrhythmia Encounter for Medicare annual wellness exam Preop exam for internal medicine Family history of polyps in the colon Screening for colon cancer Left foot pain Sinus tachycardia Skin lesion RUQ abdominal pain Forgetfulness Hemorrhoids Cervical cancer screening Adult general medical exam Post-menopausal Diverticulitis large intestine Atypical facial pain Multinodular thyroid Cough Low back pain Bleeding hemorrhoids History of diverticulitis Osteoarthritis of right knee Right shoulder pain Neck pain Osteopenia Mild depression TMJ (temporomandibular joint syndrome) GERD (gastroesophageal reflux disease) Allergic rhinitis Hypovitaminosis D Hypothyroidism Essential hypertension Surgical History (Updated 04/09/24 @ 12:13 by NELLY Mckinley) Hx of biopsy History of root canal procedure Hx of colonoscopy History of prolapse of bladder Hx of cone biopsy of cervix History of tubal ligation Family History Family History Father Liver problem CVD (cardiovascular disease) Mother Diabetes Stroke Alzheimer disease Chronic mental illness Maternal Grandmother Cancer Uterine cancer Paternal Uncle Diabetes Brother Cancer Family/Other Chronic mental illness Daughter No problems noted. Daughter No problems noted. Sister Alzheimer disease Social History Social History Housing: Apartment Are you a primary critical care unit manager to a significant other at home: No Alcohol intake: never Patient Tobacco Use Status: Never used Tobacco Smoked in Last 30 Days: No e-Cigarette/Vaping Use: Never Used Second Hand Smoke Exposure: No Use of substances other than those prescribed or required for medical reasons: No Advance Directives: No Advance Directives Information Provided: No service: No Current occupational status: unemployed Cognitive needs: No Hearing needs: No Vision needs: Yes Physical Exam ED Vital Signs: Vital Signs - 24 hr 06/07/24 17:39 06/07/24 19:04 06/07/24 20:45 Temperature 98.0 F 98.4 F 98.4 F Pulse Rate 126 H 91 91 Respiratory Rate 22 H 16 16 Blood Pressure 193/109 H 174/95 H 174/95 H Pulse Oximetry 100 99 99 Oxygen Delivery Method Room Air BMI result Body Mass Index 24.4 Const Other: The patient is a 69-year-old woman who was awake and alert. She looked extremely uncomfortable. HENMT Other: Face is symmetrical. Mucous membranes moist. Eyes General: appearance normal, both eyes and all related structures Neck Neck: Yes full ROM Resp Effort & Inspection: normal respiratory effort Auscultation: clear to auscultation bilaterally Cardio Rate: tachycardic Rhythm: regular rhythm Heart sounds: S1 normal heart sound present and S2 normal heart sound present GI Other: There is fullness and tenderness in the suprapubic region Skin Other: Skin is pale and dry Neuro Other: The patient is awake and alert. She looks anxious and uncomfortable. Mental status is otherwise normal. Cranial nerves are intact. She moves her extremities normally. She seems neurologically intact. Extrem Other: No peripheral edema Course Course Course Narrative: This is an RME done by SU Kate: Additional HPI, ROS, PE not included below will be deferred to primary provider. 69-year-old female presents with inability to void x2 days. Patient reports she had something put in her vagina by her doctor a few days ago it sounds like a pessary. Has not been able to void since yesterday. Having significant abdominal discomfort. Patient appears evidently uncomfortable on exam. Medications Administered Discontinued Medications Generic Name Dose Route Start Last Admin Trade Name Freq PRN Reason Stop Dose Admin Morphine Sulfate 4 mg 06/07/24 17:40 06/07/24 18:50 Morphine Sulfate 4 Mg/Ml Cartridge IVPUSH 06/07/24 17:41 Not Given ONCE ONE Protocol Medical Decision Making Medical Decision Making MDM Narrative: The patient is a 69-year-old woman who presents with acute urinary retention. This seems to be the result of a new pessary device that was placed at the urology office last week. The patient was given an indwelling urinary catheter and had a large volume of urine drained. This was over 1 Liter. Renal function is normal. No sign of infection. I contacted the covering urologist, Dr. Enrique. The patient will be discharged with a urinary catheter in place to follow up at the office next week. Lab Data 06/07/24 18:47 06/07/24 18:47 Labs: Lab Results 06/07/24 06/07/24 Range/Units 18:34 18:47 WBC 7.6 (4.8-10.8) X10*3/uL RBC 4.40 (4.20-5.50) X10*6/uL Hgb 13.0 (12.0-16.0) g/dl Hct 37.7 (37.0-47.0) % MCV 85.7 (80.0-98.0) fL MCH 29.5 (27.0-33.0) pg MCHC 34.5 (31.0-35.0) g/dl RDW 13.6 (11.0-16.0) % Plt Count 262 (160-400) X10*3/uL MPV 9.4 (9.4-12.3) fL Immature Gran % (Auto) 0.1 (0.0-0.4) % Neut % (Auto) 52.6 (45-73) % Lymph % (Auto) 37.8 (20-40) % [place] % (Auto) 7.2 (2-11) % Eos % (Auto) 2.0 (0-4) % Baso % (Auto) 0.3 (0-2) % Lymph # (Auto) 2.9 (1.2-4.9) X10*3/uL [place] # (Auto) 0.6 (0.1-1.2) X10*3/uL Eos # (Auto) 0.2 (0.0-0.4) X10*3/uL Baso # (Auto) 0.0 (0.0-0.2) X10*3/uL Abs Immat Gran (auto) 0.01 (0.00-0.03) X10*3/uL Absolute Neuts (auto) 4.0 (2.0-8.3) x10*3/uL Absolute Nucleated RBC 0.000 (0.0-0.012) X10*3/uL Nucleated RBC % (auto) 0.0 (0.0-0.2) /100WBC Sodium 141 (135-145) mmol/L Potassium 4.0 (3.3-5.1) mmol/L Chloride 105 (96-108) mmol/L Carbon Dioxide 29 (22-29) mmol/L Anion Gap 11 L (12-20) BUN 13 (9-16) mg/dL Creatinine 0.76 (0.5-1.4) mg/dL Estim Creat Clear Calc 58.6 Estimated GFR > 60 Random Glucose 94 (60-115) mg/dL Calcium 10.0 (8.4-10.2) mg/dL Total Bilirubin 0.4 (0.0-1.0) mg/dL AST 26 (5-31) U/L ALT 26 (0-31) U/L Alkaline Phosphatase 68 (39-117) U/L Total Protein 8.0 (6.5-8.0) g/dL Albumin 4.3 (3.5-5.0) g/dL Urine Color Yellow Urine Appearance Clear Urine pH 6.5 (5.0-9.0) Ur Specific [place] <= 1.005 (1.005-1.025) Urine Protein Negative (Neg-Trace) mg/dL Urine Glucose (UA) Negative (Negative) mg/dL Urine Ketones Negative (Negative) mg/dL Urine Blood Negative (Negative) Urine Nitrite Negative (Negative) Ur Leukocyte Esterase Negative (Negative) Discharge Plan Discharge Clinical Impression: Acute urinary retention Patient Disposition: Home, Self-Care Instructions: Vargas Catheter Placement and Care (ED) Additional Instructions: You seemed to have developed acute retention of urine, probably from the device that was placed last week. You were given a urinary catheter to relieve your retention of urine. I spoke to one of the urologists at [facility]. They have recommended that we leave the catheter in place over the weekend. Please contact the urology office on Monday morning. They should be able to give you an appointment early next week to adjust your device and remove the catheter. If you have any other questions called the on-call urologist over the weekend. Return to the emergency department if significantly worse. Prescriptions: No Action (DME) blood pressure monitor Kit See Rx Instructions .Route Qty: 1 0RF Rx Instructions: As directed levothyroxine 50 mcg tablet 50 mcg PO QAM 90 Days Qty: 90 11RF calcium carbonate 600 mg calcium (1,500 mg) tablet 600 mg PO BID Qty: 60 6RF naproxen 500 mg tablet 500 mg PO BID PRN (Reason: Pain) 5 Days Qty: 10 0RF albuterol sulfate 90 mcg/actuation aerosol powdr breath activated 2 inh inhalation Q4-6H PRN (Reason: shortness of breath or wheezing) Qty: 1 0RF cholecalciferol (vitamin D3) 25 mcg (1,000 unit) tablet 25 mcg PO DAILY 30 Days Qty: 30 11RF loratadine 10 mg tablet 10 mg PO DAILY 30 Days Qty: 30 11RF cyclobenzaprine 10 mg tablet 10 mg PO TID PRN (Reason: Muscle Spasm) TDVAX 2-2 Lf unit/0.5 mL suspension 0.5 ml IM ONCE Qty: 0.5 0RF clotrimazole-betamethasone 1-0.05 % cream 1 appl topical BID 14 Days Qty: 15 1RF Centrum Complete 18-400 mg-mcg tablet 1 tab PO DAILY estradiol 0.01 % (0.1 mg/gram) cream 1 g vaginal 3XW nystatin 100,000 unit/gram cream 1 appl topical BID 14 Days Qty: 15 1RF clobetasol 0.05 % cream 1 appl topical DAILY Qty: 30 0RF meclizine 25 mg tablet 25 mg PO DAILY PRN (Reason: motion sickness) 30 Days Qty: 30 0RF losartan 100 mg tablet 100 mg PO DAILY 90 Days Qty: 90 1RF docusate sodium 100 mg capsule 100 mg PO BID Qty: 60 6RF hydrocortisone 2.5 % ointment 1 appl topical TID 14 Days Qty: 20 0RF Fiber Laxative(methylcellulos) 500 mg tablet 1,000 mg PO DAILY Qty: 60 6RF pantoprazole 40 mg tablet,delayed release (DR/EC) 40 mg PO DAILY Qty: 30 6RF bisacodyl 5 mg tablet,delayed release (DR/EC) 10 mg PO BEDTIME Qty: 60 6RF amoxicillin-pot clavulanate 875-125 mg tablet 1 tab PO Q12H Qty: 14 0RF Referrals: [facility] [Provider Group] (Acute urinary retention secondary to pessary) Interventions: ED Discharge Assessment Last Done: 06/07/24 20:45 Discharge Date/Time: 06/07/24 20:45 Print Language: Micronesian
[2024-06-07 18:42] LABS: Appearance Urine Clear; Color Urine Yellow; Glucose Urine UA Negative (Negative); Leukocyte Esterase Urine Negative (Negative); Nitrite Urine Negative (Negative); PH 6.5 (5.0-9.0); Specific Gravity - Urine <= 1.005 (1.005-1.025); Urine Blood Negative (Negative); Urine Ketones Negative (Negative); Urine Protein Negative (Neg-Trace)
--- NOTE | 2024-06-07 18:43 | PC.NURSE ---
20G inserted to LAC
--- NOTE | 2024-06-07 18:50 | PC.NURSE ---
Maxwell Jean-Baptiste, [facility] [phone]
[2024-06-07 18:51] LABS: MANUAL DIFF FLAG NO
[2024-06-07 18:52] LABS: Basophils Percent Auto 0.3 % (0-2); Eosinophils Absolute Auto 0.2 X10*3/uL (0.0-0.4); Hematocrit 37.7 % (37.0-47.0); Imm Gran Abs Auto 0.01 X10*3/uL (0.00-0.03); Imm Gran Pct Auto 0.1 % (0.0-0.4); Lymphocytes Absolute Auto 2.9 X10*3/uL (1.2-4.9); Lymphocytes Percent Auto 37.8 % (20-40); Mean Corpuscular HGB Conc 34.5 g/dl (31.0-35.0); Mean Corpuscular Hemoglobin 29.5 pg (27.0-33.0); Mean Corpuscular Volume 85.7 fL (80.0-98.0); Mean Platelet Volume 9.4 fL (9.4-12.3); Monocytes Absolute Auto 0.6 X10*3/uL (0.1-1.2); Monocytes Percent Auto 7.2 % (2-11); Neutrophils Percent Auto 52.6 % (45-73); Platelet Count 262 X10*3/uL (160-400); Red Cell Distribution Width 13.6 % (11.0-16.0); White Blood Count 7.6 X10*3/uL (4.8-10.8)
[2024-06-07 19:04] VITALS: BP 174/95; PULSE 91; RESP 16; TEMP 36.9; O2SAT 99
[2024-06-07 19:06] LABS: Alanine Aminotransferase 26 U/L (0-31); Albumin Level 4.3 g/dL (3.5-5.0); Alkaline Phosphatase 68 U/L (39-117); Anion Gap 11 (12-20); Aspartate Amino Transferase 26 U/L (5-31); Bilirubin Total 0.4 mg/dL (0.0-1.0); Blood Urea Nitrogen 13 mg/dL (9-16); Carbon Dioxide 29 mmol/L (22-29); Chloride 105 mmol/L (96-108); Creatinine Clr Calc Pharmacy 58.6; Estimated Glomerular Filt Rate > 60; Glucose Random 94 mg/dL (60-115); Sodium 141 mmol/L (135-145)
--- NOTE | 2024-06-07 20:44 | PC.NURSE ---
pt education done regarding catheter care, leg bag provided per request
[2024-06-07 20:45] VITALS: BP 174/95; PULSE 91; RESP 16; TEMP 36.9; O2SAT 99
== END 2024-06-07 20:45 | disposition home or self-care (01) ==
PROVIDERS: Physician Assistant; Emergency Provider Emergency Medicine; PCP Internal Medicine
DX: R33.8 Other retention of urine (principal); I10 Essential (primary) hypertension; Z79.899 Other long term (current) drug therapy
CPT/HCPCS: 36415; 51702; 51798; 80053; 81003; 85025; 99283; 99285

== ENCOUNTER 2024-06-18 15:22 | Outpatient (AMB) | payer OTHER, SELFPAY ==
[2024-06-18 15:30] VITALS: BP 146/92; BMI 24.0
--- NOTE | 2024-06-18 15:30 | MHC.PC.OV ---
Vital Signs 06/18/24 15:30 Height 5 ft 4 in Weight 140 lb BMI 24.0 BP 146/92 H Blood Pressure Location Lt brachial Position Sitting Intake Visit Reasons: BP Thyroid Intake Note: Patient here for a follow up BP, Thyroid Human Services Care Specialist Required: No Accompanied by: Self / Same As Patient Allergies amlodipine Allergy (Mild, Verified 06/18/24 15:50) leg edema aspirin [Aspirin] Allergy (Mild, Verified 06/18/24 15:50) ULCER HX, abdominal pain latex [Latex] Allergy (Mild, Verified 06/18/24 15:50) RASH metronidazole [Flagyl] Allergy (Mild, Verified 06/18/24 15:50) rash Medication List - Last Reconciled 06/18/24 by Lakeisha Lamas MD albuterol sulfate 90 mcg/actuation 2 inhalations inhalation Q4-6H PRN bisacodyl 10 mg (2 x 5 mg) PO BEDTIME blood pressure monitor As directed calcium carbonate 600 mg PO BID cholecalciferol (vitamin D3) 25 mcg PO DAILY 30 days clobetasol 0.05% 1 appl topical DAILY clotrimazole-betamethasone 1-0.05 % 1 appl topical BID 2 weeks cyclobenzaprine 10 mg PO TID PRN docusate sodium 100 mg PO BID estradiol 0.01%(0.1mg/gram) 1 g vaginal 3XW hydrocortisone 2.5% 1 appl topical TID 14 days levothyroxine 50 mcg PO QAM 90 days loratadine 10 mg PO DAILY 30 days losartan 100 mg PO DAILY 90 days meclizine 25 mg PO DAILY PRN 30 days methylcellulose (laxative) (Fiber Laxative (methylcellulose)) 1,000 mg (2 x 500 mg) PO DAILY [id number] acid 18-400 mg-mcg (Centrum Complete) 1 tab PO DAILY naproxen 500 mg PO BID PRN 5 days nystatin 1 appl topical BID 2 weeks pantoprazole 40 mg PO DAILY Tobacco use date assessed: 02/22/24 Fall risk assessment: No Falls in past year Last assessed Fall Risk: 06/18/24 Dental Screening Dental Screen Date: 02/22/24 HPI HPI Comments History of Present Illness Details The patient is a 69-year-old female presenting with concerns regarding blood pressure management and thyroid function. She has a history of essential hypertension, which has shown some improvement recently, yet still requires closer monitoring. Her thyroid function was reported as good at a previous laboratory evaluation. She is on amlodipine, which causes leg swelling. She has a history of peptic ulcers and cannot take aspirin. She also reports a history of allergic reactions including rash from latex and metronidazole (Flagyl). The patient has been diagnosed with osteopenia following a bone densitometry and has been instructed to take calcium and vitamin D supplements. Two weeks ago, the patient noticed her finger turned red in the morning which subsequently turned jeanne. She denies any trauma to the finger and reports intermittent pain. The discoloration occurred suddenly a month ago. Upon consultation, no bruising was found despite appearances, and an X-ray is suggested to assess for arthritis. [facility] Medical History (Updated 06/18/24 @ 15:57 by Lakeisha Lamas MD) Right knee pain Arthritis of right knee Vertigo Pre-op examination Arrhythmia Encounter for Medicare annual wellness exam Preop exam for internal medicine Family history of polyps in the colon Screening for colon cancer Left foot pain Sinus tachycardia Skin lesion RUQ abdominal pain Forgetfulness Hemorrhoids Cervical cancer screening Adult general medical exam Post-menopausal Diverticulitis large intestine Atypical facial pain Multinodular thyroid Cough Low back pain Bleeding hemorrhoids History of diverticulitis Osteoarthritis of right knee Right shoulder pain Neck pain Osteopenia Mild depression TMJ (temporomandibular joint syndrome) GERD (gastroesophageal reflux disease) Allergic rhinitis Hypovitaminosis D Hypothyroidism Essential hypertension Surgical History Hx of biopsy History of root canal procedure Hx of colonoscopy History of prolapse of bladder Hx of cone biopsy of cervix History of tubal ligation Family History Father Liver problem CVD (cardiovascular disease) Mother Diabetes Stroke Alzheimer disease Chronic mental illness Maternal Grandmother Cancer Uterine cancer Paternal Uncle Diabetes Brother Cancer Family/Other Chronic mental illness Daughter No problems noted. Daughter No problems noted. Sister Alzheimer disease Social History Housing: Apartment Are you a primary resident care coordinator to a significant other at home: No Alcohol intake: never Patient Tobacco Use Status: Never used Tobacco e-Cigarette/Vaping Use: Never Used Second Hand Smoke Exposure: No service: No Current occupational status: unemployed Cognitive needs: No Hearing needs: No Vision needs: Yes Questionnaire Thrive Questionnaire Date Thrive assessed: 09/21/23 BREANNA-7 AMB Questionnaire BREANNA-7 Date BREANNA - 7 assessed: 09/21/23 Source: Developed by Drs. Alex Cowan, Ananya Black, Seferino Vásquez and colleagues, with an educational deondre from [employer]. Review of Systems Const All systems reviewed & are unremarkable except as noted in HPI and below Card Denies chest pain at rest, Denies chest pain with activity, Denies edema, Denies irregular heart rhythm, Denies claudication, Denies dyspnea, Denies dyspnea on exertion, Denies orthopnea, Denies paroxysmal nocturnal dyspnea and Denies slow heart rate Resp Denies cough, Denies dyspnea and Denies dyspnea on exertion GI Denies abdominal pain, Denies change in bowel habits, Denies excessive flatus, Denies nausea and Denies vomiting Denies urinary incontinence, Denies urinary hesitancy and Denies urinary urgency Neuro Denies lack of coordination Physical exam (Primary Care) Vital Signs: Last Vital Signs BP 146/92 H 06/18/24 15:30 BMI result Body Mass Index 24.0 Tobacco/Smoking Status: Tobacco use Status Tobacco use date assessed 02/22/24 06/18/24 15:31 Patient Tobacco Use Status Never used Tobacco 06/18/24 15:31 e-Cigarette/Vaping Use Never Used 06/18/24 15:31 Thrive Assessment: Date of Thrive Assessment Date Thrive assessed 09/21/23 06/18/24 15:31 Resp Effort & Inspection: normal respiratory effort Auscultation: clear to auscultation bilaterally Cardio Jugular venous distension: no JVD Rate: regular rate Rhythm: regular rhythm Heart sounds: S1 normal heart sound present and S2 normal heart sound present Extrem General: Yes full ROM Psych Appearance: grossly normal Office Procedures Flu Questionnaire Does the patient have a severe egg allergy?: No Does the patient have severe life threatening allergies?: No Does the patient have a fever or illness today?: No Has the patient ever had Guillain-[place] Syndrome?: No Has the patient ever had any past reaction to a flu shot?: No Immunizations Fluarix Triv [id number] (PF) 45 mcg (15 mcg x 3)/0.5 mL IM syringe Performing Provider: Lakeisha Lamas MD Performing Location: [facility] [place] [facility] [place] [facility] Administered by: ALEKSEY Verma on 06/18/24 16:02 Dose Route Admin Location Dispensed Lot Number Expiration Date [facility] Clinical Trial Head 0.5 mL IM Right Deltoid 0.5 mL [id number] 12/30/24 [id number] [employer] VIS Given Date VIS Provided VIS Publication Date 06/18/24 Single Vaccine 21 Eligibility Eligibility Date Funding Source Not [facility] Eligible 06/18/24 Private Coding Level of Care Code Est Pt Level 4 (41769) Complex EM visit Add On G2211 Diagnoses Arthralgia of right foot M25.571 Essential hypertension I10 Hypothyroidism, unspecified type E03.9 Hypothyroidism type: unspecified Gastroesophageal reflux disease, unspecified whether esophagitis present K21.9 Esophagitis presence: esophagitis presence not specified Osteopenia M85.80 Time Spent (min) 24 Assessment & Plan Assessment & Plan (1) Arthralgia of right foot: Code(s): M25.571 - Pain in right ankle and joints of right foot Category: Medical (2) Essential hypertension: Code(s): I10 - Essential (primary) hypertension Category: Medical (3) Hypothyroidism: Code(s): E03.9 - Hypothyroidism, unspecified Category: Medical Qualifiers: Hypothyroidism type: unspecified Qualified Code(s): E03.9 - Hypothyroidism, unspecified (4) GERD (gastroesophageal reflux disease): Code(s): K21.9 - Gastro-esophageal reflux disease without esophagitis Category: Medical Qualifiers: Esophagitis presence: esophagitis presence not specified Qualified Code(s): K21.9 - Gastro-esophageal reflux disease without esophagitis (5) Osteopenia: Code(s): M85.80 - Other specified disorders of bone density and structure, unspecified site Category: Medical Plan - Continue monitoring blood pressure. Schedule follow-up in July to evaluate control. - Continue thyroid monitoring with regular lab assessments. - Avoid aspirin due to history of peptic ulcers. - Discontinue amlodipine if leg swelling becomes unmanageable. - Begin calcium and vitamin D supplements for osteopenia. - Plan an X-ray for assessment of arthritis in the affected finger. Patient was informed and verbally consented to the use of an ambient scribe for clinic note documentation during this visit. During the visit, I reviewed the importance of continuous monitoring of blood pressure and thyroid function with the patient. We discussed the side effects of current medications, particularly noting the swelling caused by amlodipine. I advised the avoidance of aspirin due to potential aggravation of peptic ulcers. Additionally, I recommended starting calcium and vitamin D supplementation to manage her osteopenia. Regarding the new onset discoloration in the finger, I suggested an X-ray to rule out arthritis as a potential cause. We agreed on scheduling a follow-up appointment in July for blood pressure re-evaluation and further thyroid assessment. I ensured the patient understood the necessary precautions and was agreeable to the proposed plan. Orders: Orders Influenza [id number] Immunization Today Z23 - Encounter for immunization XR foot RT 2V Today M25.571 - Pain in right ankle and joints of right foot Patient Instructions: - Monitor blood pressure regularly and bring recordings to the next visit. - Take calcium and vitamin D supplements as instructed for osteopenia. - Avoid aspirin and watch for any increase in leg swelling; report if it worsens. - Schedule and complete the X-ray for the finger and report any changes in symptoms. - Keep the follow-up appointment in July for further assessment of blood pressure and thyroid function.
== END 2024-06-18 16:04 | disposition home or self-care (01) ==
PROVIDERS: PCP Internal Medicine; Visit Provider Internal Medicine
DX: M25.571 Pain in right ankle and joints of right foot (principal); I10 Essential (primary) hypertension; E03.9 Hypothyroidism, unspecified; K21.9 Gastro-esophageal reflux disease without esophagitis; M85.80 Other specified disorders of bone density and structure, unspecified site; Z23 Encounter for immunization

== ENCOUNTER 2024-06-18 15:22 | Outpatient (REF) | payer OTHER, SELFPAY ==
--- NOTE | ~2024-06-18 | XR_ITS ---
EXAMINATION: XR FOOT RIGHT CLINICAL INFORMATION: Pain in right ankle and joints of right foot M25.571. COMPARISON: None TECHNIQUE: AP, lateral, and oblique views of the right foot. FINDINGS: There is no visible acute fracture, dislocation or subluxation seen. The ankle mortise and subtalar joints are normal. There is a small calcaneal heel and retrocalcaneal enthesophytes. The soft tissues are normal. XR/XR foot RT 2V IMPRESSION: Small calcaneal heel and retrocalcaneal enthesophytes. No visible acute fracture, dislocation or subluxation seen. Electronically signed by: Giacomo Yang MD 07/29/2024 07:05 AM YAMILA
== END 2024-06-18 15:23 | disposition home or self-care (01) ==
LOC: HO.XRAY 15:22
PROVIDERS: PCP Internal Medicine; Visit Provider Internal Medicine
DX: M25.571 Pain in right ankle and joints of right foot (principal); Z23 Encounter for immunization; I10 Essential (primary) hypertension; E03.9 Hypothyroidism, unspecified; K21.9 Gastro-esophageal reflux disease without esophagitis; M85.80 Other specified disorders of bone density and structure, unspecified site
CPT/HCPCS: 73620; 90471; 90656; 99212

== ENCOUNTER → 2024-06-18 16:12 | Outpatient (BNV) | payer OTHER, SELFPAY | PROVIDERS: PCP Internal Medicine; Visit Provider Radiology Diagnostic Radiology | DX: M77.31 Calcaneal spur, right foot (principal); M77.51 Other enthesopathy of right foot and ankle | CPT/HCPCS: 73620 ==

== ENCOUNTER 2024-07-18 07:46 | Outpatient (AMB) | payer OTHER, SELFPAY ==
--- NOTE | 2024-07-18 07:48 | A.OFFPC_ITS ---
Vital Signs 07/18/24 07:50 Height 5 ft 4 in Weight 140 lb BMI 24.0 BP 150/80 H Blood Pressure Location Lt brachial Position Sitting Intake Visit Reasons: 4 month follow up BP Intake Note: Patient here for a 4 month follow up bp, xray results University Demonstrator Required: Yes University Demonstrator Language: Electric Lineman Name: Lakeisha Lamas MD Information Interpreted: non-clinical & clinical Accompanied by: Self / Same As Patient Allergies amlodipine Allergy (Mild, Verified 07/18/24 08:14) leg edema aspirin [Aspirin] Allergy (Mild, Verified 07/18/24 08:14) ULCER HX, abdominal pain latex [Latex] Allergy (Mild, Verified 07/18/24 08:14) RASH metronidazole [Flagyl] Allergy (Mild, Verified 07/18/24 08:14) rash Medication List - Last Reconciled 07/18/24 by Lakeisha Lamas MD albuterol sulfate 90 mcg/actuation 2 inhalations inhalation Q4-6H PRN bisacodyl 10 mg (2 x 5 mg) PO BEDTIME blood pressure monitor As directed calcium carbonate 600 mg PO BID cholecalciferol (vitamin D3) 25 mcg PO DAILY 30 days clobetasol 0.05% 1 appl topical DAILY clotrimazole-betamethasone 1-0.05 % 1 appl topical BID 2 weeks cyclobenzaprine 10 mg PO TID PRN docusate sodium 100 mg PO BID estradiol 0.01%(0.1mg/gram) 1 g vaginal 3XW hydrocortisone 2.5% 1 appl topical TID 14 days levothyroxine 50 mcg PO QAM 90 days loratadine 10 mg PO DAILY 30 days losartan 100 mg PO DAILY 90 days meclizine 25 mg PO DAILY PRN 30 days methylcellulose (laxative) (Fiber Laxative (methylcellulose)) 1,000 mg (2 x 500 mg) PO DAILY ogjzqpqmaauj-melr-zpccz acid 18-400 mg-mcg (Centrum Complete) 1 tab PO DAILY naproxen 500 mg PO BID PRN 5 days nystatin 1 appl topical BID 2 weeks pantoprazole 40 mg PO DAILY Tobacco use date assessed: 07/18/24 Fall risk assessment: No Falls in past year Last assessed Fall Risk: 07/18/24 Dental Screening Dental Screen Date: 07/18/24 Did you have a dental visit in the last 12 months?: Yes Did you have a dental problem in the last 6 months where you did not have access to dental care?: No Was dental information given to patient?: Patient has dentist HPI HPI Comments History of Present Illness Details The patient is a 69-year-old female presenting for follow-up on known medical conditions, including osteopenia, hypothyroidism, seasonal allergic rhinitis, and essential hypertension. She was previously diagnosed with osteopenia following a bone density scan in March 2024 and has since been treated with calcium and vitamin D supplementation. The patient is also on levothyroxine to manage hypothyroidism, with the most recent dose being 50 micrograms, which has maintained her thyroid hormone levels within normal limits. For her seasonal allergies, she takes loratadine as needed. The patient's hypertension is managed with losartan at a dose of 100 mg. She noticed occasional dizziness, managed with meclizine on an as-needed basis. In terms of blood sugar levels, she experienced a minor elevation in glucose during April, measured at 106 mg/dL, but follow-up tests in June showed improvement to 94 mg/dL. There are no current complications or symptoms suggestive of diabetes. The patient recently reported onycholysis, for which treatment with a topical cream was discussed. Alcohol consumption is not part of her lifestyle, and she has never smoked. She denies any depressive symptoms. [facility] Medical History (Updated 07/18/24 @ 08:53 by Lakeisha Lamas MD) Right knee pain Arthritis of right knee Vertigo Pre-op examination Arrhythmia Encounter for Medicare annual wellness exam Preop exam for internal medicine Family history of polyps in the colon Screening for colon cancer Left foot pain Sinus tachycardia Skin lesion RUQ abdominal pain Forgetfulness Hemorrhoids Cervical cancer screening Adult general medical exam Post-menopausal Diverticulitis large intestine Atypical facial pain Multinodular thyroid Cough Low back pain Bleeding hemorrhoids History of diverticulitis Osteoarthritis of right knee Right shoulder pain Neck pain Osteopenia Mild depression TMJ (temporomandibular joint syndrome) GERD (gastroesophageal reflux disease) Allergic rhinitis Hypovitaminosis D Hypothyroidism Essential hypertension Surgical History Hx of biopsy History of root canal procedure Hx of colonoscopy History of prolapse of bladder Hx of cone biopsy of cervix History of tubal ligation Family History Father Liver problem CVD (cardiovascular disease) Mother Diabetes Stroke Alzheimer disease Chronic mental illness Maternal Grandmother Cancer Uterine cancer Paternal Uncle Diabetes Brother Cancer Family/Other Chronic mental illness Daughter No problems noted. Daughter No problems noted. Sister Alzheimer disease Social History Housing: Apartment Are you a primary director of managed care to a significant other at home: No Alcohol intake: never Patient Tobacco Use Status: Never used Tobacco e-Cigarette/Vaping Use: Never Used Second Hand Smoke Exposure: No service: No Current occupational status: unemployed Cognitive needs: No Hearing needs: No Vision needs: Yes Questionnaire PHQ-9 Over the last 2 weeks, how often have you been bothered by any of the following problems? 1. Little interest or pleasure in doing things: not at all 2. Feeling down, depressed, or hopeless: not at all 3. Trouble falling or staying asleep, or sleeping too much: not at all 4. Feeling tired or having little energy: not at all 5. Poor appetite or overeating: not at all 6. Feeling bad about yourself - or that you are a failure or have let yourself or your family down: not at all 7. Trouble concentrating on things, such as reading the newspaper or watching television: not at all 8. Moving or speaking so slowly that other people could have noticed. Or the opposite - being so fidgety or restless that you have been moving around a lot more than usual: not at all 9. Thoughts that you would be better off or of hurting yourself in some way: not at all Total score: 0 Depression Screening Interpretation: Negative Depression Screening Done: Yes 61290 - PHQ-9 Billing: Yes Source: Developed by Drs. Alex Cowan, Ananya Black, Seferino Vásquez and colleagues, with an educational deondre from [employer]. Thrive Questionnaire Date Thrive assessed: 07/18/24 I am a: Patient What is your living situation today?: I have a steady place to live Within the past 12 months, did the food you bought not last and you didn't have the money to get more?: Never true Within the past 12 months, did you worry whether your food would run out before you got money to buy more?: Never true Do you have trouble paying for medicines?: No Do you have trouble getting transportation to medical appointments?: No Do you have trouble paying your heating and electricity bill?: No Do you have trouble taking care of your child, family member or friend?: No Do you have trouble with day-to-day activities such as bathing, preparing meals, shopping, managing finances, etc.?: No Are you currently unemployed and looking for a job?: No Are you interested in more education?: No Please select the resources that you would like help with: None Currently or been in a relationship where the following occur: No concerns reported THRIVE Score: 0 AUDIT C Alcohol Use Questionnaire (AUDIT-C) 1. How often do you have a drink containing alcohol?: Never Total Score: 0 Score Reviewed/Action Taken: No BREANNA-7 AMB Questionnaire BREANNA-7 Date BREANNA - 7 assessed: 07/18/24 Feeling nervous, anxious, or on edge: 0 = Not at all Not being able to stop or control worryin = Not at all Worrying too much about different things: 0 = Not at all Trouble relaxin = Not at all Being so restless that it is hard to sit still: 0 = Not at all Becoming easily annoyed or irritable: 0 = Not at all Feeling afraid as if something awful might happen: 0 = Not at all Total BREANNA-7 score (0-4 normal; 5-9 mild; 10-14 moderate; 15-21 severe): 0 Source: Developed by Drs. Alex Cowan, Ananya Black, Seferino Vásquez and colleagues, with an educational deondre from [employer]. BREANNA-7 Assessment Billing BREANNA-7 Assessment Tool: BREANNA-7 Assessment 11401 Review of Systems Const All systems reviewed & are unremarkable except as noted in HPI and below Card Denies chest pain at rest, Denies chest pain with activity, Denies edema, Denies irregular heart rhythm, Denies claudication, Denies dyspnea, Denies dyspnea on exertion, Denies orthopnea, Denies paroxysmal nocturnal dyspnea and Denies slow heart rate Resp Denies cough, Denies dyspnea and Denies dyspnea on exertion Physical exam (Primary Care) Vital Signs: Last Vital Signs BP 150/80 H 01/16/25 07:50 BMI result Body Mass Index 24.0 Tobacco/Smoking Status: Tobacco use Status Tobacco use date assessed 07/18/24 07/18/24 07:55 Patient Tobacco Use Status Never used Tobacco 07/18/24 07:55 e-Cigarette/Vaping Use Never Used 07/18/24 07:55 PHQ-9: PHQ-9 Score PHQ-9: Total score 0 07/18/24 08:17 Depression Screening Interpretation: Negative Thrive Assessment: Date of Thrive Assessment Date Thrive assessed 07/18/24 07/18/24 07:55 Currently or been in a relationship where the following occur: No concerns reported Resp Effort & Inspection: normal respiratory effort Auscultation: clear to auscultation bilaterally Cardio Jugular venous distension: no JVD Rate: regular rate Rhythm: regular rhythm Heart sounds: S1 normal heart sound present and S2 normal heart sound present Skin Other: Onycholysis in bilateral 1st fingernails Extrem General: Yes full ROM Coding Level of Care Code Est Pt Level 4 (75193) Complex EM visit Add On G2211 Diagnoses Essential hypertension I10 Hypothyroidism, unspecified type E03.9 Hypothyroidism type: unspecified Seasonal allergic rhinitis due to pollen J30.1 Allergic rhinitis trigger: pollen Allergic rhinitis seasonality: seasonal Osteopenia M85.80 Onycholysis L60.1 Vertigo R42 Additional Codes PHQ-9 - 54543 - PHQ-9 Billing: Yes ([id number]) BREANNA-7 Assessment Billing - BREANNA-7 Assessment Tool: BREANNA-7 Assessment 09948 ( [id number]) Time Spent (min) 23 Assessment & Plan Assessment & Plan (1) Essential hypertension: Code(s): I10 - Essential (primary) hypertension Category: Medical (2) Hypothyroidism: Code(s): E03.9 - Hypothyroidism, unspecified Category: Medical Qualifiers: Hypothyroidism type: unspecified Qualified Code(s): E03.9 - Hypothyroidism, unspecified (3) Allergic rhinitis: Code(s): J30.9 - Allergic rhinitis, unspecified Category: Medical Qualifiers: Allergic rhinitis trigger: pollen Allergic rhinitis seasonality: seasonal Qualified Code(s): J30.1 - Allergic rhinitis due to pollen (4) Osteopenia: Code(s): M85.80 - Other specified disorders of bone density and structure, unspecified site Category: Medical (5) Onycholysis: Code(s): L60.1 - Onycholysis Category: Medical (6) Vertigo: Code(s): R42 - Dizziness and giddiness Category: Medical Plan - Continue current management of osteopenia with calcium and vitamin D supplemen tation. - Maintain levothyroxine therapy for hypothyroidism; monitor thyroid levels regularly. - Advise continuation of loratadine for seasonal allergic rhinitis as needed. - Monitor blood pressure and continue losartan for essential hypertension. - If dizziness persists, re-evaluate medication regimen for possible adjustments. - Further evaluation and topical treatment for suspected onycholysis. - Recheck blood glucose in August as scheduled. Patient was informed and verbally consented to the use of an ambient scribe for clinic note documentation during this visit. During our session, we discussed the management of existing health conditions. I reassured the patient about the control of her hypothyroidism and emphasized the importance of regular thyroid function tests. We reviewed her current strategy for managing osteopenia, aligning it with lifestyle measures like adequate calcium intake. I highlighted the importance of medication adherence for hypertension and encouraged monitoring her blood pressure at home. For her allergic rhinitis, she was advised to continue using loratadine as needed during peak allergy seasons. Onycholysis was discussed, with a plan to initiate treatment with a topical cream. I explained the benign nature of her previous mild hyperglycemia and recommended rechecking her blood glucose levels at the upcoming laboratory visit in August. Orders: Orders Comprehensive [place]. Panel Fast Today I10 - Essential (primary) hypertension Vitamin D 25-OH Total Today E55.9 - Vitamin D deficiency, unspecified Thyroid Stimulating Hormone Today E04.2 - Nontoxic multinodular goiter Medications: New betamethasone dipropionate 0.05% 1 appl topical DAILY 2 weeks 15 grams 0RF Patient Instructions: - Take levothyroxine 50 micrograms daily as prescribed. - Use calcium and vitamin D supplements for bone health. - Continue losartan 100 mg for blood pressure, and monitor readings. - Use loratadine for allergy symptoms as required. - Apply the prescribed topical treatment for nail condition. - Return to the lab for glucose re-evaluation in August. - Seek medical attention if dizziness becomes more frequent or severe.
[2024-07-18 07:50] VITALS: BP 150/80; BMI 24.0
== END 2024-07-18 08:27 | disposition home or self-care (01) ==
PROVIDERS: PCP Internal Medicine; Visit Provider Internal Medicine
DX: I10 Essential (primary) hypertension (principal); E03.9 Hypothyroidism, unspecified; J30.1 Allergic rhinitis due to pollen; M85.80 Other specified disorders of bone density and structure, unspecified site; L60.1 Onycholysis; R42 Dizziness and giddiness

== ENCOUNTER → 2024-07-18 07:46 | Outpatient (BNVA) | payer OTHER, SELFPAY | PROVIDERS: PCP Internal Medicine; Visit Provider Internal Medicine | DX: I10 Essential (primary) hypertension (principal); E03.9 Hypothyroidism, unspecified; J30.1 Allergic rhinitis due to pollen; M85.80 Other specified disorders of bone density and structure, unspecified site; L60.1 Onycholysis; R42 Dizziness and giddiness | CPT/HCPCS: 96127; 99212 ==

== ENCOUNTER 2024-08-09 11:37 | Outpatient (REF) | payer MEDICARE, SELFPAY ==
--- OUTSIDE RECORDS SUMMARY | 2024-08-09 13:20 | XMS_ITS | Encounter Summary ---
Author Organization [facility] Address [address] [place] [address] Care Team Providers Care Patient Navigator Name Role Phone Unavailable Primary Care Provider Unavailabl e Encounter Details Date Type Department Care Team (Latest Contact Info) Description 02/15/2019 Abstract [facility] CONVERSIONS Dental, Provider, DDS Social History Tobacco Use Types Packs/Day Years Used Date Smoking Tobacco: Never Assessed Comments Unknown Sex and Gender Information Value Date Recorded Sex Assigned at Female 05/02/2022 10:14 AM EDT Legal Sex Female 10:14 AM EDT Gender Identity Female 05/02/2022 10:14 AM EDT Sexual Orientation Straight 05/02/2022 10 :14 AM EDT documented as of this encounter Plan of Treatment Not on file documented as of this encounter Visit Diagnoses Not on filedocumented in this encounter
--- OUTSIDE RECORDS SUMMARY | 2024-08-09 13:20 | XMS_ITS | Clinical Summary ---
Author Organization [employer] Address [address] [place] [address] Care Team Providers Care Corporate Bond Trader Name Role Phone Unavailable Primary Care Provider Unavailabl e Social History Tobacco Use Types Packs/Day Years Used Date Smoking Tobacco: Never Assessed Comments Unknown Sex and Gender Information Value Date Recorded Sex Assigned at Female 05/02/2022 10:14 AM EDT Legal Sex Female 10:14 AM EDT Gender Identity Female 05/02/2022 10:14 AM EDT Sexual Orientation Straight 05/02/2022 10 :14 AM EDT Plan of Treatment Health Maintenance Due Date Last Done Comments CT Colonography 1953 Colonoscopy 1953 Colorectal Cancer Screening 1953 Depression Screening 1953 FIT DNA/Cologuard 1953 FIT 1953 FOBT 1953 Sigmoidoscopy 1953 Alcohol/Substance Use Screening 1965 Tobacco Screening 1965 Mammogram 1993 Hepatitis B Vaccines (2 of 3 - 19+ 3-dose series) 02/03/2015 01/06/2015 Pneumococcal Vaccine: 50+ Years (2 of 2 - PPSV23) 12/29/2019 12/28/2018 COVID-19 Vaccine ( - season) 2024 Influenza Vaccine (#1) 2024 9, 06/15/2015, 08/11/2014, Additional history exists RSV Patients and Patients Aged 60 years or older (1 - 1-dose 75+ series) 01/16/2028 DTaP/Tdap/Td Vaccines (4 - Td or Tdap) 10/26/2028 10/26/2018, 02/03/2014, 08/11/2010, Additional history exists Zoster Vaccines Completed 05/02/2019, 12/28/2018 HIB Vaccines Aged Out No longer eligi ble based on patient's age to complete this topic HPV Vaccines Aged Out No longer eligi ble based on patient's age to complete this topic Hepatitis A Vaccines Aged Out No long er eligible based on patient's age to complete this topic IPV Vaccines Aged Out No longer eligi ble based on patient's age to complete this topic Meningococcal Vaccine Aged Out No anoop karen eligible based on patient's age to complete this topic RSV under 20 months Aged Out No longe r eligible based on patient's age to complete this topic Rotavirus Vaccines Aged Out No longer eligible based on patient's age to complete this topic
[2024-08-09 17:15] LABS: Influenza A PCR NEGATIVE (Negative); Influenza B PCR NEGATIVE (Negative); Resp Syncy Virus RNA Qual PCR NEGATIVE (Negative); SARS COV2 PCR INHOUSE NEGATIVE (Negative)
== END 2024-08-09 11:38 | disposition home or self-care (01) ==
LOC: HO.LNP 11:37
PROVIDERS: PCP Internal Medicine; Visit Provider Internal Medicine
DX: R09.89 Other specified symptoms and signs involving the circulatory and respiratory systems (principal); Z03.818 Encounter for observation for suspected exposure to other biological agents ruled out
CPT/HCPCS: 0241U; 99212

== ENCOUNTER → 2024-08-09 11:37 | Outpatient (AMB) | END | disposition home or self-care (01) ==

== ENCOUNTER 2024-08-26 08:37 | Outpatient (REF) | payer MEDICARE, SELFPAY ==
--- OUTSIDE RECORDS SUMMARY | 2024-08-26 09:04 | XMS_ITS | Clinical Summary ---
Author Organization [email or web address] Address [address] [place] [address] Care Team Providers Care Police Or Patrol Park Officer Name Role Phone Unavailable Primary Care Provider [...] this topic Meningococcal Vaccine Aged Out No aonop karen eligible based on patient's age to complete this topic RSV under 20 months Aged Out No longe r eligible based on patient's age to complete this topic Rotavirus Vaccines Aged Out No longer eligible based on patient's age to complete this topic
--- OUTSIDE RECORDS SUMMARY | 2024-08-26 09:04 | XMS_ITS | Encounter Summary ---
Author Organization [employer] [facility] Address [address] [place] [address] Care Team Providers Care Horizontal Boring Mill Set Up Operator Name Role Phone Unavailable Primary Care Provider Unavailabl e Encounter Details Date Type Department Care Team (Latest Contact Info) Description 02/15/2019 Abstract [facility] CONVERSIONS Dental, Provider, DDS Social History Tobacco [...]
[2024-08-26 10:00] LABS: Alanine Aminotransferase 20 U/L (0-31); Alkaline Phosphatase 56 U/L (39-117); Anion Gap 10 (12-20); Aspartate Amino Transferase 22 U/L (5-31); Bilirubin Total 0.4 mg/dL (0.0-1.0); Blood Urea Nitrogen 12 mg/dL (9-16); Calcium 9.6 mg/dL (8.4-10.2); Carbon Dioxide 28 mmol/L (22-29); Chloride 108 mmol/L (96-108); Cholesterol 163 mg/dL (<200); Estimated Glomerular Filt Rate > 60; Glucose Fasting 96 mg/dL (60-99); HDL Cholesterol 40 mg/dL (>40); LDL Cholesterol Calculated 93 mg/dL (<100); Potassium 4.1 mmol/L (3.3-5.1); Sodium 142 mmol/L (135-145); Total Protein 7.8 g/dL (6.5-8.0); Triglycerides 150 mg/dL (<150)
[2024-08-26 10:16] LABS: Thyroid Stimulating Hormone 2.73 uIU/mL (0.32-4.0); Vitamin D 25-OH Total 53.3 ng/mL (>30)
== END 2024-08-26 08:38 | disposition home or self-care (01) ==
LOC: HO.LAB 08:37
PROVIDERS: PCP Internal Medicine; Visit Provider Internal Medicine
DX: I10 Essential (primary) hypertension (principal); E55.9 Vitamin D deficiency, unspecified; E78.5 Hyperlipidemia, unspecified; E04.2 Nontoxic multinodular goiter
CPT/HCPCS: 36415; 80053; 80061; 82306; 84443

== ENCOUNTER 2024-09-24 12:29 | Outpatient (AMB) | payer MEDICARE, SELFPAY ==
[2024-09-24 12:49] VITALS: BP 142/80; PULSE 88; BMI 23.6
--- NOTE | 2024-09-24 12:49 | MHC.OFFVIS ---
Vital Signs 09/24/24 12:49 Height 5 ft 4 in Weight 137 lb 9.095 oz BMI 23.6 BP 142/80 H Blood Pressure Location Lt brachial Position Sitting Pulse 88 Pulse Source Monitor Intake Visit Reasons: 1 yr f/up Photographic Plate Maker Required: Yes Photographic Plate Maker Language: Toll Testboard Worker Name: voice [email or web address] [id number] Allergies amlodipine Allergy (Mild, Verified 09/24/24 12:52) leg edema aspirin [Aspirin] Allergy (Mild, Verified 09/24/24 12:52) ULCER HX, abdominal pain latex [Latex] Allergy (Mild, Verified 09/24/24 12:52) RASH metronidazole [Flagyl] Allergy (Mild, Verified 09/24/24 12:52) rash Medication List - Last Reconciled 09/24/24 by XIMENA Fierro albuterol sulfate 90 mcg/actuation 2 inhalations inhalation Q4-6H PRN betamethasone dipropionate 0.05% 1 appl topical DAILY 2 weeks bisacodyl 10 mg (2 x 5 mg) PO BEDTIME blood pressure monitor As directed calcium carbonate 600 mg PO BID cholecalciferol (vitamin D3) 25 mcg PO DAILY 30 days clobetasol 0.05% 1 appl topical DAILY clotrimazole-betamethasone 1-0.05 % 1 appl topical BID 2 weeks cyclobenzaprine 10 mg PO TID PRN docusate sodium 100 mg PO BID estradiol 0.01%(0.1mg/gram) 1 g vaginal 3XW hydrocortisone 2.5% 1 appl topical TID 14 days levothyroxine 50 mcg PO QAM 90 days loratadine 10 mg PO DAILY 30 days losartan 100 mg PO DAILY 90 days meclizine 25 mg PO DAILY PRN 30 days methylcellulose (laxative) (Fiber Laxative (methylcellulose)) 1,000 mg (2 x 500 mg) PO DAILY afxigcfmsjto-bjtm-hfyoi acid 18-400 mg-mcg (Centrum Complete) 1 tab PO DAILY naproxen 500 mg PO BID PRN 5 days nystatin 1 appl topical BID 2 weeks pantoprazole 40 mg PO DAILY prednisone 10 mg PO DAILY 5 days HPI HPI 1 yr f/up: Details: Radha is a 69 year old female with PMH of RBBB, HTN, atypical chest discomfort who presents for follow up. Today she states that she has been doing well since her last visit 09/2023. She influenza in the fall and fully recovered from it. She has not been having chest discomfort at rest or with activity. She denies shortness of breath, PND, orthopnea or edema. No heart palpitations, lightheadedness, presyncope, syncope. She walks 3 times weekly for exercise. She does her own housework and cleans the restorationism once a week. She has been taking her meds as directed. She has notice that her blood pressure has been running higher than usual and she has follow-up with her PCP on 09/30/2024. Certified employee benefits coordinator used. [facility] Medical History Right knee pain Arthritis of right knee Vertigo Pre-op examination Arrhythmia Encounter for Medicare annual wellness exam Preop exam for internal medicine Family history of polyps in the colon Screening for colon cancer Left foot pain Sinus tachycardia Skin lesion RUQ abdominal pain Forgetfulness Hemorrhoids Cervical cancer screening Adult general medical exam Post-menopausal Diverticulitis large intestine Atypical facial pain Multinodular thyroid Cough Low back pain Bleeding hemorrhoids History of diverticulitis Osteoarthritis of right knee Right shoulder pain Neck pain Osteopenia Mild depression TMJ (temporomandibular joint syndrome) GERD (gastroesophageal reflux disease) Allergic rhinitis Hypovitaminosis D Hypothyroidism Essential hypertension Surgical History Hx of biopsy History of root canal procedure Hx of colonoscopy History of prolapse of bladder Hx of cone biopsy of cervix History of tubal ligation Family History Father Liver problem CVD (cardiovascular disease) Mother Diabetes Stroke Alzheimer disease Chronic mental illness Maternal Grandmother Cancer Uterine cancer Paternal Uncle Diabetes Brother Cancer Family/Other Chronic mental illness Daughter No problems noted. Daughter No problems noted. Sister Alzheimer disease Social History Housing: Apartment Are you a primary post anesthesia care unit nurse to a significant other at home: No Alcohol intake: never Patient Tobacco Use Status: Never used Tobacco e-Cigarette/Vaping Use: Never Used Second Hand Smoke Exposure: No service: No Current occupational status: unemployed Cognitive needs: No Hearing needs: No Vision needs: Yes Review of Systems Const All systems reviewed & are unremarkable except as noted in HPI and below ENT Denies dizziness Card Denies chest pain, Denies chest pain at rest, Denies chest pain with activity, Denies rapid heart rate, Denies pedal edema, Denies edema, Denies leg edema, Denies lightheadedness, Denies palpitations, Denies dyspnea, Denies dyspnea on exertion and Denies orthopnea Resp Denies cough, Denies dyspnea and Denies dyspnea on exertion GI Denies hematochezia and Denies change in stool character Musc Denies abnormal gait, Denies limited range of motion, Denies muscle cramps, Denies muscle weakness, Denies numbness, Denies radiating pain into limb, Denies stiffness and Denies tingling Neuro Denies abnormal gait, Denies dizziness, Denies numbness and Denies tingling Endo Denies palpitations Physical Exam Vital Signs: BMI result Body Mass Index 23.6 Const General: cooperative, healthy appearing, comfortable and no acute distress Orientation/consciousness: patient oriented x3 Neck Neck: Yes normal visual inspection and Yes no JVD Resp Effort & Inspection: normal respiratory effort Auscultation: clear to auscultation bilaterally, no rales, no rhonchi and no wheezes Cardio Rate: regular rate Rhythm: regular rhythm Heart sounds: S1 normal heart sound present, S2 normal heart sound present, no gallops, no murmurs and no rubs Neuro General: patient oriented x3 Extrem General: Yes normal to inspection, No no pedal edema and No calf tenderness Psych Appearance: grossly normal Mental Status: mental status grossly normal Speech and movement: Normal speech and movement present Office Procedures EKG Details: Today, read by me, Sinus rhythm, cant exclude prior anterior infarct, rate 88, Qtc 408ms RBBB seen on prior EKG, no RBBB this EKG, QRS 62ms [id number], Complete Results Reviewed Results Reviewed: Echocardiogram 04/05/2022 EF 60-65%, grade 1 diastolic dysfunction, normal valves. Holter monitor done 04/05/2022 for 3 days shows sinus rhythm with average heart rate 92, heart rate range 58 to 132, 26% of the time heart rate greater than 100, occasional ventricular ectopy, burden less than 1%, rare supraventricular ectopy EKG 09/26/2023 normal sinus rhythm, right bundle branch block, rate 96 Assessment & Plan Assessment & Plan (1) Atypical chest pain: Code(s): R07.89 - Other chest pain Category: Medical Plan: Prior Evaluation for atypical chest discomfort without significant findings. EKG without ischemic changes, with right bundle branch block. She did have normal stress test in 2018. An echocardiogram done 04/05/2022 showed normal EF, normal valves, grade 1 diastolic dysfunction. No chest discomfort in the last few years. EKG done today showing normal sinus rhythm, rate 88. Continue with risk factor modification including good blood pressure control, activity as tolerated. Signs and symptoms of angina reviewed with her in detail. Cardiology follow-up p.r.n. (2) Sinus tachycardia: Code(s): R00.0 - Tachycardia, unspecified Category: Medical Plan: Prior reports of heart palpitations. Holter monitor done 04/05/2022 for 3 days shows sinus rhythm with average heart rate 92, heart rate range 58 to 132, 26% of the time heart rate greater than 100, occasional PVCs, rare PACs. Her lab work at that time showed no significant abnormalities. She was likely feeling sinus tachycardia. At this time no concerning heart palpitations. (3) Right bundle branch block: Code(s): I45.10 - Unspecified right bundle-branch block Category: Medical Plan: Noted on prior EKGs, thought to be chronic. EKG done today showing normal sinus rhythm, no right bundle branch block, rate 88. In his likely intermittent. (4) Essential hypertension: Code(s): I10 - Essential (primary) hypertension Category: Medical Plan: Mild elevation today, initially 142/80, recheck done by me 140/80. Asymptomatic She is on losartan 100 mg daily. She is seeing her PCP on 09/30/2024. She may need additional agent for optimal control. Reviewed low-salt diet and increasing physical activity as tolerated with her. PCP can continue to follow with blood pressure. Plan Time spent on chart review, documentation, interview and assessment Coding Level of Care Code Est Pt Level 3 (80720) Complex EM visit Add On G2211 Diagnoses Atypical chest pain R07.89 Sinus tachycardia R00.0 Right bundle branch block I45.10 Essential hypertension I10 CPT Codes EKG - CPT: 22002-[id number], Complete ([id number]) Time Spent (min) 24
--- OUTSIDE RECORDS SUMMARY | 2024-09-24 15:11 | XMS_ITS | Encounter Summary ---
Author Organization [facility] Address [address] [place] [id number] Care Team Providers Care Rail Walker Name Role Phone Lakeisha Lamas MD Primary Care Provider [phone] Reason for Visit * Reason Comments Foot Pain Take Up Supervisor rt ankle foot mae n * Consultation (Routine) - Authorized Specialty Diagnoses / Procedures Referred By Contact Referred To Contact Podiatry / Orthopaedic Surgery Diagnoses Pain in right ankle and joints of right foot Lakeisha Lamas MD [address] [place] [address] [address], [address] [facility] D/B/A: [facility] [place], [place] Phone: tel: fax: Ruddy Hogan DPM [address] [address] Phone: tel: fax: Referral ID Status Reason Start Date Expiration Date Visits Requested Visits Authorized [id number] Authorized Specialty Services Required 09/02/2024 09/01/2025 6 6 Encounter Details Date Type Department Care Team (Late st Contact Info) Description 09/02/2024 2:00 PM EST Consult Orthopedic Surgery - [place] [phone] [phone] Ruddy Hogan DPM [address] [address] Pain in toes of both feet (Primary Dx); Pain in right ankle and joints of right foot; Dermatophytosis, nail Social History Tobacco Use Types Packs/Day Years Used Date Smoking Tobacco: Never Assessed Comments Unknown Sex and Gender Information Value Date Recorded Sex Assigned at Not on file Legal Sex Female 3:33 PM EST Gender Identity Not on file Sexual Orientation Not on file documented as of this encounter Progress Notes * Lindsay Moreno [place] - 09/02/2024 2:00 PM EST Nepali crystal [id number] * Ruddy Hogan DPM - 09/02/2024 2:00 PM EST Referring MD: Lakeisha Lamas MD Last PCP visit: 06/15/2024 IDENTIFIER: @TITLE@ Brent is a 69 y.o. year old female who presents for consultation. CC: Bilateral foot pain HPI: 69-year-old female presents office chief complaint of right foot pain. Patient notes that she recently has had some increased pain to the right great toe. Patient notes that she did not bump it but she has had thickening of the nail plate and is concerned with fungal changes. Patient notes that sherecently had an x-ray and there was some concern with bony spurring around the foot. Patient got the x-rays somewhere else and did not bring the disc with her. Patient is here for evaluation treatment ROS: GENERAL: Pt denies nausea, fever, vomiting, chills, or shortness of breath. Pt in NAD. CARDIOLOGY: pt denies chest pain, palpitations LUNGS: pt denies shortness of breath MUSCULOSKELETAL: See HPI, otherwise no joint pain or swelling, back pain, or muscle pain. SKIN: see HPI, otherwise no lesions, rash or itching NEURO: No persistent headache, weakness or numbness The remainder of the review of systems is noncontributory PAST MEDICAL HISTORY: There is no problem list on file for this patient. SOCIAL HISTORY: Social History Tobacco Use Smoking status: Not on file Smokeless tobacco: Not on file Substance Use Topics Alcohol use: Not on file ACTIVE MEDICATIONS: No outpatient medications have been marked as taking for the 09/02/24 encounter (Consult) with Ruddy Lr DPM. ALLERGIES: @ALL@ PHYSICAL EXAM: There were no vitals taken for this visit. PODIATRIC EXAMINATION: GENERAL: Patient appears well nourished, with NAD. VASCULAR: Dorsalis pedis pulses are 2/4 bilaterally and Posterior tibial pulses are 2/4 bilaterally. Capillary filling time within normal limits the digits. No pallor on elevation or rubor on dependency. Positive hair growth. No varicosities. Denies rest pain or claudication pain. NEUROLOGICAL: Sharp/dull sensation intact, protective sensation intact 10/10 with 5.07 semmes jeremy bilaterally, vibratory sensation with tuning fork intact to the tibial tuberosity. ORTHOPEDIC: Good muscle strength 5/5 of all flexors and extensors. Dorsi flexion of ankle ,10 degrees, plantar flexion WNL. No muscle atrophy. Arthritic changes to the foot over the tarsometatarsal joint. No redness or swelling throughout the foot. Rectus position of the great toe and other digits on the forefoot. Mild flexible deformity in the midfoot on stance DERMATOLOGICAL:.No masses or skin lesions noted. Normal skin temperature, normal skin turgor. Nail is elongated and dystrophic discolored on the right great toe. BIOMECHANICS: STJ ROM wnl, MTJ ROM wnl, 1st MPJ ROM wnl. IMAGING: No fractures or dislocations. Rectus alignment of the digit. Some cortical thickening to the lateral plantar aspect of the fourth metatarsal most likely stress reaction from previous injury.Mild joint space narrowing through the midtarsal joint. Posterior and plantar calcaneal spur IMPRESSION: 1. Pain in toes of both feet 2. Pain in right ankle and joints of right foot 3. Dermatophytosis, nail PLAN: Pt was seen and examined, history reviewed. Patient was encouraged to wear more supportive shoe when ambulating. Patient does have some swelling within the foot from time to time. Patient was educated that she can use a topical anti-inflammatory for this pain. [address]: (t5) Procedure Utilizing sterile instramentation the affected nail(s) and subungual tissue were removed/Biopsy of nail unit of one or more nails was achieved and the nail and tissue were subsequently placed in a specimen container and will be sent to pathology for definitive diagnosis and lab evaluationto define treatment for this condition Ruddy Hogan DPM cc: Lakeisha Lamas MD documented in this encounter Plan of Treatment Upcoming Encounters Date Type Department Care Team (Late st Contact Info) Description 11/04/2024 9:45 AM EDT Office Visit Orthopedic Surgery - [place] [address] [facility] [address] [place] [address] Ruddy Hogan, DYLAN [address] [place] [address] documented as of this encounter Results * XR Foot 3+ Views Right (09/02/2024 2:22 PM EST) Anatomical Region Laterality Modality Lower Extremities, Foot Right Computed Radiography Narrative 09/09/2024 6:33 PM EDT Right foot 3 views weightbearing: Osteopenia throughout the foot. ??Rectus alignment of the forefoot on the midfoot. ??Retrocalcaneal spur. ??No fractures or dislocations us Ruddy Hogan DPCaryl IMG XR PROCEDURES Final Res ult documented in this encounter Visit Diagnoses Diagnosis Pain in toes of both feet- Primary Pain in right ankle and joints of right foot Dermatophytosis, nail Dermatophytosis of nail documented in this encounter Orders Outpatient Referral Count Last Ordered Date Fir st Ordered Date AMB REFERRAL TO PODIATRY 1 09/02/2024 documented in this encounter Care Teams Rail Walker Relationship Specialty Start Date End Date Lakeisha Lamas MD [address] [place] [address] , [address] [facility] D/B/A: [facility] [place], [place] PCP - General Internal Medicine 08/26/24 documented as of this encounter
--- OUTSIDE RECORDS SUMMARY | 2024-09-24 15:11 | XMS_ITS | Encounter Summary ---
Author Organization [employer] [facility] Address [address] [facility] [address] [place] [address] Care Team Providers Care Appointment Clerk Name Role Phone Unavailable Primary Care Provider Unavailabl e Encounter Details Date Type Department Care Team (Latest Contact Info) Description 02/15/2019 Abstract [facility] CONVERSIONS Dental, Provider, DDS Social History [...]
--- OUTSIDE RECORDS SUMMARY | 2024-09-24 15:11 | XMS_ITS | Clinical Summary ---
Author Organization [email or web address] Address [address] [facility] [address] [place] [address] Care Team Providers Care Manager Linux Name Role Phone Unavailable Primary Care Provider [...]
--- OUTSIDE RECORDS SUMMARY | 2024-09-24 15:11 | XMS_ITS | Clinical Summary ---
Author Organization [address] [place] [address] Address [address] [place] [address] Phone Care Team Providers Care Room Designer Name Role Phone Lakeisha Lamas MD Primary Care Provider Encounters Date Type Department Care Team Description 09/02/2024 2:00 PM EST Consult Orthopedic [place] [phone] [phone] Ruddy Hogan DPM Pain in toes of both feet (Primary Dx); Pain in right ankle and joints of right foot; Dermatophytosis, nail from Last 3 Months Social History Tobacco Use Types Packs/Day Years Used Date Smoking Tobacco: Never Assessed Comments Unknown Sex and Gender Information Value Date Recorded Sex Assigned at Not on file Legal Sex Female 3:33 PM EST Gender Identity Not on file Sexual Orientation Not on file Plan of Treatment Upcoming Encounters Date Type Department Care Team (Late st Contact Info) Description 11/04/2024 9:45 AM EDT Office Visit Orthopedic [facility] [address] [phone] Ruddy Hogan DPM [address] [address] Health Maintenance Due Date Last Done Comments Breast Cancer Screening 1955 Hepatitis B Vaccines (2 of 3 - 19+ 3-dose series) 02/03/2015 01/06/2015 COVID-19 Vaccine ( season) 2024 12/31/2020, 12/10/2020 Colorectal Cancer Screening: Colonoscopy 08/27/2024 Depression Screening 08/27/2024 Falls Risk Assessment 08/27/2024 Hepatitis C Screening 08/27/2024 Medicare Annual Wellness Visit 08/27/2024 Osteoporosis Screening (Bone Density Screening) 08/27/2024 Social Influencers of Health Screening 08/27/2024 RSV Immunization Patients 60+ Years Old (1 - 1-dose 75+ series) 01/16/2028 DTaP,Tdap,and Td Vaccines (6 - Td or Tdap) 09/16/2031 09/15/2021, 10/26/2018, 02/03/2014, Additional history exists Zoster Vaccines Completed 05/02/2019, 12/28/2018 Pneumococcal Vaccine: 50+ Years Completed 08/20/2019, 12/28/2018 Influenza Vaccine Completed 06/18/2024, , 09/15/2021, Additional history exists HIB Vaccines Aged Out No longer eligi [...] on patient's age to complete this topic MMR Vaccines Aged Out No longer eligi ble based on patient's age to complete this topic Meningococcal ACWY Vaccine Aged Out N o longer eligible based on patient's age to complete this topic Meningococcal B Vacine Aged Out No lo nger eligible based on patient's age to complete this topic RSV Immunization Patients Under 20 months Aged Out No longer eligible based on patient's age to complete this topic Varicella Vaccines Aged Out No longer eligible based on patient's age to complete this topic Procedures Procedure Name Priority Date/Time Associated Diagnosis Comments XR FOOT 3+ VIEWS RIGHT Routine 09/02/2024 2:22 PM EST Pain in right ankle and joints of right foot from Last 3 Months Results * XR Foot 3+ Views Right (09/02/2024 2:22 PM EST) Anatomical Region Laterality Modality Lower Extremities, Foot Right Computed Radiography Narrative 09/09/2024 6:33 PM EDT Right foot 3 views weightbearing: Osteopenia throughout the foot. ??Rectus alignment of the forefoot on the midfoot. ??Retrocalcaneal spur. ??No fractures or dislocations us Ruddy Hogan DPM IMG XR PROCEDURES Final Res ult from Last 3 Months Insurance [employer]ICARE [employer]AGE Care Teams Room Designer Relationship Specialty Start Date End Date Lakeisha Lamas MD [address] [facility] , [address] [facility] D/B/A: [facility] PCP - General Internal Medicine 08/26/24
== END 2024-09-24 13:45 | disposition home or self-care (01) ==
LOC: HO.HCS 12:30
PROVIDERS: PCP Internal Medicine; Visit Provider Nurse Practitioner Family
DX: R07.89 Other chest pain (principal); R00.0 Tachycardia, unspecified; I45.10 Unspecified right bundle-branch block; I10 Essential (primary) hypertension
CPT/HCPCS: 93010; 99213; G2211

== ENCOUNTER → 2024-09-24 12:29 | Outpatient (BNVA) | payer MEDICARE, SELFPAY | PROVIDERS: PCP Internal Medicine; Visit Provider Nurse Practitioner Family | DX: R07.89 Other chest pain (principal); R00.0 Tachycardia, unspecified; I45.10 Unspecified right bundle-branch block; I10 Essential (primary) hypertension; R94.31 Abnormal electrocardiogram [ECG] [EKG] | CPT/HCPCS: 93005; 99212 ==

== ENCOUNTER 2024-09-30 12:11 | Outpatient (AMB) | payer OTHER, SELFPAY ==
--- NOTE | 2024-09-30 12:30 | AM.OFFVISMDC ---
Intake Vital Signs 09/30/24 12:34 Height 5 ft 4 in Weight 134 lb BMI 23.0 BP 142/76 H Blood Pressure Location Lt brachial Position Sitting Intake Visit Reasons: SWV G0439 Claims Service Representative Required: Yes Claims Service Representative Language: [employer] Services: Claims Service Representative Present Claims Service Representative Name: Lakeisha Lamas MD Information Interpreted: non-clinical & clinical Accompanied by: Self / Same As Patient Allergies amlodipine Allergy (Mild, Verified 09/30/24 12:46) leg edema aspirin [Aspirin] Allergy (Mild, Verified 09/30/24 12:46) ULCER HX, abdominal pain latex [Latex] Allergy (Mild, Verified 09/30/24 12:46) RASH metronidazole [Flagyl] Allergy (Mild, Verified 09/30/24 12:46) rash Medication List - Last Reconciled 09/30/24 by Lakeisha Lamas MD albuterol sulfate 90 mcg/actuation 2 inhalations inhalation Q4-6H PRN betamethasone dipropionate 0.05% 1 appl topical DAILY 2 weeks bisacodyl 10 mg (2 x 5 mg) PO BEDTIME blood pressure monitor As directed calcium carbonate 600 mg PO BID cholecalciferol (vitamin D3) 25 mcg PO DAILY 30 days clobetasol 0.05% 1 appl topical DAILY clotrimazole-betamethasone 1-0.05 % 1 appl topical BID 2 weeks cyclobenzaprine 10 mg PO TID PRN docusate sodium 100 mg PO BID estradiol 0.01%(0.1mg/gram) 1 g vaginal 3XW hydrocortisone 2.5% 1 appl topical TID 14 days levothyroxine 50 mcg PO QAM 90 days loratadine 10 mg PO DAILY 30 days losartan 100 mg PO DAILY 90 days meclizine 25 mg PO DAILY PRN 30 days methylcellulose (laxative) (Fiber Laxative (methylcellulose)) 1,000 mg (2 x 500 mg) PO DAILY ubvraufkobba-pvsg-imwtt acid 18-400 mg-mcg (Centrum Complete) 1 tab PO DAILY naproxen 500 mg PO BID PRN 5 days nystatin 1 appl topical BID 2 weeks pantoprazole 40 mg PO DAILY prednisone 10 mg PO DAILY 5 days HPI HPI Comments History of Present Illness Details The patient is a 69-year-old female presenting for a Medicare Annual Wellness Exam. She was concerned about her hypertension management, noting that her blood pressure readings were occasionally elevated. She monitors her blood pressure and modifies her salt intake, but noted that her heart requires a strict no-salt diet. [facility] handed to patient. [place] of care reviewed and updated. The patient has a history of osteopenia, diagnosed during a bone density scan in 2023 and is currently managed with calcium and vitamin D supplementation. Regarding her mild depression, the patient scores a 4 on the PHQ-9 questionnaire indicating minimal depressive symptoms. She reports a history of allergic reactions to certain medications; amlodipine results in leg swelling and aspirin causes abdominal pain. Additional allergies include latex and metronidazole. Her medication regimen includes levothyroxine, loratadine, losartan, meclizine, naproxen, nystatin, pantoprazole, calcium and vitamin D supplements, estradiol, and bisacodyl. She inconsistently uses meclizine for dizziness, which occasionally recurs without refills available. There was a previous bladder prolapse diagnosed, and she has experienced frequent urinary symptoms. However, despite increased yellow vaginal discharge, there appears to be no persistent infection as urinalysis results were negative. She raised concerns about scalp and skin itchiness and some transient skin rashes, recommending follow-up in dermatology if necessary. Past significant family history includes her father's liver and heart issues, while her mother suffered from Alzheimer's disease, diabetes, and a stroke. - Pneumonia vaccination was administered at age 64 - Tetanus vaccination was administered in 2021; next due in 2031 - Bone densitometry was performed in 2023; scheduled for 2025 due to osteopenia diagnosis - Influenza vaccination is administered annually - Mammography scheduled for March - Colonoscopy performed in 2023 with negative results; repeat in 10 years [facility] Medical History (Updated 09/30/24 @ 13:09 by Lakeisha Lamas MD) Encounter for Medicare annual wellness exam Skin lesion Right knee pain Arthritis of right knee Vertigo Pre-op examination Arrhythmia Preop exam for internal medicine Family history of polyps in the colon Screening for colon cancer Left foot pain Sinus tachycardia RUQ abdominal pain Forgetfulness Hemorrhoids Cervical cancer screening Adult general medical exam Post-menopausal Diverticulitis large intestine Atypical facial pain Multinodular thyroid Cough Low back pain Bleeding hemorrhoids History of diverticulitis Osteoarthritis of right knee Right shoulder pain Neck pain Osteopenia Mild depression TMJ (temporomandibular joint syndrome) GERD (gastroesophageal reflux disease) Allergic rhinitis Hypovitaminosis D Hypothyroidism Essential hypertension Surgical History Hx of biopsy History of root canal procedure Hx of colonoscopy History of prolapse of bladder Hx of cone biopsy of cervix History of tubal ligation Family History Father Liver problem CVD (cardiovascular disease) Mother Diabetes Stroke Alzheimer disease Chronic mental illness Maternal Grandmother Cancer Uterine cancer Paternal Uncle Diabetes Brother Cancer Family/Other Chronic mental illness Daughter No problems noted. Daughter No problems noted. Sister Alzheimer disease Social History Housing: Apartment Are you a primary senior caregiver to a significant other at home: No Alcohol intake: never Patient Tobacco Use Status: Never used Tobacco e-Cigarette/Vaping Use: Never Used Second Hand Smoke Exposure: No service: No Current occupational status: unemployed Cognitive needs: No Hearing needs: No Vision needs: Yes Questionnaire Medicare Wellness Checkup [age] What gender do you identify with?: female During the past 4 weeks, how much have you been bothered by emotional problems such as feeling anxious, depressed, irritable, sad or downhearted, and blue?: slightly During the past 4 weeks, has your physical & emotional health limited your social activities with family, friends, neighbors, or groups?: not at all During the past 4 weeks, how much bodily pain have you generally had?: very mild pain During the past 4 weeks, was someone available to help you if you needed & wanted help?: no, not at all During the past 4 weeks, what was the hardest physical activity you could do for at least 2 minutes?: moderate Can you get to places out of walking distance without help? (For eg., can you travel alone on buses, taxis or drive your car?): Yes Can you go shopping for groceries or clothes without someone's help?: Yes Can you prepare your own meals?: Yes Can you do your housework without help?: Yes Because of any health problems, do you need the help of another person with your personal care needs such as eating, bathing, dressing or getting around the house?: No Can you handle your own money without help?: Yes During the past 4 weeks, how would you rate your health in general?: fair During the past 4 weeks how have things been going for you?: pretty bad Are you having difficulties driving your car?: no Do you always fasten your seat belt when you are in a car?: yes, usually During past 4 weeks, have you been bothered by the following: never: Falling or dizzy when standing up, Sexual problems? and Problems using the telephone?, sometimes: Trouble eating well? and Tiredness or fatigue? and often: Teeth or denture problems? Have you fallen 2 or more times in the past year?: No Are you afraid of falling?: No Are you a smoker?: no During the past 4 weeks, how many drinks of wine, beer, or other alcoholic beverages did you have?: no alcohol at all Do you exercise for about 20 minutes 3 or more times a week?: yes, some of the time Have you been given information to help with the following?: yes: Hazards in your house that might hurt you? and yes: Keeping track of your medications? How often do you have trouble taking medicines the way you have been told to take them?: I always take medicine as prescribed How confident are you that you can control & manage most of your health problems?: very confident What is your race?: or origin or descent Mini Mental State Exam (MMSE) Orientation What is the (year) (season) (date) (day) (month)?: year, season, date, day and month Where are we (state) (county) (town or city) (hospital) (floor)?: state, county, town or city, hospital/clinic and floor Registration Name of 3 unrelated objects clearly and slowly, then ask patient to repeat all 3 of them. (1st repeat determines score. Make sure they can repeat all three): object 1, object 2 and object 3 Attention & Calculation (CHOOSE ONE) Spell WORLD backwards (DLROW): 5 letters Recall Ask patient to repeat the 3 items from question #3.: object 1 and object 2 Language Show patient a wristwatch & ask what it is. Repeat for pencil.: watch and pencil Ask the patient to repeat the phrase 'No ifs, ands, or buts' after you.: correct Ask the patient to 'take a piece of paper with their right hand' 'fold paper in half' 'place paper on floor': take paper in right hand, fold paper in half and place paper on floor Print the sentence 'CLOSE YOUR EYES' on a piece. If patient actually closes eyes then score.: followed written direction Give patient a blank piece of paper & ask to write a sentence. Score if it contains a noun & verb.: sentence contains subject and verb Ask patient to copy figure of intersecting pentagons exactly. Score if all 10 angles & 2 intersects are included.: all 10 angles present & 2 are intersected Score Score: 29 Activity of Daily Living Bathing - sponge bath, tub bath or shower: receives no assistance (gets in/out by self, if usual bathing means Dressing - getting clothes from closets & drawers, including inner/outer garments & fasteners.: gets clothes & gets completely dressed without help Transfer: moves in & out of bed and chair without help (may use support object) Continence: controls urination/bowel movements completely by self Feeding: feeds self without help Total Score: 0 Information obtained from: patient Using telephone: independent Traveling: independent Shopping: independent Preparing meals: independent Housework: independent Taking medicine: independent Managing money: independent PHQ-9 Over the last 2 weeks, how often have you been bothered by any of the following problems? 1. Little interest or pleasure in doing things: several days 2. Feeling down, depressed, or hopeless: not at all 3. Trouble falling or staying asleep, or sleeping too much: several days 4. Feeling tired or having little energy: several days 5. Poor appetite or overeating: not at all 6. Feeling bad about yourself - or that you are a failure or have let yourself or your family down: not at all 7. Trouble concentrating on things, such as reading the newspaper or watching television: several days 8. Moving or speaking so slowly that other people could have noticed. Or the opposite - being so fidgety or restless that you have been moving around a lot more than usual: not at all 9. Thoughts that you would be better off or of hurting yourself in some way: not at all Total score: 4 Depression Screening Interpretation: Positive Depression Screening Follow-up: Existing condition and Follow-up Visit Requested Depression Screening Done: Yes 81818 - PHQ-9 Billing: Yes Source: Developed by Drs. Alex Cowan, Seferino Garcia and colleagues, with an educational deondre from [employer]. BREANNA-7 AMB Questionnaire BREANNA-7 Date BREANNA - 7 assessed: 09/30/24 Feeling nervous, anxious, or on edge: 0 = Not at all Not being able to stop or control worryin = Not at all Worrying too much about different things: 0 = Not at all Trouble relaxin = Not at all Being so restless that it is hard to sit still: 0 = Not at all Becoming easily annoyed or irritable: 0 = Not at all Feeling afraid as if something awful might happen: 0 = Not at all Total BREANNA-7 score (0-4 normal; 5-9 mild; 10-14 moderate; 15-21 severe): 0 Source: Developed by Drs. Alex Cowan, Ananya Black, Seferino Vásquez and colleagues, with an educational deondre from [employer]. BREANNA-7 Assessment Billing BREANNA-7 Assessment Tool: BREANNA-7 Assessment 83147 Thrive Questionnaire Date Thrive assessed: 09/30/24 I am a: Patient What is your living situation today?: I have a steady place to live Within the past 12 months, did the food you bought not last and you didn't have the money to get more?: Never true Within the past 12 months, did you worry whether your food would run out before you got money to buy more?: Never true Do you have trouble paying for medicines?: No Do you have trouble getting transportation to medical appointments?: No Do you have trouble paying your heating and electricity bill?: No Do you have trouble taking care of your child, family member or friend?: No Do you have trouble with day-to-day activities such as bathing, preparing meals, shopping, managing finances, etc.?: No Are you currently unemployed and looking for a job?: No Are you interested in more education?: No Please select the resources that you would like help with: None Currently or been in a relationship where the following occur: No concerns reported THRIVE Score: 0 AUDIT C Alcohol Use Questionnaire (AUDIT-C) 1. How often do you have a drink containing alcohol?: Never Total Score: 0 Score Reviewed/Action Taken: No Review of Systems Const All systems reviewed & are unremarkable except as noted in HPI and below Card Denies chest pain at rest, Denies chest pain with activity, Denies edema, Denies irregular heart rhythm, Denies claudication, Denies dyspnea, Denies dyspnea on exertion, Denies orthopnea, Denies paroxysmal nocturnal dyspnea and Denies slow heart rate Resp Denies cough, Denies dyspnea and Denies dyspnea on exertion GI Denies abdominal pain, Denies change in bowel habits, Denies excessive flatus, Denies nausea and Denies vomiting Neuro Denies lack of coordination Physical Exam Vital Signs: Last Vital Signs BP 142/76 H 09/30/24 12:34 BMI result Body Mass Index 23.0 Const Orientation/consciousness: patient oriented x3 HEENT Ears: hearing grossly normal bilaterally Resp Effort & Inspection: normal respiratory effort Auscultation: clear to auscultation bilaterally Cardio Jugular venous distension: no JVD Rate: regular rate Rhythm: regular rhythm Heart sounds: S1 normal heart sound present and S2 normal heart sound present Neuro General: patient oriented x3 and no focal motor deficits Gait exam (Neuro): Normal gait present Romberg Test: Negative Extrem General: Yes full ROM Psych Appearance: grossly normal Assessment & Plan Assessment & Plan (1) Encounter for Medicare annual wellness exam: Code(s): Z00.00 - Encounter for general adult medical examination without abnormal findings (2) Skin lesion: Code(s): L98.9 - Disorder of the skin and subcutaneous tissue, unspecified Plan During this visit, we discussed continuing health maintenance therapies, including osteoporosis management with calcium and vitamin D supplements, regular immunizations, and monitoring her blood pressure with the possibility of initiating a low-dose antihypertensive treatment. We have also discussed the importance of adhering to a no-salt diet. Current mild depressive symptoms warrant periodic reevaluation but no change in management at this time. We further explored potential referral to dermatology for ongoing dermatologic symptoms. Follow-up on urinary symptoms in relation to her bladder prolapse will continue, with plans to reevaluate if symptoms persist or worsen. Patient was informed and verbally consented to the use of an ambient scribe for clinic note documentation during this visit. I discussed with the patient her essential hypertension management, specifically regarding sodium restrictions and possible treatment adjustments to better manage elevated blood pressure readings. We reviewed her current medications and allergies, emphasizing medication safety and avoidance of identified allergens such as amlodipine and aspirin. I explained the rationale for continued calcium and vitamin D supplementation for osteopenia and the absence of concerns from her recent lab results. We reviewed the current management of her mild depression and confirmed the absence of significant issues with her thyroid function. We assessed the increased vaginal discharge, necessitating monitoring but no immediate intervention. I provided reassurance and anticipatory guidance regarding her dermatologic symptoms, advising further evaluation only if these persist or worsen. We talked about the importance of regular follow-ups and monitoring her health metrics, especially concerning blood pressure and bone density. Orders: Referrals Dermatology Referral L98.9 - Disorder of the skin and subcutaneous tissue, unspecified Medications: New spironolactone 25 mg PO DAILY 90 days 90 tabs 1RF Patient Instructions: - Continue taking all prescribed medications as directed. - Monitor blood pressure regularly and maintain a no-salt diet. - Follow up with recommended mammography in March. - Schedule bone density evaluation as planned in 2025. - Maintain influenza vaccination schedule annually. - Report any significant changes in mood, skin reactions, or urinary symptoms. - Schedule dermatology and ophthalmology referrals if skin or vision changes persist. Quality Reporting (2019) Depression/Bipolar (159/160/161/177) PHQ-9: Total score: 4 Coding Level of Care Code Medicare Subsequent (G0439) Est Pt Level 3 (47188) Diagnoses Encounter for Medicare annual wellness exam Z00.00 Skin lesion L98.9 CPT Codes Advance Care Planning - Time spent: 1-15 minutes, on File ([id number]) Additional Codes BREANNA-7 Assessment Billing - BREANNA-7 Assessment Tool: BREANNA-7 Assessment 15855 ([id number]) PHQ-9 - 54143 - PHQ-9 Billing: Yes ([id number]) Time Spent (min) 36 Advance Care Planning Advance Care Planning discussion: Declined forms Date of discussion: 09/30/24 Who was present: patient and me Forms completed: None Time spent: 1-15 minutes, on File Actual minutes spent: 1 Did not discuss due to Cultural/Spiritual beliefs: No
[2024-09-30 12:34] VITALS: BP 142/76; BMI 23.0
--- OUTSIDE RECORDS SUMMARY | 2024-09-30 13:51 | XMS_ITS | Continuity of Care Document ---
Author Organization [place] - [facility], [facility] Address [address] [place] [phone] Care Team Providers Care Radiation Protection Technician Name Role Phone LAKEISHA GARCIA Primary Care Provider [phone] Assessment No assessment recorded. Plan of Treatment Reminders Order Date Submit Date Provider Last Modified By Organization Details Last Modified Time Details Appointments None record ed. Lab None record ed. Referral None record ed. Procedures None record ed. Surgeries None record ed. Imaging None record ed. Medication Orders None record ed. Patient TargetsNo targets recorded. Patient InstructionsNo instructions recorded. Reason for Referral None Reported. Results Created Date Observation Date Name Description Value Unit Range Abnormal Flag Note LastModifiedBy Organization Detail LastModifiedTime 09/27/19 25 audio gram No observ ation record ed. BARCODE Not Available 2024 12:11:50 Result Notes None recorded. Problems Name Problem SNOMED Code Status Onset Date Resolution Date Notes Provider Name and Address Organization Details Recorded Time Sensorineur al hearing loss of bilateral ears 340849137 Active 2024 ARMEN OCAMPO [place], [facility] [address] [place] [address], [place], [address], [facility] - [facility] 5 10:02:04 Vertigo 192905778 Active 2024 ARMEN OCAMPO [place], [facility] [address] [place] [address], [place], [address], [facility] - [facility] 5 10:02:35 Bilateral tinnitus [id number] Active 2024 ARMEN OCAMPO [place], [facility] [address] [place] [address], [place], [address], [facility] 10:02:43 Benign paroxysmal positional vertigo 614021313 Active 2024 KATHRIN CAMPBELL MD [address] [address], [place], [address], [facility] 11:01:39 Problem Notes None recorded. Procedures Surgical History Date Name Laterality Status Provider Name and Address Organization Details Recorded Time 09/26/2024 Comp Audio with Tymps (44268 & 35807) completed ARMEN OCAMPO [place], [facility] [address], [address], [facility] 09/26/2024 10:02:57 Imaging Results None recorded. Procedure Notes None recorded. Medical Equipment None Reported. Allergies Allergen ID Allergen Name Allergen Category Reaction Reaction Severity Criticality Documentation Date Start Date Code Code System Note Provider Name and Address Organization Details Recorded Time 259080 aspirin medicatio n Not available Not available Not available 09/26/2024 1191 RxNorm Lakeisha adams [facility] 10:00:03 Medications Name Sig Start Date Stop Date Status Note LastModified by Organization Details LastModified Time losartan 50 mg tablet TAKE 1 TABLET BY MOUTH EVERY DAY 09/26 completed Not Available Not Available Not Available cyclobenzap rine 10 mg tablet TAKE 1 TABLET BY MOUTH THREE TIMES DAILY NEEDED active Not Available Not Available No t Available amoxicillin 500 mg capsule TAKE 1 CAPSULE BY MOUTH EVERY 8 HOURS 09/26 completed Not Available Not Available Not Available prednisone 10 mg tablet TAKE 1 TABLET BY MOUTH DAILY FOR 5 DAYS 09/26 completed Not Available Not Available Not Available Stool Softener 100 mg capsule TAKE 1 CAPSULE BY MOUTH TWICE DAILY active Not Available Not Available No t Available azithromyci n 250 mg tablet TAKE 2 TABLETS BY MOUTH TODAY, THEN TAKE 1 TABLET DAILY FOR 4 DAYS DIRECTED 09/26 completed Not Available Not Available Not Available clobetasol 0.05 % topical cream APPLY TO AFFECTED AREA TOPICALLY DAILY 09/26 completed Not Available Not Available Not Available amoxicillin 500 mg tablet TAKE 1 TABLET BY MOUTH THREE TIMES DAILY UNTIL FINISHED 09/26 completed Not Available Not Available Not Available calcium 600 mg (as calcium carbonate 1,500 mg) tablet TAKE 1 TABLET BY MOUTH TWICE DAILY active Not Available Not Available No t Available meclizine 25 mg tablet TAKE 1 TABLET BY MOUTH EVERY DAY NEEDED MAREOS 09/26 completed Not Available Not Available Not Available levothyroxi ne 50 mcg tablet TAKE 1 TABLET BY MOUTH EVERY DAY IN THE MORNING active Not Available Not Available No t Available pantoprazol e 40 mg tablet,gunjan yed release TAKE 1 TABLET BY MOUTH EVERY DAY active Not Available Not Available No t Available Citrucel 500 mg tablet TAKE 2 TABLETS BY MOUTH EVERY DAY active Not Available Not Available No t Available losartan 25 mg tablet TAKE 1 TABLET BY MOUTH EVERY DAY 09/26 completed Not Available Not Available Not Available bisacodyl 5 mg tablet,gunjan yed release TAKE 2 TABLETS BY MOUTH EVERY DAY AT BEDTIME active Not Available Not Available No t Available estradiol 0.01% (0.1 mg/gram) vaginal cream INSERT 1 GRAM VAGINALLY (BY APPLICATO RFUL) 3 TIMES a la semana active Not Available Not Available No t Available betamethaso ne dipropionat e 0.05 % topical ointment USE 1 APPL TOPICALLY DAILY FOR 2 WEEKS 09/26 completed Not Available Not Available Not Available losartan 100 mg tablet TAKE 1 TABLET BY MOUTH EVERY DAY active Not Available Not Available No t Available loratadine 10 mg tablet TAKE 1 TABLET BY MOUTH EVERY DAY active Not Available Not Available No t Available naproxen 500 mg tablet TAKE 1 TABLET BY MOUTH EVERY TWELVE HOURS WITH FOOD OR MILK NEEDED 09/26 completed Not Available Not Available Not Available amoxicillin 875 mg-potassiu m clavulanate 125 mg tablet TAKE 1 TABLET BY MOUTH EVERY 12 HOURS 09/26 completed Not Available Not Available Not Available cholecalcif mary kate (vitamin D3) 25 mcg (1,000 unit) tablet TAKE 1 TABLET BY MOUTH EVERY DAY active Not Available Not Available No t Available peg 3350-electr olytes 236 gram-22.74 gram-6.74 gram-5.86 gram solution MIX WITH WATER AND DRINK 240 ML BY MOUTH EVERY 10 MINUTES UNTIL FECAL EFFLUENT IS CLEAR 09/26 completed Not Available Not Available Not Available Mucus Relief ER 600 mg tablet, extended release TAKE 1 TABLET BY MOUTH TWICE A DAY FOR 5 DAYS 09/26 completed Not Available Not Available Not Available ProAir RespiClick 90 mcg/actuati on breath activated INHALE 2 PUFFS BY MOUTH EVERY 4 TO 6 HOURS NEEDED FOR WHEEZING OR SHORTNESS OF BREATH active Not Available Not Available No t Available Vitals None Recorded Social History None recorded. Functional Status None recorded. Mental Status None recorded. Family History Nothing Reported. Medical History Condition Response Thyroid Problems Y Arthritis Y Cancer Y GERD/Reflux Y Hypertension Y Gynecological HistoryNo gynecological history recorded. Obstetrics History GPAL:G 0 P 0 0 0 0 Past Encounters Encounter ID Performer Location Encounter Start Date Encounter Closed Date Diagnosis/Indication Diagnosis SNOMED-CT Code Diagnosis ICD10 Code Diagnosis Note [id number] KATHRIN CAMPBELL MD [facility] of [address] [address] 09/26/2024 09:18:55 09/26/2024 11:02:37 Sensorineural hearing loss of bilateral ears 133526488 H90.3 Audiologic al evaluation results:Ri ght ear:{{Norm al Normal through 2 kHz Mild M oderate Mo derately-s evere Glendy re Profoun d Normal hearing thru 2000Hz sloping#}} {{hearing hearing. s loping to a mild slopi ng to a moderate s loping to moderately severe slo ping to severe slo ping to profound f lat high frequency low frequency mid frequency cookie bite sauer curve to a mild/moder ate SNHL#}} {{with* se nsorineura l hearing loss with condu ctive hearing loss with mixed hearing loss with}} {{excellen t* good fa ir poor no measurable }} word recognitio n.Left ear:{{Norm al Normal through 2 kHz Mild M oderate Mo derately-s evere Glendy re Profoun d Normal hearing thru 2000Hz sloping to a #}} {{hearing hearing. s loping to a mild slopi ng to a moderate s loping to moderately severe slo ping to severe slo ping to profound f lat high frequency low frequency mid frequency cookie bite sauer curve mild /moderate SNHL#}} {{with* se nsorineura l hearing loss with condu ctive hearing loss with mixed hearing loss with}} {{excellen t* good fa ir poor no measurable }} word recognitio n. Tympanomet ry:Right Ear:{{Type A* Type A with rounded peak Type A with double peak Type As Type As with rounded peak Type Ad Type C Type C, shallow & rounded peak Type B Type B with large volume Cou ld not maintain a hermetic seal}}Left Ear:{{Type A* Type A with rounded peak Type A with double peak Type As Type As with rounded peak Type Ad Type C Type C, shallow & rounded peak Type B Type B with large volume Cou ld not maintain a hermetic seal}}Lisa ent's audiogram shows bilateral {{mild* mo derate sev ere}} {{right sided left sided bila teral*}} sensorineu ral hearing loss with {{well maintained * moderate ly reduced po or}} speech discrimina tion. There is not enough hearing loss to significan tly affect day-to-day hearing performanc e. I gave the patient reassuranc e that hearing aids are typically not recommende d for this degree of hearing loss. We did discuss that hearing loss can progress over time. We discussed the pathophysi ology of hearing loss and risk factors for progressio n including aging and noise exposure. Recommend followup hearing testing {{in 1 year in 2 years in 3 years as needed for subjective changes in hearing*}} . Bilateral tinnitus 51289 48221 102 H93.13 Today we discussed the pathophysi ology of tinnitus and the absence of consistent ly successful pharmacolo gic treatments for tinnitus. We discussed masking strategies to decrease awareness of the tinnitus, including using a white noise machine, music, or television . We discussed how exposure to loud noise can worsen tinnitus so I recommende d hearing protection . We also discussed other ways to potentiall y help reduce awareness of tinnitus including avoidance of caffeine, salty meals and NSAIDs. Benign par oxysmal positional vertigo 484810769 H81.10 Patient with recent history of episodic positional ly induced vertigo, now resolved. Fil[place]-Hallpi ke was negative for vertigo and rotary nystagmus. We discussed that the patient? s previous pattern of symptoms are most consistent with benign paroxysmal positional vertigo (BPPV) which has resolved spontaneou sly. The pathophysi ology of BPPV was discussed in detail. Patient currently requires no further workup or treatment. BPPV can recur and if the classic positional ly induced symptoms do recur, patient can be provided with a referral to physical therapist a ble with performanc e of Mandie maneuvers and vestibular therapy. Health Concerns Section Related Observation LastModified by Organization Detai ls LastModified Time None Recorded Concern Status LastModified by Organization Details LastModified Time None Recorded Payers Encounter Date Sequence Insurance Name Policy Number Policy Donahue Covered Member ID Donahue Member ID Guarantor Name 09/26/2024 1 [employer] - DUAL ELIGIBLE - [facility] - SENIOR PLAN (MEDICARE REPLACEMENT/ ADVANTAGE - HMO) Radha Kennedy [id number] Radha Kennedy Notes Date Note Type Note Provider Name and Address Organization Details Recorded Time 09/26/2024 text/html 69-year-old fema kin with hypertension, hypothyroidism and gastroesophageal reflux disease who was referred by her primary care physician for evaluation of dizziness. Patient described to her primary care physician that it primarily occurred while changing head position. She was noting that it would happen in bed. Patient given meclizine, referred to vestibular therapy and ENT. Patient did not go to see a physical therapist. Fortunately, patient has not had any episodes of dizziness for the last 7 months. Patient comes in today accompanied by her son who is helping to provide history and also helped with Lao translation. Neither she nor her son noticed any difficulty with her hearing in general. She does noticed tinnitus bilaterally KATHRIN CAMPBELL MD [address] [place] [address], [place], [address], [facility] - [facility] 09/26/2024 11:04:24 OBGyn Episode No OBEpisode recorded.
--- OUTSIDE RECORDS SUMMARY | 2024-09-30 13:51 | XMS_ITS | Data Portability ---
Author Organization [place] - [facility], Allergy Address [address] [address] Care Team Providers Care Collision Repair Technician Name Role Phone LAKEISHA GARCIA Primary Care Provider Assessment No assessment recorded. Plan of Treatment [...] Sensorineur al hearing loss of bilateral ears 424099902 Active 2024 ARM[facility] OCAMPO [place], [facility] [address] [place] [address], [place], [address], [facility] - [facility] 5 10:02:04 Vertigo 552916001 Active 2024 ARMEN OCAMPO [place], [facility] [address] [place] [address], [place], [address], [facility] - [facility] 5 10:02:35 Bilateral tinnitus 9793614812200 Active 2024 ARMEN OCAMPO [place], [address] [place] [address], [place], [address], [facility] - [facility] 5 10:02:43 Benign paroxysmal positional vertigo 285703802 Active 2024 KATHRIN CAMPBELL MD 100 [facility] 100, [facility] [place], [address], [facility] - [facility] 11:01:39 Problem Notes None recorded. Procedures Surgical History Date Name Laterality Status Provider Name and Address Organization Details Recorded Time 09/26/2024 Comp Audio with Tymps (85833 & 43162) completed ARMEN OCAMPO [place], CCC-A 100 [facility], [place], [address], [facility] - [facility] 09/26/2024 10:02:57 Imaging Results Imaging Date Name Status LastModified by Organiz ation Details LastModified Time 09/26/2024 audiogram completed BARCODE Information no t available 09/26/2024 12:11:50 Procedure Notes None recorded. Medical Equipment None Reported. Allergies Allergen ID Allergen Name Allergen Category Reaction Reaction Severity Criticality Documentation Date Start Date Code Code System Note Provider Name and Address Organization Details Recorded Time 559673 aspirin medicatio n Not available Not available Not available 09/26/2024 1191 RxNorm Lakeisha adams [place] - [facility] 10:00:03 Medications Name Sig Start Date Stop [...] History Nothing Reported. Medical History Condition Response Cancer Y Arthritis Y Thyroid Problems Y Hypertension Y GERD/Reflux Y Gynecological HistoryNo gynecological history recorded. Obstetrics History GPAL:G 0 P 0 0 0 0 Past Encounters Encounter ID Performer Location Encounter Start Date Encounter Closed Date Diagnosis/Indication Diagnosis SNOMED-CT Code Diagnosis ICD10 Code Diagnosis Note [id number] KATHRIN CAMPBELL MD [facility] of [address] [address] 09/26/2024 09:18:55 09/26/2024 11:02:37 Sensorineural hearing loss of bilateral ears 237408016 H90.3 Audiologic al evaluation results:Ri ght ear:{{Norm [...] subjective changes in hearing*}} . Bilateral tinnitus 75338 53678 102 H93.13 Today we discussed the pathophysi [...] and NSAIDs. Benign par oxysmal positional vertigo 947553097 H81.10 Patient with recent history of episodic positional ly induced vertigo, now resolved. [place]-Hallpi ke was negative for vertigo and rotary [...] with a referral to physical therapist a rito with performanc e of Mandie maneuvers and vestibular therapy. Health Concerns Section Related Observation LastModified by Organization Detai ls LastModified Time None Recorded Concern Status LastModified by Organization Details LastModified Time None Recorded Advance Directives Directive None Recorded Payers Encounter Date Sequence Insurance Name Policy Number Policy Donahue Covered Member ID Donahue Member ID Guarantor Name 09/26/2024 1 [employer] - DUAL ELIGIBLE - [facility] (MEDICARE REPLACEMENT/ ADVANTAGE - HMO) Radha Kennedy [id number] Radha Kennedy Notes Date Note Type Note Provider Name and Address Organization Details Recorded Time 09/26/2024 text/html 69-year-old fema le with hypertension, hypothyroidism and gastroesophageal reflux disease [...] to provide history and also helped with Nigerian translation. Neither she nor her son noticed any difficulty with her hearing in general. She does noticed tinnitus bilaterally KATHRIN CAMPBELL MD [address] [place] [address],[address] [address], [place], [address], [facility] - [facility] 09/26/2024 11:04:24 OBGyn Episode No OBEpisode recorded.
--- OUTSIDE RECORDS SUMMARY | 2024-09-30 13:51 | XMS_ITS | Encounter Summary ---
Author Organization [facility] Address [address] [facility] [address] [place] [address] Care Team Providers Care Websphere Commerce Architect Name Role Phone Unavailable Primary Care Provider Unavailabl e Encounter Details Date Type Department Care Team (Latest Contact Info) Description 02/15/2019 Abstract [facility] CONVERSIONS Dental, Provider, DDS Social History [...]
--- OUTSIDE RECORDS SUMMARY | 2024-09-30 13:51 | XMS_ITS | Clinical Summary ---
Author Organization [email or web address] Address [address] [facility] [address] [place] [address] Care Team Providers Care Rack Production Worker Name Role Phone Unavailable Primary Care Provider [...]
--- OUTSIDE RECORDS SUMMARY | 2024-09-30 13:51 | XMS_ITS | Clinical Summary ---
Author Organization [address] [place] [address] Address [address] [place] [address] Phone Care Team Providers Care Fiscal Accountant Name Role Phone Lakeisha Lamas MD Primary Care Provider [phone] Encounters Date Type Department Care Team Description 09/02/2024 2:00 PM EST Consult Orthopedic [place] [address] [phone] Ruddy Hogan DPM Pain in toes of [...] 11/04/2024 9:45 AM EDT Office Visit Orthopedic [facility] [address] [phone] Ruddy Hogan DPM [address] [address] Health Maintenance Due Date Last Done Comments [...] Insurance [facility] [employer] ADV[employer]AGE Care Teams Fiscal Accountant Relationship Specialty Start Date End Date Lakeisha Lamas MD [address] [facility] , [address] [facility] D/B/A[facility] [place] PCP - General Internal Medicine 08/26/24
== END 2024-09-30 13:07 | disposition home or self-care (01) ==
LOC: HO.HMCH 12:11
PROVIDERS: PCP Internal Medicine; Visit Provider Internal Medicine
DX: Z00.00 Encounter for general adult medical examination without abnormal findings (principal); L98.9 Disorder of the skin and subcutaneous tissue, unspecified

== ENCOUNTER → 2024-09-30 12:11 | Outpatient (BNVA) | payer OTHER, SELFPAY | PROVIDERS: PCP Internal Medicine; Visit Provider Internal Medicine | DX: Z00.00 Encounter for general adult medical examination without abnormal findings (principal); I10 Essential (primary) hypertension; L98.9 Disorder of the skin and subcutaneous tissue, unspecified | CPT/HCPCS: 96127; 99212 ==

== ENCOUNTER 2024-10-08 10:32 | Outpatient (AMB) | payer OTHER, SELFPAY ==
--- NOTE | 2024-10-08 10:36 | A.OFFVIS_ITS ---
Vital Signs 10/08/24 10:54 Height 5 ft 4 in Weight 134 lb BMI 23.0 BP 140/78 H Blood Pressure Location Lt brachial Position Sitting Pulse 94 Intake Visit Reasons: 6 MO F/U GERD (gastroesophageal reflux disease Intake Note: Patient in office today in follow up of GERD. CC: Patient reports occasional gas pain. Denies other GI symptoms today. Co Founder & Ceo Required: Yes Accompanied by: Self / Same As Patient Allergies amlodipine Allergy (Mild, Verified 10/08/24 10:56) leg edema aspirin [Aspirin] Allergy (Mild, Verified 10/08/24 10:56) ULCER HX, abdominal pain latex [Latex] Allergy (Mild, Verified 10/08/24 10:56) RASH metronidazole [Flagyl] Allergy (Mild, Verified 10/08/24 10:56) rash HPI HPI 6 MO F/U GERD (gastroesophageal reflux disease: Details: Assessment & Plan (1) Hx of colonoscopy: Comment: 03/2024=neg study [facility] repeat 10 years. Code(s): Z98.890 - Other specified postprocedural states Category: Medical (2) GERD (gastroesophageal reflux disease): Code(s): K21.9 - Gastro-esophageal reflux disease without esophagitis Category: Medical Qualifiers: Esophagitis presence: esophagitis presence not specified Qualified Code(s): K21.9 - Gastro-esophageal reflux disease without esophagitis (3) Chronic idiopathic constipation: Code(s): K59.04 - Chronic idiopathic constipation Category: Medical Plan [place] #Adira Live She is agreeable to a 10 year recall. The procedure was well tolerated. The results were explained and the patient is agreeable to the follow-up interval as stated. The bowel pattern has returned to normal. Education was provided to tell any 1st degree relatives about their findings to be sure that they are screened by age 45. Educated that they will be put on a recall list when it is time for their repeat scope but should they move out of state or away from the hospital they will need to remember along with their primary to repeat the procedure in a timely fashion to avoid any adverse complications. She continues to do well on her pantoprazole and bisacodyl (which she prefers to Linzess) Return office visit in 6 months Medications: Changed From methylcellulose (laxative) 1,000 mg (2 x 500 mg) PO DAILY 60 tabs 6RF K59.01 - Slow transit constipation, Z87.19 - Personal history of other diseases of the digestive system To methylcellulose (laxative) (Fiber Laxative (methylcellulose)) 1,000 mg (2 x 500 mg) PO DAILY 60 tabs 6RF K59.01 - Slow transit constipation, Z87.19 - Personal history of other diseases of the digestive system Refilled docusate sodium 100 mg PO BID 60 caps 6RF K59.01 - Slow transit constipation hydrocortisone 2.5% 1 appl topical TID 20 grams 0RF 14 days bisacodyl 10 mg (2 x 5 mg) PO BEDTIME 60 tabs 6RF pantoprazole 40 mg PO DAILY 30 tabs 6RF TODAY'S VISIT [place] #Razia Live She continues to do well on her pantoprazole, colace, proctosol cream and bisacodyl (which she prefers to Linzess). She was recently out of control with her BP and they added another HTN medication. It is HCTZ. I advise her that this is a mild diuretic and sometimes increases CIC and to advise me. She asks if any of the medicine I rx can cause HTN, and they don't, but she is not strictly reading labels and limiting her salt. She is only limiting so, so. I print her a low Na+ food guide in Bahraini. She has never been given this. ROV 6mos. PFSH Medical History (Updated 10/08/24 @ 10:37 by NELLY Mckinley) Encounter for Medicare annual wellness exam Skin lesion Right knee pain Arthritis of right knee Vertigo Pre-op examination Arrhythmia Preop exam for internal medicine Family history of polyps in the colon Screening for colon cancer Left foot pain Sinus tachycardia RUQ abdominal pain Forgetfulness Hemorrhoids Cervical cancer screening Adult general medical exam Post-menopausal Diverticulitis large intestine Atypical facial pain Multinodular thyroid Cough Low back pain Bleeding hemorrhoids History of diverticulitis Osteoarthritis of right knee Right shoulder pain Neck pain Osteopenia Mild depression TMJ (temporomandibular joint syndrome) GERD (gastroesophageal reflux disease) Allergic rhinitis Hypovitaminosis D Hypothyroidism Essential hypertension Surgical History Hx of biopsy History of root canal procedure Hx of colonoscopy History of prolapse of bladder Hx of cone biopsy of cervix History of tubal ligation Family History Father Liver problem CVD (cardiovascular disease) Mother Diabetes Stroke Alzheimer disease Chronic mental illness Maternal Grandmother Cancer Uterine cancer Paternal Uncle Diabetes Brother Cancer Family/Other Chronic mental illness Daughter No problems noted. Daughter No problems noted. Sister Alzheimer disease Social History Housing: Apartment Are you a primary urgent care physician assistant to a significant other at home: No Alcohol intake: never Patient Tobacco Use Status: Never used Tobacco e-Cigarette/Vaping Use: Never Used Second Hand Smoke Exposure: No service: No Current occupational status: unemployed Cognitive needs: No Hearing needs: No Vision needs: Yes Review of Systems Const Denies fatigue, Denies fever(s), Denies night sweats, Denies poor appetite and Denies weight loss ENT Reports Normal hearing present, Denies dental pain, Denies dysphagia, Denies hearing loss, Denies mouth pain, Denies odynophagia, Denies throat swelling, Denies tongue swelling and Reports other (Dentition adequate) Card Reports no additional complaints Resp Reports no additional complaints GI Details: Denies abdominal pain, Denies melena, Denies bloating, Denies hematochezia, Reports constipation, Denies GI cramping, Denies dysphagia, Denies excessive flatus, Denies early satiety, Reports heartburn, Denies diarrhea, Denies nausea, Denies odynophagia, Denies vomiting and Denies hematemesis Skin/Breast Denies pruritus, Denies lesions, Denies rash and Denies jaundice Neuro Reports Normal hearing present and Denies Abnormal speech present Endo Denies fatigue Aller/Immun Denies throat swelling and Denies tongue swelling Physical Exam Const General: cooperative, no acute distress, well developed and well groomed Nutritional Appearance: average body habitus and well nourished Orientation/consciousness: oriented to person, oriented to place and oriented to time Limitations: language barrier HEENT Head: Yes normocephalic and Yes atraumatic Eyes General: appearance normal, both eyes and all related structures Pupils: Equal, round and reactive pupils present Neck Neck: Yes normal visual inspection and Yes no lymphadenopathy Thyroid: Thyroid normal Resp Effort & Inspection: normal respiratory effort and able to speak in complete sentences Auscultation: clear to auscultation bilaterally Cardio Rate: regular rate Rhythm: regular rhythm Heart sounds: Normal, physiologic split S2 sound present Peripheral pulses: radial pulses present and posterior tibial pulses present GI Inspection: No distended and No Abdominal panniculus present Palpation (GI): Soft to palpation, nontender, no guarding, not rigid and No hepatosplenomegaly present Percussion: Yes normal to percussion Auscultation: normal bowel sounds Rectal Exam - Female: deferred Skin General skin exam: no rashes or lesions noted, turgor normal, skin not dry, no jaundice, No spider nevi and no striae Rashes: no rashes Nails: normal Neuro General: oriented to person, oriented to place and oriented to time Cranial nerves: Yes Equal, round and reactive pupils present and Yes Normal hearing present Speech: No Abnormal speech present Extrem General: Yes normal to inspection, No clubbing, No cyanosis and No edema Psych Appearance: grossly normal and well kempt Mental Status: mental status grossly normal Speech and movement: Normal speech and movement present Affect: normal affect Attitude: cooperative Thought process: Normal thought process present and not confabulating Thought content: Normal thought content present Insight: Limited insight present (Psych) Judgement: Limited judgement present (Psych) Assessment & Plan Assessment & Plan (1) Chronic idiopathic constipation: Code(s): K59.04 - Chronic idiopathic constipation Category: Medical (2) GERD (gastroesophageal reflux disease): Code(s): K21.9 - Gastro-esophageal reflux disease without esophagitis Category: Medical Qualifiers: Esophagitis presence: esophagitis presence not specified Qualified Code(s): K21.9 - Gastro-esophageal reflux disease without esophagitis Plan [place] #Tachira Live She continues to do well on her pantoprazole, colace, proctosol cream and bisacodyl (which she prefers to Linzess). She was recently out of control with her BP and they added another HTN medication. It is HCTZ. I advise her that this is a mild diuretic and sometimes increases CIC and to advise me. She asks if any of the medicine I rx can cause HTN, and they don't, but she is not strictly reading labels and limiting her salt. She is only limiting so, so. I print her a low Na+ food guide in [place]raini. She has never been given this. ROV 6mos. Medications: Refilled bisacodyl 10 mg (2 x 5 mg) PO BEDTIME 60 tabs 6RF docusate sodium 100 mg PO BID 60 caps 6RF K59.01 - Slow transit constipation methylcellulose (laxative) (Fiber Laxative (methylcellulose)) 1,000 mg (2 x 500 mg) PO DAILY 60 tabs 6RF K59.01 - Slow transit constipation, Z87.19 - Personal history of other diseases of the digestive system pantoprazole 40 mg PO DAILY 30 tabs 6RF Coding Level of Care Code Est Pt Level 3 (01621) Diagnoses Chronic idiopathic constipation K59.04 Gastroesophageal reflux disease, unspecified whether esophagitis present K21.9 Esophagitis presence: esophagitis presence not specified
[2024-10-08 10:54] VITALS: BP 140/78; PULSE 94; BMI 23.0
--- OUTSIDE RECORDS SUMMARY | 2024-10-08 12:35 | XMS_ITS | Data Portability ---
Author Organization [place] - [facility], Allergy Address [address] [address] Care Team Providers Care Radioactive Waste Disposal Dispatcher Name Role Phone LAKEISHA GARCIA Primary Care [...] Sensorineur al hearing loss of bilateral ears [id number] Active 2024 ARMEN OCAMPO [place], [facility] [address] [place] [address], [facility] [place], [phone], [facility] - [facility] 5 10:02:04 Vertigo 840161218 Active 2024 ARMEN OCAMPO [place], [facility] [address] [place] [address], [place], [phone], [facility] - [facility] 5 10:02:35 Bilateral tinnitus [id number] Active 2024 ARMEN OCAMPO [place], [place] [address], [place], [phone], [facility] - [facility] 5 10:02:43 Benign paroxysmal positional vertigo 335576569 Active 2024 KATHRIN CAMPBELL MD 100 [facility] 100, [facility] [place], [phone], [facility] - [facility] 11:01:39 Problem Notes None recorded. Procedures Surgical History Date Name Laterality Status Provider Name and Address Organization Details Recorded Time 09/26/2024 Comp Audio with Tymps (18583 & 60098) completed ARMEN OCAMPO MA, CCC-A 100 [facility], [place], [phone], [facility] - [facility] 09/26/2024 10:02:57 Imaging Results Imaging Date Name Status LastModified by Organiz ation Details LastModified Time 09/26/2024 audiogram completed BARCODE Information no t available 09/26/2024 12:11:50 Procedure Notes None recorded. Medical Equipment None Reported. Allergies Allergen ID Allergen Name Allergen Category Reaction Reaction Severity Criticality Documentation Date Start Date Code Code System Note Provider Name and Address Organization Details Recorded Time 667098 aspirin medicatio n Not available Not available Not available 09/26/2024 1191 RxNorm Lakeisha adams [place] - [facility] 10:00:03 Medications Name Sig Start Date Stop [...] SNOMED-CT Code Diagnosis ICD10 Code Diagnosis Note [id number] KATHRIN CAMPBELL MD [facility] [address] [phone] 09/26/2024 09:18:55 09/26/2024 11:02:37 Sensorineural hearing loss of bilateral ears [id number] H90.3 Audiologic al evaluation results:Ri ght ear:{{Norm [...] subjective changes in hearing*}} . Bilateral tinnitus 19676 29932 102 H93.13 Today we discussed the pathophysi [...] and NSAIDs. Benign par oxysmal positional vertigo [id number] H81.10 Patient with recent history of episodic positional ly induced vertigo, now resolved. [place] was negative for vertigo and rotary [...] provided with a referral to physical therapist dami veras with performanc e of Mandie maneuvers and vestibular therapy. Health Concerns Section Related Observation LastModified by Organization Detai ls LastModified Time None Recorded Concern Status LastModified by Organization Details LastModified Time None Recorded Advance Directives Directive None Recorded Payers Encounter Date Sequence Insurance Name Policy Number Policy Donahue Covered Member ID Donahue Member ID Guarantor Name 09/26/2024 1 [employer] - DUAL ELIGIBLE [facility] S[facility] (MEDICARE REPLACEMENT/ ADVANTAGE - HMO) Radha Kenneyd [id number] Radha Kennedy Notes Date Note Type Note [...] to provide history and also helped with Malaysian translation. Neither she nor her son noticed any difficulty with her hearing in general. She does noticed tinnitus bilaterally KATHRIN CAMPBELL MD [address] [place] [address], [place], [phone], [facility] - [facility] 09/26/2024 11:04:24 OBGyn Episode No OBEpisode recorded.
--- OUTSIDE RECORDS SUMMARY | 2024-10-08 12:35 | XMS_ITS | Encounter Summary ---
Author Organization [employer] [facility] Address [address] [facility] [address] [place] [address] Care Team Providers Care Strategic Partnership Manager Name Role Phone Unavailable Primary Care Provider Unavailabl e Encounter Details Date Type Department Care Team (Latest Contact Info) Description 02/15/2019 Abstract [facility] CONVERSIONS Dental, Provider, DDS Social History [...]
--- OUTSIDE RECORDS SUMMARY | 2024-10-08 12:35 | XMS_ITS | Clinical Summary ---
Author Organization [facility] Address [address] [facility] [address]t [place] [address] Care Team Providers Care Power Line Installer And Repairer Name Role Phone Unavailable Primary Care Provider [...]
--- OUTSIDE RECORDS SUMMARY | 2024-10-08 12:35 | XMS_ITS | Clinical Summary ---
Author Organization [address] [place] [address] Address [address] [place] [address] Phone Care Team Providers Care Pipe Blanks Cut Off Saw Operator Name Role Phone Lakeisha Lamas MD Primary Care Provider Encounters Date Type Department Care Team Description 09/02/2024 2:00 PM EST Consult Orthopedic [place] [address] [phone] Ruddy Hogan DPM Pain in toes of [...] 11/04/2024 9:45 AM EDT Office Visit Orthopedic [facility] [address] [phone] Ruddy Hogan DPM [address] [address] Health Maintenance Due Date Last Done Comments [...] Influencers of Health Screening 08/27/2024 RSV Immunization Adult Patients (1 - 1-dose 75+ series) 01/16/2028 DTaP,Tdap,and [...] age to complete this topic Meningococcal B Vaccine Aged Out No l onger eligible based on patient's age to complete [...] Insurance [facility] [employer] Care Teams Pipe Blanks Cut Off Saw Operator Relationship Specialty Start Date End Date Lakeisha Lamas MD [address] [facility] , [address] [facility] D/B/A: [facility] [place] PCP - General Internal Medicine 08/26/24
== END 2024-10-08 11:17 | disposition home or self-care (01) ==
LOC: HO.HGI 10:32
PROVIDERS: PCP Internal Medicine; Visit Provider Nurse Practitioner
DX: K59.04 Chronic idiopathic constipation (principal); K21.9 Gastro-esophageal reflux disease without esophagitis
CPT/HCPCS: 99213

== ENCOUNTER → 2024-10-08 10:32 | Outpatient (BNVA) | payer OTHER, SELFPAY | PROVIDERS: PCP Internal Medicine; Visit Provider Nurse Practitioner | DX: K59.04 Chronic idiopathic constipation (principal); K21.9 Gastro-esophageal reflux disease without esophagitis | CPT/HCPCS: 99212 ==

== ENCOUNTER → 2024-10-24 09:31 | Outpatient (BNVA) | payer OTHER, SELFPAY | PROVIDERS: PCP Internal Medicine ==

== ENCOUNTER 2024-11-08 10:40 | Outpatient (AMB) | payer OTHER, SELFPAY ==
[2024-11-08 10:52] VITALS: BP 138/80; PULSE 91; TEMP 36.8; O2SAT 97; BMI 23.0
--- NOTE | 2024-11-08 10:52 | AM.OFFWIN_ITS ---
Intake Vital Signs 3 11/08/24 10:52 Height 5 ft 4 in Weight 134 lb BMI 23.0 BP 138/80 Blood Pressure Location Rt brachial Position Sitting Pulse 91 Pulse Source Pulse Oximeter Temp 98.2 F Temp Source Oral Pulse Oximetry (%) 97 Intake Visit Reasons: EP pain on LT side of face & eye Patient Tobacco Use Status: Never used Tobacco Concrete Gun Operator Required: Yes Concrete Gun Operator Language: Emirati Information Interpreted: non-clinical & clinical Allergies amlodipine Allergy (Mild, Verified 11/08/24 10:53) leg edema aspirin [Aspirin] Allergy (Mild, Verified 11/08/24 10:53) ULCER HX, abdominal pain latex [Latex] Allergy (Mild, Verified 11/08/24 10:53) RASH metronidazole [Flagyl] Allergy (Mild, Verified 11/08/24 10:53) rash Do you need a note to return to daycare/school/sports/work: No HPI EP pain on LT side of face & eye 2 HPI0 Details The patient is a 69-year-old female presenting with left facial swelling and a possible dental infection. The patient reported awakening today with a slightly swollen left eye, and tenderness/swelling over her left cheek/side of face. The patient mentioned having an issue with a molar on the right side, which has been damaged, though it is unclear whether this is related to the left-sided facial swelling. There were no symptoms of fever, cough, or ear pain. She denied any recent illness or other facial pain. She reported no alleviation or worsening factors related to this condition. The patient has not consulted her dentist regarding the dental issue. [facility] Medical History Encounter for Medicare annual wellness exam Skin lesion Right knee pain Arthritis of right knee Vertigo Pre-op examination Arrhythmia Preop exam for internal medicine Family history of polyps in the colon Screening for colon cancer Left foot pain Sinus tachycardia RUQ abdominal pain Forgetfulness Hemorrhoids Cervical cancer screening Adult general medical exam Post-menopausal Diverticulitis large intestine Atypical facial pain Multinodular thyroid Cough Low back pain Bleeding hemorrhoids History of diverticulitis Osteoarthritis of right knee Right shoulder pain Neck pain Osteopenia Mild depression TMJ (temporomandibular joint syndrome) GERD (gastroesophageal reflux disease) Allergic rhinitis Hypovitaminosis D Hypothyroidism Essential hypertension Surgical History Hx of biopsy History of root canal procedure Hx of colonoscopy History of prolapse of bladder Hx of cone biopsy of cervix History of tubal ligation Family History Father Liver problem CVD (cardiovascular disease) Mother Diabetes Stroke Alzheimer disease Chronic mental illness Maternal Grandmother Cancer Uterine cancer Paternal Uncle Diabetes Brother Cancer Family/Other Chronic mental illness Daughter No problems noted. Daughter No problems noted. Sister Alzheimer disease Social History Housing: Apartment Are you a primary daycare assistant to a significant other at home: No Alcohol intake: never Patient Tobacco Use Status: Never used Tobacco e-Cigarette/Vaping Use: Never Used Second Hand Smoke Exposure: No service: No Current occupational status: unemployed Cognitive needs: No Hearing needs: No Vision needs: Yes Review of Systems Const All systems reviewed & are unremarkable except as noted in HPI and below Physical Exam Vital Signs: Last Vital Signs Temp 98.2 F 11/08/24 10:52 Pulse 91 11/08/24 10:52 BP 138/80 11/08/24 10:52 Pulse Ox 97 11/08/24 10:52 BMI result Body Mass Index 23.0 Const General: cooperative, healthy appearing, comfortable and no acute distress Orientation/consciousness: patient oriented x3 Limitations: no limitations HEENT Head: Yes normal to inspection Ears: hearing grossly normal bilaterally, external ears normal and TM's normal bilaterally General nose exam: Normal external nose present, Normal nares present and No nasal discharge present Face and sinus: Yes Facial tenderness on exam of face and sinuses Face images: 2 1. tenderness, mild swelling Mouth: Normal oral and palatal mucosa present and moist mucous membranes Teeth and gingiva: abnormal tooth and associated gingiva lower right first molar tender, with associated gingival edema and with associated gingival fluctuance Throat: Yes tonsils normal, Yes uvula midline and Yes posterior oropharynx abnormal (Erythema) Eyes General: appearance normal, both eyes and all related structures Neck Neck: Yes normal visual inspection Resp Effort & Inspection: normal respiratory effort, able to speak in complete sentences, not tachypneic, no tripod positioning and no use of accessory muscles Skin General skin exam: no rashes or lesions noted Neuro General: patient oriented x3 Extrem General: Yes normal to inspection and Yes no clubbing, cyanosis or edema Assessment & Plan Assessment & Plan (1) Dental infection: Code(s): K04.7 - Periapical abscess without sinus Plan: For the facial swelling and suspected dental infection, I prescribed an antibiotic to target possible oral infection. The patient was advised to follow up with a dentist to evaluate and address the issue with the damaged molar, as it might be contributing to the infection and swelling observed. Should symptoms persist or worsen, particularly if swelling increases or new symptoms develop, the patient is directed to seek immediate care at an emergency department. Augmentin sent to her pharmacy. All questions were answered and patient agrees to plan. Concrete Gun Operator #: [id number] Medications: New 2 amoxicillin-pot clavulanate 875-125 mg 1 tab PO BID 10 days 20 tabs 0RF K04.7 - Periapical abscess without sinus Coding Level of Care Code Est Pt Level 4 (52339) Diagnoses Dental infection K04.7
--- OUTSIDE RECORDS SUMMARY | 2024-11-08 11:08 | XMS_ITS | Encounter Summary ---
Author Organization [facility] Address [address] [place] [phone] Care Team Providers Care Special Services Director Name Role Phone Lakeisha Lamas MD Primary Care Provider [phone] Reason for Visit * Reason Comments Ankle Pain Fu pain right ankle and joints * Consultation (Routine) - Authorized Specialty Diagnoses / Procedures Referred By Contact Referred To Contact Podiatry / Orthopaedic Surgery Diagnoses Pain in right ankle and joints of right foot Lakeisha Lamas MD [address] [place] [address] [address], [address] [facility] D/B/A: [facility] [place], [place] Phone: tel: fax: Ruddy Hogan DPM [address] [address] Phone: tel: fax: Referral ID Status Reason Start Date Expiration Date Visits Requested Visits Authorized [id number] Authorized Specialty Services Required 09/02/2024 09/01/2025 6 6 Encounter Details Date Type Department Care Team (Late st Contact Info) Description 11/04/2024 9:45 AM EDT Office Visit Orthopedic Surgery - [place] [address] [place] [phone] Ruddy Hogan DPM [address] [facility] [address] [place] [phone] Pain in right ankle and joints of right foot (Primary Dx); Pain in toes of both feet; Nail dystrophy Social History Tobacco Use Types Packs/Day Years Used Date Smoking Tobacco: Never Assessed Comments Unknown Sex and Gender Information Value Date Recorded Sex Assigned at Not on file Legal Sex Female 3:33 PM EST Gender Identity Not on file Sexual Orientation Not on file documented as of this encounter Progress Notes * Ruddy Hogan DPM - 11/04/2024 9:45 AM EDT Referring MD: Lakeisha Lamas MD Last PCP visit: 06/15/2024 IDENTIFIER: @TITLE@ Brent is a 69 y.o. year old female who presents for consultation. CC: Bilateral foot pain HPI: 69-year-old female returns the office for chief complaint of bilateral foot pain. Patient notes that her right toe continues to be painful on ambulation. Patient relates that she has been trying to use topical zuqy-zng-gdvlyck medication without success. Patient recently had a nail biopsy and like to review results. Patient notes that she continues to have some increased pain and swelling across the right midfoot from time to time. Patient is wearing supportive shoes. Patient is here for evaluation treatment ROS: [...] have been marked as taking for the 11/04/24 encounter (Office Visit) with Ruddy Hogan DPM. ALLERGIES: @ALL@ PHYSICAL EXAM: There were [...] plantar calcaneal spur IMPRESSION: 1. Pain in right ankle and joints of right foot 2. Pain in toes of both feet 3. Nail dystrophy PLAN: Pt was seen and examined, history reviewed. Patient continues to have some increased pain to the midfoot. Patient. She has topical analgesics to limit the pain. Patient also instructed to wear more supportive shoe for ambulation in order to limit pain and swelling from time to time Patient is nail biopsy results shows a negative onychomycosis. Patient was educated that she could start using topical Vicks and apple cider vinegar soaks as a way to limit the thickness and the color changes as the nail plate and misshapened dystrophic nature is coming from previous nail trauma and not from a fungus Ruddy Hogan DPM documented in this encounter Plan of Treatment Upcoming Encounters Date Type Department Care Team (Late st Contact Info) Description 02/04/2025 9:30 AM EDT Office Visit Orthopedic Surgery - [place] [address] [phone] Ruddy Hogan DPM [address] [address] documented as of this encounter Visit Diagnoses Diagnosis Pain in right ankle and joints of right foot- Primary Pain in toes of both feet Nail dystrophy Other specified disease of nail documented in this encounter Care Teams Special Services Director Relationship Specialty Start Date End Date Lakeisha Lamas MD 2 [facility] , [address] [facility] D/B/A: [facility] PCP - General Internal Medicine 08/26/24 documented as of this encounter
--- OUTSIDE RECORDS SUMMARY | 2024-11-08 11:08 | XMS_ITS | Clinical Summary ---
Author Organization [employer] Address 75 [facility] 7t [place] [address] Care Team Providers Care Pipe Organ Mechanic Apprentice Name Role Phone Unavailable Primary Care Provider [...] 2 - PPSV23) 12/29/2019 12/28/2018 COVID-19 Vaccine (1 - season) 2024 Influenza Vaccine (#1) 2024 [...]
--- OUTSIDE RECORDS SUMMARY | 2024-11-08 11:08 | XMS_ITS | Clinical Summary ---
Author Organization [address] [place] [address] Address 175 [place] [address] Phone Care Team Providers Care Food Service Coordinator Name Role Phone Lakeisha Lamas MD Primary Care Provider [phone] Allergies No known active allergies Encounters Date Type Department Care Team Description 11/04/2024 9:45 AM EDT Office Visit Orthopedic [place] [address] [phone] Ruddy Hogan DPM Pain in right ankle and joints of right foot (Primary Dx); Pain in toes of both feet; Nail dystrophy 09/02/2024 2:00 PM EST Consult Orthopedic [facility] [address] [phone] Ruddy Hogan DPM Pain in toes of [...] Upcoming Encounters Date Type Department Care Team ([facility] st Contact Info) Description 02/04/2025 9:30 AM EDT Office Visit Orthopedic [facility] [address] [phone] Ruddy Hogan DPM [address] [address] Health Maintenance Due Date Last Done Comments [...] Insurance [employer] Care Teams Food Service Coordinator Relationship Specialty Start Date End Date Lakeisha Lamas MD [address] [place] [address] , [address] [facility] D/B/A: [facility] PCP - General Internal Medicine 08/26/24
--- OUTSIDE RECORDS SUMMARY | 2024-11-08 11:08 | XMS_ITS | Data Portability ---
Author Organization [place] [facility], [facility] Address [address] [address] Care Team Providers Care Swimming Pool Attendant Name Role Phone LAKEISHA GARCIA Primary Care Provider [phone] Assessment No assessment recorded. Plan of Treatment [...] Sensorineur al hearing loss of bilateral ears [id number] Active 2024 ARMEN OCAMPO [place], [facility] [address] [place] [address], [place], [phone], [facility] - [facility] 5 10:02:04 Vertigo 167562582 Active 2024 ARMEN OCAMPO [place], [facility] [address] [place] [address], [place], [phone], [facility] - [facility] 5 10:02:35 Bilateral tinnitus [id number] Active 2024 ARMEN OCAMPO [place], [place] [address], [place], [phone], [facility] - [facility] 10:02:43 Benign paroxysmal positional vertigo 991698087 Active 2024 KATHRIN CAMPBELL MD 100 [facility] 100, [facility] [place], [phone], [facility] - [facility] 11:01:39 Problem Notes None recorded. Procedures Surgical History Date Name Laterality Status Provider Name and Address Organization Details Recorded Time 09/26/2024 Comp Audio with Tymps - 18684 & 00134 completed ARMEN OCAMPO [place], CCC-A 100 [facility] 100, [place], [phone], [facility] - [facility] 09/26/2024 10:02:57 Imaging Results Imaging Date Name Status LastModified by Organiz ation Details LastModified Time 09/26/2024 audiogram completed [facility] Information no t available 09/26/2024 12:11:50 Procedure Notes None recorded. Medical Equipment None Reported. Allergies Allergen ID Allergen Name Allergen Category Reaction Reaction Severity Criticality Documentation Date Start Date Code Code System Note Provider Name and Address Organization Details Recorded Time 723990 aspirin medicatio n Not available Not available Not available 09/26/2024 1191 RxNorm Lakeisha adams [place] - [facility] 10:00:03 Medications Name Sig Start Date [...] SNOMED-CT Code Diagnosis ICD10 Code Diagnosis Note [id number] KATHRIN CAMPBELL MD [facility] [address] [phone] 09/26/2024 09:18:55 09/26/2024 11:02:37 Sensorineural hearing loss of bilateral ears [id number] H90.3 Audiologic al evaluation results:Ri ght ear:{{Norm [...] subjective changes in hearing*}} . Bilateral tinnitus [address] 102 H93.13 Today we discussed the pathophysi [...] and NSAIDs. Benign par oxysmal positional vertigo [id number] H81.10 Patient with recent history of episodic positional ly induced vertigo, now resolved. Malika-Hallpi ke was negative for vertigo and rotary [...] Recorded Advance Directives Directive None Recorded Payers Insurance Date Sequence Insurance Name Policy Number Policy Donahue Covered Member ID Donahue Member ID Guarantor Name 09/23/2024 1 [employer] - DUAL ELIGIBLE - [facility] (MEDICARE REPLACEMENT/ ADVANTAGE - HMO) Radha Kennedy [id number] Radha Kennedy Notes Date Note Type Note [...] to provide history and also helped with Urdu translation. Neither she nor her son noticed any difficulty with her hearing in general. She does noticed tinnitus bilaterally KATHRIN CAMPBELL MD [address] [place] [address], [place], [address], [facility] - [facility] 09/26/2024 11:04:24 OBGyn Episode No OBEpisode recorded.
--- OUTSIDE RECORDS SUMMARY | 2024-11-08 11:08 | XMS_ITS | Encounter Summary ---
Author Organization [employer] [facility] Address 75 [facility] 7t [place] [address] Care Team Providers Care Echometer Engineer Name Role Phone Unavailable Primary Care Provider Unavailabl e Encounter Details Date Type Department Care Team (Latest Contact Info) Description 02/15/2019 Abstract [facility] CONVERSIONS Dental, Provider, DDS Social History Tobacco [...]
== END 2024-11-08 11:37 | disposition home or self-care (01) ==
PROVIDERS: PCP Internal Medicine; Visit Provider Nurse Practitioner Family
DX: K04.7 Periapical abscess without sinus (principal)

== ENCOUNTER → 2024-11-08 10:40 | Outpatient (BNVA) | payer OTHER, SELFPAY | PROVIDERS: PCP Internal Medicine; Visit Provider Nurse Practitioner Family | DX: K04.7 Periapical abscess without sinus (principal) | CPT/HCPCS: 99212 ==

== ENCOUNTER 2024-12-19 08:17 | Outpatient (REF) | payer OTHER, SELFPAY ==
--- OUTSIDE RECORDS SUMMARY | 2024-12-19 08:26 | XMS_ITS | Clinical Summary ---
Author Organization [employer] Address 75 [facility] 7t [place] [address] Care Team Providers Care Concrete Block Maker Name Role Phone Unavailable Primary Care Provider [...] Vaccine ( - season) 2024 Influenza Vaccine (Season Ended) 2025 08/09/2018, 06/15/2015, 08/11/2014, Additional history exists RSV Patients [...]
[2024-12-19 09:57] LABS: Alanine Aminotransferase 22 U/L (0-31); Albumin Level 4.4 g/dL (3.5-5.0); Alkaline Phosphatase 55 U/L (39-117); Anion Gap 9 (12-20); Aspartate Amino Transferase 22 U/L (5-31); Bilirubin Total 0.5 mg/dL (0.0-1.0); Blood Urea Nitrogen 14 mg/dL (9-16); Calcium 9.9 mg/dL (8.4-10.2); Carbon Dioxide 29 mmol/L (22-29); Chloride 108 mmol/L (96-108); Estimated Glomerular Filt Rate > 60; Glucose Fasting 88 mg/dL (60-99); Potassium 4.1 mmol/L (3.3-5.1); Sodium 142 mmol/L (135-145); Total Protein 7.7 g/dL (6.5-8.0)
[2024-12-19 10:22] LABS: Vitamin D 25-OH Total 58.5 ng/mL (>30)
== END 2024-12-19 08:18 | disposition home or self-care (01) ==
LOC: HO.LAB 08:17
PROVIDERS: PCP Internal Medicine; Visit Provider Internal Medicine
DX: I10 Essential (primary) hypertension (principal); E03.9 Hypothyroidism, unspecified; E55.9 Vitamin D deficiency, unspecified
CPT/HCPCS: 36415; 80053; 82306; 84443

== ENCOUNTER 2025-04-08 10:49 | Outpatient (AMB) | payer OTHER, SELFPAY ==
--- NOTE | 2025-04-08 10:52 | MHC.OFFVIS ---
Vital Signs 04/08/25 10:54 Height 5 ft 4 in Weight 136 lb 10.986 oz BMI 23.5 BP 118/67 Blood Pressure Location Rt brachial Position Sitting Pulse 83 Pulse Oximetry (%) 100 Oxygen Delivery Method Room Air Intake Visit Reasons: gerd Intake Note: Pt c/o; no complaints. Family Reunification Specialist Required: Yes Family Reunification Specialist Language: Therapy Coordinator Services: Family Reunification Specialist Present Accompanied by: Self / Same As Patient Allergies amlodipine Allergy (Mild, Verified 04/08/25 10:54) leg edema aspirin (Aspirin) Allergy (Mild, Verified 04/08/25 10:54) ULCER HX, abdominal pain latex (Latex) Allergy (Mild, Verified 04/08/25 10:54) RASH metronidazole (Flagyl) Allergy (Mild, Verified 04/08/25 10:54) rash HPI HPI gerd: Details: Assessment & Plan (1) Chronic idiopathic constipation: Code(s): K59.04 - Chronic idiopathic constipation Category: Medical (2) GERD (gastroesophageal reflux disease): Code(s): K21.9 - Gastro-esophageal reflux disease without esophagitis Category: Medical Qualifiers: Esophagitis presence: esophagitis presence not specified Qualified Code(s): K21.9 - Gastro-esophageal reflux disease without esophagitis Plan FAROESE #Tachira Live She continues to do well on her pantoprazole, colace, proctosol cream and bisacodyl (which she prefers to Linzess). She was recently out of control with her BP and they added another HTN medication. It is HCTZ. I advise her that this is a mild diuretic and sometimes increases CIC and to advise me. She asks if any of the medicine I rx can cause HTN, and they don't, but she is not strictly reading labels and limiting her salt. She is only limiting so, so. I print her a low Na+ food guide in Ukrainian. She has never been given this. ROV 6mos. Medications: Refilled bisacodyl 10 mg (2 x 5 mg) PO BEDTIME 60 tabs 6RF docusate sodium 100 mg PO BID 60 caps 6RF K59.01 - Slow transit constipation methylcellulose (laxative) (Fiber Laxative (methylcellulose)) 1,000 mg (2 x 500 mg) PO DAILY 60 tabs 6RF K59.01 - Slow transit constipation, Z87.19 - Personal history of other diseases of the digestive system pantoprazole 40 mg PO DAILY 30 tabs 6RF TODAYS VISIT Ukrainian #Lakeisha Bautista PFSH Medical History (Updated 04/08/25 @ 11:02 by NELLY Mckinley) Encounter for Medicare annual wellness exam Skin lesion Right knee pain Arthritis of right knee Vertigo Pre-op examination Arrhythmia Preop exam for internal medicine Family history of polyps in the colon Screening for colon cancer Left foot pain Sinus tachycardia RUQ abdominal pain Forgetfulness Hemorrhoids Cervical cancer screening Adult general medical exam Post-menopausal Diverticulitis large intestine Atypical facial pain Multinodular thyroid Cough Low back pain Bleeding hemorrhoids History of diverticulitis Osteoarthritis of right knee Right shoulder pain Neck pain Osteopenia Mild depression TMJ (temporomandibular joint syndrome) GERD (gastroesophageal reflux disease) Allergic rhinitis Hypovitaminosis D Hypothyroidism Essential hypertension Surgical History (Updated 04/08/25 @ 11:01 by NELLY Mckinley) Hx of colonoscopy Hx of biopsy History of root canal procedure History of prolapse of bladder Hx of cone biopsy of cervix History of tubal ligation Family History Father Liver problem CVD (cardiovascular disease) Mother Diabetes Stroke Alzheimer disease Chronic mental illness Maternal Grandmother Cancer Uterine cancer Paternal Uncle Diabetes Brother Cancer Family/Other Chronic mental illness Daughter No problems noted. Daughter No problems noted. Sister Alzheimer disease Social History Housing: Apartment Are you a primary director of medicare to a significant other at home: No Alcohol intake: never Patient Tobacco Use Status: Never used Tobacco e-Cigarette/Vaping Use: Never Used Second Hand Smoke Exposure: No service: No Current occupational status: unemployed Cognitive needs: No Hearing needs: No Vision needs: Yes Review of Systems Const Denies fatigue, Denies fever(s), Denies night sweats, Denies poor appetite and Denies weight loss Eyes Reports requires corrective lenses ENT Reports Normal hearing present, Denies dental pain, Denies dysphagia, Denies hearing loss, Denies mouth pain, Denies odynophagia, Denies throat swelling, Denies tongue swelling and Reports other (Dentition adequate) GI Details: Denies abdominal pain, Denies melena, Denies bloating, Denies hematochezia, Denies constipation, Denies GI cramping, Denies dysphagia, Denies excessive flatus, Denies early satiety, Denies heartburn, Denies diarrhea, Denies nausea, Denies odynophagia, Denies vomiting and Denies hematemesis Skin/Breast Denies pruritus, Denies lesions, Denies rash and Denies jaundice Neuro Reports Normal hearing present and Denies Abnormal speech present Endo Denies fatigue Aller/Immun Denies throat swelling and Denies tongue swelling Physical Exam Vital Signs: Last Vital Signs Pulse 83 04/08/25 10:54 BP 118/67 04/08/25 10:54 Pulse Ox 100 04/08/25 10:54 Oxygen Delivery Method Room Air 04/08/25 10:54 BMI result Body Mass Index 23.5 Const General: cooperative, no acute distress, well developed and well groomed Nutritional Appearance: well nourished, obese and overweight Orientation/consciousness: oriented to person, oriented to place and oriented to time Limitations: No language barrier, ambulation with cane, ambulation with walker and wheelchair HEENT Head: Yes normocephalic and Yes atraumatic Eyes General: appearance normal, both eyes and all related structures Pupils: Equal, round and reactive pupils present Neck Neck: Yes normal visual inspection and Yes no lymphadenopathy Thyroid: Thyroid normal Resp Effort & Inspection: normal respiratory effort and able to speak in complete sentences Auscultation: clear to auscultation bilaterally Cardio Rate: regular rate Rhythm: regular rhythm Heart sounds: Normal, physiologic split S2 sound present Peripheral pulses: radial pulses present and posterior tibial pulses present GI Inspection: No distended and No Abdominal panniculus present Palpation (GI): Soft to palpation, nontender, no guarding, not rigid, No hepatosplenomegaly present and Hepatosplenomegaly present Percussion: Yes normal to percussion Auscultation: normal bowel sounds Rectal Exam - Female: deferred Skin General skin exam: no rashes or lesions noted, turgor normal, skin not dry, no jaundice, No spider nevi and no striae Rashes: no rashes Nails: normal Neuro General: oriented to person, oriented to place and oriented to time Cranial nerves: Yes Equal, round and reactive pupils present and Yes Normal hearing present Speech: No Abnormal speech present Extrem General: Yes normal to inspection, No clubbing, No cyanosis and No edema Psych Thought process: Normal thought process present and not confabulating Thought content: Normal thought content present Insight: Good insight present (Psych) Judgement: Good judgement present (Psych) Assessment & Plan Assessment & Plan (1) GERD (gastroesophageal reflux disease): Code(s): K21.9 - Gastro-esophageal reflux disease without esophagitis Category: Medical Qualifiers: Esophagitis presence: esophagitis presence not specified Qualified Code(s): K21.9 - Gastro-esophageal reflux disease without esophagitis (2) Chronic idiopathic constipation: Code(s): K59.04 - Chronic idiopathic constipation Category: Medical Plan [place] #Lakeisha Live She continues to do well on her pantoprazole, colace, proctosol cream and bisacodyl (which she prefers to Linzess). I had given her so antibiotics to take when she travels in case she developed diverticulitis. Fortunately she did not have to use it and still has the Augmentin on hand. She asks when she is due for colonoscopy and I look it up and she had 1 in 2023 and with a negative family history and a negative history of polyp she will not be due again until 2033. Return office visit in 6 months Medications: Refilled docusate sodium 100 mg PO BID 60 caps 6RF K59.01 - Slow transit constipation pantoprazole 40 mg PO DAILY 30 tabs 6RF Discontinued amoxicillin-pot clavulanate 875-125 mg Discontinued Reason: Patient Completed Course 1 tab PO BID 10 days 20 tabs 0RF K04.7 - Periapical abscess without sinus Coding Level of Care Code Est Pt Level 3 (87587) Diagnoses Gastroesophageal reflux disease, unspecified whether esophagitis present K21.9 Esophagitis presence: esophagitis presence not specified Chronic idiopathic constipation K59.04
[2025-04-08 10:54] VITALS: BP 118/67; PULSE 83; O2SAT 100; BMI 23.5
--- OUTSIDE RECORDS SUMMARY | 2025-04-08 13:16 | XMS_ITS | Clinical Summary ---
Author Organization [employer] Address [address] [facility] 7t [place] [address] Care Team Providers Care Back Up Machine Operator Name Role Phone Unavailable Primary Care [...] 12/29/2019 12/28/2018 COVID-19 Vaccine (1 - season) 2025 Influenza Vaccine (#1) 2025 9, 06/15/2015, 08/11/2014, Additional history exists RSV [...]
--- OUTSIDE RECORDS SUMMARY | 2025-04-08 13:16 | XMS_ITS | Clinical Summary ---
Author Organization [address] [place] [address] Address 175 [place] [address] Phone Care Team Providers Care Tax Manager Public Name Role Phone Lakeisha Lamas MD Primary Care Provider [phone] Allergies No known active allergies Social History Tobacco Use Types Packs/Day Years Used Date Smoking Tobacco: Never Assessed Comments Unknown Sex and Gender Information Value Date Recorded Sex Assigned at Not on file Legal Sex Female 3:33 PM EST Gender Identity Not on file Sexual Orientation Not on file Plan of Treatment Upcoming Encounters Date Type Department Care Team ([facility] Contact Info) Description 04/30/2025 11:00 AM EDT Office Visit Orthopedic Surgery - [place] [address] [phone] Ruddy Hogan, DPCaryl [address] [address] Health Maintenance Due Date Last Done Comments Breast Cancer Screening 1955 Colorectal Cancer Screening: Colonoscopy 1955 Hepatitis B Vaccines (2 of 3 - 19+ 3-dose series) 02/03/2015 01/06/2015 Depression Screening 07/03/2024 Falls Risk Assessment 08/27/2024 Hepatitis C Screening 08/27/2024 Medicare Annual Wellness Visit 08/27/2024 Osteoporosis Screening (Bone Density Screening) 08/27/2024 Social Influencers of Health Screening 08/27/2024 COVID-19 Vaccine ( season) 2025 12/31/2020, 12/10/2020 Influenza Vaccine (#1) 2025 , 04/03/2023, 09/15/2021, Additional history exists RSV Immunization Adult Patients (1 - 1-dose 75+ series) 01/16/2028 DTaP,Tdap,and Td Vaccines (6 - Td or Tdap) 09/16/2031 09/15/2021, 10/26/2018, 02/03/2014, Additional history exists Zoster Vaccines Completed 05/02/2019, 12/28/2018 Pneumococcal Vaccine: 50+ Years Completed 08/20/2019, 12/28/2018 HIB Vaccines Aged Out No longer [...] on patient's age to complete this topic Insurance [employer] Care Teams Tax Manager Public Relationship Specialty Start Date End Date Lakeisha Lamas MD [address] [place] [address] , [address] [facility] D/B/A: [facility] PCP - General Internal Medicine 08/26/24
--- OUTSIDE RECORDS SUMMARY | 2025-04-08 13:16 | XMS_ITS | Encounter Summary ---
Author Organization [employer] [facility] Address 75 [facility] 7t [place] [address] Care Team Providers Care Soldering Machine Tender Name Role Phone Unavailable Primary Care Provider Unavailabl e Encounter Details Date Type Department Care Team (Latest Contact Info) Description 02/15/2019 Abstract [facility] CONVERSIONS Dental, Provider, DDS Social History [...]
== END 2025-04-08 11:09 | disposition home or self-care (01) ==
LOC: HO.HGI 10:50
PROVIDERS: PCP Internal Medicine; Visit Provider Nurse Practitioner
DX: K21.9 Gastro-esophageal reflux disease without esophagitis (principal); K59.04 Chronic idiopathic constipation
CPT/HCPCS: 99213

== ENCOUNTER → 2025-04-08 10:49 | Outpatient (BNVA) | payer OTHER, SELFPAY | PROVIDERS: PCP Internal Medicine; Visit Provider Nurse Practitioner | DX: K21.9 Gastro-esophageal reflux disease without esophagitis (principal); K59.04 Chronic idiopathic constipation | CPT/HCPCS: 99212 ==

== ENCOUNTER 2025-04-16 09:01 | Outpatient (AMB) | payer OTHER, SELFPAY ==
--- NOTE | 2025-04-16 09:03 | A.OFFVIS_ITS ---
Intake Visit Reasons: 6 mo fu [facility] Chemistry Technologist Required: Yes Chemistry Technologist Name: #[id number] Allergies amlodipine Allergy (Mild, Verified 04/16/25 09:09) leg edema aspirin (Aspirin) Allergy (Mild, Verified 04/16/25 09:09) ULCER HX, abdominal pain latex (Latex) Allergy (Mild, Verified 04/16/25 09:09) RASH metronidazole (Flagyl) Allergy (Mild, Verified 04/16/25 09:09) rash Medication List - Last Reconciled 04/16/25 by Lorena Diego CNP albuterol sulfate 90 mcg/actuation 2 inhalations inhalation Q4-6H PRN bisacodyl 10 mg (2 x 5 mg) PO BEDTIME blood pressure monitor As directed calcium carbonate 600 mg PO BID cholecalciferol (vitamin D3) 25 mcg PO DAILY 30 days docusate sodium 100 mg PO BID levothyroxine 50 mcg PO QAM 90 days loratadine 10 mg PO DAILY 30 days losartan 100 mg PO DAILY 90 days meclizine 25 mg PO DAILY PRN 7 days methylcellulose (laxative) (Fiber Laxative (methylcellulose)) 1,000 mg (2 x 500 mg) PO DAILY oevhtcxcbiea-fjow-iwsxk acid 18-400 mg-mcg (Centrum Complete) 1 tab PO DAILY pantoprazole 40 mg PO DAILY spironolactone 25 mg PO DAILY 90 days tizanidine 2 mg PO BID PRN 30 days HPI Comments Details: She was doing okay until about a week ago when she started with some increased R sided jaw pain. She was taking tizanidine as needed which helped some. She was not taking naproxen or ibuprofen, which she previously used in the past with good relief. She tried Tylenol which did not help. Memory was the about same, some?forgetfulness and will sometimes misplace things around the house.? Forgetfulness, repeating and some change in personality with FH of AD in mother and sister. She has a 5+ year history of right lower facial pain and TMJ pain worse with eating. Insurance denied CT and MRI of TMJs. [facility] Medical History (Updated 04/16/25 @ 09:07 by Lorena Diego CNP) Encounter for Medicare annual wellness exam Skin lesion Right knee pain Arthritis of right knee Vertigo Pre-op examination Arrhythmia Preop exam for internal medicine Family history of polyps in the colon Screening for colon cancer Left foot pain Sinus tachycardia RUQ abdominal pain Forgetfulness Hemorrhoids Cervical cancer screening Adult general medical exam Post-menopausal Diverticulitis large intestine Atypical facial pain Multinodular thyroid Cough Low back pain Bleeding hemorrhoids History of diverticulitis Osteoarthritis of right knee Right shoulder pain Neck pain Osteopenia Mild depression TMJ (temporomandibular joint syndrome) GERD (gastroesophageal reflux disease) Allergic rhinitis Hypovitaminosis D Hypothyroidism Essential hypertension Surgical History (Updated 04/08/25 @ 11:01 by NELLY Mckinley) Hx of colonoscopy Hx of biopsy History of root canal procedure History of prolapse of bladder Hx of cone biopsy of cervix History of tubal ligation Family History Father Liver problem CVD (cardiovascular disease) Mother Diabetes Stroke Alzheimer disease Chronic mental illness Maternal Grandmother Cancer Uterine cancer Paternal Uncle Diabetes Brother Cancer Family/Other Chronic mental illness Daughter No problems noted. Daughter No problems noted. Sister Alzheimer disease Social History Housing: Apartment Are you a primary plant care worker to a significant other at home: No Alcohol intake: never Patient Tobacco Use Status: Never used Tobacco e-Cigarette/Vaping Use: Never Used Second Hand Smoke Exposure: No service: No Current occupational status: unemployed Cognitive needs: No Hearing needs: No Vision needs: Yes Review of Systems Const Denies chills, Denies daytime sleepiness, Denies difficulty sleeping, Denies fatigue, Denies fever(s), Denies frequent falls, Denies headache(s), Denies increased appetite, Denies poor appetite, Denies snoring, Denies weakness, Denies weight gain and Denies weight loss Eyes Denies loss of vision ENT Denies vertigo, Denies dizziness, Denies headache(s) and Denies neck pain Card Denies chest pain at rest, Denies chest pain with activity, Denies syncope, Denies leg edema, Denies palpitations, Denies dyspnea and Denies dyspnea on exertion Resp Denies cough, Denies dyspnea, Denies dyspnea on exertion and Denies snoring GI Denies abdominal pain, Denies constipation, Denies heartburn, Denies diarrhea and Denies nausea Denies urinary frequency, Denies urinary incontinence and Denies urinary urgency Musc Denies abnormal gait, Denies back pain, Denies myalgias, Denies arthralgias, Denies neck pain, Denies numbness and Denies tingling Neuro Denies abnormal gait, Denies vertigo, Denies dizziness, Denies syncope, Denies frequent falls, Denies headache(s), Denies lack of coordination, Denies loss of vision, Reports memory loss, Denies numbness, Denies Other visual disturbances, Denies restless legs, Denies seizure-like activity, Denies tingling, Denies paresthesias, Denies tremor(s) and Denies weakness Psych Denies anxiety, Denies depression, Denies auditory hallucinations, Reports memory loss and Denies visual hallucinations Endo Denies fatigue and Denies palpitations Physical Exam Const Other: General Appearance:? normal, in no acute distress. Skin:? no rashes, no significant birthmarks. Heart:? S1, S2 normal, no murmurs. Lungs:? clear anteriorly and posteriorly. Extremities:? no edema. Psych:? alert, cooperative with exam. Neuro Other: Mental Status:?Normal attention, orientation, memory and affect.? Cranial Nerves:?Pupils are equal, round and reactive to light. External occular muscles are intact. Visual dueñas are full. Face is symmetrical. Facial sensations are normal. Tongue is midline. Palate elevates symmetrically. Shoulder shrugging is normal. Hearing to bedside conversation is normal. Motor Examination:?Mild L APB atrophy. Clicking R TMJ. DTRs 2+ with plexor plantars. Sensory Exam:?....? Coordination:?No ataxia,?no titubation.? Gait Exam: Within normal limits. Cerebellar Signs:?Wlkzlm-hs-gujw is okay. Extrapyramidal System:?No tremor, rigidity with normal facial expressions.? Pronator Drift:?Not present.? Involuntary Movements:?No tremors seen.? Speech:?Normal.? Results Reviewed Results Reviewed: 01/28/2022 EEG: WN 01/12/2022 labs: WN Assessment & Plan Assessment & Plan (1) TMJ (temporomandibular joint syndrome): Code(s): M26.609 - Unspecified temporomandibular joint disorder, unspecified side Category: Medical Plan: Increase tizanidine 2mg three times a day as needed for pain. Start naproxen 500mg 1 tablet as needed with food or milk q12h for pain, use/side effects reviewed. (2) MCI (mild cognitive impairment): Code(s): G31.84 - Mild cognitive impairment of uncertain or unknown etiology Category: Medical Plan: Stay physically and socially active. Medications: New tizanidine 2 mg PO TID PRN 90 tabs 2RF muscle spasticity, pain 30 days naproxen take with food or milk 500 mg PO BID PRN 30 tabs 2RF pain 30 days Discontinued tizanidine Discontinued Reason: Doctor's Order 2 mg PO BID 30 days PRN 60 tabs 0RF muscle spasticity Coding Level of Care Code Est Pt Level 4 (52333) Diagnoses TMJ (temporomandibular joint syndrome) M26.609 MCI (mild cognitive impairment) G31.84
--- OUTSIDE RECORDS SUMMARY | 2025-04-16 09:50 | XMS_ITS | Clinical Summary ---
Author Organization [employer] Address [address] [facility] [address] [place] [address] Care Team Providers Care Toll Collector Supervisor Name Role Phone Unavailable Primary Care Provider [...]
--- OUTSIDE RECORDS SUMMARY | 2025-04-16 09:51 | XMS_ITS | Encounter Summary ---
Author Organization [employer] [facility] Address [address] [facility] 7[address] [place] [address] Care Team Providers Care Test And Research Reactor Operator Name Role Phone Unavailable Primary Care Provider Unavailabl e Encounter Details Date Type Department Care Team (Latest Contact Info) Description 02/15/2019 Abstract [facility] CONVERSIONS Dental, Provider, DDS Social [...]
--- OUTSIDE RECORDS SUMMARY | 2025-04-16 09:51 | XMS_ITS | Clinical Summary ---
Author Organization [address] [place] [address] Address [address] [place] [address] Phone Care Team Providers Care Community Cultural Development Officer Name Role Phone Lakeisha Lamas MD Primary Care Provider [phone] Allergies No known active allergies Social History Tobacco Use Types Packs/Day Years Used Date Smoking Tobacco: Never Assessed Comments Unknown Sex and Gender Information Value Date Recorded Sex Assigned at Not on file Legal Sex Female 3:33 PM EST Gender Identity Not on file Sexual Orientation Not on file Plan of Treatment Upcoming Encounters Date Type Department Care Team ([facility] Contact Info) Description 04/30/2025 11:00 AM EDT Office Visit Orthopedic Surgery - [place] [address] [phone] Ruddy Hogan, DPCaryl [address] [address] Health Maintenance Due Date Last Done Comments [...] Insurance [employer] Care Teams Community Cultural Development Officer Relationship Specialty Start Date End Date Lakeisha Lamas MD [address] [place] [address] , [address] [facility] D/B/A: [facility] PCP - General Internal Medicine 08/26/24
== END 2025-04-16 09:23 | disposition home or self-care (01) ==
LOC: HO.HSM 09:02
PROVIDERS: PCP Internal Medicine; Referring Provider Internal Medicine; Visit Provider Registered Nurse
DX: M26.609 Unspecified temporomandibular joint disorder, unspecified side (principal); G31.84 Mild cognitive impairment of uncertain or unknown etiology
CPT/HCPCS: 99214

== ENCOUNTER → 2025-04-16 09:01 | Outpatient (BNVA) | payer OTHER, SELFPAY | PROVIDERS: PCP Internal Medicine; Referring Provider Internal Medicine; Visit Provider Registered Nurse | DX: G31.84 Mild cognitive impairment of uncertain or unknown etiology (principal); M26.601 Right temporomandibular joint disorder, unspecified | CPT/HCPCS: 99212 ==

== ENCOUNTER 2025-04-23 16:34 | Outpatient (AMB) | payer OTHER, SELFPAY ==
--- NOTE | 2025-04-23 16:47 | MHC.PC.OV ---
Vital Signs 04/23/25 16:48 Height 5 ft 4 in Weight 139 lb BMI 23.9 BP 120/62 Blood Pressure Location Lt brachial Position Sitting Respiration 18 Pulse 78 Pulse Source Pulse Oximeter Temp 97.3 F Temp Source Temporal Artery Scan Pulse Oximetry (%) 95 Oxygen Delivery Method Room Air Intake Visit Reasons: BP Motorcycle Repair Shop Supervisor Required: No Accompanied by: Self / Same As Patient Allergies amlodipine Allergy (Mild, Verified 04/23/25 17:33) leg edema aspirin (Aspirin) Allergy (Mild, Verified 04/23/25 17:33) ULCER HX, abdominal pain latex (Latex) Allergy (Mild, Verified 04/23/25 17:33) RASH metronidazole (Flagyl) Allergy (Mild, Verified 04/23/25 17:33) rash Medication List - Last Reconciled 04/23/25 by Lakeisha Lamas MD albuterol sulfate 90 mcg/actuation 2 inhalations inhalation Q4-6H PRN bisacodyl 10 mg (2 x 5 mg) PO BEDTIME blood pressure monitor As directed calcium carbonate 600 mg PO BID cholecalciferol (vitamin D3) 25 mcg PO DAILY 30 days docusate sodium 100 mg PO BID levothyroxine 50 mcg PO QAM 90 days loratadine 10 mg PO DAILY 30 days losartan 100 mg PO DAILY 90 days meclizine 25 mg PO DAILY PRN 7 days methylcellulose (laxative) (Fiber Laxative (methylcellulose)) 1,000 mg (2 x 500 mg) PO DAILY iudkhfeawabp-lyjd-guhso acid 18-400 mg-mcg (Centrum Complete) 1 tab PO DAILY naproxen 500 mg PO BID PRN 30 days pantoprazole 40 mg PO DAILY spironolactone 25 mg PO DAILY 90 days tizanidine 2 mg PO TID PRN 30 days Tobacco use date assessed: 04/23/25 Fall risk assessment: No Falls in past year Last assessed Fall Risk: 04/23/25 Dental Screening Dental Screen Date: 04/23/25 Did you have a dental visit in the last 12 months?: Yes Did you have a dental problem in the last 6 months where you did not have access to dental care?: No Was dental information given to patient?: Patient has dentist HPI HPI Comments History of Present Illness Details The patient is a 70-year-old female presenting with ongoing medical conditions and preventative care management. The patient has a history of allergic rhinitis, for which she is taking loratadine. She also has hypothyroidism managed with levothyroxine, and her thyroid function was normal in the last laboratory tests conducted in December. Hypertension is being managed with losartan 100 mg, and her blood pressure was reported as normal in recent evaluations. The patient has a history of osteopenia, diagnosed during a bone density scan in 2023, with a follow-up scheduled for 2025. She reports a rash diagnosed as jessica intertrigo, which has been causing significant itching. She has a scheduled appointment with a spring former hand in August for further evaluation. [facility] Medical History (Updated 04/24/25 @ 07:39 by Lakeisha Lamas MD) Encounter for Medicare annual wellness exam Skin lesion Right knee pain Arthritis of right knee Vertigo Pre-op examination Arrhythmia Preop exam for internal medicine Family history of polyps in the colon Screening for colon cancer Left foot pain Sinus tachycardia RUQ abdominal pain Forgetfulness Hemorrhoids Cervical cancer screening Adult general medical exam Post-menopausal Diverticulitis large intestine Atypical facial pain Multinodular thyroid Cough Low back pain Bleeding hemorrhoids History of diverticulitis Osteoarthritis of right knee Right shoulder pain Neck pain Osteopenia Mild depression TMJ (temporomandibular joint syndrome) GERD (gastroesophageal reflux disease) Allergic rhinitis Hypovitaminosis D Hypothyroidism Essential hypertension Surgical History Hx of colonoscopy Hx of biopsy History of root canal procedure History of prolapse of bladder Hx of cone biopsy of cervix History of tubal ligation Family History Father Liver problem CVD (cardiovascular disease) Mother Diabetes Stroke Alzheimer disease Chronic mental illness Maternal Grandmother Cancer Uterine cancer Paternal Uncle Diabetes Brother Cancer Family/Other Chronic mental illness Daughter No problems noted. Daughter No problems noted. Sister Alzheimer disease Social History Housing: Apartment Are you a primary hemodialysis patient care specialist to a significant other at home: No Alcohol intake: never Patient Tobacco Use Status: Never used Tobacco e-Cigarette/Vaping Use: Never Used Second Hand Smoke Exposure: No service: No Current occupational status: unemployed Cognitive needs: No Hearing needs: No Vision needs: Yes Questionnaire Thrive Questionnaire Date Thrive assessed: 09/30/24 BREANNA-7 AMB Questionnaire BREANNA-7 Date BREANNA - 7 assessed: 09/30/24 Source: Developed by Drs. Alex Cowan, Ananya Black, Seferino Vásquez and colleagues, with an educational deondre from [employer]. Review of Systems Const All systems reviewed & are unremarkable except as noted in HPI and below Card Denies chest pain at rest, Denies chest pain with activity, Denies edema, Denies irregular heart rhythm, Denies claudication, Denies dyspnea, Denies dyspnea on exertion, Denies orthopnea, Denies paroxysmal nocturnal dyspnea and Denies slow heart rate Resp Denies cough, Denies dyspnea and Denies dyspnea on exertion Physical exam (Primary Care) Vital Signs: Last Vital Signs Temp 97.3 F 04/23/25 16:48 Pulse 78 04/23/25 16:48 Resp 18 04/23/25 16:48 BP 120/62 04/23/25 16:48 Pulse Ox 95 04/23/25 16:48 Oxygen Delivery Method Room Air 04/23/25 16:48 BMI result Body Mass Index 23.9 Tobacco/Smoking Status: Tobacco use Status Tobacco use date assessed 04/23/25 04/23/25 16:52 Patient Tobacco Use Status Never used Tobacco 04/23/25 16:52 e-Cigarette/Vaping Use Never Used 04/23/25 16:52 Thrive Assessment: Date of Thrive Assessment Date Thrive assessed 09/30/24 04/23/25 16:52 Resp Effort & Inspection: normal respiratory effort Auscultation: clear to auscultation bilaterally Cardio Jugular venous distension: no JVD Rate: regular rate Rhythm: regular rhythm Heart sounds: S1 normal heart sound present and S2 normal heart sound present Extrem General: Yes full ROM Coding Level of Care Code Est Pt Level 4 (29719) Complex EM visit Add On G2211 Diagnoses Essential hypertension I10 Hypothyroidism, unspecified type E03.9 Hypothyroidism type: unspecified Osteopenia M85.80 Seasonal allergic rhinitis due to pollen J30.1 Allergic rhinitis trigger: pollen Allergic rhinitis seasonality: seasonal Candidal intertrigo B37.2 Time Spent (min) 22 Assessment & Plan Assessment & Plan (1) Essential hypertension: Code(s): I10 - Essential (primary) hypertension Category: Medical (2) Hypothyroidism: Code(s): E03.9 - Hypothyroidism, unspecified Category: Medical Qualifiers: Hypothyroidism type: unspecified Qualified Code(s): E03.9 - Hypothyroidism, unspecified (3) Osteopenia: Code(s): M85.80 - Other specified disorders of bone density and structure, unspecified site Category: Medical (4) Allergic rhinitis: Code(s): J30.9 - Allergic rhinitis, unspecified Category: Medical Qualifiers: Allergic rhinitis trigger: pollen Allergic rhinitis seasonality: seasonal Qualified Code(s): J30.1 - Allergic rhinitis due to pollen (5) Candidal intertrigo: Code(s): B37.2 - Candidiasis of skin and nail Category: Medical Plan Plan 1. Allergic rhinitis, unspecified J30.9 The patient is currently managing allergic rhinitis with loratadine, which appears to be effective. 2. Hypothyroidism, unspecified E03.9 Hypothyroidism is being managed with levothyroxine, and recent thyroid function tests were normal. 3. Essential (primary) hypertension I10 Hypertension is controlled with losartan 100 mg, and recent blood pressure readings were normal. 4. Other specified disorders of bone density and structure, unspecified site M85.80 Osteopenia was diagnosed in 2023, with a follow-up bone density scan scheduled for 2025. 5. Candidiasis of skin and nail B37.2 The patient reports a rash diagnosed as jessica intertrigo, causing significant itching, and has a dermatology appointment scheduled for further evaluation. Orders: Orders Vitamin D 25-OH Total 04/23/25 E55.9 - Vitamin D deficiency, unspecified Thyroid Stimulating Hormone 04/23/25 E03.9 - Hypothyroidism, unspecified Lipid Panel 04/23/25 E78.5 - Hyperlipidemia, unspecified Comprehensive [place]. Panel Fast 04/23/25 I10 - Essential (primary) hypertension Medications: New nystatin 1 appl topical DAILY 15 grams 0RF 2 weeks
[2025-04-23 16:48] VITALS: BP 120/62; PULSE 78; RESP 18; TEMP 36.3; O2SAT 95; BMI 23.9
--- OUTSIDE RECORDS SUMMARY | 2025-04-23 22:10 | XMS_ITS | Clinical Summary ---
Author Organization [address] [place] [address] Address [address] [place] [address] Phone Care Team Providers Care Network Coordinator Name Role Phone Lakeisha Lamas MD Primary Care Provider [phone] Allergies No known active allergies Social History Tobacco Use Types Packs/Day Years Used Date Smoking Tobacco: Never Assessed Comments Unknown Sex and Gender Information Value Date Recorded Sex Assigned at Not on file Legal Sex Female 3:33 PM EST Gender Identity Not on file Sexual Orientation Not on file Plan of Treatment Upcoming Encounters Date Type Department Care Team ([facility] Contact Info) Description 04/30/2025 11:00 AM EDT Office Visit Orthopedic Surgery - [place] [address] [phone] Ruddy Hogan, DPCaryl [address] [address] Health Maintenance Due Date Last Done Comments [...] Insurance [employer] Care Teams Network Coordinator Relationship Specialty Start Date End Date Lakeisha Lamas MD [address] [place] [address] , [address] [facility]ician [facility] D/B/A: [facility] P[facility] PCP - General Internal Medicine 08/26/24
--- OUTSIDE RECORDS SUMMARY | 2025-04-23 22:10 | XMS_ITS | Data Portability ---
Author Organization [place] - [facility], Allergy Address [address] [facility] [address] [place] [phone] Care Team Providers Care Tdp Displays Analyst Name Role Phone LAKEISHA GARCIA Primary Care [...] Sensorineur al hearing loss of bilateral ears [id number] Active 2024 ARMEN OCAMPO [place], [facility] [address] [place] [address], [place], [phone], [facility] - [facility] 5 10:02:04 Vertigo 686689355 Active 2024 ARM[facility] [place]AMPO [place], [facility] [address] [place] [address], [place], [phone], [facility] - [facility] 5 10:02:35 Bilateral tinnitus [id number] Active 2024 ARMEN OCAMPO [place], [facility] [address] [place] [address], [place], [phone], [facility] 10:02:43 Benign paroxysmal positional vertigo 667993424 Active 2024 KATHRIN CAMPBELL MD [address] [facility],[place] [address], [place], [phone], [facility] - [facility] 11:01:39 Problem Notes None recorded. Procedures Surgical History Date Name Laterality Status Provider Name and Address Organization Details Recorded Time 09/26/2024 Comp Audio with Tymps - 17349 & 15385 completed ARMEN OCAMPO [place], CCC-A [address] [place] [address], [place], [phone], [facility] 09/26/2024 10:02:57 Imaging Results None recorded. Procedure Notes None recorded. Medical Equipment None Reported. Allergies Allergen ID Allergen Name Allergen Category Reaction Reaction Severity Criticality Documentation Date Start Date Code Code System Note Provider Name and Address Organization Details Recorded Time 967414 aspirin medicatio n Not available Not available Not available 09/26/2024 1191 RxNorm Lakeisha adams [place] - [facility] 10:00:03 Medications Name Sig Start Date [...] Diagnosis SNOMED-CT Code Diagnosis ICD10 Code Diagnosis IMO Codes Diagnosis Note [id number] KATHRIN CAMPBELL MD [facility] [address] [address] 09/26/2024 09:18:55 09/26/2024 11:02:37 Sensorineural hearing loss of bilateral ears [id number] H90.3 Audiologic al evaluation results:Ri ght ear:Normal hearing thru 2000Hz sloping to a mild/moder ate SNHL with excellent word recognitio n.Left ear:Normal hearing thru 2000Hz sloping to a mild/moder ate SNHL with excellent word recognitio n. Tympanomet ry:Right Ear:Type ALeft Ear:Type APatient's audiogram shows bilateral mild bilateral sensorineu ral hearing loss with well maintained speech discrimina tion. There is not enough [...] and noise exposure. Recommend followup hearing testing as needed for subjective changes in hearing. Bilateral tinnitus 92287 [address] 102 H93.13 Today we discussed the pathophysi [...] and NSAIDs. Benign par oxysmal positional vertigo [id number] H81.10 Patient with recent history of episodic positional ly induced vertigo, now resolved. Malika-Hallpi ke was negative for vertigo and rotary nystagmus. We discussed that the patient s previous pattern of symptoms are most consistent with benign paroxysmal positional vertigo (BPPV) which has resolved spontaneou sly. The pathophysi ology of BPPV was discussed in detail. Patient currently requires no further workup or treatment. BPPV can recur and if the classic positional ly induced symptoms do recur, patient can be provided with a referral to physical therapist knowledgea ble with performanc e of Mandie maneuvers and vestibular therapy. Health Concerns Section Related Observation LastModified by Organization Detai ls LastModified Time None Recorded Concern Status LastModified by Organization Details LastModified Time None Recorded Advance Directives Directive None Recorded Payers Insurance Date Sequence Insurance Name Policy Number Policy Donahue Covered Member ID Donahue Member ID Guarantor Name 09/23/2024 1 [facility] - [facility] - [facility]ENIOR PL[facility] (MEDICARE REPLACEMENT/ ADVANTAGE - HMO) Radha Kennedy [id number] Radha Kennedy Notes Date Note Type Note Provider Name and Address Organization Details Recorded Time 09/26/2024 text/html 69-year-old female with hypertension, hypothyroidism and gastroesophageal reflux disease [...] to provide history and also helped with Indonesian translation. Neither she nor her son noticed any difficulty with her hearing in general. She does noticed tinnitus bilaterally KATHRIN CAMPBELL MD [address] [place] [address], [place], [address], [facility] - [facility] 09/26/2024 11:04:24 OBGyn Episode No OBEpisode recorded.
--- OUTSIDE RECORDS SUMMARY | 2025-04-23 22:10 | XMS_ITS | Clinical Summary ---
Author Organization [employer] Address [address] [facility] [address] [place] [address] Care Team Providers Care Dip Dyer Name Role Phone Unavailable Primary Care Provider [...]
--- OUTSIDE RECORDS SUMMARY | 2025-04-23 22:10 | XMS_ITS | Encounter Summary ---
Author Organization [employer] [facility] Address [address] [facility] [address] [place] [address] Care Team Providers Care Guard Chief Name Role Phone Unavailable Primary Care Provider Unavailabl e Encounter Details Date Type Department Care Team (Latest Contact Info) Description 02/15/2019 Abstract [facility] CONVERSIONS Dental, Provider, DDS Social History [...]
== END 2025-04-23 17:42 | disposition home or self-care (01) ==
LOC: HO.HMCH 16:34
PROVIDERS: PCP Internal Medicine; Visit Provider Internal Medicine
DX: I10 Essential (primary) hypertension (principal); E03.9 Hypothyroidism, unspecified; M85.80 Other specified disorders of bone density and structure, unspecified site; J30.1 Allergic rhinitis due to pollen; B37.2 Candidiasis of skin and nail

== ENCOUNTER → 2025-04-23 16:34 | Outpatient (BNVA) | payer OTHER, SELFPAY | PROVIDERS: PCP Internal Medicine; Visit Provider Internal Medicine | DX: I10 Essential (primary) hypertension (principal); E03.9 Hypothyroidism, unspecified; M85.80 Other specified disorders of bone density and structure, unspecified site; R21 Rash and other nonspecific skin eruption; J30.1 Allergic rhinitis due to pollen; B37.2 Candidiasis of skin and nail; Z79.899 Other long term (current) drug therapy | CPT/HCPCS: 99212 ==

== ENCOUNTER 2025-05-06 12:07 | Outpatient (REF) | payer OTHER, SELFPAY ==
--- OUTSIDE RECORDS SUMMARY | 2025-05-06 14:53 | XMS_ITS | Clinical Summary ---
Author Organization [employer] Address [address] [facility] [address] [place] [address] Care Team Providers Care Director [facility] Name Role Phone Unavailable Primary Care Provider [...]
--- OUTSIDE RECORDS SUMMARY | 2025-05-06 14:53 | XMS_ITS | Encounter Summary ---
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
== END 2025-05-06 12:08 | disposition home or self-care (01) ==
LOC: HO.MAMMO 12:07
PROVIDERS: PCP Internal Medicine; Visit Provider Internal Medicine
DX: Z12.31 Encounter for screening mammogram for malignant neoplasm of breast (principal)
CPT/HCPCS: 77063; 77067

== ENCOUNTER → 2025-05-06 12:30 | Outpatient (BNV) | payer OTHER, SELFPAY | PROVIDERS: PCP Internal Medicine; Visit Provider Radiology Body Imaging | DX: Z12.31 Encounter for screening mammogram for malignant neoplasm of breast (principal) | CPT/HCPCS: 77063; 77067 ==